=== PATIENT | male | born 1965 | race African-American/Black ===

== ENCOUNTER 2020-03-02 18:09 | Observation (INO) | payer MEDICARE, SELFPAY ==
[2020-03-02] VITALS (7 sets, daily range): BP systolic 120–144; BP diastolic 79–90; PULSE 70–97; RESP 15–18; TEMP 36.4–37.3; O2SAT 95–99; BMI 26.4; BMI 30.1
--- NOTE | 2020-03-02 18:19 | CT_ITS ---
PROCEDURE: CT ABDOMEN PELVIS W CON CLINICAL INDICATION: abd pain Abdominal pain with rectal bleeding COMPARISON: CT ABDPELW/O CT ABD PELVIS W/O CONTRAST from 01/08/2016 TECHNIQUE: IV Contrast: 75ML Isovue 370 Oral Contrast None Axial images obtained with sagittal and coronal reformats. All CT scans at the facility use one or more dose reduction, viz: automated exposure control, ma/kV adjustment per patient size (including targeted exams where dose is matched to indication, i.e. head), or iterative reconstruction technique. FINDINGS: LOWER THORAX: No acute finding ABDOMEN & PELVIS: There is a small area of decreased attenuation within the left lobe of the liver anterior to the gallbladder fossa nonspecific and could be related to area of focal fatty infiltration. The spleen and adrenal glands and pancreas have an unremarkable appearance. There is an IVC filter present with the cephalad portion just caudad to the level of the renal veins. Two faint calcifications are present within the uncinate process region of the pancreas nonspecific. There are dilated fluid-filled loops of small bowel in the abdomen and pelvis. The transition point appears to be in the left lower quadrant. There are also some fluid-filled loops of large bowel with air-fluid levels. The distal ileum does not appear distended. The appendix is not clearly delineated. Central prostate calcifications are present. There is colonic diverticulosis but no evidence of diverticulitis. No free air is evident. There are prominent mesenteric veins. The IVC may be obstructed at the tip of the filter. There is mild thickening of the urinary bladder which could be due to nondistention versus cystitis. Osteoarthritic changes are present involving the hips left greater than right. IMPRESSION: 1. Dilated loops of small bowel with air-fluid levels with possible transition point in the left lower quadrant compatible with partial small bowel obstruction. 2. Prominent mesenteric veins with possible obstruction of the IVC 3. Colonic diverticulosis without diverticulitis. 4. Mild nonspecific thickening of the urinary bladder Dictated by: Obey Renae MD 03/03/2020 10:44 Obey Renae MD in [place] 03/03/2020 10:44
--- NOTE | 2020-03-02 18:22 | HMH.EDGENADL ---
ED Disposition Condition on Discharge: Good - Critical Care Critical Care Time: No <Stan Barrera - Last Filed: 03/02/20 19:20> <Wicho Aguilar - Last Filed: 03/02/20 20:22> Clinical Impression: Small bowel obstruction GI bleed Qualifiers: GI bleed type/associated pathology: unspecified gastrointestinal hemorrhage type Qualified Code(s): K92.2 - Gastrointestinal hemorrhage, unspecified Disposition: Admitted As Inpatient Instructions: DI for Acute Abdominal Pain Referrals: Wicho Aguilar MD [Primary Care Provider] - Attestation: On 03/02/20, the high probability of a clinically significant, sudden or life threatening deterioration of the following system(s) required my full and direct attention, intervention and personal management. The time I documented below is in addition to time spent performing reported procedures but includes the following listed in this critical care notation. Medical Decision Making - Medical Records Medical records reviewed: Yes: I reviewed the patient's medical records. - Aime Inquiry Pt receiving controlled substance: No - Lab Data Lab results reviewed: Yes: I reviewed the patient's lab results. Result diagrams: 03/02/20 18:24 03/02/20 18:24 <Stan Barrera - Last Filed: 03/02/20 19:20> - Lab Data Result diagrams: 03/02/20 18:24 03/02/20 18:24 <Wicho Aguilar - Last Filed: 03/02/20 20:22> Vital Signs: 03/02/20 18:10 03/02/20 19:10 03/02/20 19:30 Temperature 99.1 F Temperature Source Oral Pulse Rate [Radial] 97 H 76 70 Respiratory Rate 16 16 16 Blood Pressure [Right Arm] 144/87 H 124/81 128/88 Blood Pressure Mean [Right Arm] 106 95 101 Blood Pressure Source [Right Arm] Automatic Cuff Automatic Cuff Blood Pressure Position [Right Arm] Sitting Sitting Sitting 02 Sat by Pulse Oximetry 97 99 98 Oxygen Delivery Method Room Air Room Air Room Air 03/02/20 20:00 Temperature Temperature Source Pulse Rate [Radial] 73 Respiratory Rate 16 Blood Pressure [Right Arm] 137/85 Blood Pressure Mean [Right Arm] 102 Blood Pressure Source [Right Arm] Automatic Cuff Blood Pressure Position [Right Arm] Sitting 02 Sat by Pulse Oximetry 98 Oxygen Delivery Method Room Air - Lab Data Lab Results 03/02/20 18:24: WBC 6.5, RBC 5.31, Hgb 15.4, Hct 47.1, MCV 88.7, MCH 29.0, MCHC 32.7, RDW 13.5, Plt Count 334, MPV 7.1 L, Neut % (Auto) 44.6, Lymph % (Auto) 44.7, [place] % (Auto) 5.1, Eos % (Auto) 4.7, Baso % (Auto) 0.9, Neut # (Auto) 2.9, Lymph # (Auto) 2.9, [place] # (Auto) 0.3, Eos # (Auto) 0.3, Baso # (Auto) 0.1 03/02/20 18:24: PT 11.4, INR 1.03, APTT 24.2 03/02/20 18:24: Sodium 141, Potassium 3.4 L, Chloride 104, Carbon Dioxide 28, Anion Gap 12.4, BUN 8 L, Creatinine 1.00, Estimated Creat Clear 108, Estimated GFR 78, Est GFR ( Amer) 94, Glucose 109 H, Calcium 9.9, Total Bilirubin 1.5 H, AST 31, ALT 22, Alkaline Phosphatase 75, Total Protein 9.2 H, Albumin 5.1 H, Globulin 4.1 H, Albumin/Globulin Ratio 1.2, Lipase 59 03/02/20 18:24: SARS-CoV-2 IgG Ab (Rapid) Negative, SARS-CoV-2 IgM Ab (Rapid) Negative 03/02/20 18:25: Stool Occult Blood Positive A 03/02/20 18:50: Blood Type A Positive, Antibody Screen Negative Orders (Tests/Meds): ED MEDICATIONS Generic Name Dose Route Start Last Admin Trade Name Freq PRN Reason Stop Dose Admin Pantoprazole Sodium 80 mg/ 100 mls @ 10 mls/hr 03/02/20 20:20 03/02/20 19:37 Sodium Chloride IV 03/05/20 20:19 10 mls/hr .Q10H JAYMIE Administration Sodium Chloride 10 ml 03/02/20 19:32 03/02/20 19:36 Sodium Chloride 0.9% 10ml Vial IV 04/01/20 19:31 10 ml NEEDED PRN Administration dilute protonix Discontinued Medications Generic Name Dose Route Start Last Admin Trade Name Freq PRN Reason Stop Dose Admin Pantoprazole Sodium 80 mg/ 100 mls @ 100 mls/hr 03/02/20 19:20 03/02/20 20:11 Sodium Chloride IV 03/02/20 20:19 Not Given ONCE ONE Iopamidol 75 ml 03/02/20 19:19 03/02/20 19:20
[2020-03-02 18:37] LABS: Occult Blood,Stool Positive (Negative)
[2020-03-02 18:47] LABS: Chloride 104 mmol/L (98-107); Potassium 3.4 mmoL/L (3.5-5.1); Sodium 141 mmol/L (136-145)
[2020-03-02 18:49] LABS: Blood Urea Nitrogen 8 mg/dl (9-20)
[2020-03-02 18:50] LABS: Alanine Aminotransferase 22 U/L (12-78); Albumin Level 5.1 g/dl (3.5-5.0); Albumin/Globulin Ratio 1.2 (1.1-1.8); Alkaline Phosphatase 75 U/L (38-126); Anion Gap 12.4 mEq/L (5-15); Aspartate Amino Transferase 31 U/L (17-59); Bilirubin,Total 1.5 mg/dl (0.2-1.3); Calcium 9.9 mg/dl (8.4-10.2); Carbon Dioxide 28 mmol/L (22.0-30.0); Creatinine Clearance Estimated 108 mL/min (50-200); Estimated Glomerular Filt Rate 78 ml/min (>60); GFR (African American) 94 ML/MIN (>60); Globulin 4.1 g/dL (1.3-3.2); Glucose 109 mg/dl (74-100); Lipase 59 U/L (23-300); Total Protein,Serum 9.2 g/dl (6.3-8.2)
[2020-03-02 18:53] LABS: Basophils # 0.1 K/mm3 (0-0.2); Basophils % 0.9 % (0.1-2.0); Eosinophils # 0.3 K/mm3 (0.0-0.4); Eosinophils % 4.7 % (0.1-12.0); Hematocrit 47.1 % (42.0-52.0); Hemoglobin 15.4 g/dL (14.1-18.0); Lymphocytes # 2.9 K/mm3 (0.7-4.5); Lymphocytes % 44.7 % (10-50); Mean Corpuscular HGB Conc 32.7 g/dL (31.8-35.4); Mean Corpuscular Volume 88.7 fl (80-94); Mean Platelet Volume 7.1 fl (7.4-10.4); Monocytes # 0.3 K/mm3 (0.1-1.0); Monocytes % 5.1 % (1.7-9.3); Neutrophils # 2.9 K/mm3 (1.8-7.8); Neutrophils % 44.6 % (37.0-80.0); Platelet Count 334 K/mm3 (142-424); Red Blood Count 5.31 M/mm3 (4.60-6.20); Red Cell Distribution Width 13.5 % (11.5-17.5); White Blood Count 6.5 K/mm3 (4.8-10.8)
[2020-03-02 19:13] LABS: Activated Partial Thrombo Time 24.2 seconds (23.6-34.0); INR 1.03 (0.9-1.1); Prothrombin Time 11.4 seconds (9.4-11.8)
--- NOTE | 2020-03-02 20:01 | PC.NURSE ---
speaking with Dr. Peck at this time.
--- NOTE | 2020-03-02 20:04 | PC.NURSE ---
called for a bed assignment, spoke with kayla. info given gi bleed, partial bowel obstruction /acute/mindy-mindy
[2020-03-02 20:17] LABS: Coronavirus 19 IgG Antibody Negative (Negative); Coronavirus 19 IgM Antibody Negative (Negative)
--- NOTE | 2020-03-02 21:50 | PC.NURSE ---
REPORT RECEIVED FROM Jayjay DUMONT RN IN ED. CHART REVIEWED, MEDS REVIEWED. STATES DR. ADRIANA SHARMA PROTONIX IV YANNICK.
--- NOTE | 2020-03-02 22:22 | PC.NURSE ---
PT ARRIVED TO FLOOR VIA WHEELCHAIR @ [id number]
[2020-03-03] VITALS (15 sets, daily range): BP systolic 106–145; BP diastolic 58–81; PULSE 52–91; RESP 12–22; TEMP 36.4–36.9; O2SAT 91–99; BMI 29.8
--- NOTE | 2020-03-03 04:00 | PC.NURSE ---
NO ACUTE CHANGES SINCE ADMISSION, PT HAS RESTED INTERMITTENTLY. PAIN MEDICATION GIVEN TWICE, SEE EMAR. ABD REMAINS TENDER. BOWEL SOUNDS ACTIVE X 4 QUADS. IV PATENT. VITAL SIGNS STABLE. CALL LIGHT WITHIN REACH. PT A&O X 4.
--- NOTE | 2020-03-03 06:36 | HMH.GSCON ---
*Admission Date: 03/02/20 *Reason for consult:: Small bowel obstruction *History of present illness: This is a 54-year-old gentleman who presented yesterday evening to the emergency department with intermittent bright red blood per rectum and concerns for recurrent small bowel obstruction. He describes 3-4 days of bloody diarrhea . No fevers. No hematemesis. With regard to the overall color he states that is somewhat difficult to describe. He does have a history of small bowel obstruction requiring surgical intervention on 2 separate occasions. He states that his most recent surgery for obstruction was in 2012 or 2013 . He also did have some generalized bloat and was concerned for possible recurrent obstruction. He continues to pass flatus and states that he just passed gas a few minutes ago . He has not had an episode of diarrhea since presenting to the emergency department. 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 No fever, chills, cough, shortness of breath, urinary symptoms, diarrhea, constipation, chest pain. (Stan Barrera) Review of Systems - Constitutional Denies chills - Eyes Denies change in vision - ENT Denies difficulty swallowing - *Cardiovascular Denies chest pain - *Respiratory Denies cough - *Gastrointestinal Reports bloating, Denies abdominal pain, Denies nausea, Denies vomiting Comments: Bloody diarrhea - *Genitourinary Denies difficulty urinating - *Musculoskeletal Denies deformity - Integumentary/Breasts Denies new lesions - *Neurologic Denies confusion - Psychiatric Denies anxiety - Endocrine Denies cold intolerance - Hematologic/Lymphatic Reports easy bruising - Allergic/Immunologic Denies wheezing [facility] History Medical History: Reports:: Deep Vein Thrombosis Denies:: Cancer, Diabetes Mellitus Type 1, Diabetes Mellitus Type 2, Hypertension, MRSA *Have you ever received a pneumonia vaccine?: No *Have you received a flu vaccine this season?: No Other Surgeries: Yes: Appendectomy, Other (DVT filters, bowel obstruction) Amputation: No - *Social History Last grade of school completed: High school graduate Smoking Status: Current every day smoker Tobacco Type: cigars # Packs/Day (cigarettes): 1 Alcohol Intake: never *Occupational Status:: employed Household Members: spouse *Travel in the last 8 weeks: None Family Hx:: No significant family history Meds Home Medications Medication Instructions Recorded Confirmed Type Atorvastatin Calcium [Lipitor 80mg 80 mg PO HS 03/02/20 03/02/20 History Tab] Gabapentin 800 mg PO TID 03/02/20 03/02/20 History Hydrocodone/Acetaminophen 1 each PO TID 03/02/20 03/02/20 History [Hydrocodone-Acetamin 10-325 mg] Metoprolol Succinate [Metoprolol 100 mg PO DAILY 03/02/20 03/02/20 History Succinate 100mg Tablet*] Rivaroxaban [Xarelto 10mg tablet] 10 mg PO DAILY 03/02/20 03/02/20 History Allergies Allergy/AdvReac Type Severity Reaction Status Date / Time venom-honey bee Allergy Unknown Verified 12/21/17 20:52 [BEE VENOM (HONEY BEE)] Exam Vital signs and Labs for Last 24 Hours: Temp Pulse Resp BP Pulse Ox 97.6 F 62 18 113/70 96 03/03/20 04:00 03/03/20 04:0
--- NOTE | 2020-03-03 07:19 | HMH.PHAVTE ---
[facility] Pharmacy VTE Monitoring - Patient Demographics Admission date: 03/02/20 Report Date: 03/03/20 Time: 07:19 Allergies/Adverse Reactions: Patient Allergies venom-honey bee [BEE VENOM (HONEY BEE)] Allergy (Unknown, Verified 12/21/17 20:52) Height: 1.85 m Weight: 102.115 kg Patient Problems: Current Active Problems GI bleed (Acute) Small bowel obstruction (Acute) Bloody diarrhea (Acute) - VTE Risk Labs: VTE Related Lab Results Hgb 15.4 g/dL (14.1-18.0) 03/02/20 18:24 Hct 47.1 % (42.0-52.0) 03/02/20 18:24 Plt Count 334 K/mm3 (142-424) 03/02/20 18:24 PT 11.4 seconds (9.4-11.8) 03/02/20 18:24 INR 1.03 (0.9-1.1) 03/02/20 18:24 APTT 24.2 seconds (23.6-34.0) 03/02/20 18:24 BUN 8 mg/dl (9-20) L 03/02/20 18:24 Creatinine 1.00 mg/dl (0.66-1.25) 03/02/20 18:24 Estimated Creat Clear 108 mL/min (50-200) 03/02/20 18:24 Was VTE Risk Assessment Performed: Yes VTE Score: 1 VTE Risk Level: Very Low Risk - Prophylaxis VTE Prophylaxis Ordered?: Yes Types of VTE Prophylaxis: TEDS Knee High Location of Applied Device: Bilateral Lower Extremeties
--- NOTE | 2020-03-03 07:23 | PC.NURSE ---
report given to estrada blevins rn
[2020-03-03 07:24] LABS: Basophils % 0.8 % (0.1-2.0); Eosinophils # 0.3 K/mm3 (0.0-0.4); Eosinophils % 5.2 % (0.1-12.0); Hematocrit 45.9 % (42.0-52.0); Hemoglobin 15.1 g/dL (14.1-18.0); Lymphocytes # 2.3 K/mm3 (0.7-4.5); Lymphocytes % 47.7 % (10-50); Mean Corpuscular HGB Conc 32.9 g/dL (31.8-35.4); Mean Corpuscular Hemoglobin 29.3 pg (27.0-31.2); Mean Corpuscular Volume 89.1 fl (80-94); Mean Platelet Volume 7.2 fl (7.4-10.4); Monocytes # 0.2 K/mm3 (0.1-1.0); Monocytes % 5.1 % (1.7-9.3); Neutrophils % 41.2 % (37.0-80.0); Platelet Count 278 K/mm3 (142-424); Red Blood Count 5.16 M/mm3 (4.60-6.20); Red Cell Distribution Width 13.6 % (11.5-17.5); White Blood Count 4.8 K/mm3 (4.8-10.8)
[2020-03-03 07:39] LABS: Anion Gap 13.2 mEq/L (5-15); Blood Urea Nitrogen 8 mg/dl (9-20); Calcium 9.3 mg/dl (8.4-10.2); Carbon Dioxide 24 mmol/L (22.0-30.0); Chloride 107 mmol/L (98-107); Creatinine Clearance Estimated 122 mL/min (50-200); Estimated Glomerular Filt Rate 78 ml/min (>60); GFR (African American) 94 ML/MIN (>60); Glucose 107 mg/dl (74-100); Potassium 4.2 mmoL/L (3.5-5.1); Sodium 140 mmol/L (136-145)
--- NOTE | 2020-03-03 09:32 | PC.NURSE ---
at discussing POC with pt.
--- NOTE | 2020-03-03 09:44 | HMH.HP ---
*Admission Date: 03/02/20 *Chief complaint: sbo *History of present illness: 54-year-old male who presented to the emergency department with intermittent bright red blood per rectum and concerns for recurrent small bowel obstruction. Patient states 3-4 days of bloody diarrhea and abd pain. No fever, chills, cough, shortness of breath, urinary symptoms, diarrhea, constipation, chest pain. Patient states He has a history of small bowel obstruction requiring surgical intervention on 2 separate occasions. He states that his most recent surgery for obstruction was in [address] newell . Hx of DVT is taking xerolto. Patient was admitted for surgery and Gi consult. [facility] History I have reviewed the patient's past medical history: Yes Medical History: Reports:: Deep Vein Thrombosis Denies:: Cancer, Diabetes Mellitus Type 1, Diabetes Mellitus Type 2, Hypertension, MRSA *Have you ever received a pneumonia vaccine?: No *Have you received a flu vaccine this season?: No Other Surgeries: Yes: Appendectomy, Other (DVT filters, bowel obstruction) Amputation: No - *Social History Last grade of school completed: High school graduate Smoking Status: Current every day smoker Tobacco Type: cigars # Packs/Day (cigarettes): 1 Alcohol Intake: never *Occupational Status:: employed Household Members: spouse *Travel in the last 8 weeks: None Family Hx:: No significant family history Review of Systems - Review of Systems Review of systems:: pertinent systems reviewed and negative unless documented below - Constitutional Denies body ache(s), Denies fever(s) - Eyes Denies change in vision - ENT Denies ear pain - *Cardiovascular Denies chest pain with activity - *Respiratory Denies chest congestion - *Gastrointestinal Reports abdominal pain, Reports bloating, Reports change in stools, Reports cramping, Reports nausea - *Genitourinary Denies urinary frequency - *Musculoskeletal Denies joint pain - Integumentary/Breasts Denies bleeding lesions, Denies rash - *Neurologic Denies confusion - Psychiatric Denies anxiety - Endocrine Denies flushing - Hematologic/Lymphatic Denies enlarged lymph nodes - Allergic/Immunologic Denies lip swelling Meds Home Medications Medication Instructions Recorded Confirmed Type Atorvastatin Calcium [Lipitor 80mg 80 mg PO HS 03/02/20 03/02/20 History Tab] Gabapentin 800 mg PO TID 03/02/20 03/02/20 History Hydrocodone/Acetaminophen 1 each PO TID 03/02/20 03/02/20 History [Hydrocodone-Acetamin 10-325 mg] Metoprolol Succinate [Metoprolol 100 mg PO DAILY 03/02/20 03/02/20 History Succinate 100mg Tablet*] Rivaroxaban [Xarelto 20mg Tablet*] 20 mg PO DAILY 03/03/20 03/03/20 History Allergies Allergy/AdvReac Type Severity Reaction Status Date / Time venom-honey bee Allergy Unknown Verified 12/21/17 20:52 [BEE VENOM (HONEY BEE)] Exam Vital signs and Labs for Last 24 Hours: Temp Pulse Resp BP Pulse Ox 98.1 F 63 20 120/80 97 03/03/20 07:45 03/03/20 07:45 03/03/20 07:45 03/03/20 07:45 03/03/20 07:45 Laboratory Results - last 24 hr 03/02/20 18:24: WBC 6.5, RBC 5.31, Hgb 15.4, Hct 47.1, MCV 88.7, MCH 29.0, MCHC 32.7, RDW 13.5, Plt Count 334, MPV 7.1 L, Neut % (Auto) 44.6, Lymph % (Auto) 44.7, [place] % (Auto) 5.1, Eos % (Auto) 4.7, Baso % (Auto) 0.9, Neut # (Auto) 2.9, Lymph # (Auto) 2.9, [place] # (Auto) 0.3, Eos # (Auto) 0.3, Baso # (Auto) 0.1 03/02/20 18:24: PT 11.4, INR 1.03, APTT 24.2 03/02/20 18:24: Sodium 141, Potassium 3.4 L, Chloride 104, Carbon Dioxide 28, Anion Gap 12.4, BUN 8 L, Creatinine 1.00, Estimated Creat Clear 108, Estimated GFR 78, Est GFR ( Amer) 94, Glucose 109 H, Calcium 9.9, Total Bilirubin 1.5 H, AST 31, ALT 22, Alkaline Phosphatase 75, Total Protein 9.2 H, Albumin 5.1 H, Globulin 4.1 H, Albumin/Globulin Ratio 1.2, Lipase 59 03/02/20 18:24: SARS-CoV-2 IgG Ab (Rapid) Negative, SARS-CoV-2 IgM Ab (Rapid) Negative
--- NOTE | 2020-03-03 10:00 | PC.NURSE ---
Consents signed for surgery
--- NOTE | 2020-03-03 11:30 | PC.NURSE ---
2nd Fleets given.
--- NOTE | 2020-03-03 13:11 | HMH.PHAINT ---
MEDICATION RECONCILIATION COMPLETED ON PATIENT USING EXTERNAL FILL HISTORY FROM PHARMACY AND PATIENT INTERVIEW. -KATHY RIVERA, MARIAHD
--- NOTE | 2020-03-03 13:28 | PC.NURSE ---
Pt taken to preop via stretcher for colonoscopy.
--- NOTE | 2020-03-03 14:39 | P.PN_ITS ---
[facility] Anesthesia Checklist - Patient Identification Patient Identification: Arm Band - Structural Data Admitted From: Home Planned Operative Procedure/s: flexible sigmoidoscopy Consent for Planned Operative Procedure(s) Verified: Yes Verified Documents: Surgical Consent, History and Physical - NPO Status Verified Time NPO: 00:00 - Additional verifications Anesthesia Reactions: No - Airway Assessment C-Spine Mobility Assessed: Yes (mp2) TMJ Mobility Assessed: Yes Dentition: Good Dentition - Neurological Assessment Level of Consciousness: Awake, Alert - Anesthesia Plan Anesthesia Risk discussed: Yes Anesthesia Plan: Verified ASA Class: III Anesthesia Type: MAC [facility] History Medical History: Reports:: Coronary Artery Disease, Deep Vein Thrombosis, Hyperlipidemia, Hypertension Denies:: Cancer, Diabetes Mellitus Type 1, Diabetes Mellitus Type 2, MRSA *Have you ever received a pneumonia vaccine?: No *Have you received a flu vaccine this season?: No Anesthesia experience/problems:: nac Other Surgeries: Yes: Appendectomy, Other (DVT filters, bowel obstruction) Amputation: No - *Social History Last grade of school completed: High school graduate Smoking Status: Current every day smoker Tobacco Type: cigars # Packs/Day (cigarettes): 1 Alcohol Intake: never Substance Use Type: denies use *Occupational Status:: employed Household Members: spouse *Travel in the last 8 weeks: None Family Hx:: No significant family history
--- NOTE | 2020-03-03 15:06 | P.PCN_ITS ---
[facility] Procedure Note Procedure Note:: Colonoscopy Procedure Report: Colonoscopy Endoscopist: Manuel Yen II, MD Referring physician: Wicho Aguilar MD/Brodie Peck MD Date of Procedure: March 03, 2020 Equipment: Olympus 180 variable stiffness pediatric colonoscope Sedation: MAC sedation Indication: Mr. Cedeño is a 54-year-old gentleman who presents with generalized abdominal pain and bright red rectal bleeding that all began on February 28, 2020. He states that he did not initially come into the emergency room but did present to the ED yesterday. His hemoglobin/hematocrit (15.4 and 47.1) were normal and these have not declined much even with hydration. The patient was having some liquid stools. He did undergo CT scan of the abdomen and pelvis that did show a prominent mesenteric venous system with possible obstructed inferior vena cava. There were also dilated loops of small bowel with a transition point in the left lower quadrant. The patient has had 2 prior bowel obstructions requiring surgery in 2011 and 2014 (Dr. Darin Manzo). His last colonoscopy was 4 to 5 years ago (Dr. Brodie Peck M.D.). He reports no recent weight loss. He is on Xarelto because of a prior DVT. Colonoscopy is performed for diagnostic purposes. Procedure: Prior to the procedure, a history and physical exam was performed, and patient's medications and allergies were reviewed. The risks, benefits and alternatives of the sedation and procedure were discussed with the patient. All questions were answered and informed consent was obtained. The patient was brought to the procedure room. Patient identification and proposed procedure were verified by the physician and the nurse. The patient was placed in a left lateral decubitus position and the scope was passed under direct vision. Throughout the procedure, the patient's blood pressure, pulse, and oxygen saturations were monitored continuously. The colonoscopy was accomplished without difficulty. The patient tolerated the procedure well. Findings: On digital rectal examination there was normal rectal tone. There were no external hemorrhoids. The colonoscope was introduced through the anal canal to the rectum and advanced to the cecum. The ileocecal valve and appendiceal orifice were identified. The scope was advanced a short distance into the ileum which appeared grossly normal. The scope was then withdrawn into the colon. The cecum, ascending, transverse, descending, sigmoid and rectum were grossly normal. There were no mucosal abnormalities identified. Upon retroflexion within the rectum there were grade 2 internal hemorrhoids.since this was not performed for screening purposes, the patient was prepped with enemas alone and the preparation was fair throughout. Impression: 1. Normal colonoscopy with intubation of the terminal ileum 2. Grade 2 internal hemorrhoids Plan: I do feel that the patient does have a point of obstruction within the jejunum or ileum and I would consider a dedicated dual contrast (air/barium enterography) small bowel series. I would consider video capsule evaluation but I would have some reservation because the capsule could get hung up and this would have to be removed surgically. I do feel that the patient's bleeding was hemorrhoidal and he has not dropped his hemoglobin significantly. The patient does not have a distended abdomen or any requirement for surgery presently but has had chronic small bowel obstructions (probable adhesions).
--- NOTE | 2020-03-03 15:22 | PC.NURSE ---
Report received from Adalberto (post op RN)
--- NOTE | 2020-03-03 19:13 | PC.NURSE ---
REPORT GIVEN TO NIGHTSHIFT NURSE
--- NOTE | 2020-03-03 23:30 | XR_ITS ---
PROCEDURE: XR ACUTE ABDOMEN SERIES CLINICAL INDICATION: enteritis/ileus vs. SBO Abdominal pain and distension COMPARISON: CR CXR2V XR chest 2V from 12/21/[address] ABDOMEN PELVIS W CON from 03/02/2020 FINDINGS: Frontal view of the chest shows mild atelectatic changes in the left infrahilar region. Upright and supine views of the abdomen demonstrates mildly distended small bowel loops in the left upper quadrant with scattered air-fluid levels. Nondistended gas-filled loops of large bowel also noted in the right upper quadrant. Other findings:Osteoarthritic changes are present involving the hips. Prior cholecystectomy. IVC filter is present to the right of the L1-L2. IMPRESSION: Mildly distended small bowel loops noted left upper quadrant which could be related to partial small bowel obstruction or ileus/enteritis. The gas-filled small bowel loops do appear somewhat improved compared to the bus girl exam from the CT of 03/02/2020.. Dictated by: Obey Renae MD 03/04/2020 05:45 Obey Renae MD in [place] 03/04/2020 05:45
[2020-03-04] VITALS: BP 137/68; PULSE 56; RESP 20; TEMP 36.6; O2SAT 94
[2020-03-04 04:00] VITALS: BP 135/73; PULSE 54; RESP 20; TEMP 36.4; O2SAT 94
--- NOTE | 2020-03-04 04:46 | PC.NURSE ---
Pt is A&O x4. Expiratory and inspiratory rhonchi heard bilaterally t/o all lung bases. No cough noted. Abdomen remains large, round and tender per palpation. Hypoactive bowel sounds heard in all 4 quads. Pt reports x1 bloody stool this shift. Unable to collect for stool specimen due to pt missing hat on toilet. IV in RAC infiltrated this shift, warm compress applied. New 20g PIV in LAC and is patent. Pt has c/o abdominal pain x1 this shift. Pt medicated per APR. No other acute changes or complaints at this time.
--- NOTE | 2020-03-04 06:00 | XR_ITS ---
PROCEDURE: XR ACUTE ABDOMEN SERIES CLINICAL INDICATION: enteritis/ileus vs. SBO Abdominal pain and distension COMPARISON: CR XR ACUTE ABDOMEN SERIES from 03/03/2020 FINDINGS: Upright view of the chest shows minimal atelectatic or fibrotic change in left lower lobe. Mildly distended small bowel loops once again noted in the upper abdomen with a few scattered air-fluid levels which may be slightly improved. Large bowel gas is also noted. IVC filter is unchanged. There are degenerative changes in the hips and spine. No free air apparent. IMPRESSION: Slight decreased distention of small-bowel loops in the upper abdomen suggesting mild improvement in partial obstruction or ileus/enteritis Dictated by: Obey Renae MD 03/04/2020 06:55 Obey Renae MD in [place] 03/04/2020 06:55
[2020-03-04 06:38] LABS: Basophils % 0.6 % (0.1-2.0); Eosinophils # 0.2 K/mm3 (0.0-0.4); Eosinophils % 6.3 % (0.1-12.0); Hemoglobin 13.7 g/dL (14.1-18.0); Lymphocytes # 1.2 K/mm3 (0.7-4.5); Lymphocytes % 34.9 % (10-50); Mean Corpuscular HGB Conc 32.6 g/dL (31.8-35.4); Mean Corpuscular Hemoglobin 28.5 pg (27.0-31.2); Mean Corpuscular Volume 87.4 fl (80-94); Mean Platelet Volume 7.4 fl (7.4-10.4); Monocytes # 0.2 K/mm3 (0.1-1.0); Monocytes % 4.6 % (1.7-9.3); Neutrophils # 1.9 K/mm3 (1.8-7.8); Neutrophils % 53.5 % (37.0-80.0); Platelet Count 251 K/mm3 (142-424); Red Blood Count 4.81 M/mm3 (4.60-6.20); Red Cell Distribution Width 13.4 % (11.5-17.5); White Blood Count 3.5 K/mm3 (4.8-10.8)
[2020-03-04 06:49] LABS: Anion Gap 10.5 mEq/L (5-15); Blood Urea Nitrogen 7 mg/dl (9-20); Calcium 8.8 mg/dl (8.4-10.2); Carbon Dioxide 26 mmol/L (22.0-30.0); Chloride 104 mmol/L (98-107); Creatinine Clearance Estimated 153 mL/min (50-200); Estimated Glomerular Filt Rate 101 ml/min (>60); GFR (African American) 122 ML/MIN (>60); Glucose 97 mg/dl (74-100); Potassium 3.5 mmoL/L (3.5-5.1); Sodium 137 mmol/L (136-145)
[2020-03-04 08:00] VITALS: BP 127/78; PULSE 82; RESP 18; TEMP 36.4; O2SAT 96
--- NOTE | 2020-03-04 08:16 | FL_ITS ---
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 Bowel gas pattern is nonspecific. Small bowel is visualized throughout its entirety. Bowel loops no longer appear dilated. The small bowel folds are not distended. Terminal ileum has an unremarkable appearance. There is no evidence of bowel obstruction. No masses or mucosal abnormalities apparent. IMPRESSION: Unremarkable small bowel series. No evidence of bowel obstruction. Dictated by: Obey Renae MD 03/04/2020 14:21 Obey Renae MD in [place] 03/04/2020 14:21
--- NOTE | 2020-03-04 08:18 | HMH.GSPN ---
Subjective Patient reports: no new complaints Narrative: He states that he has continued to have bloody diarrhea . He has had at least 1 or 2 episodes of bloody diarrhea overnight. Progress Note: A&P (1) Bloody diarrhea Status: Acute Assessment and plan: Diarrhea panel ordered. (2) Small bowel obstruction Status: Acute Assessment and plan: The patient has a complex history of bowel obstruction requiring surgical intervention on 2 separate occasions. Plain films this morning show overall improvement in his bowel gas pattern. In addition, he continues to have what he describes as bloody diarrhea and clearly does not have a complete obstruction. However, a partial obstruction remains a possibility. He does not have need for emergent operative intervention; however, he does have a much higher than average likelihood of ultimately requiring such. Secondary to his comorbid conditions of DVT/filter and multiple intra-abdominal surgeries the overall risk associated with surgery would be significant. A small bowel follow-through has been ordered. (3) History of DVT (deep vein thrombosis) Status: Acute (4) Anticoagulant long-term use Status: Acute Exam Vital signs and Labs for Last 24 Hours: Temp Pulse Resp BP Pulse Ox 97.5 F L 54 L 20 135/73 94 L 03/04/20 04:00 03/04/20 04:00 03/04/20 04:00 03/04/20 04:00 03/04/20 04:00 Laboratory Results - last 24 hr 03/04/20 06:22: WBC 3.5 L D, RBC 4.81, Hgb 13.7 L, Hct 42.0, MCV 87.4, MCH 28.5, MCHC 32.6, RDW 13.4, Plt Count 251, MPV 7.4, Neut % (Auto) 53.5, Lymph % (Auto) 34.9, [place] % (Auto) 4.6, Eos % (Auto) 6.3, Baso % (Auto) 0.6, Neut # (Auto) 1.9, Lymph # (Auto) 1.2, [place] # (Auto) 0.2, Eos # (Auto) 0.2, Baso # (Auto) 0.0 03/04/20 06:22: Sodium 137, Potassium 3.5, Chloride 104, Carbon Dioxide 26, Anion Gap 10.5, BUN 7 L, Creatinine 0.80, Estimated Creat Clear 153, Estimated GFR 101, Est GFR ( Amer) 122 D, Glucose 97, Calcium 8.8 I & O for Last 24 hours: Intake & Output 03/01/20 03/02/20 03/03/20 03/04/20 11:59 11:59 11:59 11:59 Intake Total 480 / 480 Balance 480 / 480 Weight 225 lb 2 oz 226 lb 9 oz Narrative: He did undergo a colonoscopy by Dr. Yen yesterday. Somewhat concerning for at least a partial small bowel obstruction was the fact that his bowel preparation was quite good with only enemas. - Constitutional no acute distress - *Routine Respiratory Exam Absent: respiratory distress - *Routine Cardiovascular Exam Present: RRR - *Routine Abdominal Exam Present: soft. Absent: distended
--- NOTE | 2020-03-04 09:32 | HMH.ACPN2 ---
Internal Medicine - PN: Subj *Date: 03/04/20 *Time: 09:32 Interval history: doing some better - still with blood in stool - discussed with surg - will change to lovenox at this time Exam Vital signs and Labs for Last 24 Hours: Temp Pulse Resp BP Pulse Ox 97.5 F L 82 18 127/78 96 03/04/20 08:00 03/04/20 08:00 03/04/20 08:00 03/04/20 08:00 03/04/20 08:00 Laboratory Results - last 24 hr 03/04/20 06:22: WBC 3.5 L D, RBC 4.81, Hgb 13.7 L, Hct 42.0, MCV 87.4, MCH 28.5, MCHC 32.6, RDW 13.4, Plt Count 251, MPV 7.4, Neut % (Auto) 53.5, Lymph % (Auto) 34.9, [place] % (Auto) 4.6, Eos % (Auto) 6.3, Baso % (Auto) 0.6, Neut # (Auto) 1.9, Lymph # (Auto) 1.2, [place] # (Auto) 0.2, Eos # (Auto) 0.2, Baso # (Auto) 0.0 03/04/20 06:22: Sodium 137, Potassium 3.5, Chloride 104, Carbon Dioxide 26, Anion Gap 10.5, BUN 7 L, Creatinine 0.80, Estimated Creat Clear 153, Estimated GFR 101, Est GFR ( Amer) 122 D, Glucose 97, Calcium 8.8 I & O for Last 24 hours: Intake & Output 03/01/20 03/02/20 03/03/20 03/04/20 11:59 11:59 11:59 11:59 Intake Total 480 / 480 0 / 0 Balance 480 / 480 0 / 0 Weight 225 lb 2 oz 226 lb 9 oz - Constitutional no acute distress, obese - *Routine HEENT Exam Head: Present: normocephalic Eye: Present: EOMI, PERRL ENT: Present: mucous membranes dry - *Routine Neck Exam Present: supple - *Routine Respiratory Exam Absent: respiratory distress - *Routine Cardiovascular Exam Present: RRR - *Routine Abdominal Exam Present: soft, tenderness. Absent: rebound - *Routine Extremities Exam Absent: cyanosis - *Routine Skin Exam Present: intact - *Routine Neurological Exam Present: alert, CN II-XII intact - Routine Psychiatric Exam Present: normal affect Assessment and Plan (1) Bloody diarrhea Status: Acute Category: Medical Code(s): R19.7 - Diarrhea, unspecified (2) Small bowel obstruction Status: Acute Category: Medical Code(s): K56.609 - Unspecified intestinal obstruction, unspecified as to partial versus complete obstruction (3) History of DVT (deep vein thrombosis) Status: Acute Category: Medical Code(s): Z86.718 - Personal history of other venous thrombosis and embolism (4) Anticoagulant long-term use Status: Acute Category: Medical Code(s): Z79.01 - [facility] (current) use of anticoagulants (5) Obesity (BMI 30.0-34.9) Status: Acute Category: Medical Code(s): E66.9 - Obesity, unspecified
--- NOTE | 2020-03-04 11:54 | PC.NURSE ---
Pt remains off floor at this time for small bowel series.
[2020-03-04 14:42] LABS: Adenovirus F 40/41, stool Not Detected (NotDetected); Astrovirus Not Detected (NotDetected); Campylobacter Not Detected (NotDetected); Clostridium Difficile A/B, PCR Not Detected (NotDetected); Cryptosporidium Not Detected (NotDetected); Cyclospora Cayetanesis Not Detected (NotDetected); Entamoeba histolytica Not Detected (NotDetected); Enteroaggregative E coli Not Detected (NotDetected); Enteropathogenic E coli Not Detected (NotDetected); Enterotoxigenic E coli Not Detected (NotDetected); Giardia lamblia Not Detected (NotDetected); Norovirus Not Detected (NotDetected); Plesimonas Shigalloides, PCR Not Detected (NotDetected); Rotavirus A Not Detected (NotDetected); Salmonella, PCR Not Detected (NotDetected); Shiga-like toxin E coli Not Detected (NotDetected); Shigella Enterovasive E coli Not Detected (NotDetected); Vibrio Cholerae Not Detected (NotDetected); Vibrio, PCR Not Detected (NotDetected); Yersinia Entercolitica, PCR Not Detected (NotDetected)
--- NOTE | 2020-03-04 14:44 | PC.NURSE ---
sent diarrhea panel it was bloody
[2020-03-04 15:26] VITALS: BP 141/96; PULSE 68; RESP 18; TEMP 36.6; O2SAT 95
--- NOTE | 2020-03-04 15:47 | PC.NURSE ---
Pt back at 1325 to floor from test
[2020-03-04 20:00] VITALS: BP 156/76; PULSE 60; RESP 18; TEMP 36.4; O2SAT 97
--- NOTE | 2020-03-04 20:09 | PC.NURSE ---
Pt alert and oriented and able to make needs known. RR even and unlabored. VSS. have medicated per mar x 1, pt states pain has improved in abd. X 2 bloody stools this shift and awaiting sample results. Placed in contact enteric precautions per protocol. CB in reach. NS @ 100 ml/hr. NAD. Lovenox for vte.
[2020-03-05 04:00] VITALS: BP 137/73; PULSE 72; RESP 18; TEMP 36.7; O2SAT 97
[2020-03-05 05:38] VITALS: BMI 29.9
--- NOTE | 2020-03-05 06:00 | XR_ITS ---
PROCEDURE: XR ACUTE ABDOMEN SERIES CLINICAL INDICATION: enteritis/ileus vs. SBO COMPARISON: No exams were available for comparison FINDINGS: A frontal view of the chest shows no acute finding. Upright and supine views of the abdomen demonstrates residual contrast within the large bowel. No evidence of small-bowel obstruction. IVC filter is present. 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 IMPRESSION: Resolved small bowel obstruction/ileus with residual contrast within the large bowel. Dictated by: Obey Renae MD 03/05/2020 06:40 Obey Renae MD in [place] 03/05/2020 06:40
--- NOTE | 2020-03-05 06:32 | PC.NURSE ---
Pt is A&Ox4. Pt handled full liquid diet appropriately this shift and was very pleased about advancing diet. Pt educated on notifying staff if he was not tolerating full liquids, pt verbalized understanding. Lung sounds CTA. Abdomen remains round and non-tender. No other acute changes or complaints at this time.
[2020-03-05 07:50] LABS: Basophils % 0.3 % (0.1-2.0); Eosinophils # 0.2 K/mm3 (0.0-0.4); Eosinophils % 5.3 % (0.1-12.0); Hematocrit 40.1 % (42.0-52.0); Hemoglobin 13.3 g/dL (14.1-18.0); Lymphocytes # 1.3 K/mm3 (0.7-4.5); Lymphocytes % 36.8 % (10-50); Mean Corpuscular HGB Conc 33.3 g/dL (31.8-35.4); Mean Corpuscular Hemoglobin 28.5 pg (27.0-31.2); Mean Corpuscular Volume 85.7 fl (80-94); Monocytes # 0.2 K/mm3 (0.1-1.0); Monocytes % 5.5 % (1.7-9.3); Neutrophils # 1.8 K/mm3 (1.8-7.8); Platelet Count 264 K/mm3 (142-424); Red Blood Count 4.68 M/mm3 (4.60-6.20); Red Cell Distribution Width 13.2 % (11.5-17.5); White Blood Count 3.5 K/mm3 (4.8-10.8)
[2020-03-05 08:00] VITALS: BP 140/87; PULSE 83; RESP 19; TEMP 36.7; O2SAT 98
[2020-03-05 08:02] LABS: Anion Gap 12.8 mEq/L (5-15); Blood Urea Nitrogen 5 mg/dl (9-20); Calcium 8.9 mg/dl (8.4-10.2); Carbon Dioxide 26 mmol/L (22.0-30.0); Chloride 103 mmol/L (98-107); Creatinine Clearance Estimated 153 mL/min (50-200); Estimated Glomerular Filt Rate 101 ml/min (>60); GFR (African American) 122 ML/MIN (>60); Glucose 101 mg/dl (74-100); Potassium 3.8 mmoL/L (3.5-5.1); Sodium 138 mmol/L (136-145)
--- NOTE | 2020-03-05 08:19 | P.PN_ITS ---
Subjective Patient reports: no new complaints Progress Note: A&P (1) Bloody diarrhea Status: Acute Assessment and plan: Follow-up diarrhea panel (2) Small bowel obstruction Status: Acute Assessment and plan: No obstruction noted on small bowel follow-through yesterday. No need for urgent surgical intervention Continue management as per primary service (3) History of DVT (deep vein thrombosis) Status: Acute (4) Anticoagulant long-term use Status: Acute (5) Obesity (BMI 30.0-34.9) Status: Acute Exam Vital signs and Labs for Last 24 Hours: Temp Pulse Resp BP Pulse Ox 98.1 F 72 18 137/73 97 03/05/20 04:00 03/05/20 04:00 03/05/20 04:00 03/05/20 04:00 03/05/20 04:00 Laboratory Results - last 24 hr 03/05/20 07:07: WBC 3.5 L, RBC 4.68, Hgb 13.3 L, Hct 40.1 L, MCV 85.7, MCH 28.5, MCHC 33.3, RDW 13.2, Plt Count 264, MPV 7.0 L, Neut % (Auto) 52.0, Lymph % (Auto) 36.8, [place] % (Auto) 5.5, Eos % (Auto) 5.3, Baso % (Auto) 0.3, Neut # (Auto) 1.8, Lymph # (Auto) 1.3, [place] # (Auto) 0.2, Eos # (Auto) 0.2, Baso # (Auto) 0.0 03/05/20 07:07: Sodium 138, Potassium 3.8, Chloride 103, Carbon Dioxide 26, Anion Gap 12.8, BUN 5 L D, Creatinine 0.80, Estimated Creat Clear 153, Estimated GFR 101, Est GFR ( Amer) 122, Glucose 101 H, Calcium 8.9 I & O for Last 24 hours: Intake & Output 03/02/20 03/03/20 03/04/20 03/05/20 11:59 11:59 11:59 11:59 Intake Total 480 / 480 0 / 0 840 / 840 Output Total 0 / 0 Balance 480 / 480 0 / 0 840 / 840 Weight 225 lb 2 oz 226 lb 9 oz 226 lb 2 oz Radiology Reports for the Last 24 Hours: Small bowel follow-through yesterday revealed no sign of obstruction - Constitutional no acute distress - *Routine Respiratory Exam Absent: respiratory distress - *Routine Cardiovascular Exam Present: RRR - *Routine Neurological Exam Present: alert - Routine Psychiatric Exam Present: normal affect
--- NOTE | 2020-03-05 09:45 | HMH.DCSUM ---
General - General Admission date:: 03/02/20 Discharge date: 03/05/20 HPI HPI: 54-year-old male who presented to the emergency department with intermittent bright red blood per rectum and concerns for recurrent small bowel obstruction. Patient states 3-4 days of bloody diarrhea and abd pain. No fever, chills, cough, shortness of breath, urinary symptoms, diarrhea, constipation, chest pain. Patient states He has a history of small bowel obstruction requiring surgical intervention on 2 separate occasions. He states that his most recent surgery for obstruction was in [address] newell . Hx of DVT is taking xerolto. Patient was admitted for surgery and Gi consult. Hospital Course Hospital Course: 54-year-old male who presented to the emergency department with intermittent bright red blood per rectum and concerns for recurrent small bowel obstruction. Patient states 3-4 days of bloody diarrhea and abd pain. No fever, chills, cough, shortness of breath, urinary symptoms, diarrhea, constipation, chest pain. Patient states He has a history of small bowel obstruction requiring surgical intervention on 2 separate occasions. He states that his most recent surgery for obstruction was in [address] newell . Hx of DVT is taking xerolto. Patient was admitted for surgery and Gi consult. 03/02/20 Abd/Pelvis CT: IMPRESSION: 1. Dilated loops of small bowel with air-fluid levels with possible transition point in the left lower quadrant compatible with partial small bowel obstruction. 2. Prominent mesenteric veins with possible obstruction of the IVC 3. Colonic diverticulosis without diverticulitis. 4. Mild nonspecific thickening of the urinary bladder Dictated by: Oc, 03/03/20 Chest/Abd XR: IMPRESSION: Mildly distended small bowel loops noted left upper quadrant which could be related to partial small bowel obstruction or ileus/enteritis. The gas-filled small bowel loops do appear somewhat improved compared to the agronomy internship exam from the CT of 03/02/2020.. 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 Bowel gas pattern is nonspecific. Small bowel is visualized throughout its entirety. Bowel loops no longer appear dilated. The small bowel folds are not distended. Terminal ileum has an unremarkable appearance. There is no evidence of bowel obstruction. No masses or mucosal abnormalities apparent. IMPRESSION: Unremarkable small bowel series. No evidence of bowel obstruction. Dictated by: Oc, 03/05/20 Chest/Abd XR: IMPRESSION: Resolved small bowel obstruction/ileus with residual contrast within the large bowel. Dictated by: Oc, GI has seen and Rec: Findings: On digital rectal examination there was normal rectal tone. There were no external hemorrhoids. The colonoscope was introduced through the anal canal to the rectum and advanced to the cecum. The ileocecal valve and appendiceal orifice were identified. The scope was advanced a short distance into the ileum which appeared grossly normal. The scope was then withdrawn into the colon. The cecum, ascending, transverse, descending, sigmoid and rectum were grossly normal. There were no mucosal abnormalities identified. Upon retroflexion within the rectum there were grade 2 internal hemorrhoids.since this was not performed for screening purposes, the patient was prepped with enemas alone and the preparation was fair throughout. Impression: 1. Normal colonoscopy with intubation of the terminal ileum 2. Grade 2 internal hemorrhoids Plan: I do feel that the patient does have a point of obstruction within the jejunum or ileum and I would consider a dedicated dual contrast (air/barium enterography) small bowel series. I would consider video capsule evaluation but I would have some reservation because the capsule could get hung up and this would have to be
[2020-03-05 10:17] VITALS: BMI 29.9
[2020-03-07 17:11] LABS: Sapovirus Not Detected (NotDetected)
== END 2020-03-05 11:01 | disposition home or self-care (01) ==
LOC: ER 20:22 → 2ND 20:27
PROVIDERS: Internal Medicine Gastroenterology; Nurse Practitioner Family; Surgery; Admitting Provider Emergency Medicine; Emergency Provider Physician Assistant; PCP Emergency Medicine; Visit Provider Emergency Medicine
PROC: 0DJD8ZZ Inspection of Lower Intestinal Tract, Via Natural or Artificial Opening Endoscopic (ICD-10-PCS; CPT 45378; principal; 2020-03-03 15:00)
DX: K56.609 Unspecified intestinal obstruction, unspecified as to partial versus complete obstruction (principal); Z79.01 Long term (current) use of anticoagulants; Z86.718 Personal history of other venous thrombosis and embolism; Z72.0 Tobacco use; K64.1 Second degree hemorrhoids
CPT/HCPCS: 45378; 36415; 74021; 74177; 74250; 80048; 80053; 82272; 83690; 85025; 85610; 85730; 86328; 86850; 87507; 96365; 96375; 99284; G0328; G0378; Q9967

== ENCOUNTER 2020-07-04 15:59 | Emergency (ER) | payer MEDICARE, SELFPAY ==
[2020-07-04] VITALS (7 sets, daily range): BP systolic 123–167; BP diastolic 63–90; PULSE 54–67; RESP 17–18; TEMP 36.9–37.1; O2SAT 95–99; BMI 32.5
--- NOTE | 2020-07-04 16:23 | HMH.EDGENADL ---
ED Disposition Clinical Impression: Left sided abdominal pain Groin pain Qualifiers: Laterality: left Qualified Code(s): R10.32 - Left lower quadrant pain Disposition: Home, Self-Care Condition on Discharge: Good Instructions: DI for Acute Abdominal Pain, DI for Testicular Pain Additional Instructions: Additional instructions for ABDOMINAL PAIN: See your physician as soon as possible for further evaluation. Return immediately if worsening abdominal pain, worsening groin pain, vomiting, shortness of breath, fever, vomiting of blood or abdominal distention. Referrals: Wicho Aguilar MD [Primary Care Provider] - - Critical Care Critical Care Time: No Attestation: On 07/04/20, the high probability of a clinically significant, sudden or life threatening deterioration of the following system(s) required my full and direct attention, intervention and personal management. The time I documented below is in addition to time spent performing reported procedures but includes the following listed in this critical care notation. Medical Decision Making - Medical Records Medical records reviewed: Yes: I reviewed the patient's medical records. MR Comment: Reviewed discharge summary from March 02, 2020 admission. - Aime Inquiry Pt receiving controlled substance: Yes Aime was queried for this patient: Yes Risks and benefits of using a controlled substance: were not discussed with pt by me Vital Signs: 07/04/20 16:01 07/04/20 16:37 Temperature 98.8 F Temperature Source Oral Pulse Rate 62 Pulse Rate [Right] 67 Respiratory Rate 17 Blood Pressure 128/82 Blood Pressure [Right Arm] 156/90 H Blood Pressure Mean 97 Blood Pressure Mean [Right Arm] 112 02 Sat by Pulse Oximetry 99 96 Oxygen Delivery Method Room Air - Lab Data Lab Results 07/04/20 16:44: WBC 4.5 L, RBC 4.97, Hgb 14.1, Hct 42.7, MCV 85.9, MCH 28.3, MCHC 33.0, RDW 13.5, Plt Count 271, MPV 7.6, Neut % (Auto) 46.7, Lymph % (Auto) 42.3, [place] % (Auto) 4.8, Eos % (Auto) 5.2, Baso % (Auto) 1.1, Neut # (Auto) 2.1, Lymph # (Auto) 1.9, [place] # (Auto) 0.2, Eos # (Auto) 0.2, Baso # (Auto) 0.1 07/04/20 16:44: Sodium 141, Potassium 3.9, Chloride 107, Carbon Dioxide 24, Anion Gap 13.9, BUN 12, Creatinine 1.00, Estimated Creat Clear 130, Estimated GFR 78, Est GFR ( Amer) 94, Glucose 100, Calcium 9.4, Total Bilirubin 1.5 H, AST 29, ALT 25, Alkaline Phosphatase 73, Total Protein 7.9, Albumin 4.8, Globulin 3.1, Albumin/Globulin Ratio 1.5, Amylase 63 07/04/20 16:44: Lipase 104 07/04/20 19:30: Urine Color Yellow, Urine Appearance Clear, Urine pH 5.5, Ur Specific [place] 1.020, Urine Protein Negative, Urine Glucose (UA) Negative, Urine Ketones Negative, Urine Blood Negative, Urine Nitrate Negative, Urine Bilirubin Negative, Urine Urobilinogen 0.2, Ur Leukocyte Esterase Negative, Urine RBC None, Urine WBC Occasional, Ur Squamous Epith Cells 3-5, Urine Bacteria None Result diagrams: 07/04/20 16:44 07/04/20 16:44 Orders (Tests/Meds): ED MEDICATIONS Discontinued Medications Generic Name Dose Route Start Last Admin Trade Name Moeq PRN Reason Stop Dose Admin Hydromorphone HCl 1 mg 07/04/20 16:33 07/04/20 16:41 Hydromorphone 2mg/Ml Syringe IV 07/04/20 16:34 1 mg ONCE ONE Administration Iopamidol 75 ml 07/04/20 17:25 07/04/20 17:26 Iopamidol-370 (76%);100ml Bottle IV 07/04/20 17:26 75 ml ONCE ONE Administration Ondansetron HCl 4 mg 07/04/20 16:33 07/04/20 16:41 Ondansetron 4mg/2ml Vial IV 07/04/20 16:34 4 mg ONCE ONE Administration Sodium Chloride 1,000 ml 07/04/20 16:33 07/04/20 16:41 Sodium Chloride 0.9% 1000ml Bag IV 07/04/20 16:34 1,000 ml BOLUS ONE Administration Sodium Chloride 10 ml 07/04/20 17:25 07/04/20 17:26 Sodium Chloride 0.9% 10ml Syr (Rad Only) IV 07/04/20 17:26 10 ml ONCE ONE Administration - US Data US Images: Other (Scrotum) Findings Narrative: As per [facility] procedure,
--- NOTE | 2020-07-04 16:33 | CT_ITS ---
PROCEDURE INFORMATION: Exam: CT Abdomen And Pelvis With Contrast Exam date and time: 07/04/2020 4:33 PM Age: 54 years old Clinical indication: Abdominal pain; Localized; Left lower quadrant (llq); Prior surgery; Surgery date: 6+ months; Surgery type: Appendix, gallbladder, bowel; Additional info: L sided abdominal pain TECHNIQUE: Imaging protocol: Computed tomography of the abdomen and pelvis with contrast. Radiation optimization: All CT scans at this facility use at least one of these dose optimization techniques: automated exposure control; mA and/or kV adjustment per patient size (includes targeted exams where dose is matched to clinical indication); or iterative reconstruction. Contrast material: ISOVUE; Contrast volume: 75 ml; Contrast route: IV; COMPARISON: CT ABDOMEN PELVIS W CON 03/02/2020 7:08 PM FINDINGS: Lungs: Linear opacities in the visualized lung bases likely represent subsegmental atelectasis and/or scarring. Liver: No evidence of focal liver lesion on this single phase exam. Gallbladder and bile ducts: There is no biliary ductal dilatation status post cholecystectomy. Pancreas: No evidence of focal lesion or ductal dilatation. Spleen: No splenomegaly. Splenic densities likely represent calcified granulomas. Adrenal glands: No adrenal nodule. Kidneys and ureters: No renal calculi or hydronephrosis. Subcentimeter hypodense lesions of both kidneys are too small to accurately characterize. Stomach and bowel: No distention or wall thickening. There are scattered colonic diverticula. Appendix: The appendix is surgically absent. Intraperitoneal space: No free air or fluid. No focal fluid collection. Vasculature: The abdominal aorta is normal in caliber. An IVC filter is present. Lymph nodes: Note is made of partially imaged calcified mediastinal and left hilar lymph nodes. No lymphadenopathy. Urinary bladder: Unremarkable as visualized. Reproductive: There is unchanged mild enlargement of the prostate gland. Bones/joints: No acute fracture. There are stable degenerative changes of the spine and of the left hip joint. Soft tissues: There are postsurgical changes of the anterior abdominal wall. There is a small fat containing umbilical hernia. IMPRESSION: No acute inflammatory process in the abdomen or pelvis to explain the patient's abdominal pain. COMMENTS: 1. Consistent with the [employer]'s Incidental Findings Committee white paper (J Am Nathaniel Radiol 2018): Any incidental renal lesion less than 1 cm or classified as too small to characterize, or any incidental cystic renal lesion characterized as simple-appearing, is likely benign. No follow-up imaging is recommended for these lesions per consensus recommendations based on imaging criteria. 2. For patients with an IVC filter, recommend assessment for a management plan for the patient's IVC filter. If there is no established management plan, recommend referral to an interventional clinician on a nonemergent basis for evaluation.
[2020-07-04 16:57] LABS: Basophils # 0.1 K/mm3 (0-0.2); Basophils % 1.1 % (0.1-2.0); Eosinophils # 0.2 K/mm3 (0.0-0.4); Eosinophils % 5.2 % (0.1-12.0); Hematocrit 42.7 % (42.0-52.0); Hemoglobin 14.1 g/dL (14.1-18.0); Lymphocytes # 1.9 K/mm3 (0.7-4.5); Lymphocytes % 42.3 % (10-50); Mean Corpuscular Hemoglobin 28.3 pg (27.0-31.2); Mean Corpuscular Volume 85.9 fl (80-94); Mean Platelet Volume 7.6 fl (7.4-10.4); Monocytes # 0.2 K/mm3 (0.1-1.0); Monocytes % 4.8 % (1.7-9.3); Neutrophils # 2.1 K/mm3 (1.8-7.8); Neutrophils % 46.7 % (37.0-80.0); Platelet Count 271 K/mm3 (142-424); Red Blood Count 4.97 M/mm3 (4.60-6.20); Red Cell Distribution Width 13.5 % (11.5-17.5); White Blood Count 4.5 K/mm3 (4.8-10.8)
[2020-07-04 17:02] LABS: Chloride 107 mmol/L (98-107); Sodium 141 mmol/L (136-145)
[2020-07-04 17:03] LABS: Potassium 3.9 mmoL/L (3.5-5.1)
[2020-07-04 17:05] LABS: Alanine Aminotransferase 25 U/L (12-78); Alkaline Phosphatase 73 U/L (38-126); Amylase 63 U/L (30-110); Anion Gap 13.9 mEq/L (5-15); Aspartate Amino Transferase 29 U/L (17-59); Bilirubin,Total 1.5 mg/dl (0.2-1.3); Blood Urea Nitrogen 12 mg/dl (9-20); Calcium 9.4 mg/dl (8.4-10.2); Carbon Dioxide 24 mmol/L (22.0-30.0); Creatinine Clearance Estimated 130 mL/min (50-200); Estimated Glomerular Filt Rate 78 ml/min (>60); GFR (African American) 94 ML/MIN (>60); Glucose 100 mg/dl (74-100); Lipase 104 U/L (23-300)
[2020-07-04 17:06] LABS: Albumin Level 4.8 g/dl (3.5-5.0); Albumin/Globulin Ratio 1.5 (1.1-1.8); Globulin 3.1 g/dL (1.3-3.2); Total Protein,Serum 7.9 g/dl (6.3-8.2)
--- NOTE | 2020-07-04 18:43 | US_ITS ---
PROCEDURE INFORMATION: Exam: US Scrotum Exam date and time: 07/04/2020 6:43 PM Age: 54 years old Clinical indication: Scrotum pain; Patient HX: Left testicular pain; Additional info: Left scrotal pain, R/O torsion TECHNIQUE: Imaging protocol: Real-time ultrasound of the scrotum and contents with color Doppler and image documentation. COMPARISON: CT ABDOMEN PELVIS W CON 07/04/2020 5:02 PM FINDINGS: Right testicle: Normal. No mass. No torsion. Normal vascular flow. Left testicle: Normal. No mass. No torsion. Normal vascular flow. Epididymides: Normal. Scrotum: Normal. IMPRESSION: Normal testes. There is normal flow to the testes on color Doppler imaging however intermittent torsion cannot be excluded. In addition spectral Doppler was not performed to evaluate for normal vascular waveforms of the testes.
--- NOTE | 2020-07-04 19:25 | PC.NURSE ---
Pt returned from US and Haley gave report to Dr. Sosa
[2020-07-04 19:37] LABS: Appearance,Urine CLEAR (Clear); Bilirubin,Urine Negative (Negative); Blood, Urine Negative (Negative); Color,Urine YELLOW (Yellow); Glucose,Urine (UA) Negative (Negative); Ketones,Urine Negative (Negative); Leukocyte Esterase,Urine Negative (Negative); Microscopic, Urine URINE MICROSCOPIC (MICROSCOPIC); Nitrate,Urine Negative (Negative); PH,Urine 5.5 (5.0-8.5); Protein,Urine Negative (Negative); Urobilinogen,Urine 0.2 EU/dl (0.2)
[2020-07-04 19:49] LABS: WBC,Urine Occasional #/hpf (0-3)
== END 2020-07-04 20:40 | disposition home or self-care (01) ==
PROVIDERS: Emergency Provider Emergency Medicine; PCP Emergency Medicine
DX: R10.32 Left lower quadrant pain (principal); I25.10 Atherosclerotic heart disease of native coronary artery without angina pectoris; E78.5 Hyperlipidemia, unspecified; I10 Essential (primary) hypertension; F17.290 Nicotine dependence, other tobacco product, uncomplicated
CPT/HCPCS: 74177; 76870; 80053; 81001; 82150; 83690; 85025; 96365; 96375; 99283; J2405; Q9967

== ENCOUNTER 2020-11-21 00:46 | Emergency (ER) | payer MEDICARE, SELFPAY ==
[2020-11-21] VITALS (7 sets, daily range): BP systolic 120–152; BP diastolic 79–94; PULSE 53–89; RESP 16–19; TEMP 36.6–36.9; O2SAT 96–100; BMI 32.8
--- NOTE | 2020-11-21 01:22 | XR_ITS ---
PROCEDURE INFORMATION: Exam: XR Left Foot Exam date and time: 11/21/2020 1:22 AM Age: 55 years old Clinical indication: Pain and injury or trauma; Fall; Blunt trauma; Left; Patient HX: Pain, rolled foot TECHNIQUE: Imaging protocol: XR Left foot. Views: 3 or more views. COMPARISON: CR FTL3 FOOT-LT-3 VIEWS 09/19/2015 3:26 PM FINDINGS: Bones/joints: Normal. Soft tissues: Normal. IMPRESSION: No acute findings.
--- NOTE | 2020-11-21 01:22 | XR_ITS ---
PROCEDURE INFORMATION: Exam: XR Left Ankle Exam date and time: 11/21/2020 1:22 AM Age: 55 years old Clinical indication: Pain and injury or trauma; Fall; Blunt trauma; Left; Patient HX: Rolled ankle, pain TECHNIQUE: Imaging protocol: XR Left ankle. Views: 3 or more views. COMPARISON: CR [id number] ANKLE-LT-3 VIEWS 04/03/2015 10:47 AM FINDINGS: Bones/joints: Normal. Soft tissues: Normal. IMPRESSION: No acute findings.
--- NOTE | 2020-11-21 01:44 | HMH.EDLOEX ---
ED Disposition Clinical Impression: Ankle sprain Qualifiers: Encounter type: initial encounter Involved ligament of ankle: unspecified ligament Laterality: left Qualified Code(s): S93.402A - Sprain of unspecified ligament of left ankle, initial encounter Disposition: Home, Self-Care Condition on Discharge: Good Instructions: DI for Ankle Sprain Additional Instructions: ice and wt bearing as chinyere and see pcp for follow up Referrals: Wicho Aguilar MD [Primary Care Provider] - - Critical Care Critical Care Time: No Attestation: On 11/21/20, the high probability of a clinically significant, sudden or life threatening deterioration of the following system(s) required my full and direct attention, intervention and personal management. The time I documented below is in addition to time spent performing reported procedures but includes the following listed in this critical care notation. Medical Decision Making - Medical Records Medical records reviewed: Yes: I reviewed the patient's medical records. - Aime Inquiry Pt receiving controlled substance: No Vital Signs: 11/21/20 00:48 11/21/20 00:57 11/21/20 01:00 Temperature 98.4 F Temperature Source Oral Pulse Rate 62 63 Pulse Rate [Right] 67 Respiratory Rate 18 Blood Pressure 143/82 H 152/84 H Blood Pressure [Right Arm] 143/82 H Blood Pressure Mean [Right Arm] 102 Blood Pressure Source [Right Arm] Automatic Cuff 02 Sat by Pulse Oximetry 99 96 100 11/21/20 01:31 11/21/20 02:32 11/21/20 03:02 Temperature Temperature Source Pulse Rate 61 53 L 53 L Pulse Rate [Right] Respiratory Rate Blood Pressure 145/94 H 123/85 120/94 H Blood Pressure [Right Arm] Blood Pressure Mean [Right Arm] Blood Pressure Source [Right Arm] 02 Sat by Pulse Oximetry 97 99 100 - Radiology Data #1 Image(s): Ankle, Foot/Toes Image Reviewed: Yes I have reviewed radiologist's interpretation Preliminary Findings: No Fracture Seen Medical Decision Narrative: no def fx seen Lower Extremity Injury HPI - General Chief Complaint: Extremity Injury, Lower Stated Complaint: AO 11/20/20 17:30 Injury left foot Time Seen by Provider: 11/21/20 01:00 Mode of Arrival: Ambulatory Source of Information: Patient, Medical Record Limitations: No Limitations Description of Symptoms (Recalled from ER Triage Doc. by RN): pt statd to av stepped on a rock and wisted his left ankle wrong at 5:30 pm today pain 11/07 - History of Present Illness HPI Narrative: acute injury to lt foot /ankle MD complaint: ankle injury, foot injury Onset (ago): hour(s) Injury: Left: ankle, foot Type of Injury: eversion Place: home Severity: moderate - Related Data Home Medications Medication Instructions Recorded Confirmed Atorvastatin Calcium [Lipitor 80mg 80 mg PO HS 03/02/20 03/02/20 Tab] Gabapentin 800 mg PO TID 03/02/20 03/02/20 Hydrocodone/Acetaminophen 1 each PO TID 03/02/20 03/02/20 [Hydrocodone-Acetamin 10-325 mg] Metoprolol Succinate [Metoprolol 100 mg PO DAILY 03/02/20 03/02/20 Succinate 100mg Tablet*] Rivaroxaban [Xarelto 20mg Tablet*] 20 mg PO DAILY 03/03/20 03/03/20 Allergies Allergy/AdvReac Type Severity Reaction Status Date / Time venom-honey bee Allergy Unknown Verified 12/21/17 20:52 [BEE VENOM (HONEY BEE)] [facility] History - Hepatitis A Screen Drug use history?: No High risk sexual behaviors?: No History of sexually transmitted infection?: No Currently employed?: No Childcare worker?: No Do you have indoor plumbing?: Yes Do you have electricity?: Yes Attestation statement:: This patient has been screened for Hepatitis A risk factors. I have reviewed the patient's past medical history: Yes Medical History: Reports:: Coronary Artery Disease, Deep Vein Thrombosis, Hyperlipidemia, Hypertension Denies:: Cancer, Diabetes Mellitus Type 1, Diabetes Mellitus Type 2, MRSA Comment: chronic back pain Other [place]
== END 2020-11-21 03:44 | disposition home or self-care (01) ==
PROVIDERS: Emergency Provider Emergency Medicine; PCP Emergency Medicine
DX: S93.402A Sprain of unspecified ligament of left ankle, initial encounter (principal); X50.1XXA Overexertion from prolonged static or awkward postures, initial encounter; Y92.89 Other specified places as the place of occurrence of the external cause; I25.10 Atherosclerotic heart disease of native coronary artery without angina pectoris; F17.210 Nicotine dependence, cigarettes, uncomplicated
CPT/HCPCS: 73610; 73630; 99282

== ENCOUNTER 2021-01-07 13:51 | Emergency (ER) | payer MEDICARE, SELFPAY ==
[2021-01-07 14:01] VITALS: BP 139/87; PULSE 99; RESP 18; TEMP 36.9; O2SAT 95; BMI 30.8
--- NOTE | 2021-01-07 14:15 | CT_ITS ---
PROCEDURE: CT ABDOMEN PELVIS W CON CLINICAL INDICATION: abd pain COMPARISON: CT ABDPELW CT ABD PELVIS W/ CONTRAST from 12/13/[address] ABDOMEN PELVIS W CON from 03/02/[address] ABDOMEN PELVIS W CON from 07/04/2020 TECHNIQUE: IV Contrast: 75ML Isovue 370 Oral Contrast None Axial images obtained with sagittal and coronal reformats. All CT scans at the facility use one or more dose reduction, viz: automated exposure control, ma/kV adjustment per patient size (including targeted exams where dose is matched to indication, i.e. head), or iterative reconstruction technique. FINDINGS: LOWER THORAX: No acute finding ABDOMEN & PELVIS: There is a small area of decreased density involving posterior aspect of segment 4A of the left lobe of the liver measuring 2 cm similar to the previous exam possibly due to an area of focal fatty infiltration.. There has been a prior cholecystectomy. The spleen has an unremarkable appearance. There are 2 calcifications in the pancreatic head and could be due to sequela from chronic pancreatitis. No renal or ureteral calculi. No hydronephrosis. 5 mm cortical cyst is present in the upper pole of the left kidney. No intestinal obstruction or free air. Prior appendectomy. No evidence of diverticulitis. By there are few air-fluid levels within the small bowel in the left upper quadrant nonspecific. Multiple unopacified bowel loops in the abdomen or pelvis which could obscure or mimic pathology. Mild thickening versus nondistention of the descending colon and sigmoid colon. If symptoms persist, consider repeat exam with IV and oral contrast.. There is an IVC filter present. The cephalad tip is inferior to the level of the renal veins. The transverse colon courses between the superior mesenteric artery branches and the aorta which is an unusual coarse. The prostate is enlarged at approximately 6.9 cm with some coarse central calcification. There is minimal nodularity along the cephalad portion of the prostate.. Mild degenerative changes lumbar spine IMPRESSION: 1. Nonspecific bowel gas pattern with scattered air-fluid levels in the left mid abdominal region within nondistended bowel possibly related to ileus or enteritis. Nondistention versus thickening of the descending colon and sigmoid colon which could be seen with colitis. 2. At least calcifications in the head of the pancreas which could represent sequela from chronic pancreatitis. No evidence of acute pancreatitis. 3. Other nonacute findings as described above. Dictated by: Obey Renae MD 01/07/2021 16:26 Obey Renae MD in [place] 01/07/2021 16:26
[2021-01-07 14:24] VITALS: BMI 30.8
[2021-01-07 14:45] LABS: Basophils # 0.1 K/mm3 (0-0.2); Basophils % 1.1 % (0.1-2.0); Eosinophils # 0.2 K/mm3 (0.0-0.4); Eosinophils % 3.8 % (0.1-12.0); Hematocrit 45.9 % (42.0-52.0); Hemoglobin 14.9 g/dL (14.1-18.0); Lymphocytes # 1.8 K/mm3 (0.7-4.5); Lymphocytes % 38.6 % (10-50); Mean Corpuscular HGB Conc 32.4 g/dL (31.8-35.4); Mean Corpuscular Hemoglobin 29.2 pg (27.0-31.2); Mean Corpuscular Volume 90.2 fl (80-94); Mean Platelet Volume 7.9 fl (7.4-10.4); Monocytes # 0.2 K/mm3 (0.1-1.0); Monocytes % 4.1 % (1.7-9.3); Neutrophils # 2.5 K/mm3 (1.8-7.8); Neutrophils % 52.4 % (37.0-80.0); Platelet Count 338 K/mm3 (142-424); Red Blood Count 5.09 M/mm3 (4.60-6.20); Red Cell Distribution Width 13.4 % (11.5-17.5); White Blood Count 4.7 K/mm3 (4.8-10.8)
[2021-01-07 14:47] LABS: Chloride 102 mmol/L (98-107)
[2021-01-07 14:48] LABS: Potassium 3.4 mmoL/L (3.5-5.1); Sodium 141 mmol/L (136-145)
[2021-01-07 14:50] LABS: Alanine Aminotransferase 16 U/L (12-78); Alkaline Phosphatase 81 U/L (38-126); Anion Gap 14.4 mEq/L (5-15); Aspartate Amino Transferase 33 U/L (17-59); Bilirubin,Total 1.6 mg/dl (0.2-1.3); Blood Urea Nitrogen 4 mg/dl (9-20); Calcium 9.5 mg/dl (8.4-10.2); Carbon Dioxide 28 mmol/L (22.0-30.0); Creatinine Clearance Estimated 161 mL/min (50-200); Estimated Glomerular Filt Rate 100 ml/min (>60); GFR (African American) 121 ML/MIN (>60); Glucose 107 mg/dl (74-100); Lipase 59 U/L (23-300)
[2021-01-07 14:51] LABS: Albumin Level 4.9 g/dl (3.5-5.0); Albumin/Globulin Ratio 1.4 (1.1-1.8); Globulin 3.5 g/dL (1.3-3.2); Total Protein,Serum 8.4 g/dl (6.3-8.2)
[2021-01-07 15:05] LABS: Lactic Acid 0.8 mmol/L (0.7-2.1)
--- NOTE | 2021-01-07 15:13 | PC.NURSE ---
Going to RAD
[2021-01-07 17:00] LABS: Microscopic, Urine URINE MICROSCOPIC (MICROSCOPIC)
[2021-01-07 17:01] LABS: Appearance,Urine CLEAR (Clear); Bilirubin,Urine Negative (Negative); Blood, Urine Negative (Negative); Color,Urine YELLOW (Yellow); Glucose,Urine (UA) Negative (Negative); Ketones,Urine Negative (Negative); Leukocyte Esterase,Urine Negative (Negative); Nitrate,Urine Negative (Negative); Protein,Urine Negative (Negative); Urobilinogen,Urine 0.2 EU/dl (0.2)
[2021-01-07 17:15] LABS: WBC,Urine Occasional #/hpf (0-3)
--- NOTE | 2021-01-07 17:35 | HMH.EDABDPAI ---
ED Disposition Clinical Impression: Colitis, Enteritis Disposition: Home, Self-Care Condition on Discharge: Good Instructions: DI for Acute Abdominal Pain Additional Instructions: Please follow-up with your primary care physician in 2 to 3 days for further management. You have also been prescribed Flagyl please take as prescribed. Please return to the Ed for any concerning symptoms such as inability to tolerate food intake or water, bloody stools, worsening abdominal pain, symptoms that do not improve or any other concerning symptoms. Prescriptions: metroNIDAZOLE [Flagyl] 375 mg PO 5XDAY #35 cap Transmission Status: Received by [id number] Referrals: Wicho Aguilar MD [Primary Care Provider] - Time of Disposition: 05:40 - Critical Care Critical Care Time: No Attestation: On 01/07/21, the high probability of a clinically significant, sudden or life threatening deterioration of the following system(s) required my full and direct attention, intervention and personal management. The time I documented below is in addition to time spent performing reported procedures but includes the following listed in this critical care notation. Medical Decision Making - Aime Inquiry Pt receiving controlled substance: No Vital Signs: 01/07/21 14:01 01/07/21 17:50 Temperature 98.5 F 98.3 F Temperature Source Oral Oral Pulse Rate 65 Pulse Rate [Right Radial] 99 H Respiratory Rate 18 16 Blood Pressure 137/89 Blood Pressure [Right Arm] 139/87 Blood Pressure Mean [Right Arm] 104 Blood Pressure Source Automatic Cuff Blood Pressure Source [Right Arm] Automatic Cuff Blood Pressure Position Sitting Blood Pressure Position [Right Arm] Sitting 02 Sat by Pulse Oximetry 95 Oxygen Delivery Method Room Air Room Air - Lab Data Lab Results 01/07/21 14:12: WBC 4.7 L, RBC 5.09, Hgb 14.9, Hct 45.9, MCV 90.2, MCH 29.2, MCHC 32.4, RDW 13.4, Plt Count 338, MPV 7.9, Neut % (Auto) 52.4, Lymph % (Auto) 38.6, [place] % (Auto) 4.1, Eos % (Auto) 3.8, Baso % (Auto) 1.1, Neut # (Auto) 2.5, Lymph # (Auto) 1.8, [place] # (Auto) 0.2, Eos # (Auto) 0.2, Baso # (Auto) 0.1 01/07/21 14:12: Sodium 141, Potassium 3.4 L, Chloride 102, Carbon Dioxide 28, Anion Gap 14.4, BUN 4 L, Creatinine 0.80, Estimated Creat Clear 161, Estimated GFR 100, Est GFR ( Amer) 121, Glucose 107 H, Calcium 9.5, Total Bilirubin 1.6 H, AST 33, ALT 16, Alkaline Phosphatase 81, Total Protein 8.4 H, Albumin 4.9, Globulin 3.5 H, Albumin/Globulin Ratio 1.4, Lipase 59 01/07/21 14:35: Lactate 0.8 01/07/21 16:54: Urine Color Yellow, Urine Appearance Clear, Urine pH 7.0, Ur Specific [place] 1.010, Urine Protein Negative, Urine Glucose (UA) Negative, Urine Ketones Negative, Urine Blood Negative, Urine Nitrate Negative, Urine Bilirubin Negative, Urine Urobilinogen 0.2, Ur Leukocyte Esterase Negative, Urine RBC None, Urine WBC Occasional, Ur Squamous Epith Cells None, Urine Bacteria None Result diagrams: 01/07/21 14:12 01/07/21 14:12 Orders (Tests/Meds): ED MEDICATIONS Discontinued Medications Generic Name Dose Route Start Last Admin Trade Name Freq PRN Reason Stop Dose Admin Iopamidol 70 ml 01/07/21 15:23 01/07/21 15:24 Iopamidol-370 (76%);100ml Bottle IV 01/07/21 15:24 70 ml ONCE ONE Administration Morphine Sulfate 4 mg 01/07/21 16:07 01/07/21 16:08 Morphine 4mg/Ml Syringe IV 01/07/21 16:08 4 mg ONCE ONE Administration Ondansetron HCl 4 mg 01/07/21 16:07 01/07/21 16:08 Ondansetron 4mg/2ml Vial IV 01/07/21 16:08 4 mg ONCE ONE Administration Sodium Chloride 10 ml 01/07/21 15:23 01/07/21 15:24 Sodium Chloride 0.9% 10ml Vial IV 01/07/21 15:24 10 ml ONCE ONE Administration ORDERS Category Date Time Status Urine Culture Routine Micro 01/07/21 16:54 Received Medical Decision Narrative: Mr. Cedeño is a 55 yo male w/ PMH for diverticular disease and SBO who presents to the ED with LLQ abdominal pain for 3-4 d
[2021-01-07 17:50] VITALS: BP 137/89; PULSE 65; RESP 16; TEMP 36.8; O2SAT 98
== END 2021-01-07 17:53 | disposition home or self-care (01) ==
PROVIDERS: Emergency Provider Student in an Organized Health Care Education/Training Program; PCP Emergency Medicine
DX: K52.9 Noninfective gastroenteritis and colitis, unspecified (principal); I25.10 Atherosclerotic heart disease of native coronary artery without angina pectoris; E78.5 Hyperlipidemia, unspecified; I10 Essential (primary) hypertension; F17.210 Nicotine dependence, cigarettes, uncomplicated
CPT/HCPCS: 74177; 80053; 81001; 83605; 83690; 85025; 87086; 96374; 96375; 99283; J2405; Q9967

== ENCOUNTER 2021-05-29 06:41 | Emergency (ER) | payer MEDICARE, SELFPAY ==
[2021-05-29] VITALS (8 sets, daily range): BP systolic 127–160; BP diastolic 65–100; PULSE 55–72; RESP 16–19; TEMP 36.6–36.8; O2SAT 95–100; BMI 27.6
--- NOTE | 2021-05-29 07:02 | CT_ITS ---
FINAL REPORT CLINICAL HISTORY: LLQ PAIN AND TENDERNESS X3 DAYS COMPARISON: January 07, 2021 FINDINGS: Axial CT images of the abdomen and pelvis were obtained without intravenous contrast. Coronal reformatted images were also obtained.This study was performed with techniques to keep radiation doses as low as reasonably achievable (ALARA). Individualized dose reduction techniques using automated exposure control or adjustment of mA and/or kV according to the patient's size were employed. Abdomen: There is mild bibasilar scarring. There is no evidence of renal stone or hydronephrosis. An IVC filter is present. 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 The gallbladder is surgically absent. The liver, spleen and pancreas have an unremarkable, unenhanced appearance. No mass or adenopathy is seen. No inflammatory process is identified. There are postoperative changes in the abdomen. The duodenum does not cross at its usual location. The transverse colon is seen between the SMA and aorta. These findings are favored to be congenital but the type of prior bowel surgery is uncertain and correlation with the surgical history is needed. There is a presumed venous collateral seen in the right abdomen which is stable. There is no evidence of bowel obstruction. There is a small umbilical hernia containing fat. Pelvis: The appendix is not seen which is consistent with history of appendectomy. There is no evidence of ureteral dilation or ureteral stone. There are multiple fluid-filled bowel loops in the pelvis which is nonspecific but enteritis is not excluded. No mass or abnormal fluid collection is identified. IMPRESSION: Multiple fluid-filled bowel loops of uncertain significance, could represent enteritis. Unusual abdomen bowel morphology as described, favor congenital. Stable presumed venous collateral seen in the right abdomen Reviewed, Interpreted and Dictated by Chuy Khalil III, MD Transcribed by Priya Helton Authenticated by Chuy Khalil III, MD on 05/29/2021 09:56:59 AM [facility]
[2021-05-29 07:14] LABS: Chloride 105 mmol/L (98-107); Potassium 4.1 mmoL/L (3.5-5.1); Sodium 137 mmol/L (136-145)
[2021-05-29 07:16] LABS: Amylase 81 U/L (30-110); Blood Urea Nitrogen 14 mg/dl (9-20); Creatinine Clearance Estimated 128 mL/min (50-200); Estimated Glomerular Filt Rate 88 ml/min (>60); GFR (African American) 106 ML/MIN (>60)
[2021-05-29 07:17] LABS: Alanine Aminotransferase 29 U/L (12-78); Albumin Level 4.5 g/dl (3.5-5.0); Albumin/Globulin Ratio 1.4 (1.1-1.8); Alkaline Phosphatase 65 U/L (38-126); Anion Gap 9.1 mEq/L (5-15); Aspartate Amino Transferase 41 U/L (17-59); Bilirubin,Total 0.8 mg/dl (0.2-1.3); Calcium 8.5 mg/dl (8.4-10.2); Carbon Dioxide 27 mmol/L (22.0-30.0); Globulin 3.2 g/dL (1.3-3.2); Glucose 80 mg/dl (74-100); Lipase 109 U/L (23-300); Total Protein,Serum 7.7 g/dl (6.3-8.2)
[2021-05-29 07:25] LABS: C-Reactive Protein 0.8 mg/L (0-4)
[2021-05-29 07:36] LABS: Basophils # 0.1 K/mm3 (0-0.2); Basophils % 1.7 % (0.1-2.0); Eosinophils # 0.3 K/mm3 (0.0-0.4); Eosinophils % 6.6 % (0.1-12.0); Hematocrit 42.1 % (42.0-52.0); Hemoglobin 13.8 g/dL (14.1-18.0); Lymphocytes # 1.9 K/mm3 (0.7-4.5); Lymphocytes % 42.8 % (10-50); Mean Corpuscular HGB Conc 32.7 g/dL (31.8-35.4); Mean Corpuscular Hemoglobin 29.8 pg (27.0-31.2); Mean Corpuscular Volume 91.2 fl (80-94); Mean Platelet Volume 7.8 fl (7.4-10.4); Monocytes # 0.2 K/mm3 (0.1-1.0); Monocytes % 4.8 % (1.7-9.3); Neutrophils # 1.9 K/mm3 (1.8-7.8); Neutrophils % 44.1 % (37.0-80.0); Platelet Count 268 K/mm3 (142-424); Red Blood Count 4.62 M/mm3 (4.60-6.20); Red Cell Distribution Width 13.6 % (11.5-17.5); White Blood Count 4.3 K/mm3 (4.8-10.8)
[2021-05-29 07:38] LABS: Procalcitonin 0.063 ng/mL (0.0-2.0)
--- NOTE | 2021-05-29 07:38 | PC.NURSE ---
pt to CT
--- NOTE | 2021-05-29 07:38 | HMH.EDNVD ---
ED Disposition Condition on Discharge: Good - Critical Care Critical Care Time: No <Wicho Aguilar - Last Filed: 05/29/21 09:03> Condition on Discharge: Good - Critical Care Critical Care Time: No <Sunday Sosa - Last Filed: 05/29/21 10:28> Clinical Impression: Left sided abdominal pain, Left inguinal pain, Enteritis, Hematochezia Disposition: Home, Self-Care Instructions: DI for Enteritis, DI for Rectal Bleeding Additional Instructions: Levaquin as prescribed. See Dr. Aguilar in his office on Tuesday. Return to the emergency department if severe bleeding or severe pain, fever, or vomiting. Prescriptions: levoFLOXacin [Levaquin 500mg tab] 500 mg PO DAILY #10 tab Transmission Status: Pending to [id number] Referrals: Wicho Aguilar MD [Primary Care Provider] - Attestation: On 05/29/21, the high probability of a clinically significant, sudden or life threatening deterioration of the following system(s) required my full and direct attention, intervention and personal management. The time I documented below is in addition to time spent performing reported procedures but includes the following listed in this critical care notation. Medical Decision Making - Medical Records Medical records reviewed: Yes: I reviewed the patient's medical records. - Aime Inquiry Pt receiving controlled substance: No - Lab Data Lab results reviewed: Yes: I reviewed the patient's lab results. Result diagrams: 05/29/21 07:00 05/29/21 07:00 <Wicho Aguliar - Last Filed: 05/29/21 09:03> - Lab Data Result diagrams: 05/29/21 07:00 05/29/21 07:00 - US Data US Images: Other (Scrotum) - Physician Consults Physician Consulted: Lauren Time: 10:25 Reason -: Pt condition Comment/Response: Levaquin. Follow-up in his office on Tuesday. <Sunday Sosa - Last Filed: 05/29/21 10:28> Vital Signs: 05/29/21 06:42 05/29/21 07:00 05/29/21 07:31 Temperature 98.2 F Temperature Source Oral Pulse Rate 63 60 Pulse Rate [Left] 60 Respiratory Rate 18 19 17 Blood Pressure 136/81 128/75 Blood Pressure [Right Arm] 145/81 H Blood Pressure Mean 96 97 Blood Pressure Mean [Right Arm] 102 02 Sat by Pulse Oximetry 99 100 100 Oxygen Delivery Method Room Air Room Air 05/29/21 08:01 05/29/21 08:53 05/29/21 09:01 Temperature Temperature Source Pulse Rate 62 55 L 64 Pulse Rate [Left] Respiratory Rate 17 19 18 Blood Pressure 147/98 H 160/100 H 127/90 Blood Pressure [Right Arm] Blood Pressure Mean 111 120 102 Blood Pressure Mean [Right Arm] 02 Sat by Pulse Oximetry 99 98 96 Oxygen Delivery Method - Lab Data Lab Results 05/29/21 07:00: WBC 4.3 L, RBC 4.62, Hgb 13.8 L, Hct 42.1, MCV 91.2, MCH 29.8, MCHC 32.7, RDW 13.6, Plt Count 268, MPV 7.8, Neut % (Auto) 44.1, Lymph % (Auto) 42.8, [place] % (Auto) 4.8, Eos % (Auto) 6.6, Baso % (Auto) 1.7, Neut # (Auto) 1.9, Lymph # (Auto) 1.9, [place] # (Auto) 0.2, Eos # (Auto) 0.3, Baso # (Auto) 0.1, ESR 11 05/29/21 07:00: Sodium 137, Potassium 4.1, Chloride 105, Carbon Dioxide 27, Anion Gap 9.1, BUN 14, Creatinine 0.90, Estimated Creat Clear 128, Estimated GFR 88, Est GFR ( Amer) 106, Glucose 80, Calcium 8.5, Total Bilirubin 0.8, AST 41, ALT 29, Alkaline Phosphatase 65, C-Reactive Protein 0.8, Total Protein 7.7, Albumin 4.5, Globulin 3.2, Albumin/Globulin Ratio 1.4, Amylase 81, Lipase 109, Procalcitonin 0.063 05/29/21 07:35: Urine Color Yellow, Urine Appearance Clear, Urine pH 6.0, Ur Specific [place] 1.010, Urine Protein Negative, Urine Glucose (UA) Negative, Urine Ketones Negative, Urine Blood Negative, Urine Nitrate Negative, Urine Bilirubin Negative, Urine Urobilinogen 0.2, Ur Leukocyte Esterase Negative, Urine RBC None, Urine WBC Occasional, Ur Squamous Epith Cells Occasional, Urine Bacteria None Orders (Tests/Meds): ED MEDICATIONS Discontinued Medications Generic Name Dose Route Start Last Admin Trade Name Freq PRN Reason
--- NOTE | 2021-05-29 07:38 | PC.NURSE ---
Pt to CT
--- NOTE | 2021-05-29 07:46 | PC.NURSE ---
Pt returned from CT
[2021-05-29 07:57] LABS: Microscopic, Urine URINE MICROSCOPIC (MICROSCOPIC)
[2021-05-29 08:01] LABS: Erythrocyte Sedimentation Rate 11 mm/hr (0-20)
[2021-05-29 08:05] LABS: Appearance,Urine CLEAR (Clear); Bilirubin,Urine Negative (Negative); Blood, Urine Negative (Negative); Color,Urine YELLOW (Yellow); Glucose,Urine (UA) Negative (Negative); Ketones,Urine Negative (Negative); Leukocyte Esterase,Urine Negative (Negative); Nitrate,Urine Negative (Negative); Protein,Urine Negative (Negative); Urobilinogen,Urine 0.2 EU/dl (0.2)
--- NOTE | 2021-05-29 08:11 | US_ITS ---
FINAL REPORT TECHNIQUE: Ultrasound images of the testicles were obtained bilaterally. Color Doppler images were obtained. CLINICAL HISTORY: left inguinal and testicle pain COMPARISON: 07/04/2020 FINDINGS: The right testicle measures 1.8 x 2.7 x 2.4 cm. The left testicle measures 2.4 x 3.0 x 2.7 cm. Normal blood flow is seen to both testicles. No mass is identified. There is a varicocele on the left which is new since previous. IMPRESSION: New left varicocele. Reviewed, Interpreted and Dictated by Chuy Khalil III, MD Transcribed by Alessandra Garcia Authenticated by Chuy Khalil III, MD on 05/29/2021 09:56:57 AM [facility]
--- NOTE | 2021-05-29 08:14 | PC.NURSE ---
called radiology to inform them of ultrasound order
[2021-05-29 08:17] LABS: Squamous Epithelial Cell,Urine Occasional #/hpf (0-5); WBC,Urine Occasional #/hpf (0-3)
--- NOTE | 2021-05-29 08:17 | PC.NURSE ---
Patient going to ultrasound
--- NOTE | 2021-05-29 09:06 | PC.NURSE ---
contacted rad to check on status of CT reading, Hannah states she is going to check on it and call back
--- NOTE | 2021-05-29 09:14 | PC.NURSE ---
Rad called back stating pt report is in prelim, states is should be back soon.
--- NOTE | 2021-05-29 09:57 | PC.NURSE ---
called radiology regarding pt's ct results
--- NOTE | 2021-05-29 10:22 | PC.NURSE ---
on the phone with
== END 2021-05-29 10:33 | disposition home or self-care (01) ==
PROVIDERS: Emergency Provider Emergency Medicine; PCP Emergency Medicine
DX: K52.9 Noninfective gastroenteritis and colitis, unspecified (principal); I86.1 Scrotal varices; K92.1 Melena; I25.10 Atherosclerotic heart disease of native coronary artery without angina pectoris; I10 Essential (primary) hypertension; E78.5 Hyperlipidemia, unspecified
CPT/HCPCS: 74176; 76870; 80053; 81001; 82150; 83690; 84145; 85025; 85651; 86140; 96360; 96365; 99284

== ENCOUNTER 2022-02-13 14:29 | Emergency (ER) | payer MEDICARE, SELFPAY ==
[2022-02-13 15:20] VITALS: BP 116/79; PULSE 68; RESP 17; TEMP 36.8; O2SAT 97; BMI 40.2
--- NOTE | 2022-02-13 15:30 | PC.NURSE ---
DR. LEVINE AT BEDSIDE
--- NOTE | 2022-02-13 15:33 | XR_ITS ---
PROCEDURE INFORMATION: Exam: XR Left Femur Exam date and time: 02/13/2022 3:32 PM Age: 56 years old Clinical indication: Pain; Hip and thigh; Left; Additional info: Pain left thigh TECHNIQUE: Imaging protocol: Radiologic exam of the Left femur. Views: 2 views. COMPARISON: CT ABDOMEN PELVIS WO CON 05/29/2021 7:40 AM FINDINGS: Bones/joints: There are moderate degenerative changes in the left hip joint. There is no evidence of acute fracture. There is no evidence of joint malalignment or dislocation. Soft tissues: No focal soft tissue swelling. IMPRESSION: 1. There are moderate degenerative changes in the left hip joint. 2. No evidence of acute fracture. 3. No evidence of acute dislocation.
--- NOTE | 2022-02-13 15:33 | CA_ITS ---
FINAL REPORT TECHNIQUE: Ultrasound images of the deep venous system were obtained from the left groin to the calf veins. CLINICAL HISTORY: left thigh pain, h/o dvt,pt on xarelto FINDINGS: The deep venous system is normally compressible. Normal flow is identified. IMPRESSION: No evidence of left lower extremity DVT. Reviewed, Interpreted and Dictated by Chuy Khalil III, MD Transcribed by Jimena Ortiz Authenticated and [facility]
--- NOTE | 2022-02-13 15:38 | PC.NURSE ---
PT TO XR AT THIS TIME
--- NOTE | 2022-02-13 15:38 | HMH.EDGENADL ---
Discharge Plan Disposition Patient Disposition: Home, Self-Care Condition: Good Prescriptions Prescriptions: No Action hydrocodone-acetaminophen 1 EACH tablet 1 each PO TID gabapentin 800 MG tablet 800 mg PO TID metoprolol succinate 100 MG tablet extended release 24 hr 100 mg PO DAILY atorvastatin 80 MG tablet 80 mg PO HS rivaroxaban 20 MG tablet 20 mg PO DAILY levofloxacin 500 MG tablet 500 mg PO DAILY Qty: 10 0RF metronidazole 375 MG capsule 375 mg PO 5XDAY Qty: 35 0RF Rx Instructions: Please take every 6 hours for the next 7 days. Referrals Follow up/Referrals: Wicho Aguilar MD [Primary Care Provider] - See instructions Activity Restrictions/Add. Instructions Additional Instructions/Restrictions: Use crutches as needed. Continue taking your acetaminophen/hydrocodone for pain. Ice 20 minutes 4 times a day to thigh. Follow-up with primary care provider, call Tuesday to make appointment. Clinical Impressions Clinical Impression: Acute pain of left thigh Instructions Patient Instructions: How to Use Crutches Discharge ED Provider: Sunday Sosa General Adult HPI General Chief complaint: Extremity Problem,Nontraumatic Stated complaint: left leg pain, no accident Time Seen by Provider: 02/13/22 15:30 Mode of Arrival: Ambulatory Limitations: No Limitations Description of Symptoms (Recalled from ER Triage Doc. by RN): PT REPORTS LEFT LEG PAIN FROM HIP TO KNEE. NO KNOWN INJURY History of Present Illness HPI narrative: 3-day history of pain in his left thigh which he locates as being predominantly anterior and lateral. Does not recall injury, but says that he has been putting up lights recently and thinks his pain might be due to a torn muscle. He feels that there is swelling in his thigh. Denies any pain down below his knee or up into the inguinal area. He has some chronic back problems but says he is not experiencing any change in back pain. No fever. He has some chronic tingling in his left leg from clipping a nerve when I had back surgery years ago . No change in numbness or weakness. He has a history of DVT years ago and is on Xarelto, states he is compliant. His DVT was in his right leg. States he does not think this feels like a blood clot. Related Data Home Medications Medication Instructions Recorded Confirmed atorvastatin 80 mg tablet 80 mg PO HS Cholesterol 03/02/20 03/02/20 gabapentin 800 mg tablet 800 mg PO TID neuropathy 03/02/20 03/02/20 hydrocodone 10 mg-acetaminophen 1 each PO TID chronic pain 03/02/20 03/02/20 325 mg tablet metoprolol succinate 100 mg 100 mg PO DAILY Heart rhythm 03/02/20 03/02/20 tablet,extended release 24 hr rivaroxaban 20 mg tablet 20 mg PO DAILY Blood thinner/hx of 03/03/20 03/03/20 DVT Previous Rx's Medication Instructions Recorded metronidazole 375 mg capsule 375 mg PO 5XDAY #35 caps 01/07/21 levofloxacin 500 mg tablet 500 mg PO DAILY #10 tabs 05/29/21 Allergies Allergy/AdvReac Type Severity Reaction Status Date / Time venom-honey bee Allergy Unknown Verified 12/21/17 20:52 [BEE VENOM (HONEY BEE)] [facility] Disclaimer: The information contained in this section may have been updated after the patient was seen, as this information can be updated by other users. Social History Smoking Status: Current every day smoker tobacco type: cigarettes packs per day: 0 alcohol intake: never substance use type: denies use current occupational status: employed Travel in the last 8 weeks: None household members: spouse ROS Obtained: Yes Systems reviewed as appropriate & no additional complaints except as documented Constitutional Constitutional: Denies fever(s) Cardiovascular Cardiovascular: Denies chest pain Respiratory Respiratory: Denies shortness of breath Musculoskeletal Musculoskeletal: Reports as per HPI (Left thigh pain and possible mild swelling), Luis E
--- NOTE | 2022-02-13 16:08 | PC.NURSE ---
PT MEDICATED PER EMAR, WARM BLANKET PROVIDED. NO FURTHER NEEDS
[2022-02-13 16:09] LABS: Basophils # 0.1 K/mm3 (0-0.2); Basophils % 1.4 % (0.1-2.0); Eosinophils # 0.3 K/mm3 (0.0-0.4); Eosinophils % 7.1 % (0.1-12.0); Hematocrit 44.3 % (42.0-52.0); Hemoglobin 14.7 g/dL (14.1-18.0); Lymphocytes # 1.8 K/mm3 (0.7-4.5); Lymphocytes % 37.3 % (10-50); Mean Corpuscular HGB Conc 33.3 g/dL (31.8-35.4); Mean Corpuscular Hemoglobin 29.7 pg (27.0-31.2); Mean Corpuscular Volume 89.2 fl (80-94); Mean Platelet Volume 7.7 fl (7.4-10.4); Monocytes # 0.2 K/mm3 (0.1-1.0); Monocytes % 4.2 % (1.7-9.3); Neutrophils # 2.4 K/mm3 (1.8-7.8); Neutrophils % 50.1 % (37.0-80.0); Platelet Count 337 K/mm3 (142-424); Red Blood Count 4.96 M/mm3 (4.60-6.20); Red Cell Distribution Width 13.7 % (11.5-17.5); White Blood Count 4.7 K/mm3 (4.8-10.8)
--- NOTE | 2022-02-13 16:17 | PC.NURSE ---
DOPPLER PERFORMED AT THIS TIME
[2022-02-13 16:20] LABS: C-Reactive Protein 0.4 mg/L (0-4)
[2022-02-13 16:30] VITALS: BP 117/77; PULSE 64; RESP 20; O2SAT 98
[2022-02-13 16:34] LABS: Erythrocyte Sedimentation Rate 11 mm/hr (0-20)
[2022-02-13 16:47] LABS: Anion Gap 12.7 mEq/L (5-15); Blood Urea Nitrogen 21 mg/dl (9-20); Calcium 9.9 mg/dl (8.4-10.2); Carbon Dioxide 30 mmol/L (22.0-30.0); Chloride 106 mmol/L (98-107); Creatinine Clearance Estimated 106 mL/min (50-200); Estimated Glomerular Filt Rate 69 ml/min (>60); GFR (African American) 84 ML/MIN (>60); Glucose 61 mg/dl (74-100); Potassium 4.7 mmoL/L (3.5-5.1); Sodium 144 mmol/L (136-145)
--- NOTE | 2022-02-13 16:52 | CT_ITS ---
PROCEDURE INFORMATION: Exam: CT Left Lower Extremity With Contrast; Thigh Exam date and time: 02/13/2022 5:00 PM Age: 56 years old Clinical indication: Difficulty in walking and edema and swelling, leg or foot; Yes, it is localized; Additional info: Pain and swellin L thigh, on xarelto, R/O hematoma TECHNIQUE: Imaging protocol: CT of the Left lower extremity with intravenous contrast was performed. Exam focused on the thigh. Radiation optimization: All CT scans at this facility use at least one of these dose optimization techniques: automated exposure control; mA and/or kV adjustment per patient size (includes targeted exams where dose is matched to clinical indication); or iterative reconstruction. Contrast material: ISOVUE; Contrast volume: 120 ml; Contrast route: IV; COMPARISON: CA VENOUS DOPPLER LE 02/13/2022 4:11 PM FINDINGS: Bones/joints: Moderate degenerative changes of the left hip. There is no evidence of acute fracture. There is no evidence of joint malalignment or dislocation. Soft tissues: Mild soft tissue swelling. IMPRESSION: 1. Moderate degenerative changes of the left hip. 2. No evidence of acute fracture. 3. No evidence of acute dislocation. 4. Mild soft tissue swelling.
--- NOTE | 2022-02-13 17:05 | PC.NURSE ---
[address]
--- NOTE | 2022-02-13 17:48 | PC.NURSE ---
[address], WATCHING TV. NO NEEDS AT THIS TIME
--- NOTE | 2022-02-13 18:01 | PC.NURSE ---
DR. LEVINE AT BEDSIDE TO UPDATE PT ON POC
[2022-02-13 18:21] VITALS: BP 118/76; PULSE 65; RESP 18; TEMP 36.8; O2SAT 98
== END 2022-02-13 18:26 | disposition home or self-care (01) ==
PROVIDERS: Emergency Provider Emergency Medicine; PCP Emergency Medicine
DX: M79.652 Pain in left thigh (principal); M16.9 Osteoarthritis of hip, unspecified; M25.562 Pain in left knee; R20.2 Paresthesia of skin; M54.9 Dorsalgia, unspecified; G89.29 Other chronic pain; F17.210 Nicotine dependence, cigarettes, uncomplicated; Z79.01 Long term (current) use of anticoagulants; Z79.1 Long term (current) use of non-steroidal anti-inflammatories (NSAID); Z86.718 Personal history of other venous thrombosis and embolism
CPT/HCPCS: 73552; 73701; 80048; 85025; 85651; 86140; 93971; 96374; 96375; 99285; J2405; Q9967

== ENCOUNTER 2022-03-24 15:02 | Emergency (ER) | payer MEDICARE, SELFPAY ==
--- NOTE | 2022-03-24 15:02 | ECG_ITS ---
APPROVED REPORT Exam: Resting ECG HR:62 bpm ECG Measurements Heart Rate 62 AXES VA 162 P 54 QRSd 92 QRS 58 QT 400 T 65 QTc 406 Conclusion SINUS RHYTHM NORMAL ECG UNCONFIRMED REPORT Electronically signed by : Mario Harris MD 03/26/2022 15:44:04
--- NOTE | 2022-03-24 15:05 | XR_ITS ---
FINAL REPORT TECHNIQUE: Two views CLINICAL HISTORY: chest pain COMPARISON: 12/21/2017 FINDINGS: No acute pulmonary density is present. Mediastinal contour is normal. Heart size is stable. IMPRESSION: Stable chest exam without acute disease Reviewed, Interpreted and Dictated by Kam Culp MD Transcribed by Priya Helton Authenticated and [facility]
[2022-03-24 15:11] VITALS: BP 145/89; PULSE 63; RESP 13; TEMP 36.8; O2SAT 100; BMI 31.1
[2022-03-24 15:28] LABS: Basophils # 0.1 K/mm3 (0-0.2); Basophils % 1.1 % (0.1-2.0); Eosinophils # 0.4 K/mm3 (0.0-0.4); Eosinophils % 8.5 % (0.1-12.0); Hematocrit 43.7 % (42.0-52.0); Hemoglobin 14.6 g/dL (14.1-18.0); Lymphocytes # 2.2 K/mm3 (0.7-4.5); Lymphocytes % 48.2 % (10-50); Mean Corpuscular HGB Conc 33.4 g/dL (31.8-35.4); Mean Corpuscular Hemoglobin 29.5 pg (27.0-31.2); Mean Corpuscular Volume 88.5 fl (80-94); Mean Platelet Volume 7.5 fl (7.4-10.4); Monocytes # 0.2 K/mm3 (0.1-1.0); Monocytes % 4.5 % (1.7-9.3); Neutrophils # 1.8 K/mm3 (1.8-7.8); Neutrophils % 37.7 % (37.0-80.0); Platelet Count 300 K/mm3 (142-424); Red Blood Count 4.94 M/mm3 (4.60-6.20); White Blood Count 4.7 K/mm3 (4.8-10.8)
--- NOTE | 2022-03-24 15:29 | CT_ITS ---
FINAL REPORT TECHNIQUE: Thin section axial CT with contrast with multiplanar reconstruction. This study was performed with techniques to keep radiation doses as low as reasonably achievable (ALARA). Individualized dose reduction techniques using automated exposure control or adjustment of mA and/or kV according to the patient's size were employed. CLINICAL HISTORY: chest pain/soa, h/o DVT COMPARISON: 05/08/2016 FINDINGS: Pulmonary vessels enhance in normal fashion without evidence of embolism. There is enlargement of the aortic sinus measuring up to 44 mm. The mid ascending aorta is borderline enlarged measuring 40 mm. There is mild peripheral ground-glass opacity in the right upper lobe suspicious for mild bronchopneumonia. There is linear scar in the right lower lobe which is stable. There is no significant pleural effusion. There is no significant pericardial effusion. No mediastinal or hilar adenopathy is present. IMPRESSION: No evidence of pulmonary embolism. Mild bronchopneumonia in the right upper lobe. Mild enlargement of the proximal thoracic aorta, particularly at the aortic sinus. Reviewed, Interpreted and Dictated by Kam Culp MD Transcribed by Alessandra Garcia Authenticated and [facility]
[2022-03-24 15:30] LABS: Alanine Aminotransferase 19 U/L (12-78); Albumin Level 4.9 g/dl (3.5-5.0); Alkaline Phosphatase 69 U/L (38-126); Aspartate Amino Transferase 30 U/L (17-59); Bilirubin,Direct 0.2 mg/dl (0.0-0.4); Bilirubin,Indirect 0.5 mg/dL (0.0-0.9); Bilirubin,Total 0.7 mg/dl (0.2-1.3); Bilirubin,Unconjugated 0.4 mg/dL (0.0-1.1); Blood Urea Nitrogen 13 mg/dl (9-20); Calcium 8.8 mg/dl (8.4-10.2); Carbon Dioxide 30 mmol/L (22.0-30.0); Chloride 105 mmol/L (98-107); Creatinine Clearance Estimated 135 mL/min (50-200); Estimated Glomerular Filt Rate 87 ml/min (>60); GFR (African American) 106 ML/MIN (>60); Glucose 90 mg/dl (74-100); Sodium 142 mmol/L (136-145); Total Protein,Serum 8.6 g/dl (6.3-8.2)
[2022-03-24 15:41] LABS: Troponin I < 0.01 ng/ml (0.00-0.034)
[2022-03-24 15:45] LABS: C-Reactive Protein 0.6 mg/L (0-4)
[2022-03-24 15:55] LABS: Erythrocyte Sedimentation Rate 13 mm/hr (0-20)
--- NOTE | 2022-03-24 15:56 | HMH.EDGENADL ---
Discharge Plan Disposition Patient Disposition: Home, Self-Care Condition: Good Prescriptions Prescriptions: New amoxicillin 500 mg tablet 1,000 mg PO TID 10 Days Qty: 60 0RF No Action hydrocodone-acetaminophen 1 EACH tablet 1 each PO TID gabapentin 800 MG tablet 800 mg PO TID metoprolol succinate 100 MG tablet extended release 24 hr 100 mg PO DAILY atorvastatin 80 MG tablet 80 mg PO HS rivaroxaban 20 MG tablet 20 mg PO DAILY levofloxacin 500 MG tablet 500 mg PO DAILY Qty: 10 0RF metronidazole 375 MG capsule 375 mg PO 5XDAY Qty: 35 0RF Rx Instructions: Please take every 6 hours for the next 7 days. Referrals Follow up/Referrals: Provider,Referral, MD [Referring] - See instructions Activity Restrictions/Add. Instructions Additional Instructions/Restrictions: You were evaluated in the emergency department today. At this time, it looks like you have a developing pneumonia. Please diamond picker your prescription for antibiotics at the pharmacy and take the full course as prescribed. Follow-up with your primary care provider over the next 48 hours. Return to the emergency department for any new or worsening symptoms. Take Tylenol and ibuprofen as needed for pain. Clinical Impressions Clinical Impression: Chest pain Qualifiers: Chest pain type: unspecified Qualified Code(s): R07.9 - Chest pain, unspecified Pneumonia Qualifiers: Pneumonia type: due to unspecified organism Laterality: right Lung location: upper lobe of lung Qualified Code(s): J18.9 - Pneumonia, unspecified organism Instructions Patient Instructions: DI for Pneumonia -- Adult, DI for Atypical Chest Pain Discharge ED Provider: Zaira García General Adult HPI General Chief complaint: Chest Pain Stated complaint: CP Time Seen by Provider: 03/24/22 15:05 Mode of Arrival: Ambulatory Source of Information: Patient and Spouse Limitations: No Limitations Description of Symptoms (Recalled from ER Triage Doc. by RN): Pt c/o bilateral chest pain, pressure, tightness onset last pm but worsened today, to 7/10 rating; denies dyspnea, cough History of Present Illness HPI narrative: This patient is a 56-year-old male with a history of DVT on Xarelto who reports medication compliance, GI bleed, smoking history, and costochondritis presenting to the emergency department for evaluation with concern for diffuse chest pain that started yesterday evening while he was making dinner. He states that it worsened today. He describes it as a pressure and tightness. It is worse when he takes a deep breath, and he is tender to palpation over his chest wall. He denies experiencing anything like this in the past. He currently rates it a 7 out of 10, and any breathing or movement makes it worse. Nothing seems to make it better. He denies any fevers, chills, cough, congestion, abdominal pain, nausea, vomiting, changes in bowel movements, or other concerns. Related Data Home Medications Medication Instructions Recorded Confirmed atorvastatin 80 mg tablet 80 mg PO HS Cholesterol 03/02/20 03/02/20 gabapentin 800 mg tablet 800 mg PO TID neuropathy 03/02/20 03/02/20 hydrocodone 10 mg-acetaminophen 1 each PO TID chronic pain 03/02/20 03/02/20 325 mg tablet metoprolol succinate 100 mg 100 mg PO DAILY Heart rhythm 03/02/20 03/02/20 tablet,extended release 24 hr rivaroxaban 20 mg tablet 20 mg PO DAILY Blood thinner/hx of 03/03/20 03/03/20 DVT Previous Rx's Medication Instructions Recorded metronidazole 375 mg capsule 375 mg PO 5XDAY #35 caps 01/07/21 levofloxacin 500 mg tablet 500 mg PO DAILY #10 tabs 05/29/21 amoxicillin 500 mg tablet 1,000 mg PO TID 10 days #60 tabs 03/24/22 Allergies Allergy/AdvReac Type Severity Reaction Status Date / Time venom-honey bee Allergy Unknown Verified 12/21/17 20:52 [BEE VENOM (HONEY BEE)] [facility] Disclaimer: The information contained in this section may [place]
[2022-03-24 16:00] VITALS: BP 119/82; PULSE 60; O2SAT 100
--- NOTE | 2022-03-24 16:03 | PC.NURSE ---
pt to CT via WC with tablet technician
[2022-03-24 16:33] VITALS: BP 139/94; PULSE 60; RESP 18; O2SAT 99
[2022-03-24 18:36] LABS: Troponin I < 0.01 ng/ml (0.00-0.034)
[2022-03-24 19:00] VITALS: BP 130/91; PULSE 53; RESP 17; TEMP 36.7; O2SAT 98
== END 2022-03-24 19:00 | disposition home or self-care (01) ==
PROVIDERS: Emergency Provider Emergency Medicine; PCP Emergency Medicine
DX: J18.1 Lobar pneumonia, unspecified organism (principal); R07.89 Other chest pain; Z86.718 Personal history of other venous thrombosis and embolism; Z79.01 Long term (current) use of anticoagulants; F17.210 Nicotine dependence, cigarettes, uncomplicated
CPT/HCPCS: 71046; 71275; 80048; 80076; 84484; 85025; 85651; 86140; 93005; 96374; 96375; 99285; J2405; Q9967

== ENCOUNTER 2022-05-08 19:21 | Emergency (ER) | payer MEDICARE, SELFPAY ==
[2022-05-08 19:33] VITALS: BP 157/86; PULSE 59; RESP 18; TEMP 36.6; O2SAT 100; BMI 31.6
--- NOTE | 2022-05-08 19:43 | CT_ITS ---
PROCEDURE INFORMATION: Exam: CT Abdomen And Pelvis With Contrast Exam date and time: 05/08/2022 8:12 PM Age: 56 years old Clinical indication: Abdominal pain; Additional info: Abdominal pain, rectal bleeding TECHNIQUE: Imaging protocol: Computed tomography of the abdomen and pelvis with contrast. Radiation optimization: All CT scans at this facility use at least one of these dose optimization techniques: automated exposure control; mA and/or kV adjustment per patient size (includes targeted exams where dose is matched to clinical indication); or iterative reconstruction. Contrast material: ISOVUE; Contrast volume: 75 ml; Contrast route: IV; REPORTING DATA: Count of CT and Cardiac NM exams in prior 12 months: This patient has received 3 known CTs and 0 known cardiac nuclear medicine studies in the 12 months prior to the current study. COMPARISON: CT ABDOMEN PELVIS WO CON 05/29/2021 7:40 AM FINDINGS: Liver: Normal. No mass. Gallbladder and bile ducts: Cholecystectomy clips. Pancreas: Normal. No ductal dilation. Spleen: Calcified splenic granulomas. Adrenal glands: Normal. No mass. Kidneys and ureters: Partial malrotation left kidney. Stomach and bowel: Mucosal thickening right colon. This is seen on coronal image 1001/26. Appendix: Appendectomy clips. Intraperitoneal space: Unremarkable. No free air. No significant fluid collection. Vasculature: IVC filter in place. Flow artifact in the portal vein. Superior mesenteric vein origin not identified. There appears to be reconstitution of the SMV on coronal image 1001/25. Lymph nodes: Shotty subcentimeter para-aortic nodes image 3/20. Urinary bladder: Unremarkable as visualized. Reproductive: Unremarkable as visualized. Bones/joints: Unremarkable. No acute fracture. Soft tissues: Unremarkable. IMPRESSION: 1. No free air or fluid or adenopathy. 2. Apparent mucosal thickening right colon. This is seen on coronal image 1001/26. Colitis not excluded. Colonoscopy may be helpful. 3. Calcified splenic granulomas. 4. Partial malrotation left kidney. 5. IVC filter in place. 6. Appendectomy clips. 7. Flow artifact in the portal vein. 8. Superior mesenteric vein origin not identified. There appears to be reconstitution of the SMV on coronal image 1001/25. 9. Shotty subcentimeter para-aortic nodes image 3/20. 10. Cholecystectomy clips. COMMENTS: For patients with an IVC filter, recommend assessment for a management plan for the patient's IVC filter. If there is no established management plan, recommend referral to an interventional clinician on a nonemergent basis for evaluation.
[2022-05-08 19:49] LABS: Basophils % 0.8 % (0.1-2.0); Eosinophils # 0.3 K/mm3 (0.0-0.4); Eosinophils % 5.7 % (0.1-12.0); Hematocrit 40.5 % (42.0-52.0); Hemoglobin 13.5 g/dL (14.1-18.0); Lymphocytes # 2.4 K/mm3 (0.7-4.5); Lymphocytes % 47.2 % (10-50); Mean Corpuscular HGB Conc 33.3 g/dL (31.8-35.4); Mean Corpuscular Hemoglobin 29.5 pg (27.0-31.2); Mean Corpuscular Volume 88.7 fl (80-94); Mean Platelet Volume 6.5 fl (7.4-10.4); Monocytes # 0.3 K/mm3 (0.1-1.0); Monocytes % 5.5 % (1.7-9.3); Neutrophils # 2.1 K/mm3 (1.8-7.8); Neutrophils % 40.8 % (37.0-80.0); Platelet Count 255 K/mm3 (142-424); Red Blood Count 4.56 M/mm3 (4.60-6.20); Red Cell Distribution Width 13.5 % (11.5-17.5); White Blood Count 5.1 K/mm3 (4.8-10.8)
[2022-05-08 19:50] LABS: Chloride 107 mmol/L (98-107); Potassium 3.1 mmoL/L (3.5-5.1); Sodium 140 mmol/L (136-145)
[2022-05-08 19:52] LABS: Blood Urea Nitrogen 7 mg/dl (9-20); Creatinine Clearance Estimated 115 mL/min (50-200); Estimated Glomerular Filt Rate 69 ml/min (>60); GFR (African American) 84 ML/MIN (>60)
[2022-05-08 19:53] LABS: Alanine Aminotransferase 29 U/L (12-78); Albumin Level 4.5 g/dl (3.5-5.0); Albumin/Globulin Ratio 1.4 (1.1-1.8); Alkaline Phosphatase 81 U/L (38-126); Anion Gap 9.1 mEq/L (5-15); Aspartate Amino Transferase 53 U/L (17-59); Bilirubin,Total 0.8 mg/dl (0.2-1.3); Calcium 8.4 mg/dl (8.4-10.2); Carbon Dioxide 27 mmol/L (22.0-30.0); Globulin 3.2 g/dL (1.3-3.2); Glucose 97 mg/dl (74-100); Lipase 390 U/L (23-300); Total Protein,Serum 7.7 g/dl (6.3-8.2)
[2022-05-08 19:58] LABS: C-Reactive Protein 0.8 mg/L (0-4)
[2022-05-08 20:00] VITALS: PULSE 45; O2SAT 99
--- NOTE | 2022-05-08 20:14 | HMH.EDGIBL ---
Discharge Plan Disposition Patient Disposition: Home, Self-Care Chief Complaint: GI Bleed Prescriptions Prescriptions: No Action hydrocodone-acetaminophen 1 EACH tablet 1 each PO TID gabapentin 800 MG tablet 800 mg PO TID metoprolol succinate 100 MG tablet extended release 24 hr 100 mg PO DAILY atorvastatin 80 MG tablet 80 mg PO HS rivaroxaban 20 MG tablet 20 mg PO DAILY levofloxacin 500 MG tablet 500 mg PO DAILY Qty: 10 0RF metronidazole 375 MG capsule 375 mg PO 5XDAY Qty: 35 0RF Rx Instructions: Please take every 6 hours for the next 7 days. amoxicillin 500 mg tablet 1,000 mg PO TID 10 Days Qty: 60 0RF Referrals Follow up/Referrals: Wicho Aguilar MD [Primary Care Provider] - See instructions Clinical Impressions Clinical Impression: Acute lower GI bleeding Instructions Patient Instructions: DI for Gastrointestinal Bleeding Discharge ED Provider: Lauren (ED)Wicho GI Bleed HPI General Chief complaint: GI Bleed Stated complaint: Retal bleeding and Abd Pain, Nausa Time Seen by Provider: 05/08/22 20:14 Mode of Arrival: Ambulatory Source of Information: Patient, Spouse and Medical Record Limitations: No Limitations Description of Symptoms (Recalled from ER Triage Doc. by RN): Pt arrives to er via private vehicle. Pt c/o abdominal pain for prior 4 days, states that the pain is in his lower middle abdomen States that he has rectal bleeding for the prior 4 days as well. States that he noticed the blood without having a bm, states that when he sits on the toilet blood will drip out of his rectum. 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 History of Present Illness HPI Narrative: 4 day hx of dark blood in bowels with some crampy pain - hx of xarelto - complaint: gross hematochezia Onset (ago): day(s) Consistency: intermittent Severity: moderate Context: anticoagulant use and other Associated symptoms: nausea and vomiting Related Data Home Medications Medication Instructions Recorded Confirmed atorvastatin 80 mg tablet 80 mg PO HS Cholesterol 03/02/20 03/02/20 gabapentin 800 mg tablet 800 mg PO TID neuropathy 03/02/20 03/02/20 hydrocodone 10 mg-acetaminophen 1 each PO TID chronic pain 03/02/20 03/02/20 325 mg tablet metoprolol succinate 100 mg 100 mg PO DAILY Heart rhythm 03/02/20 03/02/20 tablet,extended release 24 hr rivaroxaban 20 mg tablet 20 mg PO DAILY Blood thinner/hx of 03/03/20 03/03/20 DVT Previous Rx's Medication Instructions Recorded metronidazole 375 mg capsule 375 mg PO 5XDAY #35 caps 01/07/21 levofloxacin 500 mg tablet 500 mg PO DAILY #10 tabs 05/29/21 amoxicillin 500 mg tablet 1,000 mg PO TID 10 days #60 tabs 03/24/22 Allergies Allergy/AdvReac Type Severity Reaction Status Date / Time venom-honey bee Allergy Unknown Verified 12/21/17 20:52 [BEE VENOM (HONEY BEE)] [facility] Disclaimer: The information contained in this section may have been updated after the patient was seen, as this information can be updated by other users. Social History Smoking Status: Current every day smoker tobacco type: cigarettes packs per day: 0 alcohol intake: never substance use type: denies use current occupational status: employed Travel in the last 8 weeks: None household members: spouse ROS Obtained: Yes All systems reviewed & no additional complaints except as documented Physical Exam General General appearance: alert and in no apparent distress Head Head exam: normocephalic Eye Eye exam: Present PERRL and EOMI ENT ENT exam: Present mucous membranes moist Neck Neck exam: Present trachea midline Respiratory Respiratory exam: Present normal lung sounds bilaterally; Absent respiratory distress Cardiovascular [facility]
--- NOTE | 2022-05-08 20:16 | PC.NURSE ---
Patient to radiology
[2022-05-08 20:20] LABS: Erythrocyte Sedimentation Rate 18 mm/hr (0-20)
[2022-05-08 20:30] VITALS: PULSE 52; O2SAT 99
[2022-05-08 22:22] LABS: Occult Blood,Stool Negative (Negative)
[2022-05-08 22:45] VITALS: BP 150/80; PULSE 61; RESP 16; TEMP 36.6; O2SAT 96
[2022-05-08 22:46] VITALS: BP 150/80; PULSE 63; RESP 18; TEMP 36.6; O2SAT 99
== END 2022-05-08 22:53 | disposition home or self-care (01) ==
PROVIDERS: Emergency Provider Emergency Medicine; PCP Emergency Medicine
DX: K92.2 Gastrointestinal hemorrhage, unspecified (principal); F17.210 Nicotine dependence, cigarettes, uncomplicated
CPT/HCPCS: 74177; 80053; 82272; 83690; 85025; 85651; 86140; 96361; 96374; 99284; 99285; G0328; J2405; Q9967

== ENCOUNTER 2022-05-23 03:45 | Emergency (ER) | payer MEDICARE, SELFPAY ==
[2022-05-23 03:47] VITALS: BP 132/74; PULSE 66; RESP 19; TEMP 36.8; O2SAT 99; BMI 28.0
--- NOTE | 2022-05-23 03:52 | CT_ITS ---
PROCEDURE INFORMATION: Exam: CT Neck With Contrast Exam date and time: 05/23/2022 4:44 AM Age: 56 years old Clinical indication: Other: Neck swelling; Additional info: Posterior auricular and neck swelling TECHNIQUE: Imaging protocol: Computed tomography of the neck with contrast. Radiation optimization: All CT scans at this facility use at least one of these dose optimization techniques: automated exposure control; mA and/or kV adjustment per patient size (includes targeted exams where dose is matched to clinical indication); or iterative reconstruction. Contrast material: ISOVUE; Contrast volume: 75 ml; Contrast route: IV; REPORTING DATA: Count of CT and Cardiac NM exams in prior 12 months: This patient has received 4 known CTs and 0 known cardiac nuclear medicine studies in the 12 months prior to the current study. COMPARISON: CT ANGIO CHEST PE PROTOCOL 03/24/2022 4:09 PM FINDINGS: Pharynx: Unremarkable. No significant tonsillar enlargement. Larynx: Unremarkable. Epiglottis is normal. Prevertebral and retropharyngeal spaces: Unremarkable. Salivary glands: Normal. Glands are normal in size. Thyroid: Normal. No enlarged or calcified nodules. Lymph nodes: Calcified and noncalcified mediastinal lymph nodes are identified. A prominent left posterior auricular lymph node is seen measuring 10 mm in short axis. A smaller lymph node is seen posterior to this measuring 7 mm. Trachea: Visualized trachea is unremarkable. Bronchial tree: The largest are seen adjacent to the left mainstem bronchus measuring 13 mm in short axis. Lungs: Unremarkable as visualized. Bones/joints: Unremarkable. No acute fracture. Soft tissues: Unremarkable. No significant soft tissue swelling. IMPRESSION: 1. Two small left posterior auricular lymph nodes are noted of uncertain etiology or clinical significance. No abscess or cellulitis identified. 2. Mediastinal lymphadenopathy most of which is calcified likely from prior granulomatous disease.
--- NOTE | 2022-05-23 03:54 | HMH.EDGENADL ---
Discharge Plan Disposition Patient Disposition: Home, Self-Care Condition: Good Prescriptions Prescriptions: New sulfamethoxazole-trimethoprim [Bactrim DS] 800-160 mg tablet 1 tab PO BID 7 Days Qty: 14 0RF cephalexin 500 mg capsule 500 mg PO QID 7 Days Qty: 28 0RF No Action Xarelto 20 mg tablet 20 mg PO HS Rx Instructions: must administer with evening meal hydrocodone-acetaminophen 10-325 mg tablet 1 tab PO Q6H PRN (Reason: chronic pain) gabapentin 800 mg tablet 800 mg PO BID peg 3350-electrolytes [GaviLyte-G] 236-22.74-6.74 -5.86 gram recon soln 240 ml PO Q10M Rx Instructions: until fecal effluent is clear follow mailed instructions trazodone 50 mg tablet 50 mg PO HS metoprolol succinate 100 mg Tablet Extended Release 24 Hr 100 mg PO DAILY Referrals Follow up/Referrals: Wicho Aguilar MD [Primary Care Provider] - See instructions Clinical Impressions Clinical Impression: Acute lymphadenitis of face, head and neck Instructions Patient Instructions: DI for Lymphadenopathy Print Language Print Language: [place] Verde[place] Discharge ED Provider: Babar Ernst General Adult HPI General Chief complaint: Ear Stated complaint: Knots behind both ears Time Seen by Provider: 05/23/22 06:01 Mode of Arrival: Ambulatory Source of Information: Patient Limitations: No Limitations History of Present Illness HPI narrative: Patient presents to the emergency department with painful nodules behind both ears. He states that they have been here for the last several days. He states that they are getting larger and more painful. States that he in the near future he is scheduled for an outpatient colonoscopy for rectal bleeding. He denies any fever, chills, sores on his scalp. Describes generalized malaise. Related Data Home Medications Medication Instructions Recorded Confirmed gabapentin 800 mg tablet 800 mg PO BID nerve pain 05/10/22 05/23/22 hydrocodone 10 mg-acetaminophen 1 tab PO Q6H PRN chronic pain 05/10/22 05/23/22 325 mg tablet rivaroxaban 20 mg tablet (Xarelto) 20 mg PO HS blood clots 05/10/22 05/23/22 metoprolol succinate 100 mg 100 mg PO DAILY High blood pressure 05/23/22 05/23/22 tablet,extended release 24 hr peg 3350-electrolytes 236 240 ml PO Q10M bowel prep for 05/23/22 05/23/22 gram-22.74 gram-6.74 gram-5.86 colonoscopy gram solution (GaviLyte-G) trazodone 50 mg tablet 50 mg PO HS sleep 05/23/22 05/23/22 Previous Rx's Medication Instructions Recorded cephalexin 500 mg capsule 500 mg PO QID 7 days #28 caps 05/23/22 sulfamethoxazole 800 1 tab PO BID 7 days #14 tabs 05/23/22 mg-trimethoprim 160 mg tablet (Bactrim DS) Allergies Allergy/AdvReac Type Severity Reaction Status Date / Time venom-honey bee Allergy Unknown Verified 05/10/22 14:13 [BEE VENOM (HONEY BEE)] [facility] Disclaimer: The information contained in this section may have been updated after the patient was seen, as this information can be updated by other users. Medical History Appendicitis Intestinal obstruction Smoker Surgical History History of appendectomy History of back surgery History of intestinal surgery Family History Other Family history of blood clots Family history of diabetes mellitus type II Social History Smoking Status: Light tobacco smoker tobacco type: cigarettes packs per day: 1 pack-years: 5 alcohol intake: never substance use type: denies use current occupational status: disabled Travel in the last 8 weeks: None household members: spouse housing: house marital status: education level: high school service: Yes chcf: No caffeine: Yes special michael needs: No agree to transfusion: No do you fe
[2022-05-23 04:01] VITALS: BP 117/81; PULSE 60; O2SAT 100
[2022-05-23 04:30] LABS: Basophils % 0.9 % (0.1-2.0); Eosinophils # 0.3 K/mm3 (0.0-0.4); Eosinophils % 7.5 % (0.1-12.0); Lymphocytes # 1.9 K/mm3 (0.7-4.5); Lymphocytes % 45.1 % (10-50); Mean Corpuscular HGB Conc 33.3 g/dL (31.8-35.4); Mean Corpuscular Hemoglobin 29.4 pg (27.0-31.2); Mean Corpuscular Volume 88.5 fl (80-94); Mean Platelet Volume 7.4 fl (7.4-10.4); Monocytes # 0.3 K/mm3 (0.1-1.0); Monocytes % 7.8 % (1.7-9.3); Neutrophils # 1.6 K/mm3 (1.8-7.8); Neutrophils % 38.8 % (37.0-80.0); Platelet Count 355 K/mm3 (142-424); Red Blood Count 4.75 M/mm3 (4.60-6.20); Red Cell Distribution Width 13.5 % (11.5-17.5); White Blood Count 4.2 K/mm3 (4.8-10.8)
[2022-05-23 04:31] VITALS: BP 107/77; PULSE 55; O2SAT 97
[2022-05-23 04:32] LABS: Chloride 104 mmol/L (98-107)
--- NOTE | 2022-05-23 04:32 | PC.NURSE ---
radio program checker notified of labs completed
[2022-05-23 04:33] LABS: Potassium 4.2 mmoL/L (3.5-5.1); Sodium 138 mmol/L (136-145)
[2022-05-23 04:35] LABS: Alanine Aminotransferase 21 U/L (12-78); Alkaline Phosphatase 69 U/L (38-126); Aspartate Amino Transferase 34 U/L (17-59); Bilirubin,Total 0.7 mg/dl (0.2-1.3); Blood Urea Nitrogen 11 mg/dl (9-20); Creatinine Clearance Estimated 128 mL/min (50-200); Estimated Glomerular Filt Rate 87 ml/min (>60); GFR (African American) 106 ML/MIN (>60)
--- NOTE | 2022-05-23 04:35 | PC.NURSE ---
pt to ct scan
[2022-05-23 04:36] LABS: Albumin Level 4.5 g/dl (3.5-5.0); Albumin/Globulin Ratio 1.4 (1.1-1.8); Anion Gap 10.2 mEq/L (5-15); Calcium 8.7 mg/dl (8.4-10.2); Carbon Dioxide 28 mmol/L (22.0-30.0); Globulin 3.3 g/dL (1.3-3.2); Glucose 96 mg/dl (74-100); Total Protein,Serum 7.8 g/dl (6.3-8.2)
--- NOTE | 2022-05-23 04:49 | PC.NURSE ---
pt back from ct scan
[2022-05-23 05:00] VITALS: BP 116/63; PULSE 55; RESP 16; O2SAT 96
--- NOTE | 2022-05-23 05:07 | PC.NURSE ---
per radio survey worker, the vrad read time is up to 100 min. aware
[2022-05-23 05:30] VITALS: BP 112/62; PULSE 50; RESP 18; O2SAT 97
[2022-05-23 06:02] VITALS: BP 110/67; PULSE 56; RESP 18; TEMP 36.9; O2SAT 98
== END 2022-05-23 06:17 | disposition home or self-care (01) ==
PROVIDERS: Emergency Provider Emergency Medicine; PCP Emergency Medicine
DX: L04.0 Acute lymphadenitis of face, head and neck (principal)
CPT/HCPCS: 70491; 80053; 85025; 96360; 96374; 99284; Q9967

== ENCOUNTER 2022-05-27 09:14 | Day surgery (SDC) | payer MEDICARE, SELFPAY ==
[2022-05-20 14:27] VITALS: BMI 29.0
[2022-05-27 09:32] VITALS: BP 142/70; PULSE 59; RESP 20; TEMP 36.6; O2SAT 97
--- NOTE | 2022-05-27 10:36 | EXP.ANES.CKL ---
[facility] Disclaimer: The information contained in this section may have been updated after the patient was seen, as this information can be updated by other users. Medical History Appendicitis Intestinal obstruction Smoker Surgical History History of appendectomy History of back surgery History of intestinal surgery Family History Other Family history of blood clots Family history of diabetes mellitus type II Social History Smoking Status: Light tobacco smoker tobacco type: cigarettes packs per day: 1 pack-years: 5 alcohol intake: never substance use type: denies use current occupational status: disabled Travel in the last 8 weeks: None household members: spouse housing: house marital status: education level: high school service: Yes group home: No caffeine: Yes special michael needs: No agree to transfusion: No do you feel safe at home: Yes victim of physical abuse: No victim of emotional abuse: No victim of sexual abuse: No would you like helpful sources: No [facility] Anesthesia Checklist Patient Identification Patient Identification: Arm Band Structural Data Admitted From: Home Planned Operative Procedure/s: Colonoscopy Consent for Planned Operative Procedure(s) Verified: Yes Verified Documents: Surgical Consent and History and Physical NPO Status Verified Time NPO: 00:00 Additional verifications Anesthesia Reactions: No Airway Assessment C-Spine Mobility Assessed: Yes TMJ Mobility Assessed: Yes Dentition: Dentures-good fit Neurological Assessment Level of Consciousness: Awake and Alert Anesthesia Plan Anesthesia Risk discussed: Yes Anesthesia Plan: Verified ASA Class: II Anesthesia Type: MAC
[2022-05-27 10:45] VITALS: O2SAT 97
[2022-05-27 11:11] VITALS: BP 101/67; PULSE 81; RESP 18; TEMP 36.1; O2SAT 96
--- NOTE | 2022-05-27 11:11 | HMH.SCOPE ---
Procedure: Date: 05/27/22 Patient Date of :: 1965 Procedure Performed:: Diagnostic colonoscopy Indications:: Rectal bleeding Performing Provider:: Belle Maldonado MD Referring Provider:: Wicho Aguilar MD Sedation:: Propofol Procedure:: After placing the patient in the left lateral decubitus position, the colonoscopy was gently inserted into the rectum and under direct visualization advanced to the cecum which was identified by transillumination in the right lower quadrant, identification of the ileocecal valve, appendiceal orifice, and cecal strap. Color, texture, mucosa, and anatomy of the colon were carefully examined with the scope. Findings:: Anal canal: normal with external hemorroids Rectum: normal Sigmoid colon: normal without polyps or inflammatory changes Descending colon: normal without polyps or inflammatory changes Splenic flexure: normal Transverse colon: normal without polyps or inflammatory changes Hepatic flexure: normal Ascending colon: normal without polyps or inflammatory changes Cecum: normal Terminal ileum: not visualized Impression: Normal colonoscopy External hemorrhoids Recommendations:: Follow up examination in about TEN years or so, sooner if clinically indicated. Complications:: None Estimated blood obtained (mL): 0
[2022-05-27 11:20] VITALS: BP 104/74; PULSE 67; RESP 18; O2SAT 97
[2022-05-27 11:30] VITALS: BP 114/71; PULSE 67; RESP 18; O2SAT 97
[2022-05-27 11:45] VITALS: BP 120/72; PULSE 74; RESP 18; O2SAT 97
== END 2022-05-27 11:45 | disposition home or self-care (01) ==
PROVIDERS: PCP Emergency Medicine; Visit Provider Internal Medicine Gastroenterology
PROC: 0DJD8ZZ Inspection of Lower Intestinal Tract, Via Natural or Artificial Opening Endoscopic (ICD-10-PCS; CPT 45378; principal; 2022-05-27 10:30)
DX: K62.5 Hemorrhage of anus and rectum (principal); K64.8 Other hemorrhoids; Z72.0 Tobacco use; Z79.899 Other long term (current) drug therapy
CPT/HCPCS: 45378

== ENCOUNTER 2022-08-23 13:47 | Emergency (ER) | payer MEDICARE, SELFPAY ==
[2022-08-23 13:52] VITALS: BP 131/95; PULSE 85; RESP 18; TEMP 36.7; O2SAT 98; BMI 30.9
[2022-08-23 14:00] VITALS: BP 137/90; PULSE 88; RESP 18; O2SAT 98
[2022-08-23 14:30] VITALS: BP 157/60; PULSE 69; RESP 19; TEMP 36.6; O2SAT 99
[2022-08-23 14:31] VITALS: BP 135/117; PULSE 86; RESP 18; O2SAT 96
--- NOTE | 2022-08-23 14:31 | HMH.EDGENADL ---
Discharge Plan Disposition Patient Disposition: Home, Self-Care Prescriptions Prescriptions: New cephalexin 500 mg capsule 500 mg PO BID 5 Days Qty: 10 0RF No Action Xarelto 20 mg tablet 20 mg PO HS Rx Instructions: must administer with evening meal hydrocodone-acetaminophen 10-325 mg tablet 1 tab PO Q6H PRN (Reason: chronic pain) gabapentin 800 mg tablet 800 mg PO BID trazodone 50 mg tablet 50 mg PO HS metoprolol succinate 100 mg Tablet Extended Release 24 Hr 100 mg PO DAILY Referrals Follow up/Referrals: Wicho Aguilar MD [Primary Care Provider] - See instructions Activity Restrictions/Add. Instructions Additional Instructions/Restrictions: Return in 7 days for suture removal. Return earlier for redness swelling or drainage that is concerning for infection. Clinical Impressions Clinical Impression: Laceration Instructions Patient Instructions: DI for Laceration Repair Discharge ED Provider: Brian Lizarraga General Adult HPI General Chief complaint: Wound/Laceration Stated complaint: AO 08/23 LT hand ring finger lac Time Seen by Provider: 08/23/22 14:00 Mode of Arrival: Ambulatory Source of Information: Patient Limitations: No Limitations Description of Symptoms (Recalled from ER Triage Doc. by RN): pt states he was trimming bushes when he cut his left ring finger. History of Present Illness HPI narrative: 56-year-old male presents with finger injury after trimming bushes with his left ring finger. No other injuries was having bleeding at the scene but controlled with compression at this point. Tetanus is not up-to-date Related Data Home Medications Medication Instructions Recorded Confirmed gabapentin 800 mg tablet 800 mg PO BID nerve pain 05/10/22 08/23/22 hydrocodone 10 mg-acetaminophen 1 tab PO Q6H PRN chronic pain 05/10/22 08/23/22 325 mg tablet rivaroxaban 20 mg tablet (Xarelto) 20 mg PO HS blood clots 05/10/22 08/23/22 metoprolol succinate 100 mg 100 mg PO DAILY High blood pressure 05/23/22 08/23/22 tablet,extended release 24 hr trazodone 50 mg tablet 50 mg PO HS sleep 05/23/22 08/23/22 Previous Rx's Medication Instructions Recorded cephalexin 500 mg capsule 500 mg PO BID 5 days #10 caps 08/23/22 Allergies Allergy/AdvReac Type Severity Reaction Status Date / Time venom-honey bee Allergy Unknown Verified 05/10/22 14:13 [BEE VENOM (HONEY BEE)] [facility] Disclaimer: The information contained in this section may have been updated after the patient was seen, as this information can be updated by other users. Medical History Appendicitis Intestinal obstruction Smoker Surgical History History of appendectomy History of back surgery History of intestinal surgery Family History Other Family history of blood clots Family history of diabetes mellitus type II Social History Smoking Status: Light tobacco smoker tobacco type: cigarettes packs per day: 1 pack-years: 5 alcohol intake: never substance use type: denies use current occupational status: disabled Travel in the last 8 weeks: None household members: spouse housing: house marital status: education level: high school service: Yes retirement: No caffeine: Yes special michael needs: No agree to transfusion: No do you feel safe at home: Yes victim of physical abuse: No victim of emotional abuse: No victim of sexual abuse: No would you like helpful sources: No ROS Obtained: Yes All systems reviewed & no additional complaints except as documented Constitutional Constitutional: Denies fatigue Eyes Eyes: Denies diplopia ENT Ears, Nose, Mouth, and Throat: Denies dizziness and Denies throat swelling Cardiovascular Cardiovascular: Denies diaph
== END 2022-08-23 14:44 | disposition home or self-care (01) ==
PROVIDERS: Emergency Provider Emergency Medicine; PCP Emergency Medicine
DX: S61.215A Laceration without foreign body of left ring finger without damage to nail, initial encounter (principal); F17.210 Nicotine dependence, cigarettes, uncomplicated; Z23 Encounter for immunization; W26.8XXA Contact with other sharp object(s), not elsewhere classified, initial encounter; Y93.H2 Activity, gardening and landscaping
CPT/HCPCS: 12002; 90471; 90715; 96372; 99283; 99284

== ENCOUNTER 2023-01-27 15:39 | Emergency (ER) | payer MEDICARE, SELFPAY ==
[2023-01-27] VITALS (8 sets, daily range): BP systolic 116–139; BP diastolic 72–94; PULSE 55–65; RESP 11–18; TEMP 36.6; O2SAT 98–100; BMI 26.7
--- NOTE | 2023-01-27 15:44 | XR_ITS ---
PROCEDURE INFORMATION: Exam: XR Chest Exam date and time: 01/27/2023 4:08 PM Age: 57 years old Clinical indication: Pain; Chest pressure; Additional info: Pain. Smoker x 10-15 years TECHNIQUE: Imaging protocol: Radiologic exam of the chest. Views: 2 views. COMPARISON: CT ANGIO CHEST PE PROTOCOL 03/24/2022 4:09 PM FINDINGS: Lungs: Unremarkable. No consolidation. Pleural spaces: Unremarkable. No pleural effusion. No pneumothorax. Heart/Mediastinum: Unremarkable. No cardiomegaly. Bones/joints: Unremarkable. IMPRESSION: No acute findings.
--- NOTE | 2023-01-27 15:45 | ECG_ITS ---
APPROVED REPORT Exam: Resting ECG HR:54 bpm ECG Measurements Heart Rate 54 AXES MT 155 P 73 QRSd 94 QRS 87 QT 425 T 78 QTc 412 Conclusion SINUS BRADYCARDIA VOLTAGE CRITERIA FOR LVH [MEETS CRITERIA IN ONE OF: R(aVL), S(V1), R(V5), R(V5/V6)+S(V1)] ABNORMAL ECG UNCONFIRMED REPORT Electronically signed by : Mario Harris MD 01/28/2023 16:30:51
--- NOTE | 2023-01-27 15:45 | CT_ITS ---
PROCEDURE INFORMATION: Exam: CTA Chest With Contrast Exam date and time: 01/27/2023 6:14 PM Age: 57 years old Clinical indication: Other: R/O blood clot TECHNIQUE: Imaging protocol: Computed tomographic angiography of the chest with contrast. Exam focused on the arteries. 3D rendering (Not supervised by radiologist): MIP and/or 3D reconstructed images were created by the technologist. Radiation optimization: All CT scans at this facility use at least one of these dose optimization techniques: automated exposure control; mA and/or kV adjustment per patient size (includes targeted exams where dose is matched to clinical indication); or iterative reconstruction. Contrast material: ISOVUE; Contrast volume: 50 ml; Contrast route: INTRAVENOUS (IV); REPORTING DATA: Count of CT and Cardiac NM exams in prior 12 months: This patient has received 4 known [address]s and 0 known cardiac nuclear medicine studies in the 12 months prior to the current study. COMPARISON: CT ANGIO CHEST PE PROTOCOL 03/24/2022 4:09 PM FINDINGS: Tubes, catheters and devices: If clinical concern persists, repeat study or V/Q scan would be recommended. Pulmonary arteries: There is poor opacification of the pulmonary arterial tree. No large central pulmonary arterial filling defect is seen. Lobar, segmental, and subsegmental branches are not well evaluated. Aorta: There is atherosclerotic disease of the visualized aorta and its major branch vessels. Lungs: Scattered areas of bronchial wall thickening which are likely chronic inflammatory. A few areas of subpleural reticulation are noted, nonspecific. There are scattered areas of emphysema throughout the lungs. Evaluation for small pulmonary nodules is precluded by patient condition. Fleischner Society guidelines are n/a. Pleural spaces: Unremarkable. No pneumothorax. No pleural effusion. Heart: Unremarkable. No cardiomegaly. No pericardial effusion. Coronary arteries: There is mild coronary atherosclerotic disease/calcification although evaluation is limited secondary to the non gated nature of the study. Lymph nodes: There are calcified mediastinal lymph nodes likely reflecting prior granulomatous disease. Gallbladder and bile ducts: The patient is status post cholecystectomy. Bones/joints: There is diffuse degenerative disease of the visualized osseous structures. Soft tissues: Unremarkable. IMPRESSION: 1. No dense parenchymal consolidation, pleural effusion, or pneumothorax. 2. There is poor opacification of the pulmonary arterial tree. No large central pulmonary arterial filling defect is seen. Lobar, segmental, and subsegmental branches are not well evaluated. If clinical concern persists, repeat study or V/Q scan would be recommended. COMMENTS: In the absence of a history or active diagnosis of lung cancer, it is recommended that this patient with emphysema be evaluated for enrollment in a low dose CT lung cancer screening program.
--- NOTE | 2023-01-27 15:45 | CT_ITS ---
PROCEDURE INFORMATION: Exam: CT Head Without Contrast Exam date and time: 01/27/2023 6:04 PM Age: 57 years old Clinical indication: Other: R/O bleed TECHNIQUE: Imaging protocol: Computed tomography of the head without contrast. Radiation optimization: All CT scans at this facility use at least one of these dose optimization techniques: automated exposure control; mA and/or kV adjustment per patient size (includes targeted exams where dose is matched to clinical indication); or iterative reconstruction. REPORTING DATA: Count of CT and Cardiac NM exams in prior 12 months: This patient has received 4 known CTs and 0 known cardiac nuclear medicine studies in the 12 months prior to the current study. COMPARISON: CT SOFT TISSUE NECK W CON 05/23/2022 4:44 AM FINDINGS: Brain: No evidence of acute intracranial hemorrhage. Cerebral ventricles: No ventriculomegaly. Paranasal sinuses: Visualized sinuses are unremarkable. No fluid levels. Mastoid air cells: Lack of pneumatization of the left mastoid air cells. Findings may be relatively chronic. Mastoiditis could not be excluded. Focal region of ischemic change in the right frontal parietal lobe. Findings appear relatively chronic. Bones/joints: Unremarkable. No acute fracture. Soft tissues: Unremarkable. IMPRESSION: 1. No evidence of acute intracranial hemorrhage. 2. Chronic ischemic change in the right frontal parietal lobe.
--- NOTE | 2023-01-27 15:46 | HMH.EDGENADL ---
Discharge Plan Disposition Patient Disposition: Home, Self-Care Condition: Good Chief Complaint: PAIN Prescriptions Prescriptions: No Action Xarelto 20 mg tablet 20 mg PO HS Rx Instructions: must administer with evening meal hydrocodone-acetaminophen 10-325 mg tablet 1 tab PO Q6H PRN (Reason: chronic pain) gabapentin 800 mg tablet 800 mg PO BID trazodone 50 mg tablet See Rx Instructions .ROUTE .COMPLEX Qty: 90 0RF Dose Instruction: TAKE 1 TABLET BY MOUTH AT BEDTIME FOR SLEEP Rx Instructions: TAKE 1 TABLET BY MOUTH AT BEDTIME FOR SLEEP cephalexin 500 mg capsule 500 mg PO BID 5 Days Qty: 10 0RF metoprolol succinate 100 mg Tablet Extended Release 24 Hr 100 mg PO DAILY Referrals Follow up/Referrals: Lena eHrnandez PA [Primary Care Provider] - See instructions Clinical Impressions Clinical Impression: Acute neck pain Instructions Patient Instructions: DI for Neck Pain Discharge ED Provider: Lauren Larios General Adult HPI General Chief complaint: PAIN Stated complaint: stroke Time Seen by Provider: 01/27/23 15:42 Mode of Arrival: Ambulatory Source of Information: Patient Limitations: No Limitations Description of Symptoms (Recalled from ER Triage Doc. by RN): Presents to ED with c/o left sided head that radiates into his neck and left chest that has been consistent for a few days. Denies numbness/tingling in extremities. PMH: multipleblood clots. +Xarelto. Denies chest pain or SOA. 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 Patient reports that for the past few days, he has been having left-sided head and neck pain that is radiating into his left chest. Patient denies any shortness of breath, recent travel. Patient notes he has been taking his anticoagulation. Patient came into the ED with difficulty ambulating and leaning towards the side, initially concern for stroke alert, but patient did not have any focal neurological deficit, NIH 0. Patient denies any numbness, tingling, weakness in any of his extremities. Patient is otherwise a poor historian. Related Data Home Medications Medication Instructions Recorded Confirmed gabapentin 800 mg tablet 800 mg PO BID nerve pain 05/10/22 08/23/22 hydrocodone 10 mg-acetaminophen 1 tab PO Q6H PRN chronic pain 05/10/22 08/23/22 325 mg tablet rivaroxaban 20 mg tablet (Xarelto) 20 mg PO HS blood clots 05/10/22 08/23/22 metoprolol succinate 100 mg 100 mg PO DAILY High blood pressure 05/23/22 08/23/22 tablet,extended release 24 hr Previous Rx's Medication Instructions Recorded cephalexin 500 mg capsule 500 mg PO BID 5 days #10 caps 08/23/22 trazodone 50 mg tablet See Rx Instructions .Route 11/12/22 .COMPLEX #90 tabs Allergies Allergy/AdvReac Type Severity Reaction Status Date / Time venom-honey bee Allergy Unknown Verified 05/10/22 14:13 [BEE VENOM (HONEY BEE)] [facility] Disclaimer: The information contained in this section may have been updated after the patient was seen, as this information can be updated by other users. Medical History Appendicitis Intestinal obstruction Smoker Surgical History History of appendectomy History of back surgery History of intestinal surgery Family History Other Family history of blood clots Family history of diabetes mellitus type II Social History Smoking Status: Current every day smoker tobacco type: cigarettes packs per day: 1 alcohol intake: never substance use type: denies use current occupational status: disabled Travel in the last 8 weeks: None household members: spouse housing: house m
[2023-01-27 16:13] LABS: Basophils % 0.5 % (0.1-2.0); Eosinophils # 0.2 K/mm3 (0.0-0.4); Eosinophils % 6.5 % (0.1-12.0); Hematocrit 36.1 % (42.0-52.0); Hemoglobin 11.9 g/dL (14.1-18.0); Lymphocytes % 54.1 % (10-50); Mean Corpuscular Hemoglobin 28.4 pg (27.0-31.2); Mean Corpuscular Volume 86.2 fl (80-94); Mean Platelet Volume 7.6 fl (7.4-10.4); Monocytes # 0.1 K/mm3 (0.1-1.0); Monocytes % 3.4 % (1.7-9.3); Neutrophils # 1.3 K/mm3 (1.8-7.8); Neutrophils % 35.4 % (37.0-80.0); Platelet Count 295 K/mm3 (142-424); Red Blood Count 4.18 M/mm3 (4.60-6.20); Red Cell Distribution Width 13.5 % (11.5-17.5); White Blood Count 3.7 K/mm3 (4.8-10.8)
[2023-01-27 16:16] LABS: Chloride 103 mmol/L (98-107); Sodium 138 mmol/L (136-145)
[2023-01-27 16:17] LABS: Potassium 3.6 mmoL/L (3.5-5.1)
[2023-01-27 16:18] LABS: MANUAL DIFFERENTIAL MANUAL DIFFERENTIAL (MANUAL DIFF)
[2023-01-27 16:19] LABS: Alanine Aminotransferase 24 U/L (12-78); Alkaline Phosphatase 63 U/L (38-126); Anion Gap 8.6 mEq/L (5-15); Aspartate Amino Transferase 34 U/L (17-59); Bilirubin,Total 0.6 mg/dl (0.2-1.3); Blood Urea Nitrogen 10 mg/dl (9-20); Carbon Dioxide 30 mmol/L (22.0-30.0); Creatinine Clearance Estimated 106 mL/min (50-200); Estimated Glomerular Filt Rate 77 ml/min (>60); GFR (African American) 93 ML/MIN (>60)
[2023-01-27 16:20] LABS: Albumin Level 4.4 g/dl (3.5-5.0); Albumin/Globulin Ratio 1.4 (1.1-1.8); Calcium 8.3 mg/dl (8.4-10.2); Globulin 3.1 g/dL (1.3-3.2); Glucose 97 mg/dl (74-100); Total Protein,Serum 7.5 g/dl (6.3-8.2)
[2023-01-27 16:22] LABS: INR 1.32 (0.9-1.1)
[2023-01-27 16:36] LABS: Troponin I < 0.01 ng/ml (0.00-0.034)
[2023-01-27 16:51] LABS: Eosinophils % 1 % (0-3); Lymphocytes % 56 % (10-50); Monocytes % 11 % (2-9); Neutrophils % 32 % (42-76); Total Cells Counted 100
[2023-01-27 17:17] LABS: Platelet Estimate Normal; RBC Morphology Normal
[2023-01-27 18:01] LABS: Lactic Acid 0.9 mmol/L (0.7-2.1)
--- NOTE | 2023-01-27 18:05 | PC.NURSE ---
Pt to CT
--- NOTE | 2023-01-27 18:21 | PC.NURSE ---
Pt back from CT
[2023-01-27 20:02] LABS: Troponin I < 0.01 ng/ml (0.00-0.034)
== END 2023-01-27 19:53 | disposition home or self-care (01) ==
PROVIDERS: Emergency Provider Emergency Medicine; PCP Physician Assistant
DX: M54.2 Cervicalgia (principal); R07.9 Chest pain, unspecified; R00.1 Bradycardia, unspecified; I25.10 Atherosclerotic heart disease of native coronary artery without angina pectoris; I11.9 Hypertensive heart disease without heart failure; F17.210 Nicotine dependence, cigarettes, uncomplicated; Z86.718 Personal history of other venous thrombosis and embolism; Z79.01 Long term (current) use of anticoagulants
CPT/HCPCS: 70496; 71046; 71275; 80053; 83605; 84484; 85007; 85025; 85610; 93005; 96360; 99285; Q9967

== ENCOUNTER → 2023-02-07 23:13 | Outpatient (CLI) | payer MEDICARE, SELFPAY ==
[2023-02-07 19:16] LABS: Alanine Aminotransferase 20 U/L (12-78); Albumin Level 4.4 g/dl (3.5-5.0); Albumin/Globulin Ratio 1.4 (1.1-1.8); Alkaline Phosphatase 64 U/L (38-126); Amylase 62 U/L (30-110); Anion Gap 8.9 mEq/L (5-15); Aspartate Amino Transferase 32 U/L (17-59); Bilirubin,Total 0.6 mg/dl (0.2-1.3); Blood Urea Nitrogen 8 mg/dl (9-20); Calcium 8.4 mg/dl (8.4-10.2); Carbon Dioxide 27 mmol/L (22.0-30.0); Chloride 105 mmol/L (98-107); Estimated Glomerular Filt Rate 87 ml/min (>60); GFR (African American) 105 ML/MIN (>60); Globulin 3.1 g/dL (1.3-3.2); Glucose 96 mg/dl (74-100); Lipase 114 U/L (23-300); Potassium 4.9 mmoL/L (3.5-5.1); Sodium 136 mmol/L (136-145); Total Protein,Serum 7.5 g/dl (6.3-8.2)
[2023-02-07 19:30] LABS: Basophils % 0.8 % (0.1-2.0); Eosinophils # 0.2 K/mm3 (0.0-0.4); Eosinophils % 6.2 % (0.1-12.0); Hemoglobin 12.7 g/dL (14.1-18.0); Lymphocytes # 1.3 K/mm3 (0.7-4.5); Lymphocytes % 39.3 % (10-50); Mean Corpuscular HGB Conc 33.5 g/dL (31.8-35.4); Mean Corpuscular Hemoglobin 28.4 pg (27.0-31.2); Mean Corpuscular Volume 84.8 fl (80-94); Mean Platelet Volume 8.2 fl (7.4-10.4); Monocytes # 0.2 K/mm3 (0.1-1.0); Monocytes % 5.6 % (1.7-9.3); Neutrophils # 1.6 K/mm3 (1.8-7.8); Platelet Count 332 K/mm3 (142-424); Red Blood Count 4.48 M/mm3 (4.60-6.20); Red Cell Distribution Width 13.5 % (11.5-17.5); White Blood Count 3.4 K/mm3 (4.8-10.8)
[2023-02-07 19:34] LABS: 25-OH Vitamin D, Total 35.3 ng/mL (30-100)
[2023-02-07 19:36] LABS: T4 (Thyroxine) 6.2 ug/dl (5.53-11.0); Triiodothryronine (T3) Uptake 32 % (23.5-40.5)
[2023-02-07 19:44] LABS: C-Reactive Protein < 0.3 mg/L (0-4)
[2023-02-07 19:47] LABS: Prostate Specific Ag Screen 1.5 ng/ml (0.0-4.0)
[2023-02-07 19:49] LABS: Thyroid Stimulating Hormone 1.73 uIU/mL (0.465-4.68)
[2023-02-07 20:02] LABS: Erythrocyte Sedimentation Rate 13 mm/hr (0-20)
[2023-02-07 20:06] LABS: Vitamin B12 255 pg/mL (239-931)
[2023-02-08 10:13] LABS: Iron 46 ug/dL (49-181)
[2023-02-08 10:22] LABS: Total Iron Binding Capacity 451 ug/dL (261-462)
[2023-02-08 10:50] LABS: Ferritin 11.3 ng/ml (17.9-464)
[2023-02-09 18:47] LABS: Peripheral Smear Review Scanned Result
== END ==
LOC: LAB.DROPOF 23:14
PROVIDERS: PCP Physician Assistant; Visit Provider Physician Assistant
DX: R63.4 Abnormal weight loss (principal); M94.0 Chondrocostal junction syndrome [Tietze]; E55.9 Vitamin D deficiency, unspecified; Z12.5 Encounter for screening for malignant neoplasm of prostate; Z79.899 Other long term (current) drug therapy; R63.0 Anorexia; K62.5 Hemorrhage of anus and rectum; D50.8 Other iron deficiency anemias
CPT/HCPCS: 80053; 82150; 82306; 82607; 82728; 83540; 83550; 83690; 84436; 84443; 84479; 85025; 85651; 86140; G0103

== ENCOUNTER → 2023-02-08 11:43 | Outpatient (CLI) | payer MEDICARE, SELFPAY | PROVIDERS: PCP Physician Assistant; Visit Provider Physician Assistant | DX: D64.9 Anemia, unspecified (principal) | CPT/HCPCS: 82728; 83540; 83550 ==

== ENCOUNTER 2023-03-01 09:55 | Outpatient (CLI) | payer MEDICARE, SELFPAY ==
--- NOTE | 2023-03-01 09:56 | CT_ITS ---
FINAL REPORT TECHNIQUE: Before and after the administration of intravenous contrast, axial images through the chest were performed by computed tomography. This study was performed with techniques to keep radiation doses as low as reasonably achievable, (ALARA). Individualized dose reduction techniques using automated exposure control or adjustment of mA and/or kV according to the patient's size were employed. CLINICAL HISTORY: weight loss COMPARISON: 01/27/2023 FINDINGS: CT CHEST WITH AND WITHOUT CONTRAST: Mild changes of emphysema are once again noted. Mild scarring is present bilaterally. There is a small ground glass opacity, nonspecific, noted in the right upper lobe, which is stable since the prior CT of December. No masses or nodules are identified. No pleural effusions are present. No significant mass or adenopathy is identified. IMPRESSION: Small ground glass opacity, nonspecific, noted in the right upper lobe, stable since the prior CT. Reviewed, Interpreted and Dictated by Chuy Khalil III, MD Transcribed by Avelina Rose Authenticated and . [facility]
--- NOTE | 2023-03-01 09:56 | CT_ITS ---
FINAL REPORT TECHNIQUE: Axial CT images of the abdomen and pelvis were obtained before and after the administration of IV contrast. This study was performed with techniques to keep radiation doses as low as reasonably achievable (ALARA). Individualized dose reduction techniques using automated exposure control or adjustment of mA and/or kV according to the patient's size were employed. CLINICAL HISTORY: weight loss COMPARISON: 05/08/2022 FINDINGS: Abdomen: The lung bases are clear. The heart is normal in size. The liver has an unremarkable appearance, without evidence of mass or biliary duct dilatation. The gallbladder has been surgically resected. An IVC filter is present. 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 The spleen is unremarkable. No adrenal masses present. The pancreas has an unremarkable appearance. 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 The aorta is normal in caliber. There is no free fluid or adenopathy. No mass or abnormal fluid collection is seen. Precontrast images demonstrate no evidence of nephrolithiasis. Pelvis: The appendix is not well visualized. The urinary bladder is unremarkable. No inflammatory process is seen. There is no evidence of mass or adenopathy. There is no evidence of bowel obstruction. Vascular calcifications are present. IMPRESSION: Post cholecystectomy and IVC filter placement. 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 No significant changes noted since the prior CT of April 2022. Reviewed, Interpreted and Dictated by Chuy Khalil III, MD Transcribed by Avelina Rose Authenticated and [facility]
[2023-03-01] MEDS: SODIUM CHLORIDE 0.9% 10ML SYR (RAD ONLY) 10 ML IV (10:36)
[2023-03-01] MEDS: IOPAMIDOL-370 (76%);100ML BOTTLE 75 ML IV (10:36)
== END 2023-03-01 23:59 ==
PROVIDERS: PCP Physician Assistant; Visit Provider Physician Assistant
DX: K62.5 Hemorrhage of anus and rectum (principal); R63.0 Anorexia; R63.4 Abnormal weight loss; Z87.891 Personal history of nicotine dependence; Z68.26 Body mass index [BMI] 26.0-26.9, adult
CPT/HCPCS: 71270; 74178; Q9967

== ENCOUNTER 2023-03-22 16:19 | Emergency (ER) | payer MEDICARE, SELFPAY ==
[2023-03-22 16:21] VITALS: BP 139/88; PULSE 62; RESP 18; O2SAT 100; BMI 26.4
--- NOTE | 2023-03-22 17:36 | CT_ITS ---
PROCEDURE INFORMATION: Exam: CTA Abdomen and Pelvis With Contrast Exam date and time: 03/22/2023 6:29 PM Age: 57 years old Clinical indication: Abdominal pain; Generalized; Prior surgery; Surgery date: 6+ months; Surgery type: Reconstructive bowel surgery; Additional info: Brbpr, abdominal pain primarily llq TECHNIQUE: Imaging protocol: Computed tomographic angiography of the abdomen and pelvis with contrast. Exam focused on the arteries. 3D rendering (Not supervised by radiologist): MIP and/or 3D reconstructed images were created by the technologist. Radiation optimization: All CT scans at this facility use at least one of these dose optimization techniques: automated exposure control; mA and/or kV adjustment per patient size (includes targeted exams where dose is matched to clinical indication); or iterative reconstruction. Contrast material: ISOVUE; Contrast volume: 100 ml; Contrast route: INTRAVENOUS (IV); COMPARISON: CT ABDOMEN PELVIS WO/W CON 03/01/2023 10:22 AM FINDINGS: Aorta: Minimal atherosclerosis. No aortic aneurysm. No aortic dissection. Celiac trunk and mesenteric arteries: No occlusion or significant stenosis. Renal arteries: No occlusion or significant stenosis. Right iliac arteries: Minimal atherosclerosis. No occlusion or significant stenosis. Left iliac arteries: Minimal atherosclerosis. No occlusion or significant stenosis. Veins: IVC filter. Liver: No mass. Gallbladder and bile ducts: Postsurgical changes of cholecystectomy with expected mild biliary ductal dilatation. Pancreas: Unremarkable. No mass. No ductal dilation. Spleen: Unremarkable. No splenomegaly. Adrenal glands: Unremarkable. No mass. Kidneys and ureters: Subcentimeter hypodense focus within the left kidney inferior pole, too small to fully characterize, although most likely represents a cyst. No solid mass. No hydronephrosis. Stomach and bowel: No intraluminal contrast extravasation. No obstruction. Mild short-segment distal descending colon wall thickening and pericolonic fat stranding. Appendix: No evidence of appendicitis. Intraperitoneal space: Unremarkable. No free air. No significant fluid collection. Lymph nodes: Unremarkable. No enlarged lymph nodes. Urinary bladder: Unremarkable. No mass. Reproductive: Enlarged prostate containing coarse calcifications. Bones/joints: Degenerative changes. No acute fracture. Soft tissues: Midline ventral abdominal wall incision. IMPRESSION: Mild short segment distal descending colon wall thickening and pericolonic fat stranding, findings suggestive of an infectious or inflammatory colitis. No evidence of acute gastrointestinal bleed. COMMENTS: For patients with an IVC filter, recommend assessment for a management plan for the patient's IVC filter. If there is no established management plan, recommend referral to an interventional clinician on a nonemergent basis for evaluation.
[2023-03-22] MEDS: MORPHINE 4MG/ML SYRINGE 4 MG IV ×2 (17:46→20:30)
[2023-03-22] MEDS: LACTATED RINGERS 1000ML 1,000 ML 999 ML IV (17:46)
[2023-03-22] MEDS: KETOROLAC 30MG/ML VIAL 15 MG IV ×2 (17:46→20:30)
--- NOTE | 2023-03-22 17:55 | ED_ITS ---
Discharge Plan Disposition Patient Disposition: Home, Self-Care Chief Complaint: Abdominal Pain Prescriptions Prescriptions: No Action Xarelto 20 mg tablet 20 mg PO HS Rx Instructions: must administer with evening meal hydrocodone-acetaminophen 10-325 mg tablet 1 tab PO Q6H PRN (Reason: chronic pain) gabapentin 800 mg tablet 800 mg PO BID ferrous sulfate 325 mg (65 mg iron) tablet 325 mg PO DAILY Qty: 90 0RF trazodone 50 mg tablet See Rx Instructions .ROUTE .COMPLEX Qty: 30 0RF Dose Instruction: TAKE 1 TABLET BY MOUTH AT BEDTIME FOR SLEEP Rx Instructions: TAKE 1 TABLET BY MOUTH AT BEDTIME FOR SLEEP metoprolol succinate 100 mg Tablet Extended Release 24 Hr 100 mg PO DAILY Referrals Follow up/Referrals: Lena Hernandez PA [Primary Care Provider] - See instructions Activity Restrictions/Add. Instructions Additional Instructions/Restrictions: Call your family doctor to establish care for this visit to the emergency department and schedule follow-up within 48 hours to ensure improvement. If you have any worsening of your condition or any other concerning signs or symptoms, return to the emergency department or your primary care doctor for further evaluation. Clinical Impressions Clinical Impression: Colitis Instructions Patient Instructions: DI for Acute Abdominal Pain Discharge ED Provider: Mirza Davidson General Adult HPI General Chief complaint: Abdominal Pain Stated complaint: stomach pain Time Seen by Provider: 03/22/23 16:54 Mode of Arrival: Ambulatory Source of Information: Patient Limitations: No Limitations Description of Symptoms (Recalled from ER Triage Doc. by RN): Patient reports pain all around stomach radiates into groin and back for 2 days. Patient reports similar episodes in the past. States he has not peed since this morning. Denies blood in urine or pain with urination. History of Present Illness HPI narrative: 57-year-old male history of numerous abdominal surgeries including appendectomy, small bowel reconstructive surgeries complicated by numerous small bowel obstructions, DVT/PE on Xarelto, but also with IVC filter in place presenting with abdominal pain. Patient states that he started having abdominal pain for 2 or 3 days. Getting worse. Initially started in his epigastrium, is now significantly worse in his left lower quadrant and down in his pelvis. 8 out of 10, radiates downward, associated with bright red bowel movements. Patient has not passed gas in a few hours, last bowel movement was earlier this morning, 03/22. Nothing particular makes it better or worse. Related Data Home Medications Medication Instructions Recorded Confirmed gabapentin 800 mg tablet 800 mg PO BID nerve pain 05/10/22 02/07/23 hydrocodone 10 mg-acetaminophen 1 tab PO Q6H PRN chronic pain 05/10/22 02/07/23 325 mg tablet rivaroxaban 20 mg tablet (Xarelto) 20 mg PO HS blood clots 05/10/22 02/07/23 metoprolol succinate 100 mg 100 mg PO DAILY High blood pressure 05/23/22 02/07/23 tablet,extended release 24 hr Previous Rx's Medication Instructions Recorded ferrous sulfate 325 mg (65 mg 325 mg PO DAILY anemia #90 tabs 02/14/23 iron) tablet trazodone 50 mg tablet See Rx Instructions .Route 03/11/23 .COMPLEX #30 tabs Allergies Allergy/AdvReac Type Severity Reaction Status Date / Time venom-honey bee Allergy Unknown Verified 02/07/23 09:18 [BEE VENOM (HONEY BEE)] [facility] Disclaimer: The information contained in this section may have been updated after the patient was seen, as this information can be updated by other users. Medical History Appendicitis GI bleed Intestinal obstruction Small bowel obstruction Smoker Surgical History History of appendectomy History of back surgery History of intestinal surgery Family History Other Family history of blood clots Family history of diabetes mellitus type II Social History Smoking Status: Current every day smoker tobacco type: cigarettes packs per day: 1 alcohol intake: never substance use type: denies use current occupational status: disabled Travel in the last 8 weeks: None household members: spouse housing: house marital status: education level: high school service: Yes senior living: No caffeine: Yes special michael needs: No agree to transfusion: No do you feel safe at home: Yes victim of physical abuse: No victim of emotional abuse: No victim of sexual abuse: No would you like helpful sources: No ROS Obtained: Yes All systems reviewed & no additional complaints except as documented Physical Exam General General appearance: alert and in distress (secondary to pain) Head Head exam: atraumatic and normocephalic Eye Eye exam: Present normal appearance, PERRL and EOMI ENT ENT exam: Present mucous membranes moist Neck Neck exam: Present normal inspection, full ROM and trachea midline Respiratory Respiratory exam: Absent respiratory distress, wheezes, stridor, accessory muscle use or prolonged expiratory phase Cardiovascular Cardiovascular exam: Present normal rhythm Abdominal Exam Abdominal exam: Present soft, tenderness and guarding; Absent distention, rebound or rigidity Abdominal tenderness: Present LLQ, suprapubic, diffuse and severe Extremities Exam Extremities exam: Absent edema Neurological Exam Neurological exam: Present alert, oriented X3, CN II-XII intact and normal gait; Absent motor sensory deficit Skin Skin exam: Present warm and dry; Absent diaphoresis or erythema Medical Decision Making Medical Records Medical records reviewed: Yes I reviewed the patient's medical records. Aime Inquiry Pt receiving controlled substance: No Aime was queried for this patient: No Vital Signs: 03/22/23 16:21 Pulse Rate [Right] 62 Respiratory Rate 18 Blood Pressure [Right Arm] 139/88 Blood Pressure Mean [Right Arm] 105 Blood Pressure Source [Right Arm] Automatic Cuff 02 Sat by Pulse Oximetry 100 Oxygen Delivery Method Room Air Lab Data Lab Results 03/22/23 17:17: WBC 5.2, RBC 4.34 L, Hgb 13.3 L, Hct 36.9 L, MCV 85.0, MCH 30.7, MCHC 36.1 H, RDW 15.2, Plt Count 286, MPV 7.6, Neut % (Auto) 44.8, Lymph % (Auto) 43.6, [place] % (Auto) 4.6, Eos % (Auto) 6.3, Baso % (Auto) 0.7, Neut # (Auto) 2.3, Lymph # (Auto) 2.3, [place] # (Auto) 0.2, Eos # (Auto) 0.3, Baso # (Auto) 0.0, APTT 26.5, Sodium 139, Potassium 4.1, Chloride 104, Carbon Dioxide 28, Anion Gap 11.1, BUN 10, Creatinine 0.90, Estimated Creat Clear 113, Estimated GFR 87, Est GFR ( Amer) 105, Glucose 94, Calcium 8.7, Total Bilirubin 0.6, AST 31, ALT 20, Alkaline Phosphatase 62, Troponin I < 0.01, Total Protein 7.5, Albumin 4.3, Globulin 3.2, Albumin/Globulin Ratio 1.3, Lipase 104 03/22/23 18:10: Blood Type A Positive, Antibody Screen Negative 03/22/23 19:50: Lactate 0.8, Urine Color Yellow, Urine Appearance Clear, Urine pH 6.0, Ur Specific [place] 1.025, Urine Protein Negative, Urine Glucose (UA) Negative, Urine Ketones Negative, Urine Blood Negative, Urine Nitrate Negative, Urine Bilirubin Negative, Urine Urobilinogen 0.2, Ur Leukocyte Esterase Negative, Urine RBC Occasional, Urine WBC None, Ur Squamous Epith Cells Occasional, Calcium Oxalate Crystal Trace, Urine Bacteria None 03/22/23 17:17 03/22/23 17:17 Orders (Tests/Meds): ED MEDICATIONS Generic Name Dose Route Start Last Admin Trade Name Freq PRN Reason Stop Dose Admin Sodium Chloride 10 ml 03/22/23 18:34 03/22/23 18:35 Sodium Chloride 0.9% 10ml Syr (Rad Only) IV 04/21/23 18:33 10 ml NEEDED PRN Administration Maintain IV Site Discontinued Medications Generic Name Dose Route Start Last Admin Trade Name Freq PRN Reason Stop Dose Admin Acetaminophen 1,000 mg 03/22/23 20:26 03/22/23 20:30 Acetaminophen 1,000mg/100ml Vial IV 03/22/23 20:27 1,000 mg ONCE ONE Administration Lactated Ringer's 1,000 mls @ 999 mls/hr 03/22/23 17:35 03/22/23 17:46 Lactated Ringer's 1000 Ml Bag IV 03/22/23 18:35 999 mls/hr .Q1H1M ONE Administration Iopamidol 100 ml 03/22/23 18:34 03/22/23 18:35 Iopamidol-370 (76%);100ml Bottle IV 03/22/23 18:35 100 ml ONCE ONE Administration Ketorolac Tromethamine 15 mg 03/22/23 17:35 03/22/23 17:46 Ketorolac 30mg/Ml Vial IV 03/22/23 17:36 15 mg ONCE ONE Administration Ketorolac Tromethamine 15 mg 03/22/23 20:26 03/22/23 20:30 Ketorolac 30mg/Ml Vial IV 03/22/23 20:27 15 mg ONCE ONE Administration Morphine Sulfate 4 mg 03/22/23 17:35 03/22/23 17:46 Morphine 4mg/Ml Syringe IV 03/22/23 17:36 4 mg ONCE ONE Administration Morphine Sulfate 4 mg 03/22/23 20:26 03/22/23 20:30 Morphine 4mg/Ml Syringe IV 03/22/23 20:27 4 mg ONCE ONE Administration Sodium Chloride 50 ml 03/22/23 18:34 03/22/23 18:35 0.9 % Sodium Chloride 50 Ml Vial IV 03/22/23 18:35 50 ml ONCE ONE Administration ORDERS Category Date Time Status Type and Screen Stat BBK 03/22/23 18:[address] angio abdomen pelvis Stat Cat Scan 03/22/23 17:36 Completed Complete Blood Count Auto Diff Stat Lab 03/22/23 17:17 Completed Comprehensive Metabolic Panel Stat Lab 03/22/23 17:17 Completed Lactic Acid Stat Lab 03/22/23 19:50 Completed Lipase Stat Lab 03/22/23 17:17 Completed PTT [Activated Partial Thrombo Time] Stat Lab 03/22/23 17:17 Completed Troponin I Q3H Lab 03/22/23 21:00 Received Troponin I Q3H Lab 03/22/23 23:45 Ordered Troponin I Stat Lab 03/22/23 17:17 Completed Urinalysis and Microscopic Stat Lab 03/22/23 19:50 Completed Medical Decision Narrative: 57-year-old male history of numerous abdominal surgeries including appendectomy, small bowel reconstructive surgeries complicated by numerous small bowel obstructions, DVT/PE on Xarelto, but also with IVC filter in place presenting with abdominal pain. Patient states that he started having abdominal pain for 2 or 3 days. Getting worse. Initially started in his epigastrium, is now significantly worse in his left lower quadrant and down in his pelvis. 8 out of 10, radiates downward, associated with bright red bowel movements. Patient has not passed gas in a few hours, last bowel movement was earlier this morning, 03/22. Nothing particular makes it better or worse. History was obtained via conversation with patient and . On arrival, patient hemodynamically stable, alert, oriented x4, appropriate, GCS 15, moving all extremities spontaneously, pupils equal and reactive to light. Full physical exam performed and significant for well-appearing 57-year-old male who seems to be in mild distress secondary to pain. Abdomen is soft, but significantly tender left lower quadrant and suprapubic area. Patient is voluntarily guarding. Patient does have midline abdominal scar. Normotensive, nontachycardic, afebrile. Differential includes PUD, gastritis, enteritis, gastroenteritis, pancreatitis, SBO, colitis, diverticulitis, nephrolithiasis, UTI, aortic pathology, mesenteric ischemia, cholecystitis, hepatitis, among others. Patient was given Toradol, morphine for symptomatic management and correction of underlying abnormalities. Workup independently interpreted and significant for nonactionable CBC or chemistry. Lactate negative. CT abdomen pelvis without free air, obstruction, or any other acute surgical pathology. Patient does have colitis which may explain some of the pain. See radiology read for full review of final results. On reevaluation, feeling better, still having pain, but it is improved. Given patient presentation, workup, history, this most likely represents colitis. Because patient at baseline without signs or symptoms of clinical decompensation, deemed appropriate for discharge. Results were relayed to patient who voiced understanding and were agreeable to outpatient management and follow up. At the time of discharge the patient was hemodynamically stable, tolerating PO, and mobilizing appropriately. Critical Care Critical Care Time Critical Care Time: No
[2023-03-22 17:56] LABS: Basophils % 0.7 % (0.1-2.0); Eosinophils # 0.3 K/mm3 (0.0-0.4); Eosinophils % 6.3 % (0.1-12.0); Hematocrit 36.9 % (42.0-52.0); Hemoglobin 13.3 g/dL (14.1-18.0); Lymphocytes # 2.3 K/mm3 (0.7-4.5); Lymphocytes % 43.6 % (10-50); Mean Corpuscular HGB Conc 36.1 g/dL (31.8-35.4); Mean Corpuscular Hemoglobin 30.7 pg (27.0-31.2); Mean Platelet Volume 7.6 fl (7.4-10.4); Monocytes # 0.2 K/mm3 (0.1-1.0); Monocytes % 4.6 % (1.7-9.3); Neutrophils # 2.3 K/mm3 (1.8-7.8); Neutrophils % 44.8 % (37.0-80.0); Platelet Count 286 K/mm3 (142-424); Red Blood Count 4.34 M/mm3 (4.60-6.20); Red Cell Distribution Width 15.2 % (11.5-17.5); White Blood Count 5.2 K/mm3 (4.8-10.8)
[2023-03-22 18:00] LABS: Chloride 104 mmol/L (98-107); Potassium 4.1 mmoL/L (3.5-5.1); Sodium 139 mmol/L (136-145)
[2023-03-22 18:02] LABS: Activated Partial Thrombo Time 26.5 seconds (22.8-30.6); Alanine Aminotransferase 20 U/L (12-78); Aspartate Amino Transferase 31 U/L (17-59); Blood Urea Nitrogen 10 mg/dl (9-20); Creatinine Clearance Estimated 113 mL/min (50-200); Estimated Glomerular Filt Rate 87 ml/min (>60); GFR (African American) 105 ML/MIN (>60)
[2023-03-22 18:03] LABS: Albumin Level 4.3 g/dl (3.5-5.0); Albumin/Globulin Ratio 1.3 (1.1-1.8); Alkaline Phosphatase 62 U/L (38-126); Anion Gap 11.1 mEq/L (5-15); Bilirubin,Total 0.6 mg/dl (0.2-1.3); Calcium 8.7 mg/dl (8.4-10.2); Carbon Dioxide 28 mmol/L (22.0-30.0); Globulin 3.2 g/dL (1.3-3.2); Glucose 94 mg/dl (74-100); Lipase 104 U/L (23-300); Total Protein,Serum 7.5 g/dl (6.3-8.2)
[2023-03-22 18:19] LABS: Troponin I < 0.01 ng/ml (0.00-0.034)
[2023-03-22] MEDS: 0.9 % SODIUM CHLORIDE 50 ML VIAL IV (18:35)
[2023-03-22] MEDS: SODIUM CHLORIDE 0.9% 10ML SYR (RAD ONLY) 10 ML IV (18:35)
[2023-03-22] MEDS: IOPAMIDOL-370 (76%);100ML BOTTLE 100 ML IV (18:35)
--- NOTE | 2023-03-22 19:38 | PC.NURSE ---
Pt provided urinal for UA
[2023-03-22 20:04] LABS: Appearance,Urine CLEAR (Clear); Bilirubin,Urine Negative (Negative); Blood, Urine Negative (Negative); Color,Urine YELLOW (Yellow); Glucose,Urine (UA) Negative (Negative); Ketones,Urine Negative (Negative); Leukocyte Esterase,Urine Negative (Negative); Microscopic, Urine URINE MICROSCOPIC (MICROSCOPIC); Nitrate,Urine Negative (Negative); Protein,Urine Negative (Negative); Specific Gravity, Urine 1.025 (1.005-1.030); Urobilinogen,Urine 0.2 EU/dl (0.2)
[2023-03-22 20:21] LABS: Lactic Acid 0.8 mmol/L (0.7-2.1)
[2023-03-22] MEDS: ACETAMINOPHEN 1,000MG/100ML VIAL 1000 MG IV (20:30)
[2023-03-22 20:33] LABS: Calcium Oxalate Crystals,Urine Trace /lpf; RBC,Urine Occasional #/hpf (0-3); Squamous Epithelial Cell,Urine Occasional #/hpf (0-5)
[2023-03-22 21:58] VITALS: BP 153/91; PULSE 64; RESP 18; TEMP 36.8; O2SAT 100
[2023-03-22 21:59] LABS: Troponin I < 0.01 ng/ml (0.00-0.034)
== END 2023-03-22 22:00 | disposition home or self-care (01) ==
PROVIDERS: Emergency Provider Emergency Medicine; PCP Physician Assistant
DX: K52.9 Noninfective gastroenteritis and colitis, unspecified (principal); R10.32 Left lower quadrant pain; M54.9 Dorsalgia, unspecified; K92.1 Melena; F17.210 Nicotine dependence, cigarettes, uncomplicated
CPT/HCPCS: 36415; 74174; 80053; 81001; 83605; 83690; 84484; 85025; 85730; 86850; 96361; 96374; 96375; 96376; 99285; J0131; Q9967

== ENCOUNTER 2023-04-19 07:23 | Day surgery (SDC) | payer MEDICARE, SELFPAY ==
[2023-04-15 13:43] VITALS: BMI 28.0
[2023-04-19] MEDS: LACTATED RINGERS 1000ML 1,000 ML 25 ML IV (07:43)
[2023-04-19 07:44] VITALS: BP 124/79; PULSE 60; RESP 18; TEMP 36.3; O2SAT 98
--- NOTE | 2023-04-19 07:57 | P.PCN_ITS ---
Procedure: Date: 04/19/23 Patient Date of :: 1965 Procedure Performed:: Esophagogastroduodenoscopy with biopsy Indications:: Abdominal discomfort Decreased appetite Note: Recent CT scan showed changes consistent with colitis Performing Provider:: Brodie Peck MD Referring Provider:: . Sedation:: Monitored anesthesia care Procedure:: After informed consent was obtained the patient was taken to the endoscopy suite. Sedation ensued after the patient was transferred to the left lateral decubitus position. Pulse, blood pressure, and oxygen saturation were monitored throughout the procedure. The endoscope was advanced beyond the duodenal bulb. Retroflexion within the gastric lumen was accomplished. The gastroscope was carefully removed and the patient was transferred to recovery in stable co ndition. Please see findings and specimens below for detail. Findings:: Small sliding hiatal hernia Gastroesophageal junction at 40 cm Somewhat patulous/tortuous esophagus Mild gastritis Polypoid ulcerative prepyloric lesion (7 mm) Specimens:: Biopsy of polypoid ulcerative prepyloric lesion Recommendations:: Follow-up pathology Consider UGI/SBFT Consider gastric emptying scan Consider gastroenterology consultation secondary to multiple abdominal complaints and recent CT evidence of likely recurrent colitis Complications:: No immediate Estimated blood obtained (mL): 1 Colonoscopy Component Colonoscopy Component Was a colonoscopy performed during today's procedure?: No
--- NOTE | 2023-04-19 08:00 | P.PNANES_ITS ---
[facility] Disclaimer: The information contained in this section may have been updated after the patient was seen, as this information can be updated by other users. Medical History Appendicitis GI bleed Intestinal obstruction Small bowel obstruction Smoker Surgical History History of appendectomy History of back surgery History of intestinal surgery Family History Other Family history of blood clots Family history of diabetes mellitus type II Social History Smoking Status: Current every day smoker tobacco type: cigarettes packs per day: 1 alcohol intake: never substance use type: denies use current occupational status: disabled Travel in the last 8 weeks: None household members: spouse housing: house marital status: education level: high school service: Yes chcf: No caffeine: Yes special michael needs: No agree to transfusion: No do you feel safe at home: Yes victim of physical abuse: No victim of emotional abuse: No victim of sexual abuse: No would you like helpful sources: No [facility] Anesthesia Checklist Patient Identification Patient Identification: Arm Band Structural Data Admitted From: Home Planned Operative Procedure/s: EGD Consent for Planned Operative Procedure(s) Verified: Yes Verified Documents: Surgical Consent and History and Physical NPO Status Verified Time NPO: 00:00 Additional verifications Anesthesia Reactions: No Airway Assessment Mallampati Score:: Class II C-Spine Mobility Assessed: Yes TMJ Mobility Assessed: Yes Dentition: Good Dentition Neurological Assessment Level of Consciousness: Awake and Alert Anesthesia Plan Anesthesia Risk discussed: Yes Anesthesia Plan: Verified ASA Class: III Anesthesia Type: MAC
[2023-04-19 08:04] VITALS: O2SAT 97
[2023-04-19 08:20] VITALS: BP 107/69; PULSE 72; RESP 14; TEMP 36.1; O2SAT 94
[2023-04-19 08:30] VITALS: BP 115/69; PULSE 59; RESP 16; O2SAT 99
[2023-04-19 08:40] VITALS: BP 132/71; PULSE 55; RESP 18; O2SAT 99
[2023-04-19 08:45] VITALS: BP 144/82; PULSE 60; RESP 18; O2SAT 98
== END 2023-04-19 08:46 | disposition home or self-care (01) ==
PROVIDERS: PCP Physician Assistant; Visit Provider Surgery
PROC: 0DJ08ZZ Inspection of Upper Intestinal Tract, Via Natural or Artificial Opening Endoscopic (ICD-10-PCS; CPT 43235; principal; 2023-04-19 08:30)
DX: K29.60 Other gastritis without bleeding (principal); B96.81 Helicobacter pylori [H. pylori] as the cause of diseases classified elsewhere; R10.9 Unspecified abdominal pain; K44.9 Diaphragmatic hernia without obstruction or gangrene; K22.89 Other specified disease of esophagus
CPT/HCPCS: 43239; 88305

== ENCOUNTER 2023-05-11 15:49 | Outpatient (CLI) | payer MEDICARE, SELFPAY ==
[2023-05-11 16:30] LABS: Basophils # 0.1 K/mm3 (0-0.2); Basophils % 1.5 % (0.1-2.0); Eosinophils # 0.3 K/mm3 (0.0-0.4); Eosinophils % 6.1 % (0.1-12.0); Hematocrit 40.7 % (42.0-52.0); Hemoglobin 13.3 g/dL (14.1-18.0); Lymphocytes # 2.1 K/mm3 (0.7-4.5); Lymphocytes % 38.8 % (10-50); Mean Corpuscular HGB Conc 32.6 g/dL (31.8-35.4); Mean Corpuscular Volume 88.9 fl (80-94); Mean Platelet Volume 7.5 fl (7.4-10.4); Monocytes # 0.2 K/mm3 (0.1-1.0); Monocytes % 4.5 % (1.7-9.3); Neutrophils # 2.6 K/mm3 (1.8-7.8); Platelet Count 266 K/mm3 (142-424); Red Blood Count 4.58 M/mm3 (4.60-6.20); White Blood Count 5.3 K/mm3 (4.8-10.8)
[2023-05-11 17:44] LABS: Alanine Aminotransferase 22 U/L (12-78); Albumin Level 4.6 g/dl (3.5-5.0); Albumin/Globulin Ratio 1.6 (1.1-1.8); Alkaline Phosphatase 65 U/L (38-126); Amylase 56 U/L (30-110); Anion Gap 10.5 mEq/L (5-15); Aspartate Amino Transferase 34 U/L (17-59); Bilirubin,Total 1.1 mg/dl (0.2-1.3); Blood Urea Nitrogen 9 mg/dl (9-20); Calcium 9.1 mg/dl (8.4-10.2); Carbon Dioxide 27 mmol/L (22.0-30.0); Chloride 106 mmol/L (98-107); Estimated Glomerular Filt Rate 87 ml/min (>60); GFR (African American) 105 ML/MIN (>60); Globulin 2.8 g/dL (1.3-3.2); Glucose 76 mg/dl (74-100); Lipase 99 U/L (23-300); Potassium 3.5 mmoL/L (3.5-5.1); Sodium 140 mmol/L (136-145); Total Protein,Serum 7.4 g/dl (6.3-8.2)
== END 2023-05-11 23:59 ==
LOC: LAB 15:51
PROVIDERS: PCP Physician Assistant; Visit Provider Surgery
DX: K52.89 Other specified noninfective gastroenteritis and colitis (principal)
CPT/HCPCS: 36415; 80053; 82150; 83690; 85025

== ENCOUNTER 2023-06-12 11:19 | Emergency (ER) | payer MEDICARE, SELFPAY ==
[2023-06-12] VITALS (8 sets, daily range): BP systolic 120–151; BP diastolic 80–94; PULSE 56–87; RESP 11–20; TEMP 36.4–36.6; O2SAT 95–100; BMI 29.0
--- NOTE | 2023-06-12 11:19 | ECG_ITS ---
APPROVED REPORT Exam: Resting ECG HR:68 bpm ECG Measurements Heart Rate 68 AXES UT 154 P 23 QRSd 92 QRS 86 QT 394 T 71 QTc 411 Conclusion SINUS RHYTHM MODERATE VOLTAGE CRITERIA FOR LVH, CONSIDER NORMAL VARIANT [MEETS CRITERIA IN ONE OF: R(aVL), S(V1), R(V5), R(V5/V6)+S(V1)] BORDERLINE ECG UNCONFIRMED REPORT Electronically signed by : Kiran Carbajal, 06/12/2023 14:40:17
--- NOTE | 2023-06-12 11:25 | PC.NURSE ---
nitro given per MD
--- NOTE | 2023-06-12 11:27 | PC.NURSE ---
in room talking with patient at this time.
--- NOTE | 2023-06-12 11:33 | CT_ITS ---
PROCEDURE INFORMATION: Exam: CTA Chest With Contrast Exam date and time: 06/12/2023 12:18 PM Age: 57 years old Clinical indication: Pain; Chest pressure; Additional info: Left chest pain, h/o clotting and dvts TECHNIQUE: Imaging protocol: Computed tomographic angiography of the chest with contrast. Exam focused on the arteries. 3D rendering (Not supervised by radiologist): MIP and/or 3D reconstructed images were created by the technologist. Radiation optimization: All CT scans at this facility use at least one of these dose optimization techniques: automated exposure control; mA and/or kV adjustment per patient size (includes targeted exams where dose is matched to clinical indication); or iterative reconstruction. Contrast material: ISUEVUE 370; Contrast volume: 75 ml; Contrast route: INTRAVENOUS (IV); COMPARISON: CT ANGIO CHEST PE PROTOCOL 01/27/2023 6:14 PM FINDINGS: Pulmonary arteries: There is suboptimal opacification of pulmonary arteries due to contrast bolus timing. Aorta: Unremarkable. No aortic aneurysm. No aortic dissection. Lungs: Bibasilar atelectasis versus parenchymal scarring. Mild changes of centrilobular emphysema Pleural spaces: Unremarkable. No pneumothorax. No pleural effusion. Heart: Unremarkable. No cardiomegaly. No pericardial effusion. Coronary arteries: Trace coronary artery calcification Lymph nodes: Calcified mediastinal lymph nodes Bones/joints: Unremarkable. No acute fracture. Soft tissues: Unremarkable. IMPRESSION: 1. No large or central pulmonary embolus. Evaluation of the peripheral pulmonary arteries is limited. 2. No evidence of acute intrathoracic abnormality. COMMENTS: The presence of pulmonary emphysema on CT is an independent risk factor for lung cancer. In the absence of a history or active diagnosis of lung cancer, it is recommended that this patient with emphysema be evaluated for enrollment in a low dose CT lung cancer screening program.
--- NOTE | 2023-06-12 11:40 | ED_ITS ---
Discharge Plan Disposition Patient Disposition: Home, Self-Care Prescriptions Prescriptions: New cyclobenzaprine 5 mg tablet 5 mg PO TID PRN (Reason: muscle spasm) 5 Days Qty: 15 0RF No Action Xarelto 20 mg tablet 20 mg PO HS Rx Instructions: must administer with evening meal hydrocodone-acetaminophen 10-325 mg tablet 1 tab PO Q6H PRN (Reason: chronic pain) gabapentin 800 mg tablet 800 mg PO BID trazodone 50 mg tablet See Rx Instructions .ROUTE .COMPLEX Qty: 90 0RF Dose Instruction: TAKE 1 TABLET BY MOUTH AT BEDTIME FOR SLEEP Rx Instructions: TAKE 1 TABLET BY MOUTH AT BEDTIME FOR SLEEP ferrous sulfate 325 mg (65 mg iron) tablet See Rx Instructions .ROUTE .COMPLEX Qty: 90 0RF Dose Instruction: TAKE 1 TABLET BY MOUTH ONCE DAILY FOR ANEMIA Rx Instructions: TAKE 1 TABLET BY MOUTH ONCE DAILY FOR ANEMIA metoprolol succinate 100 mg Tablet Extended Release 24 Hr 100 mg PO DAILY Referrals Follow up/Referrals: Ricky Baca MD [Staff Physician] - See instructions Provider,MD Lola [Referring] - See instructions Activity Restrictions/Add. Instructions Additional Instructions/Restrictions: There is no evidence of acute cardiopulmonary emergency in the emergency department today. Your symptoms most likely given they are worsening with movement flexion and touch or musculoskeletal in nature. However I recommend you follow-up with our channel manager Dr. Baca next available appointment and return to the emergency room with any significant worsening symptoms. Clinical Impressions Clinical Impression: Chest pain Discharge ED Provider: Mariela Carbajal [facility] General Chief Complaint: Chest Pain Stated Complaint: cp Time Seen by Provider: 06/12/23 11:25 Mode of Arrival: Ambulatory Source of Information: Patient Limitations: No Limitations Description of Symptoms (Recalled from ER Triage Doc. by RN): c/o lower left chest pain that just sits there with soa, states this started one month ago coming and going every few days, the last week it is more constant. Reports when he turns his head to the left the pain increases, it's like I have a pinched nerve in my neck. Worse when he is up doing activity but stays even if he sits down. 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 States the pain has been intermittent over the last month primarily associated with movement and exertion but over the last week it has been constant. It is located in the left inferior lateral aspect of his chest wall. Does state that it seems to get a little worse with exertion may improve with rest but mainly worse with movement sitting up and touch. As some chronic dyspnea associated with this. No fevers chills cough etc. Does not know when the last time he had a left heart cath was no evidence of that recently in our system but has had a heart cath in the distant past and has never been diagnosed with coronary artery disease that he is aware of. Denies any other risk factors from a cardiovascular standpoint. Had nitroglycerin without any improvement in symptoms prior to my assessment Related Data Home Medications Medication Instructions Recorded Confirmed gabapentin 800 mg tablet 800 mg PO BID nerve pain 05/10/22 04/15/23 hydrocodone 10 mg-acetaminophen 1 tab PO Q6H PRN chronic pain 05/10/22 04/15/23 325 mg tablet rivaroxaban 20 mg tablet (Xarelto) 20 mg PO HS blood clots 05/10/22 04/15/23 metoprolol succinate 100 mg 100 mg PO DAILY High blood pressure 05/23/22 04/15/23 tablet,extended release 24 hr Previous Rx's Medication Instructions Recorded trazodone 50 mg tablet See Rx Instructions .Route 04/20/23 .COMPLEX #90 tabs ferrous sulfate 325 mg (65 mg See Rx Instructions .Route 05/09/23 iron) tablet .COMPLEX #90 tabs cyclobenzaprine 5 mg tablet 5 mg PO TID PRN muscle spasm 5 06/12/23 days #15 tabs Allergies Allergy/AdvReac Type Severity Reaction Status Date / Time venom-honey bee Allergy Unknown Verified 05/20/23 10:01 [BEE VENOM (HONEY BEE)] [facility] Disclaimer: The information contained in this section may have been updated after the patient was seen, as this information can be updated by other users. Medical History Appendicitis Intestinal obstruction Smoker Small bowel obstruction GI bleed Surgical History History of back surgery x2 History of intestinal surgery x2 History of appendectomy Family History Other Family history of blood clots Family history of diabetes mellitus type II Social History Smoking Status: Current every day smoker tobacco type: cigarettes packs per day: 1 alcohol intake: never substance use type: denies use current occupational status: disabled Travel in the last 8 weeks: None household members: spouse housing: house marital status: education level: high school service: Yes retirement: No caffeine: Yes special michael needs: No agree to transfusion: No do you feel safe at home: Yes victim of physical abuse: No victim of emotional abuse: No victim of sexual abuse: No would you like helpful sources: No ROS Obtained: Yes All systems reviewed & no additional complaints except as documented Physical Exam General General appearance: alert and in no apparent distress Chest Chest inspection: Present tenderness (There is tenderness in the inferior lateral aspect of the chest wall no rash erythema swelling etc.) Respiratory Respiratory exam: Present normal lung sounds bilaterally; Absent respiratory distress Cardiovascular Cardiovascular exam: Present regular rate and normal rhythm Abdominal Exam Abdominal exam: Present soft and other (Midline incisional scar well-healed from old surgery); Absent distention or tenderness Neurological Exam Neurological exam: Present alert and oriented X3 HEART Score HEART Score HEART Score assessment performed?: Yes History (anamnesis): Moderately suspicious ECG: Non-specific disturbance Age: 45-65 years Risk factors: No known risk factors Troponin: </= normal limit HEART Score: 3 Critical Care Critical Care Time Critical Care Time: No Medical Decision Making Aime Inquiry Pt receiving controlled substance: No Vital Signs Vital Signs: 06/12/23 11:21 06/12/23 11:22 06/12/23 11:26 Temperature 97.5 F L Temperature Source Oral Pulse Rate 69 Pulse Rate [Left Radial] 68 Respiratory Rate 12 20 13 Blood Pressure 132/83 151/87 H Blood Pressure [Right Arm] 132/83 Blood Pressure Mean [Right Arm] 99 Blood Pressure Source [Right Arm] Automatic Cuff Blood Pressure Position [Right Arm] Sitting 02 Sat by Pulse Oximetry 100 100 Oxygen Delivery Method Room Air 06/12/23 11:30 06/12/23 12:00 06/12/23 12:30 Temperature Temperature Source Pulse Rate 87 63 56 L Pulse Rate [Left Radial] Respiratory Rate 17 15 11 L Blood Pressure 121/81 120/83 135/80 Blood Pressure [Right Arm] Blood Pressure Mean [Right Arm] Blood Pressure Source [Right Arm] Blood Pressure Position [Right Arm] 02 Sat by Pulse Oximetry 95 98 97 Oxygen Delivery Method Room Air Room Air 06/12/23 13:02 Temperature Temperature Source Pulse Rate 60 Pulse Rate [Left Radial] Respiratory Rate 11 L Blood Pressure 148/94 H Blood Pressure [Right Arm] Blood Pressure Mean [Right Arm] Blood Pressure Source [Right Arm] Blood Pressure Position [Right Arm] 02 Sat by Pulse Oximetry 100 Oxygen Delivery Method Lab Data Lab results reviewed: Yes I reviewed the patient's lab results. Labs: Lab Results 06/12/23 11:23: WBC 3.7 L, RBC 4.31 L, Hgb 12.4 L, Hct 39.1 L, MCV 90.8, MCH 28.8, MCHC 31.8, RDW 14.5, Plt Count 291, MPV 7.3 L, Neut % (Auto) 46.2, Lymph % (Auto) 43.0, [place] % (Auto) 5.8, Eos % (Auto) 3.8, Baso % (Auto) 1.2, Neut # (Auto) 1.7 L, Lymph # (Auto) 1.6, [place] # (Auto) 0.2, Eos # (Auto) 0.1, Baso # (Auto) 0.0, Sodium 138, Potassium 3.6, Chloride 106, Carbon Dioxide 28, Anion Gap 7.6, BUN 6 L, Creatinine 0.90, Estimated Creat Clear 124, Estimated GFR 87, Est GFR ( Amer) 105, Glucose 102 H, Calcium 8.9, Total Bilirubin 0.9, AST 39, ALT 29, Alkaline Phosphatase 75, Troponin I < 0.01, Total Protein 7.4, Albumin 4.2, Globulin 3.2, Albumin/Globulin Ratio 1.3, Lipase 236 06/12/23 11:23 06/12/23 11:23 Response Orders (Tests/Meds): ED MEDICATIONS Generic Name Dose Route Start Last Admin Trade Name Freq PRN Reason Stop Dose Admin Nitroglycerin 0.4 mg 06/12/23 11:39 Nitroglycerin 0.4mg Sl Tablet SL 07/12/23 11:38 Q5MINP PRN Chest Pain Sodium Chloride 10 ml 06/12/23 12:33 Sodium Chloride 0.9% 10ml Syr (Rad Only) IV 07/12/23 12:32 NEEDED PRN Maintain IV Site Discontinued Medications Generic Name Dose Route Start Last Admin Trade Name Freq PRN Reason Stop Dose Admin Lactated Ringer's 1,000 mls @ 999 mls/hr 06/12/23 11:45 06/12/23 11:41 Lactated Ringer's 1000 Ml Bag IV 06/12/23 12:45 999 mls/hr .Q1H1M JAYMIE Administration Iopamidol 75 ml 06/12/23 12:33 06/12/23 12:35 Iopamidol-370 (76%);100ml Bottle IV 06/12/23 12:34 75 ml ONCE ONE Administration Ketorolac Tromethamine 15 mg 06/12/23 11:33 06/12/23 11:41 Ketorolac 30mg/Ml Vial IV 06/12/23 11:34 15 mg ONCE ONE Administration Sodium Chloride 50 ml 06/12/23 12:33 06/12/23 12:35 0.9 % Sodium Chloride 50 Ml Vial IV 06/12/23 12:34 50 ml ONCE ONE Administration ORDERS Category Date Time Status CT angio chest PE protocol Stat Cat Scan 06/12/23 11:33 Completed CBC w/Auto Diff [Complete Blood Count Auto Diff] Stat Lab 06/12/23 11:23 Completed CMP [Comprehensive Metabolic Panel] Stat Lab 06/12/23 11:23 Completed Lipase Stat Lab 06/12/23 11:23 Completed Trop I [Troponin I] Stat Lab 06/12/23 11:23 Completed Troponin I Q3H Lab 06/12/23 14:45 Ordered Troponin I Q3H Lab 06/12/23 17:45 Ordered ECG Data Tracing #1: Attestation: I reviewed this ECG and interpreted as documented below: ECG Narrative: Ventricular rate of 68 LVH with strain pattern normal axis there is some slight ST elevations in the inferior leads less than 1 mm with no reciprocal changes no definitive ischemia no conduction abnormalities noted Tracing #2: Attestation: I reviewed this ECG and interpreted as documented below: ECG Narrative: Ventricular to 55 normal axis sinus bradycardia no acute ischemic changes specifically no evidence of any evolving ischemia LVH with strain again recognized MDM Narrative Medical Decision Narrative: Patient with above history and physical. Most likely this is musculoskeletal in nature given the fact that he is worse with any type of movement or touch and gets worse with sitting forward with muscle straining to sit forward. EKG was nonspecific there is some less than 1 mm elevations in the inferior leads and this is consistent with old EKGs in comparison. No acute changes noted. Does seem to have LVH with strain. No definitive ischemic changes on EKG will also only need 1 troponin to rule out any type of myocardial injury or ischemia at this point given his ongoing symptoms. I am however concerned that this could be a pulmonary embolism in the setting of the hypercoagulable state. He has an IVC filter and is on Xarelto so this is less likely but we will get a CT PE to further evaluate this. Assuming his workup is negative he will be a good candidate for outpatient follow-up with Dr. Baca. Toradol has been administered for musculoskeletal discomfort. CT scan performed which I personally interpreted which shows no acute cardiopulmonary emergency specifically no evidence of any peripheral pneumonia inflammatory condition pulmonary embolism malignancy etc. Single troponin negative as stated above with ongoing symptoms is not consistent with acute coronary syndrome no serial testing is needed. Patient did feel better with symptomatic medications this is most likely musculoskeletal in nature. He is on Xarelto therefore NSAIDs are not indicated but have advised that he take Tylenol in addition to muscle relaxer as needed for his symptoms.
[2023-06-12] MEDS: KETOROLAC 30MG/ML VIAL 15 MG IV (11:41)
[2023-06-12] MEDS: LACTATED RINGERS 1000ML 1,000 ML 999 ML IV (11:41)
[2023-06-12 11:44] LABS: Basophils % 1.2 % (0.1-2.0); Eosinophils # 0.1 K/mm3 (0.0-0.4); Eosinophils % 3.8 % (0.1-12.0); Hematocrit 39.1 % (42.0-52.0); Hemoglobin 12.4 g/dL (14.1-18.0); Lymphocytes # 1.6 K/mm3 (0.7-4.5); Mean Corpuscular HGB Conc 31.8 g/dL (31.8-35.4); Mean Corpuscular Hemoglobin 28.8 pg (27.0-31.2); Mean Corpuscular Volume 90.8 fl (80-94); Mean Platelet Volume 7.3 fl (7.4-10.4); Monocytes # 0.2 K/mm3 (0.1-1.0); Monocytes % 5.8 % (1.7-9.3); Neutrophils # 1.7 K/mm3 (1.8-7.8); Neutrophils % 46.2 % (37.0-80.0); Platelet Count 291 K/mm3 (142-424); Red Blood Count 4.31 M/mm3 (4.60-6.20); Red Cell Distribution Width 14.5 % (11.5-17.5); White Blood Count 3.7 K/mm3 (4.8-10.8)
[2023-06-12 11:51] LABS: Chloride 106 mmol/L (98-107); Sodium 138 mmol/L (136-145)
[2023-06-12 11:52] LABS: Potassium 3.6 mmoL/L (3.5-5.1)
[2023-06-12 11:54] LABS: Alanine Aminotransferase 29 U/L (12-78); Albumin Level 4.2 g/dl (3.5-5.0); Albumin/Globulin Ratio 1.3 (1.1-1.8); Alkaline Phosphatase 75 U/L (38-126); Anion Gap 7.6 mEq/L (5-15); Aspartate Amino Transferase 39 U/L (17-59); Bilirubin,Total 0.9 mg/dl (0.2-1.3); Blood Urea Nitrogen 6 mg/dl (9-20); Calcium 8.9 mg/dl (8.4-10.2); Carbon Dioxide 28 mmol/L (22.0-30.0); Creatinine Clearance Estimated 124 mL/min (50-200); Estimated Glomerular Filt Rate 87 ml/min (>60); GFR (African American) 105 ML/MIN (>60); Globulin 3.2 g/dL (1.3-3.2); Glucose 102 mg/dl (74-100); Lipase 236 U/L (23-300); Total Protein,Serum 7.4 g/dl (6.3-8.2)
[2023-06-12 12:33] LABS: Troponin I < 0.01 ng/ml (0.00-0.034)
[2023-06-12] MEDS: 0.9 % SODIUM CHLORIDE 50 ML VIAL IV (12:35)
[2023-06-12] MEDS: IOPAMIDOL-370 (76%);100ML BOTTLE 75 ML IV (12:35)
--- NOTE | 2023-06-12 12:43 | ECG_ITS ---
APPROVED REPORT Exam: Resting ECG HR:55 bpm ECG Measurements Heart Rate 55 AXES NE 150 P 19 QRSd 90 QRS 85 QT 457 T 76 QTc 445 Conclusion SINUS BRADYCARDIA MODERATE VOLTAGE CRITERIA FOR LVH, CONSIDER NORMAL VARIANT [MEETS CRITERIA IN ONE OF: R(aVL), S(V1), R(V5), R(V5/V6)+S(V1)] BORDERLINE ECG Electronically signed by : DANIELITO FLORENTINO, 06/13/2023 00:00:13
== END 2023-06-12 13:38 | disposition home or self-care (01) ==
PROVIDERS: Emergency Provider Student in an Organized Health Care Education/Training Program; PCP Physician Assistant
DX: R07.9 Chest pain, unspecified (principal); F17.210 Nicotine dependence, cigarettes, uncomplicated; Z86.718 Personal history of other venous thrombosis and embolism; Z79.01 Long term (current) use of anticoagulants; Z86.2 Personal history of diseases of the blood and blood-forming organs and certain disorders involving the immune mechanism; R00.0 Tachycardia, unspecified
CPT/HCPCS: 71275; 80053; 83690; 84484; 85025; 93005; 96361; 96374; 99285; Q9967

== ENCOUNTER 2023-06-15 11:26 | Outpatient (CLI) | payer MEDICARE, SELFPAY ==
--- NOTE | 2023-06-15 11:30 | XR_ITS ---
FINAL REPORT CLINICAL HISTORY: right shoulder pain COMPARISON: None FINDINGS: RIGHT SHOULDER Three views demonstrate no acute fracture or dislocation. The acromioclavicular and glenohumeral joint spaces are preserved. The visualized joint spaces are normally aligned. The soft tissues are unremarkable. IMPRESSION: No acute process. Reviewed, Interpreted and Dictated by Wellington Davenport MD Transcribed by Allyn Tai Authenticated and . [facility]
--- NOTE | 2023-06-15 11:30 | XR_ITS ---
FINAL REPORT CLINICAL HISTORY: right shoulder pain COMPARISON: None FINDINGS: Two views of the right humerus were obtained. There is no acute fracture or dislocation. The joint spaces are well preserved. There is no acute soft tissue abnormality. IMPRESSION: No acute abnormality identified. Reviewed, Interpreted and Dictated by Wellington Davenport MD Transcribed by Allyn Tai Authenticated and [facility]
== END 2023-06-15 23:59 | disposition home or self-care (01) ==
LOC: RAD 11:27
PROVIDERS: PCP Physician Assistant; Visit Provider Physician Assistant
DX: M25.511 Pain in right shoulder (principal)
CPT/HCPCS: 73030; 73060

== ENCOUNTER 2023-10-04 14:22 | Emergency (ER) | payer MEDICARE, SELFPAY ==
[2023-10-04 14:23] VITALS: BP 138/89; PULSE 92; RESP 18; TEMP 36.7; O2SAT 100; BMI 30.4
--- NOTE | 2023-10-04 14:26 | ED_ITS ---
<Statement entered by Orestes Reza MD - 10/04/23 16:46> I was consulted by the YUKI, and we discussed the complexity of the problems being addressed. I approved the treatment and management plan for this patient's care in the emergency department, thus performing a substantive portion of the medical decision making. Orestes Reza MD Discharge Plan Disposition Patient Disposition: Home, Self-Care Condition: Good Prescriptions Prescriptions: New lidocaine 5 % adhesive patch,medicated 1 patch topical DAILY Qty: 30 0RF Rx Instructions: leave on most painful area for up to 12 hrs No Action Xarelto 20 mg tablet 20 mg PO HS Rx Instructions: must administer with evening meal hydrocodone-acetaminophen 10-325 mg tablet 1 tab PO Q6H PRN (Reason: chronic pain) gabapentin 800 mg tablet 800 mg PO BID varenicline [Chantix Starting Month Box] 0.5 mg (11)- 1 mg (42) tablets,dose pack See Rx Instructions PO PER PKG DIR 28 Days Qty: 53 0RF Rx Instructions: PO PER PKG DIR mirtazapine [Remeron] 15 mg tablet 15 mg PO HS Qty: 30 2RF ferrous sulfate 325 mg (65 mg iron) tablet See Rx Instructions .ROUTE .COMPLEX Qty: 90 0RF Dose Instruction: TAKE 1 TABLET BY MOUTH ONCE DAILY FOR ANEMIA Rx Instructions: TAKE 1 TABLET BY MOUTH ONCE DAILY FOR ANEMIA cyclobenzaprine 5 mg tablet 5 mg PO TID PRN (Reason: muscle spasm) 5 Days Qty: 15 0RF metoprolol succinate 100 mg Tablet Extended Release 24 Hr 100 mg PO DAILY Referrals Follow up/Referrals: Lena Hernandez PA [Primary Care Provider] - See instructions Activity Restrictions/Add. Instructions Additional Instructions/Restrictions: Please utilize the lidocaine patch if the first 1 works for you. I sent a prescription to your pharmacy. Due to the amount of Tylenol that you are already taking with your combined pain medication you can take an additional 1000 mg 2 other times a day. Expect to have symptoms for approximately 6 weeks. Return to the ER for any worsening signs or symptoms including shortness of breath difficulty breathing fever chills etc. Clinical Impressions Clinical Impression: Anterior chest wall pain Print Language Print Language: Japanese Discharge ED Provider: Zaira García General Adult HPI General Chief complaint: PAIN Stated complaint: left side rib pain, no recent accident Time Seen by Provider: 10/04/23 14:24 History of Present Illness HPI narrative: Patient presents for left lower chest wall pain. Patient states that he was hugged by nephew approximately 2 weeks ago and had immediate pain in his left anterior lower rib cage. He is not sought care as he states that he has had 3 deaths in his family in the interval. He presents today complaining of same pain that is no better. He reports it hurts more with deep breath and palpation and movement but denies cardiac chest pain shortness of breath fever chills hemoptysis hematochezia melena nausea vomiting diarrhea. Related Data Home Medications ?Medication ?Instructions ?Recorded ?Confirmed gabapentin 800 mg tablet 800 mg PO BID nerve pain 05/10/22 06/15/23 hydrocodone 10 mg-acetaminophen 1 tab PO Q6H PRN chronic pain 05/10/22 06/15/23 325 mg tablet rivaroxaban 20 mg tablet (Xarelto) 20 mg PO HS blood clots 05/10/22 06/15/23 metoprolol succinate 100 mg 100 mg PO DAILY High blood pressure 05/23/22 06/15/23 tablet,extended release 24 hr Previous Rx's ?Medication ?Instructions ?Recorded ferrous sulfate 325 mg (65 mg See Rx Instructions .Route 05/09/23 iron) tablet .COMPLEX #90 tabs cyclobenzaprine 5 mg tablet 5 mg PO TID PRN muscle spasm 5 06/12/23 days #15 tabs mirtazapine 15 mg tablet (Remeron) 15 mg PO HS #30 tabs 06/15/23 varenicline 0.5 mg (11)-1 mg (42) See Rx Instructions PO PER PKG DIR 06/15/23 tablets in a dose pack (Chantix 28 days #53 tabs Starting Month Box) lidocaine 5 % topical patch 1 patch topical DAILY #30 ea 10/04/23 Allergies Allergy/AdvReac Type Severity Reaction Status Date / Time venom-honey bee Allergy Unknown Verified 06/15/23 10:18 [BEE VENOM (HONEY BEE)] [facility] Disclaimer: The information contained in this section may have been updated after the patient was seen, as this information can be updated by other users. Medical History Appendicitis Intestinal obstruction Smoker Small bowel obstruction GI bleed Surgical History History of back surgery x2 History of intestinal surgery x2 History of appendectomy Family History Other Family history of blood clots Family history of diabetes mellitus type II Social History Smoking Status: Current every day smoker tobacco type: cigarettes packs per day: 1 alcohol intake: never substance use type: denies use current occupational status: disabled Travel in the last 8 weeks: None household members: spouse housing: house marital status: education level: high school service: Yes skilled nursing: No caffeine: Yes special michael needs: No agree to transfusion: No do you feel safe at home: Yes victim of physical abuse: No victim of emotional abuse: No victim of sexual abuse: No would you like helpful sources: No ROS Obtained: Yes Systems reviewed as appropriate & no additional complaints except as documented Physical Exam General General appearance: alert and in no apparent distress Chest Chest inspection: Present normal inspection, symmetric chest wall rise and tenderness (Tender to palpation in the left lower anterior axillary chest wall with no palpable deformity noted.) Respiratory Respiratory exam: Present normal lung sounds bilaterally Cardiovascular Cardiovascular exam: Present regular rate, normal rhythm and normal heart sounds Extremities Exam Extremities exam: Present normal inspection and full ROM Back Exam Back exam: Present normal inspection and full ROM; Absent tenderness Neurological Exam Neurological exam: Present alert and oriented X3 Skin Skin exam: Present warm, dry and normal color Medical Decision Making Medical Records Medical records reviewed: Yes I reviewed the patient's medical records. Aime Inquiry Pt receiving controlled substance: No Vital Signs: 10/04/23 14:23 Temperature 98.1 F Temperature Source Oral Pulse Rate [Radial] 92 H Respiratory Rate 18 Blood Pressure [Right Arm] 138/89 Blood Pressure Mean [Right Arm] 105 Blood Pressure Source [Right Arm] Automatic Cuff Blood Pressure Position [Right Arm] Sitting 02 Sat by Pulse Oximetry 100 Oxygen Delivery Method Room Air Lab Data Lab results reviewed: Yes I reviewed the patient's lab results. Lab Results 10/04/23 14:51: WBC 3.5 L, RBC 4.33 L, Hgb 12.0 L, Hct 36.3 L, MCV 83.8, MCH 27.6, MCHC 32.9, RDW 15.1, Plt Count 304, MPV 7.6, Neut % (Auto) 65.8, Lymph % (Auto) 26.8, [place] % (Auto) 3.7, Eos % (Auto) 2.8, Baso % (Auto) 1.0, Neut # (Auto) 2.3, Lymph # (Auto) 0.9, [place] # (Auto) 0.1, Eos # (Auto) 0.1, Baso # (Auto) 0.0, D-Dimer 0.31, Sodium 143, Potassium 3.6, Chloride 108 H, Carbon Dioxide 28, Anion Gap 10.6, BUN 10, Creatinine 1.10, Estimated Creat Clear 106, Estimated GFR 69, Est GFR ( Amer) 83, Glucose 109 H, Calcium 9.2, Total Bilirubin 0.9, AST 38, ALT 27, Alkaline Phosphatase 62, Total Protein 7.8, Albumin 4.3, Globulin 3.5 H, Albumin/Globulin Ratio 1.2 10/04/23 14:51 10/04/23 14:51 Orders (Tests/Meds): ED MEDICATIONS Generic Name Dose Route Start Last Admin Trade Name Freq PRN Reason Stop Dose Admin Lidocaine 1 each 10/04/23 15:47 10/04/23 15:50 Lidocaine 5% Transdermal Patch TP 10/04/23 15:48 1 each ONCE ONE Administration Discontinued Medications Generic Name Dose Route Start Last Admin Trade Name Freq PRN Reason Stop Dose Admin Acetaminophen 1,000 mg 10/04/23 14:27 10/04/23 14:53 Acetaminophen 500mg Tab PO 10/04/23 14:28 1,000 mg ONCE ONE Administration Ketorolac Tromethamine 15 mg 10/04/23 14:27 10/04/23 14:53 Ketorolac 30mg/Ml Vial IV 10/04/23 14:28 15 mg ONCE ONE Administration Methocarbamol 500 mg 10/04/23 14:27 10/04/23 14:53 Methocarbamol 500mg Tablet PO 10/04/23 14:28 500 mg ONCE ONE Administration ORDERS Category Date Time Status Chest XR 2 view (NOT portable) [XR chest 2V] Stat Exams 10/04/23 14:27 Completed CBC w/Auto Diff [Complete Blood Count Auto Diff] Stat Lab 10/04/23 14:51 Completed CMP [Comprehensive Metabolic Panel] Stat Lab 10/04/23 14:51 Completed D-Dimer Stat Lab 10/04/23 14:51 Completed Medical Decision Narrative: In summary patient is a 57-year-old male who presents to the emergency department for evaluation of left chest wall pain. Patient is hemodynamically stable upon arrival, afebrile. Physical exam is remarkable for tenderness to palpation in the left anterior axillary lower chest wall without any visible ecchymosis or deformity on palpation. Breath sounds are clear and equal bilaterally to the bases.. Differential diagnosis includes costochondral separation versus rib fracture versus pulmonary contusion versus although less likely possible PE or pneumonia etc. Initial workup will be conducted with hematologic labs plain film chest x-ray D-dimer. Initial interventions include Tylenol and Toradol. Initial workup reviewed by me shows that his hematologic labs are nonactionable and his D-dimer is negative. My informal interpretation of his plain film chest x-ray shows no consolidation or acute intrathoracic processes prior to radiology read. Upon repeat evaluation patient did have improvement in his discomfort after initial intervention. Given this patient is appropriate for discharge with costochondral separation teaching, a lidocaine patch applied topically and prescription sent to his pharmacy and instructions on how to take 2 additional grams of Tylenol a day in addition to the 1000 mg he is already taking with his combination pain medicine Critical Care Critical Care Time Critical Care Time: No
--- NOTE | 2023-10-04 14:27 | XR_ITS ---
FINAL REPORT CLINICAL HISTORY: Left-sided rib pain COMPARISON: 01/27/2023 FINDINGS: Two views of the chest were obtained. The heart size and pulmonary vascularity are within normal limits. The mediastinum is normal. No acute pulmonary abnormality is identified. There is no pneumothorax. The bony thorax is intact. IMPRESSION: No active cardiopulmonary disease. Reviewed, Interpreted and Dictated by Chuy Khalil III, MD Transcribed by Allyn Tai Authenticated and [facility]
--- NOTE | 2023-10-04 14:36 | PC.NURSE ---
PT TO XR
[2023-10-04] MEDS: METHOCARBAMOL 500MG TABLET 500 MG PO (14:53)
[2023-10-04] MEDS: ACETAMINOPHEN 500MG TAB 1000 MG PO (14:53)
[2023-10-04] MEDS: KETOROLAC 30MG/ML VIAL 15 MG IV (14:53)
[2023-10-04 15:04] LABS: Eosinophils # 0.1 K/mm3 (0.0-0.4); Eosinophils % 2.8 % (0.1-12.0); Hematocrit 36.3 % (42.0-52.0); Lymphocytes # 0.9 K/mm3 (0.7-4.5); Lymphocytes % 26.8 % (10-50); Mean Corpuscular HGB Conc 32.9 g/dL (31.8-35.4); Mean Corpuscular Hemoglobin 27.6 pg (27.0-31.2); Mean Corpuscular Volume 83.8 fl (80-94); Mean Platelet Volume 7.6 fl (7.4-10.4); Monocytes # 0.1 K/mm3 (0.1-1.0); Monocytes % 3.7 % (1.7-9.3); Neutrophils # 2.3 K/mm3 (1.8-7.8); Neutrophils % 65.8 % (37.0-80.0); Platelet Count 304 K/mm3 (142-424); Red Blood Count 4.33 M/mm3 (4.60-6.20); Red Cell Distribution Width 15.1 % (11.5-17.5); White Blood Count 3.5 K/mm3 (4.8-10.8)
[2023-10-04 15:23] LABS: Alanine Aminotransferase 27 U/L (12-78); Albumin Level 4.3 g/dl (3.5-5.0); Albumin/Globulin Ratio 1.2 (1.1-1.8); Alkaline Phosphatase 62 U/L (38-126); Anion Gap 10.6 mEq/L (5-15); Aspartate Amino Transferase 38 U/L (17-59); Bilirubin,Total 0.9 mg/dl (0.2-1.3); Blood Urea Nitrogen 10 mg/dl (9-20); Calcium 9.2 mg/dl (8.4-10.2); Carbon Dioxide 28 mmol/L (22.0-30.0); Chloride 108 mmol/L (98-107); Creatinine Clearance Estimated 106 mL/min (50-200); Estimated Glomerular Filt Rate 69 ml/min (>60); GFR (African American) 83 ML/MIN (>60); Globulin 3.5 g/dL (1.3-3.2); Glucose 109 mg/dl (74-100); Potassium 3.6 mmoL/L (3.5-5.1); Sodium 143 mmol/L (136-145); Total Protein,Serum 7.8 g/dl (6.3-8.2)
[2023-10-04 15:26] LABS: D-Dimer 0.31 ug/mL (0.0-0.5)
[2023-10-04] MEDS: LIDOCAINE 5% TRANSDERMAL PATCH 1 EACH TP (15:50)
[2023-10-04 16:03] VITALS: BP 121/70; PULSE 79; RESP 16; TEMP 36.7
== END 2023-10-04 16:03 | disposition home or self-care (01) ==
PROVIDERS: Physician Assistant; Emergency Provider Emergency Medicine; PCP Physician Assistant
DX: R07.1 Chest pain on breathing (principal); F17.210 Nicotine dependence, cigarettes, uncomplicated
CPT/HCPCS: 71046; 80053; 85025; 85378; 96374; 99284; J1885

== ENCOUNTER 2023-11-09 07:20 | Outpatient (CLI) | payer MEDICARE, SELFPAY ==
--- NOTE | 2023-11-09 07:26 | CT_ITS ---
FINAL REPORT TECHNIQUE: Axial images were obtained from the lung apex to the mid abdomen by computed tomography. Coronal reformatted images were obtained. This study was performed with techniques to keep radiation doses as low as reasonably achievable, (ALARA). Individualized dose reduction techniques using automated exposure control or adjustment of mA and/or kV according to the patient''s size were employed. CLINICAL HISTORY: Knot left lower ribs COMPARISON: CTA 06/12/2023 FINDINGS: No mediastinal or hilar mass or adenopathy is identified. No axillary mass or adenopathy is seen.There is no pericardial or pleural effusion. No pulmonary mass or suspicious nodule is identified. No localized pulmonary inflammatory process is noted. Mild scarring is noted. There is fracture of the cartilage at the anterior-inferior left chest with overlapping of cartilage fragments. This is well seen on series 2 images [id number]. A partially imaged IVC filter is present. Limited images of the upper abdomen are unremarkable. IMPRESSION: Cartilage fracture anterior-inferior left chest with overlap of cartilage fragments. Reviewed, Interpreted and Dictated by Chuy Khalil III, MD Transcribed by Allyn Tai Authenticated and [facility]
== END 2023-11-09 23:59 | disposition home or self-care (01) ==
LOC: RAD 07:21
PROVIDERS: PCP Physician Assistant; Visit Provider Physician Assistant
DX: R07.81 Pleurodynia (principal)
CPT/HCPCS: 71250

== ENCOUNTER 2023-11-21 00:24 | Emergency (ER) | payer MEDICARE, SELFPAY ==
[2023-11-21] VITALS (7 sets, daily range): BP systolic 117–130; BP diastolic 73–86; PULSE 54–69; RESP 16–24; TEMP 36.7–36.8; O2SAT 96–98; BMI 31.1
--- NOTE | 2023-11-21 00:32 | ECG_ITS ---
APPROVED REPORT Exam: Resting ECG HR:65 bpm ECG Measurements Heart Rate 65 AXES ID 166 P 65 QRSd 97 QRS 78 QT 417 T 57 QTc 429 Conclusion SINUS RHYTHM MINIMAL VOLTAGE CRITERIA FOR LVH, CONSIDER NORMAL VARIANT [MEETS CRITERIA IN ONE OF: R(aVL), S(V1), R(V5), R(V5/V6)+S(V1)] BORDERLINE ECG No STEMI Electronically signed by : CIARA FINLEY, 11/21/2023 06:46:18
--- NOTE | 2023-11-21 00:32 | XR_ITS ---
PROCEDURE INFORMATION: Exam: XR Chest Exam date and time: 11/21/2023 1:06 AM Age: 58 years old Clinical indication: Pain; Chest pressure; Additional info: L chest pain, knot on L lower anterior ribs TECHNIQUE: Imaging protocol: Radiologic exam of the chest. Views: 2 views. COMPARISON: CT ANGIO CHEST PE PROTOCOL 11/21/2023 1:05 AM FINDINGS: Lungs: No evidence of acute pulmonary disease or infiltrates Pleural spaces: No large effusion or pneumothorax. Heart/Mediastinum: Stable cardiac and mediastinal contours. Vasculature: There is an IVC filter in place. Bones/joints: No evidence of acute osseous abnormalities within the visualized portions of the thoracic spine and ribs. Osseous structures appear appropriate for patient age. IMPRESSION: No dense parenchymal consolidation, pleural effusion, or pneumothorax.
[2023-11-21] MEDS: KETOROLAC 30MG/ML VIAL 15 MG IV (00:41)
--- NOTE | 2023-11-21 00:43 | CT_ITS ---
PROCEDURE INFORMATION: Exam: CTA Chest With Contrast Exam date and time: 11/21/2023 1:05 AM Age: 58 years old Clinical indication: Pain; Chest pressure; Additional info: Left-sided cp, worse with inspiration, HX clots TECHNIQUE: Imaging protocol: Computed tomographic angiography of the chest with contrast. Exam focused on the arteries. 3D rendering (Not supervised by radiologist): MIP and/or 3D reconstructed images were created by the technologist. Radiation optimization: All CT scans at this facility use at least one of these dose optimization techniques: automated exposure control; mA and/or kV adjustment per patient size (includes targeted exams where dose is matched to clinical indication); or iterative reconstruction. Contrast material: ISOUVE 370; Contrast volume: 70 ml; Contrast route: INTRAVENOUS (IV); COMPARISON: 1. CT ANGIO CHEST PE PROTOCOL 11/21/2023 1:[address] ANGIO CHEST PE PROTOCOL 06/12/2023 12:[address] ANGIO CHEST PE PROTOCOL 01/27/2023 6:14 PM FINDINGS: Pulmonary arteries: There is no evidence for clinically relevant pulmonary arterial filling defect. Tiny distal filling defects may be present but are of dubious clinical significance. Aorta: Unremarkable. No aortic aneurysm. No aortic dissection. Lungs: There are few scattered areas of parenchymal ground-glass opacity which appears similar to prior including at the lung bases and in the right upper lobe. There are scattered areas of emphysema throughout the lungs. Pleural spaces: Unremarkable. No pneumothorax. No pleural effusion. Heart: Unremarkable. No cardiomegaly. No pericardial effusion. Lymph nodes: There are calcified mediastinal lymph nodes likely reflecting prior granulomatous disease. Gallbladder and biliary ducts: The patient is status post cholecystectomy. Bones/joints: Unremarkable. No acute fracture. Soft tissues: Unremarkable. IMPRESSION: 1. No dense parenchymal consolidation, pleural effusion, or pneumothorax. 2. No evidence for clinically relevant pulmonary arterial filling defect. COMMENTS: The presence of pulmonary emphysema on CT is an independent risk factor for lung cancer. In the absence of a history or active diagnosis of lung cancer, it is recommended that this patient with emphysema be evaluated for enrollment in a low dose CT lung cancer screening program.
--- NOTE | 2023-11-21 00:45 | ED_ITS ---
Discharge Plan Disposition Patient Disposition: Home, Self-Care Condition: Good Chief Complaint: Chest Pain Prescriptions Prescriptions: No Action Xarelto 20 mg tablet 20 mg PO HS Rx Instructions: must administer with evening meal hydrocodone-acetaminophen 10-325 mg tablet 1 tab PO Q6H PRN (Reason: chronic pain) gabapentin 800 mg tablet 800 mg PO BID varenicline [Chantix Starting Month Box] 0.5 mg (11)- 1 mg (42) tablets,dose pack See Rx Instructions PO PER PKG DIR 28 Days Qty: 53 0RF Rx Instructions: PO PER PKG DIR mirtazapine [Remeron] 15 mg tablet 15 mg PO HS Qty: 30 2RF sulfamethoxazole-trimethoprim [Bactrim DS] 800-160 mg tablet 1 tab PO BID 10 Days Qty: 20 0RF ferrous sulfate 325 mg (65 mg iron) tablet See Rx Instructions .ROUTE .COMPLEX Qty: 90 0RF Dose Instruction: TAKE 1 TABLET BY MOUTH ONCE DAILY FOR ANEMIA Rx Instructions: TAKE 1 TABLET BY MOUTH ONCE DAILY FOR ANEMIA cyclobenzaprine 5 mg tablet 5 mg PO TID PRN (Reason: muscle spasm) 5 Days Qty: 15 0RF metoprolol succinate 100 mg Tablet Extended Release 24 Hr 100 mg PO DAILY Referrals Follow up/Referrals: Provider,Referral, [Referring] - See instructions Lena Hernandez PA [Primary Care Provider] - See instructions (recheck potassium) Ricky Baca MD [Staff Physician] - See instructions (recurrent L side chest pain seems MSK however pt has many risk factors) Activity Restrictions/Add. Instructions Additional Instructions/Restrictions: You were evaluated in the ER and are appropriate for discharge at this time. Take Tylenol if needed for chest wall tenderness. Call the cardiology office and make an appointment for follow-up for reevaluation. Also call your primary care doctor for follow-up and have them recheck your potassium in 1 to 2 days. Return to the ER with new, worsening, or otherwise concerning symptoms. Clinical Impressions Clinical Impression: Chest wall tenderness Print Language Print Language: Chinese Discharge ED Provider: Abhilash Chang General Chief Complaint: Chest Pain Stated Complaint: Chest Pain Time Seen by Provider: 11/21/23 00:30 Mode of Arrival: Ambulatory Source of Information: Patient Limitations: No Limitations Description of Symptoms (Recalled from ER Triage Doc. by RN): Patient reports that he began having left sided chest pain before zoroastrianism that is worse with inspiration and has progressively worsened throughout the day. Patient denies N/V/D, tender to palpation. History of Present Illness HPI narrative: 58-year-old male presents to the ER with complaints of left-sided chest pain worse with deep inspiration that is progressively worse through the day. Patient does have a history of blood clots and is on Xarelto with IVC filter. Patient also reports history of back surgeries hydrocodone and gabapentin as well as hypertension. Patient denies nausea, vomiting, dizziness, headache, vision changes, cough, difficulty breathing, leg swelling, or other complaints at this time. He denies any recent trauma or abnormal exertion or movements. Chest pain does not radiate. He is tender in the left chest. Patient reports that his PCP had him get x-rays for a knot on his left chest. He does not know the results of those x-rays. The knot is not painful and has been present for weeks or more. Related Data Home Medications ?Medication ?Instructions ?Recorded ?Confirmed gabapentin 800 mg tablet 800 mg PO BID nerve pain 05/10/22 10/25/23 hydrocodone 10 mg-acetaminophen 1 tab PO Q6H PRN chronic pain 05/10/22 10/25/23 325 mg tablet rivaroxaban 20 mg tablet (Xarelto) 20 mg PO HS blood clots 05/10/22 10/25/23 metoprolol succinate 100 mg 100 mg PO DAILY High blood pressure 05/23/22 10/25/23 tablet,extended release 24 hr Previous Rx's ?Medication ?Instructions ?Recorded ferrous sulfate 325 mg (65 mg See Rx Instructions .Route 05/09/23 iron) tablet .COMPLEX #90 tabs cyclobenzaprine 5 mg tablet 5 mg PO TID PRN muscle spasm 5 06/12/23 days #15 tabs varenicline 0.5 mg (11)-1 mg (42) See Rx Instructions PO PER PKG DIR 06/15/23 tablets in a dose pack (Chantix 28 days #53 tabs Starting Month Box) mirtazapine 15 mg tablet (Remeron) 15 mg PO HS #30 tabs 10/25/23 sulfamethoxazole 800 1 tab PO BID 10 days #20 tabs 10/25/23 mg-trimethoprim 160 mg tablet (Bactrim DS) Allergies Allergy/AdvReac Type Severity Reaction Status Date / Time venom-honey bee Allergy Unknown Verified 10/25/23 10:22 [BEE VENOM (HONEY BEE)] [facility] Disclaimer: The information contained in this section may have been updated after the patient was seen, as this information can be updated by other users. Medical History Appendicitis Intestinal obstruction Smoker Small bowel obstruction GI bleed Surgical History History of back surgery x2 History of intestinal surgery x2 History of appendectomy Family History Other Family history of blood clots Family history of diabetes mellitus type II Social History Smoking Status: Current every day smoker tobacco type: cigarettes packs per day: 1 alcohol intake: never substance use type: denies use current occupational status: disabled Travel in the last 8 weeks: None household members: spouse housing: house marital status: education level: high school service: Yes senior living: No caffeine: Yes special michael needs: No agree to transfusion: No do you feel safe at home: Yes victim of physical abuse: No victim of emotional abuse: No victim of sexual abuse: No would you like helpful sources: No ROS Obtained: Yes All systems reviewed & no additional complaints except as documented Positive ROS per HPI Physical Exam General General appearance: alert and in no apparent distress Head Head exam: atraumatic and normocephalic Eye Eye exam: Present PERRL and EOMI ENT ENT exam: Present mucous membranes moist Neck Neck exam: Present normal inspection and full ROM Chest Chest inspection: Present symmetric chest wall rise and tenderness (L chest wall tenderness anterior, lateral, no signs of trauma, no crepitus or deformity) Respiratory Respiratory exam: Present normal lung sounds bilaterally; Absent respiratory distress, wheezes or stridor Cardiovascular Cardiovascular exam: Present regular rate and normal rhythm Abdominal Exam Abdominal exam: Present soft and scar (Midline ex lap scar); Absent distention or tenderness Extremities Exam Extremities exam: Present full ROM; Absent edema, joint swelling or calf tenderness Neurological Exam Neurological exam: Present alert and oriented X3; Absent motor sensory deficit Psychiatric Psychiatric exam: Present normal affect and normal mood Skin Skin exam: Present warm and dry HEART Score HEART Score HEART Score assessment performed?: Yes History (anamnesis): Slightly suspicious ECG: Normal Age: 45-65 years Risk factors: 3 or more risk factors Troponin: </= normal limit HEART Score: 3 Critical Care Critical Care Time Critical Care Time: No Medical Decision Making Medical Records Medical records reviewed: Yes I reviewed the patient's medical records. MR Comment: Patient evaluated for chest pain in our ER in May of this year. Patient had similar pain associated with movement and tenderness. Reassuring workup and discharged in stable condition. Patient had DVTs in 2014, multiple L-spine procedures and problems, previous GI bleed evaluated by GI in April 2022 with colonoscopy. Patient had external hemorrhoids identified at that time. Patient also has a cardiac history including arrhythmia. Aime Inquiry Pt receiving controlled substance: No Vital Signs Vital Signs: 11/21/23 00:25 11/21/23 00:38 11/21/23 01:01 Temperature 98.3 F Temperature Source Oral Pulse Rate 68 64 Pulse Rate [Left Radial] 69 Respiratory Rate 18 24 Blood Pressure 130/76 Blood Pressure [Right Arm] 119/86 Blood Pressure Mean [Right Arm] 97 Blood Pressure Source [Right Arm] Automatic Cuff Blood Pressure Position [Right Arm] Sitting 02 Sat by Pulse Oximetry 97 97 Oxygen Delivery Method Room Air 11/21/23 01:30 11/21/23 02:00 11/21/23 02:30 Temperature Temperature Source Pulse Rate 59 L 59 L 55 L Pulse Rate [Left Radial] Respiratory Rate 16 18 21 Blood Pressure 125/80 117/75 126/80 Blood Pressure [Right Arm] Blood Pressure Mean [Right Arm] Blood Pressure Source [Right Arm] Blood Pressure Position [Right Arm] 02 Sat by Pulse Oximetry 98 96 97 Oxygen Delivery Method Lab Data Labs: Lab Results 11/21/23 00:45: WBC 4.7 L, RBC 4.21 L, Hgb 11.1 L, Hct 37.5 L, MCV 89.0, MCH 26.4 L, MCHC 29.6 L, RDW 15.6, Plt Count 260, MPV 6.3 L, Neut % (Auto) 55.0, Lymph % (Auto) 35.2, [place] % (Auto) 4.7, Eos % (Auto) 4.2, Baso % (Auto) 0.8, Neut # (Auto) 2.6, Lymph # (Auto) 1.7, [place] # (Auto) 0.2, Eos # (Auto) 0.2, Baso # (Auto) 0.0, PT 12.8 H, INR 1.16 H, Sodium 139, Potassium 2.9 L*, Chloride 108 H, Carbon Dioxide 26, Anion Gap 7.9, BUN 10, Creatinine 1.00, Estimated Creat Clear 119, Estimated GFR 77, Est GFR ( Amer) 93, Glucose 102 H, Calcium 8.9, Total Bilirubin 0.7, AST 34, ALT 25, Alkaline Phosphatase 58, Troponin I < 0.01, NT-Pro-B Natriuret Pep 74.0, Total Protein 7.4, Albumin 4.4, Globulin 3.0, Albumin/Globulin Ratio 1.5 11/21/23 00:45 11/21/23 00:45 Response Orders (Tests/Meds): ED MEDICATIONS Generic Name Dose Route Start Last Admin Trade Name Freq PRN Reason Stop Dose Admin Lactated Ringer's 500 mls @ 250 mls/hr 11/21/23 01:25 11/21/23 01:28 Lactated Ringer's 500ml IV 11/21/23 03:24 250 mls/hr .Q2H ONE Administration Sodium Chloride 10 ml 11/21/23 01:21 11/21/23 01:23 Sodium Chloride 0.9% 10ml Syr (Rad Only) IV 12/21/23 01:20 10 ml NEEDED PRN Administration Maintain IV Site Discontinued Medications Generic Name Dose Route Start Last Admin Trade Name Freq PRN Reason Stop Dose Admin Aspirin 324 mg 11/21/23 00:32 11/21/23 00:45 Aspirin 81mg Chewable Tablet PO 11/21/23 00:33 Not Given ONCE ONE Potassium Chloride/Water 100 mls @ 100 mls/hr 11/21/23 01:12 11/21/23 01:28 Potassium Chloride 10meq/100ml Ivpb IV 11/21/23 02:11 100 mls/hr ONCE ONE Administration Iopamidol 70 ml 11/21/23 01:21 11/21/23 01:23 Iopamidol-370 (76%);100ml Bottle IV 11/21/23 01:22 70 ml ONCE ONE Administration Ketorolac Tromethamine 15 mg 11/21/23 00:32 11/21/23 00:41 Ketorolac 30mg/Ml Vial IV 11/21/23 00:33 15 mg ONCE ONE Administration Potassium Chloride 60 meq 11/21/23 01:12 11/21/23 01:19 Potassium Chloride 20meq Tab PO 11/21/23 01:13 60 meq ONCE ONE Administration Sodium Chloride 50 ml 11/21/23 01:21 11/21/23 01:22 0.9 % Sodium Chloride 50 Ml Vial IV 11/21/23 01:22 50 ml ONCE ONE Administration ORDERS Category Date Time Status CT angio chest PE protocol Stat Cat Scan 11/21/23 00:43 Completed XR chest 2V Stat Exams 11/21/23 00:32 Completed Complete Blood Count Auto Diff Stat Lab 11/21/23 00:45 Completed Comprehensive Metabolic Panel Stat Lab 11/21/23 00:45 Completed HIV (1&2) Antibody Rapid Stat Lab 11/21/23 00:45 Received Hep C Ab with Reflex to RNA Stat Lab 11/21/23 00:45 Received NT Pro Brain Natriuretic Pep. Stat Lab 11/21/23 00:45 Completed Prothrombin Time INR Stat Lab 11/21/23 00:45 Completed Troponin I Q3H Lab 11/21/23 00:45 Completed Troponin I Q3H Lab 11/21/23 03:45 Ordered Troponin I Q3H Lab 11/21/23 06:45 Ordered MDM Narrative Medical Decision Narrative: In summary, this 58-year-old male with complex past medical history as outlined in HPI and my review of medical records presents to the emergency department today with left-sided chest pain worse with deep inspiration and with palpation of the chest. On initial evaluation patient is hemodynamically stable, afebrile, left chest wall appears atraumatic but is tender, there is a palpable lump at the anterior inferior ribs, approximately rib 10. Patient states this has been present for an extended period of time and is nontender. Differential diagnosis includes but is not limited to ACS, PE for which I have increased suspicion due to history of clots, arrhythmia, electrolyte abnormality, musculoskeletal pain including costochondritis, rib fracture, also considered possibility of malignancy. Based on these concerns, I ordered cardiac workup, serum labs, CT imaging. ECG personally interpreted demonstrates normal sinus rhythm, rate 65, normal axis, normal AK and QTc, no STEMI. Patient received IV fluids, Toradol for treatment. He did not initially disclose his use of Xarelto to me so aspirin had been ordered however given lower suspicion for ACS with the reproducibility of patient's pain, aspirin was not administered. Labs personally reviewed demonstrate mild leukopenia, anemia, normal platelets, trace elevation of PT/INR, hypokalemia which was treated with oral and IV repletion, initial troponin undetectably low at less than 0.01. Given patient has had nearly 24 hours of symptoms has reassuring ECG and I had low suspicion for cardiac etiology on arrival, I do not believe serial troponins are indicated at this time. Chest x-ray personally interpreted does not demonstrate acute intrathoracic abnormality. See radiology read for final interpretation. CTA PE personally interpreted does not demonstrate rib fracture, PE, or large area of infiltrate. See radiology read for final interpretation. On reassessment patient has had significant improvement of symptoms with conservative management. Given reassuring workup and improvement of symptoms with the medications given to him in the ER, I believe his pain is musculoskeletal in etiology. Due to his significant past medical history I do believe it is important for patient to have cardiac follow-up and he states he did not follow-up after his previous ER visit for similar symptoms. He was referred back to Dr. Baca for this purpose. Patient was given instructions on symptomatic management, follow up instructions, and return precautions for the emergency department. Patient indicated understanding and was discharged in stable condition.
[2023-11-21 00:52] LABS: Basophils % 0.8 % (0.1-2.0); Eosinophils # 0.2 K/mm3 (0.0-0.4); Eosinophils % 4.2 % (0.1-12.0); Hematocrit 37.5 % (42.0-52.0); Hemoglobin 11.1 g/dL (14.1-18.0); Lymphocytes # 1.7 K/mm3 (0.7-4.5); Lymphocytes % 35.2 % (10-50); Mean Corpuscular HGB Conc 29.6 g/dL (31.8-35.4); Mean Corpuscular Hemoglobin 26.4 pg (27.0-31.2); Mean Platelet Volume 6.3 fl (7.4-10.4); Monocytes # 0.2 K/mm3 (0.1-1.0); Monocytes % 4.7 % (1.7-9.3); Neutrophils # 2.6 K/mm3 (1.8-7.8); Platelet Count 260 K/mm3 (142-424); Red Blood Count 4.21 M/mm3 (4.60-6.20); Red Cell Distribution Width 15.6 % (11.5-17.5); White Blood Count 4.7 K/mm3 (4.8-10.8)
[2023-11-21 01:00] LABS: Alanine Aminotransferase 25 U/L (12-78); Albumin Level 4.4 g/dl (3.5-5.0); Albumin/Globulin Ratio 1.5 (1.1-1.8); Alkaline Phosphatase 58 U/L (38-126); Aspartate Amino Transferase 34 U/L (17-59); Bilirubin,Total 0.7 mg/dl (0.2-1.3); Blood Urea Nitrogen 10 mg/dl (9-20); Calcium 8.9 mg/dl (8.4-10.2); Carbon Dioxide 26 mmol/L (22.0-30.0); Chloride 108 mmol/L (98-107); Creatinine Clearance Estimated 119 mL/min (50-200); Estimated Glomerular Filt Rate 77 ml/min (>60); GFR (African American) 93 ML/MIN (>60); Glucose 102 mg/dl (74-100); Sodium 139 mmol/L (136-145); Total Protein,Serum 7.4 g/dl (6.3-8.2)
[2023-11-21 01:01] LABS: INR 1.16 (0.9-1.1); Prothrombin Time 12.8 seconds (10.1-12.5)
[2023-11-21 01:09] LABS: Anion Gap 7.9 mEq/L (5-15)
[2023-11-21 01:10] LABS: Potassium 2.9 mmoL/L (3.5-5.1)
[2023-11-21 01:12] LABS: Troponin I < 0.01 ng/ml (0.00-0.034)
[2023-11-21] MEDS: POTASSIUM CHLORIDE 20MEQ TAB 60 MEQ PO (01:19)
[2023-11-21] MEDS: 0.9 % SODIUM CHLORIDE 50 ML VIAL IV (01:22)
[2023-11-21] MEDS: IOPAMIDOL-370 (76%);100ML BOTTLE 70 ML IV (01:23)
[2023-11-21] MEDS: SODIUM CHLORIDE 0.9% 10ML SYR (RAD ONLY) 10 ML IV (01:23)
[2023-11-21] MEDS: RINGERS SOLUTION,LACTATED 500 ML 250 ML IV (01:28)
[2023-11-21] MEDS: KCl 10mEq/100ml 100 ML 100 MEQ IV (01:28)
[2023-11-21 13:11] LABS: HIV (1&2) Antibody Rapid NONREACTIVE (NONREACTIVE)
[2023-11-22 08:27] LABS: HCV Ab Non Reactive (Non Reactive)
== END 2023-11-21 03:16 | disposition home or self-care (01) ==
PROVIDERS: Emergency Provider Emergency Medicine; PCP Physician Assistant
DX: R07.1 Chest pain on breathing (principal); E87.6 Hypokalemia; F17.210 Nicotine dependence, cigarettes, uncomplicated; Z86.718 Personal history of other venous thrombosis and embolism; Z79.01 Long term (current) use of anticoagulants
CPT/HCPCS: 71046; 71275; 80053; 83880; 84484; 85025; 85610; 86803; 87389; 93005; 96361; 96365; 96375; 99285; J1885; J3480; J7120; Q9967

== ENCOUNTER 2023-11-26 14:16 | Emergency (ER) | payer MEDICARE, SELFPAY ==
--- NOTE | 2023-11-26 14:14 | ECG_ITS ---
APPROVED REPORT Exam: Resting ECG HR:68 bpm ECG Measurements Heart Rate 68 AXES TN 159 P 66 QRSd 89 QRS 75 QT 404 T 72 QTc 421 Conclusion Sinus rhythm Electronically signed by : POPPY AMATO, 11/26/2023 15:13:18
[2023-11-26 14:16] VITALS: BP 112/95; PULSE 70; RESP 16; TEMP 36.7; O2SAT 100; BMI 29.1
--- NOTE | 2023-11-26 14:18 | ED_ITS ---
Discharge Plan Disposition Patient Disposition: Home, Self-Care Condition: Fair Prescriptions Prescriptions: No Action Xarelto 20 mg tablet 20 mg PO HS Rx Instructions: must administer with evening meal hydrocodone-acetaminophen 10-325 mg tablet 1 tab PO Q6H PRN (Reason: chronic pain) gabapentin 800 mg tablet 800 mg PO BID varenicline [Chantix Starting Month Box] 0.5 mg (11)- 1 mg (42) tablets,dose pack See Rx Instructions PO PER PKG DIR 28 Days Qty: 53 0RF Rx Instructions: PO PER PKG DIR amitriptyline 25 mg tablet 25 mg PO HS Qty: 30 4RF ferrous sulfate 325 mg (65 mg iron) tablet See Rx Instructions .ROUTE .COMPLEX Qty: 90 0RF Dose Instruction: TAKE 1 TABLET BY MOUTH ONCE DAILY FOR ANEMIA Rx Instructions: TAKE 1 TABLET BY MOUTH ONCE DAILY FOR ANEMIA metoprolol succinate 100 mg Tablet Extended Release 24 Hr 100 mg PO DAILY Referrals Follow up/Referrals: Ricky Baca MD [Staff Physician] - See instructions Provider,MD Lola [Primary Care Provider] - See instructions Activity Restrictions/Add. Instructions Additional Instructions/Restrictions: At this time it was felt you are safe to be discharged home. If new or worsening symptoms please do not hesitate to return the emergency department. Please call and schedule an appointment with Dr. Baca as soon as you are able. Clinical Impressions Clinical Impression: Chest pain Print Language Print Language: Romanian Discharge ED Provider: Orestes Reza General Adult HPI <Lakia Chavez (ED), INSTRUCTOR [employer] - Last Filed: 11/26/23 17:11> General Chief complaint: Chest Pain Stated complaint: chest pain Time Seen by Provider: 11/26/23 14:18 History of Present Illness HPI narrative: This is a 58-year-old male who presents today for complaint of chest pain that started last night but he says he was uncomfortable but went to bed anyway he woke up this morning and the chest pain was worse. He does have some shortness of breath as well. He is a patient of Dr. Baca but has not seen him in many years. He had an NH in 1997 and was cathed. He has a Fabienne filter for his blood clots. He does take Xarelto. He takes [place] for back pain due to his 2 back surgeries. He is on metoprolol as well. He takes this for high blood pressure. He does complain of numbness and tingling down both hands and left arm pain. Related Data Home Medications ?Medication ?Instructions ?Recorded ?Confirmed gabapentin 800 mg tablet 800 mg PO BID nerve pain 05/10/22 11/26/23 hydrocodone 10 mg-acetaminophen 1 tab PO Q6H PRN chronic pain 05/10/22 11/26/23 325 mg tablet rivaroxaban 20 mg tablet (Xarelto) 20 mg PO HS blood clots 05/10/22 11/26/23 metoprolol succinate 100 mg 100 mg PO DAILY High blood pressure 05/23/22 11/26/23 tablet,extended release 24 hr Previous Rx's ?Medication ?Instructions ?Recorded ferrous sulfate 325 mg (65 mg See Rx Instructions .Route 05/09/23 iron) tablet .COMPLEX #90 tabs varenicline 0.5 mg (11)-1 mg (42) See Rx Instructions PO PER PKG DIR 06/15/23 tablets in a dose pack (Chantix 28 days #53 tabs Starting Month Box) amitriptyline 25 mg tablet 25 mg PO HS #30 tabs 11/22/23 Allergies Allergy/AdvReac Type Severity Reaction Status Date / Time venom-honey bee Allergy Unknown Other Verified 11/26/23 14:21 [BEE VENOM (HONEY BEE)] [facility] <Lakia Chavez (ED), [employer]CTOR [employer] - Last Filed: 11/26/23 17:11> [facility] Disclaimer: The information contained in this section may have been updated after the patient was seen, as this information can be updated by other users. Medical History Appendicitis Intestinal obstruction Smoker Small bowel obstruction GI bleed Surgical History History of back surgery x2 History of intestinal surgery x2 History of appendectomy Family History Other Family history of blood clots Family history of diabetes mellitus type II Social History Smoking Status: Current every day smoker tobacco type: cigarettes packs per day: 1 alcohol intake: never substance use type: denies use current occupational status: disabled Travel in the last 8 weeks: None household members: spouse housing: house marital status: education level: high school service: Yes mcfp: No caffeine: Yes special michael needs: No agree to transfusion: No do you feel safe at home: Yes victim of physical abuse: No victim of emotional abuse: No victim of sexual abuse: No would you like helpful sources: No <Lakia Chavez (ED), IN[employer] - Last Filed: 11/26/23 17:11> ROS Obtained: Yes Systems reviewed as appropriate & no additional complaints except as documented Constitutional Constitutional: Reports system reviewed and no additional complaints, except as documented and Reports as per HPI Physical Exam <Lakia Chavez (ED), IN[employer] - Last Filed: 11/26/23 17:11> General General appearance: alert, anxious and in distress Comment: due to chest pain radiating to left arm Head Head exam: normocephalic Eye Eye exam: Present normal appearance and PERRL ENT ENT exam: Present normal exam and mucous membranes moist Neck Neck exam: Present normal inspection and trachea midline Chest Chest inspection: Present normal inspection and symmetric chest wall rise Respiratory Respiratory exam: Present normal lung sounds bilaterally Cardiovascular Cardiovascular exam: Present regular rate, normal rhythm, normal heart sounds, +S1 and +S2 Abdominal Exam Abdominal exam: Present soft and normal bowel sounds Extremities Exam Extremities exam: Present normal inspection, full ROM and normal capillary refill Neurological Exam Neurological exam: Present alert, oriented X3 and normal gait Psychiatric Psychiatric exam: Present normal affect and anxious Skin Skin exam: Present warm and dry Medical Decision Making <Lakia Chavez (ED), [employer] - Last Filed: 11/26/23 17:11> Medical Records Screening: Per USPSTF and CDC recommendations, given the prevalence of disease in our region, it is our hospital?s policy to screen for HIV and viral Hepatitis for all patients aged 18 and over and those with ongoing risk factors. Aime Inquiry Pt receiving controlled substance: Yes Aime was queried for this patient: No Risks and benefits of using a controlled substance: were discussed with pt by me Vital Signs: 11/26/23 14:16 11/26/23 15:01 11/26/23 15:31 Temperature 98.1 F Temperature Source Oral Pulse Rate 64 86 Pulse Rate [Right Brachial] 70 Respiratory Rate 16 26 H 16 Blood Pressure 156/86 H 161/81 H Blood Pressure [Right Arm] 112/95 H Blood Pressure Mean Blood Pressure Mean [Right Arm] 100 Blood Pressure Source Blood Pressure Source [Right Arm] Automatic Cuff Blood Pressure Position Blood Pressure Position [Right Arm] Sitting 02 Sat by Pulse Oximetry 100 99 100 Oxygen Delivery Method Room Air Room Air Room Air 11/26/23 16:01 11/26/23 16:32 11/26/23 17:30 Temperature 98.3 F Temperature Source Oral Pulse Rate 62 59 L 60 Pulse Rate [Right Brachial] Respiratory Rate 18 12 18 Blood Pressure 112/72 142/78 H 147/83 H Blood Pressure [Right Arm] Blood Pressure Mean 99 Blood Pressure Mean [Right Arm] Blood Pressure Source Automatic Cuff Blood Pressure Source [Right Arm] Blood Pressure Position Sitting Blood Pressure Position [Right Arm] 02 Sat by Pulse Oximetry 100 100 Oxygen Delivery Method Room Air Room Air Lab Data Lab Results 11/26/23 14:18: WBC 4.4 L, RBC 4.49 L, Hgb 12.0 L, Hct 39.1 L, MCV 87.0, MCH 26.7 L, MCHC 30.7 L, RDW 15.4, Plt Count 299, MPV 6.6 L, Neut % (Auto) 45.5, Lymph % (Auto) 45.0, [place] % (Auto) 4.2, Eos % (Auto) 4.6, Baso % (Auto) 0.8, Neut # (Auto) 2.0, Lymph # (Auto) 2.0, [place] # (Auto) 0.2, Eos # (Auto) 0.2, Baso # (Auto) 0.0, PT 10.9, INR 0.97, D-Dimer 0.39, Sodium 138, Potassium 4.0, Chloride 107, Carbon Dioxide 28, Anion Gap 7.0, BUN 9, Creatinine 0.90, Estimated Creat Clear 123, Estimated GFR 87, Est GFR ( Amer) 105, Glucose 93, Calcium 9.0, Total Bilirubin 1.0, AST 35, ALT 18, Alkaline Phosphatase 71, Troponin I 0.02, Total Protein 8.3 H, Albumin 4.7, Globulin 3.6 H, Albumin/Globulin Ratio 1.3, Lipase 80, HIV 1&2 Antibody Rapid Nonreactive 11/26/23 16:07: Troponin I < 0.01 11/26/23 14:18 11/26/23 14:18 Orders (Tests/Meds): ED MEDICATIONS Discontinued Medications Generic Name Dose Route Start Last Admin Trade Name Fernando PRN Reason Stop Dose Admin Aspirin 324 mg 11/26/23 14:26 11/26/23 14:34 Aspirin 81mg Chewable Tablet PO 11/26/23 14:27 324 mg ONCE ONE Administration Morphine Sulfate 2 mg 11/26/23 14:26 11/26/23 14:58 Morphine 2mg/Ml Syringe IV 12/26/23 14:25 2 mg Q3MINP PRN Administration Severe Pain (7-10) Nitroglycerin 0.4 mg 11/26/23 14:26 Nitroglycerin 0.4mg Sl Tablet SL 11/27/23 14:26 Q5MINP PRN Chest Pain ORDERS Category Date Time Status XR chest 2V Stat Exams 11/26/23 14:26 Completed CBC [Complete Blood Count Auto Diff] Stat Lab 11/26/23 14:18 Completed Comprehensive Metabolic Panel Stat Lab 11/26/23 14:18 Completed D-Dimer Stat Lab 11/26/23 14:18 Completed HIV (1&2) Antibody Rapid Stat Lab 11/26/23 14:18 Completed Hep C Ab with Reflex to RNA Stat Lab 11/26/23 14:18 Received Lipase Stat Lab 11/26/23 14:18 Completed Prothrombin Time INR Stat Lab 11/26/23 14:18 Completed Troponin I Q3H Lab 11/26/23 14:18 Completed Troponin I Q3H Lab 11/26/23 16:07 Completed Medical Decision Narrative: Insert review patient is a 58-year-old male presenting to the emergency department for evaluation of chest pain and shortness of. Patient is hemodynamically stable and nontoxic-appearing upon arrival, afebrile. Differential diagnosis includes chest pain, CAD, ACS among other things. Workup will be conducted with hematologic labs, chest x-ray.Initial inventions include morphine for pain, aspirin. Initial workup reviewed by me including first troponin 0.02 and then second troponin 0.01.. Imaging informally interpreted by me and remarkable for nothing acute. Formal imaging read remarkable for nothing acute. Upon repeat evaluation patient's pain is improved, appears better perfused. Patient has improved overall and he and I had a conversation about following back up with Dr. Baca and Dr. Garcia this week. He is safe for discharge home. <Orestes Reza MD - Last Filed: 11/26/23 17:16> Vital Signs: 11/26/23 14:16 11/26/23 15:01 11/26/23 15:31 Temperature 98.1 F Temperature Source Oral Pulse Rate 64 86 Pulse Rate [Right Brachial] 70 Respiratory Rate 16 26 H 16 Blood Pressure 156/86 H 161/81 H Blood Pressure [Right Arm] 112/95 H Blood Pressure Mean Blood Pressure Mean [Right Arm] 100 Blood Pressure Source Blood Pressure Source [Right Arm] Automatic Cuff Blood Pressure Position Blood Pressure Position [Right Arm] Sitting 02 Sat by Pulse Oximetry 100 99 100 Oxygen Delivery Method Room Air Room Air Room Air 11/26/23 16:01 11/26/23 16:32 11/26/23 17:30 Temperature 98.3 F Temperature Source Oral Pulse Rate 62 59 L 60 Pulse Rate [Right Brachial] Respiratory Rate 18 12 18 Blood Pressure 112/72 142/78 H 147/83 H Blood Pressure [Right Arm] Blood Pressure Mean 99 Blood Pressure Mean [Right Arm] Blood Pressure Source Automatic Cuff Blood Pressure Source [Right Arm] Blood Pressure Position Sitting Blood Pressure Position [Right Arm] 02 Sat by Pulse Oximetry 100 100 Oxygen Delivery Method Room Air Room Air Lab Data Lab Results 11/26/23 14:18: WBC 4.4 L, RBC 4.49 L, Hgb 12.0 L, Hct 39.1 L, MCV 87.0, MCH 26.7 L, MCHC 30.7 L, RDW 15.4, Plt Count 299, MPV 6.6 L, Neut % (Auto) 45.5, Lymph % (Auto) 45.0, [place] % (Auto) 4.2, Eos % (Auto) 4.6, Baso % (Auto) 0.8, Neut # (Auto) 2.0, Lymph # (Auto) 2.0, [place] # (Auto) 0.2, Eos # (Auto) 0.2, Baso # (Auto) 0.0, PT 10.9, INR 0.97, D-Dimer 0.39, Sodium 138, Potassium 4.0, Chloride 107, Carbon Dioxide 28, Anion Gap 7.0, BUN 9, Creatinine 0.90, Estimated Creat Clear 123, Estimated GFR 87, Est GFR ( Amer) 105, Glucose 93, Calcium 9.0, Total Bilirubin 1.0, AST 35, ALT 18, Alkaline Phosphatase 71, Troponin I 0.02, Total Protein 8.3 H, Albumin 4.7, Globulin 3.6 H, Albumin/Globulin Ratio 1.3, Lipase 80, HIV 1&2 Antibody Rapid Nonreactive 11/26/23 16:07: Troponin I < 0.01 Orders (Tests/Meds): ED MEDICATIONS Discontinued Medications Generic Name Dose Route Start Last Admin Trade Name Freq PRN Reason Stop Dose Admin Aspirin 324 mg 11/26/23 14:26 11/26/23 14:34 Aspirin 81mg Chewable Tablet PO 11/26/23 14:27 324 mg ONCE ONE Administration Morphine Sulfate 2 mg 11/26/23 14:26 11/26/23 14:58 Morphine 2mg/Ml Syringe IV 12/26/23 14:25 2 mg Q3MINP PRN Administration Severe Pain (7-10) Nitroglycerin 0.4 mg 11/26/23 14:26 Nitroglycerin 0.4mg Sl Tablet SL 11/27/23 14:26 Q5MINP PRN Chest Pain ORDERS Category Date Time Status XR chest 2V Stat Exams 11/26/23 14:26 Completed CBC [Complete Blood Count Auto Diff] Stat Lab 11/26/23 14:18 Completed Comprehensive Metabolic Panel Stat Lab 11/26/23 14:18 Completed D-Dimer Stat Lab 11/26/23 14:18 Completed HIV (1&2) Antibody Rapid Stat Lab 11/26/23 14:18 Completed Hep C Ab with Reflex to RNA Stat Lab 11/26/23 14:18 Received Lipase Stat Lab 11/26/23 14:18 Completed Prothrombin Time INR Stat Lab 11/26/23 14:18 Completed Troponin I Q3H Lab 11/26/23 14:18 Completed Troponin I Q3H Lab 11/26/23 16:07 Completed Medical Decision Narrative: Insert review patient is a 58-year-old male presenting to the emergency department for evaluation of chest pain and shortness of. Patient is hemodynamically stable and nontoxic-appearing upon arrival, afebrile. Differential diagnosis includes chest pain, CAD, ACS among other things. Workup will be conducted with hematologic labs, chest x-ray.Initial inventions include morphine for pain, aspirin. Initial workup reviewed by me including first troponin 0.02 and then second troponin 0.01.. Imaging informally interpreted by me and remarkable for nothing acute. Formal imaging read remarkable for nothing acute. Upon repeat evaluation patient's pain is improved, appears better perfused. Patient has improved overall and he and I had a conversation about following back up with Dr. Baca and Dr. Garcia this week. He is safe for discharge home. I was consulted by the YUK[facility], and we discussed the complexity of the problems being addressed. I approved the treatment and management plan for this patient's care in the emergency department, thus performing a substantive portion of the medical decision making. Serial troponins both within range of normal and resolution of symptoms appropriate for rapid outpatient management at this time. Orestes Reza MD Critical Care <Lakia Chavez (ED), INSTRUCTOR [employer] - Last Filed: 11/26/23 17:11> Critical Care Time Critical Care Time: No
--- NOTE | 2023-11-26 14:26 | XR_ITS ---
PROCEDURE INFORMATION: Exam: XR Chest Exam date and time: 11/26/2023 2:24 PM Age: 58 years old Clinical indication: Sternal or substernal pain; Additional info: Chest pain; Radiates down left arm TECHNIQUE: Imaging protocol: Radiologic exam of the chest. Views: 2 views. COMPARISON: CR XR CHEST 2V 11/21/2023 1:06 AM FINDINGS: Lungs: Unremarkable. No consolidation. Pleural spaces: Unremarkable. No pleural effusion. No pneumothorax. Heart/Mediastinum: Unremarkable. No cardiomegaly. Bones/joints: Unremarkable. IMPRESSION: No acute findings.
[2023-11-26 14:33] LABS: Albumin Level 4.7 g/dl (3.5-5.0); Basophils % 0.8 % (0.1-2.0); Chloride 107 mmol/L (98-107); Eosinophils # 0.2 K/mm3 (0.0-0.4); Eosinophils % 4.6 % (0.1-12.0); Hematocrit 39.1 % (42.0-52.0); Mean Corpuscular HGB Conc 30.7 g/dL (31.8-35.4); Mean Corpuscular Hemoglobin 26.7 pg (27.0-31.2); Mean Platelet Volume 6.6 fl (7.4-10.4); Monocytes # 0.2 K/mm3 (0.1-1.0); Monocytes % 4.2 % (1.7-9.3); Neutrophils % 45.5 % (37.0-80.0); Platelet Count 299 K/mm3 (142-424); Red Blood Count 4.49 M/mm3 (4.60-6.20); Red Cell Distribution Width 15.4 % (11.5-17.5); Sodium 138 mmol/L (136-145); White Blood Count 4.4 K/mm3 (4.8-10.8)
[2023-11-26] MEDS: ASPIRIN 81MG CHEWABLE TABLET 324 MG PO (14:34)
[2023-11-26 14:36] LABS: Alanine Aminotransferase 18 U/L (12-78); Albumin/Globulin Ratio 1.3 (1.1-1.8); Alkaline Phosphatase 71 U/L (38-126); Aspartate Amino Transferase 35 U/L (17-59); Blood Urea Nitrogen 9 mg/dl (9-20); Carbon Dioxide 28 mmol/L (22.0-30.0); Creatinine Clearance Estimated 123 mL/min (50-200); Estimated Glomerular Filt Rate 87 ml/min (>60); GFR (African American) 105 ML/MIN (>60); Globulin 3.6 g/dL (1.3-3.2); Glucose 93 mg/dl (74-100); Lipase 80 U/L (23-300); Total Protein,Serum 8.3 g/dl (6.3-8.2)
[2023-11-26 14:42] LABS: INR 0.97 (0.9-1.1); Prothrombin Time 10.9 seconds (10.1-12.5)
[2023-11-26 14:56] LABS: D-Dimer 0.39 ug/mL (0.0-0.5)
[2023-11-26] MEDS: MORPHINE 2MG/ML SYRINGE 2 MG IV (14:58)
[2023-11-26 15:01] VITALS: BP 156/86; PULSE 64; RESP 26; O2SAT 99
[2023-11-26 15:01] LABS: Troponin I 0.02 ng/ml (0.00-0.034)
[2023-11-26 15:15] LABS: HIV (1&2) Antibody Rapid NONREACTIVE (NONREACTIVE)
[2023-11-26 15:31] VITALS: BP 161/81; PULSE 86; RESP 16; O2SAT 100
[2023-11-26 16:01] VITALS: BP 112/72; PULSE 62; RESP 18; O2SAT 100
[2023-11-26 16:32] VITALS: BP 142/78; PULSE 59; RESP 12; O2SAT 100
[2023-11-26 16:38] LABS: Troponin I < 0.01 ng/ml (0.00-0.034)
[2023-11-26 17:30] VITALS: BP 147/83; PULSE 60; RESP 18; TEMP 36.8; O2SAT 100
[2023-11-28 11:10] LABS: HCV Ab Non Reactive (Non Reactive)
== END 2023-11-26 17:30 | disposition home or self-care (01) ==
PROVIDERS: Nurse Practitioner; Emergency Provider Emergency Medicine
DX: R07.9 Chest pain, unspecified (principal); R06.02 Shortness of breath; Z86.79 Personal history of other diseases of the circulatory system; Z86.718 Personal history of other venous thrombosis and embolism; Z79.01 Long term (current) use of anticoagulants
CPT/HCPCS: 71046; 80053; 83690; 84484; 85025; 85378; 85610; 86803; 87389; 93005; 96365; 96366; 99285; J2270

== ENCOUNTER 2023-11-28 14:44 | Outpatient (CLI) | payer MEDICARE, SELFPAY ==
[2023-11-28 12:53] LABS: Basophils % 0.6 % (0.1-2.0); Eosinophils # 0.2 K/mm3 (0.0-0.4); Eosinophils % 6.4 % (0.1-12.0); Hematocrit 38.7 % (42.0-52.0); Hemoglobin 11.9 g/dL (14.1-18.0); Lymphocytes # 1.4 K/mm3 (0.7-4.5); Lymphocytes % 36.9 % (10-50); Mean Corpuscular HGB Conc 30.8 g/dL (31.8-35.4); Mean Corpuscular Volume 87.7 fl (80-94); Mean Platelet Volume 7.4 fl (7.4-10.4); Monocytes # 0.2 K/mm3 (0.1-1.0); Neutrophils # 1.9 K/mm3 (1.8-7.8); Platelet Count 321 K/mm3 (142-424); Red Blood Count 4.42 M/mm3 (4.60-6.20); Red Cell Distribution Width 15.4 % (11.5-17.5); White Blood Count 3.7 K/mm3 (4.8-10.8)
[2023-11-28 13:24] LABS: Alanine Aminotransferase 14 U/L (12-78); Albumin Level 4.3 g/dl (3.5-5.0); Albumin/Globulin Ratio 1.5 (1.1-1.8); Alkaline Phosphatase 70 U/L (38-126); Anion Gap 5.4 mEq/L (5-15); Aspartate Amino Transferase 34 U/L (17-59); Bilirubin,Total 0.7 mg/dl (0.2-1.3); Blood Urea Nitrogen 9 mg/dl (9-20); Carbon Dioxide 30 mmol/L (22.0-30.0); Chloride 105 mmol/L (98-107); Estimated Glomerular Filt Rate 87 ml/min (>60); GFR (African American) 105 ML/MIN (>60); Globulin 2.9 g/dL (1.3-3.2); Glucose 87 mg/dl (74-100); Potassium 4.4 mmoL/L (3.5-5.1); Sodium 136 mmol/L (136-145); Total Protein,Serum 7.2 g/dl (6.3-8.2)
== END 2023-11-28 23:59 | disposition home or self-care (01) ==
LOC: LAB.DROPOF 14:45
PROVIDERS: PCP Internal Medicine; Visit Provider Internal Medicine
DX: D64.9 Anemia, unspecified (principal); Z00.00 Encounter for general adult medical examination without abnormal findings
CPT/HCPCS: 80053; 85025

== ENCOUNTER 2023-12-26 07:37 | Outpatient (CLI) | payer MEDICARE, SELFPAY ==
--- NOTE | 2023-12-26 07:41 | XR_ITS ---
PROCEDURE INFORMATION: Exam: XR Left Foot Complete; Alignment Exam date and time: 12/26/2023 7:43 AM Age: 58 years old Clinical indication: Pain; Limp; Foot; Left; Additional info: Foot pain TECHNIQUE: Imaging protocol: Radiologic exam of the left foot. Views: 3 or more views. COMPARISON: CR XR FOOT LT MIN 3V 11/21/2020 1:44 AM FINDINGS: Bones/joints: No acute fracture. Joint spaces are preserved. No dislocation or subluxation. Soft tissues: Normal. IMPRESSION: Normal alignment of the foot.
--- NOTE | 2023-12-26 07:41 | XR_ITS ---
PROCEDURE INFORMATION: Exam: XR Right Foot Complete; Alignment Exam date and time: 12/26/2023 7:43 AM Age: 58 years old Clinical indication: Pain; Foot; Right; Additional info: Foot pain TECHNIQUE: Imaging protocol: Radiologic exam of the right foot. Views: 3 or more views. COMPARISON: No relevant prior studies available. FINDINGS: Bones/joints: No acute fracture. Joint spaces are preserved. No dislocation or subluxation. Soft tissues: Normal. IMPRESSION: Normal alignment of the foot.
== END 2023-12-26 23:59 | disposition home or self-care (01) ==
LOC: RAD 07:39
PROVIDERS: PCP Internal Medicine; Visit Provider Physician Assistant
DX: M79.671 Pain in right foot (principal); M79.672 Pain in left foot
CPT/HCPCS: 73630

== ENCOUNTER 2024-01-25 17:10 | Emergency (ER) | payer MEDICARE, SELFPAY ==
[2024-01-25 17:11] VITALS: BP 121/91; PULSE 95; RESP 16; TEMP 36.9; O2SAT 100; BMI 29.1
--- NOTE | 2024-01-25 17:13 | ED_ITS ---
Discharge Plan Disposition Patient Disposition: Home, Self-Care Condition: Good Prescriptions Prescriptions: New tamsulosin 0.4 mg capsule 0.4 mg PO HS Qty: 30 0RF levofloxacin 750 mg tablet 750 mg PO DAILY 10 Days Qty: 10 0RF No Action Xarelto 20 mg tablet 20 mg PO HS Rx Instructions: must administer with evening meal hydrocodone-acetaminophen 10-325 mg tablet 1 tab PO Q6H PRN (Reason: chronic pain) gabapentin 800 mg tablet 800 mg PO BID varenicline [Chantix Starting Month Box] 0.5 mg (11)- 1 mg (42) tablets,dose pack See Rx Instructions PO PER PKG DIR 28 Days Qty: 53 0RF Rx Instructions: PO PER PKG DIR amitriptyline 25 mg tablet 25 mg PO HS Qty: 30 4RF diclofenac sodium 1 % gel 4 g topical QID PRN (Reason: pain ) 30 Days Qty: 100 2RF Rx Instructions: apply to single, ankle, foot; for foot includes sole/toes/top of foot ferrous sulfate 325 mg (65 mg iron) tablet See Rx Instructions .ROUTE .COMPLEX Qty: 90 0RF Dose Instruction: TAKE 1 TABLET BY MOUTH ONCE DAILY FOR ANEMIA Rx Instructions: TAKE 1 TABLET BY MOUTH ONCE DAILY FOR ANEMIA metoprolol succinate 100 mg Tablet Extended Release 24 Hr 100 mg PO DAILY Referrals Follow up/Referrals: Higinio Gutiérrez MD [Referring] - See instructions (BPH) Ricky Garcia DO [Primary Care Provider] - See instructions Activity Restrictions/Add. Instructions Additional Instructions/Restrictions: We had treated you for urinary to infection like we discussed. I am referring you to urology for follow-up of that and your enlarged prostate. Please follow- up with your PCP next week if there is no improvement or worsening signs or symptoms of your abdominal pain or return to the ER as needed. Clinical Impressions Clinical Impression: Abdominal pain, acute, right lower quadrant, BPH (benign prostatic hyperplasia), Urinary tract infection Instructions Patient Instructions: DI for Acute Abdominal Pain Print Language Print Language: Malaysian Discharge ED Provider: Orestes Reza General Adult HPI <ALANIS Dockery - Last Filed: 01/25/24 21:16> General Chief complaint: Abdominal Pain Stated complaint: stomach/groin pain Time Seen by Provider: 01/25/24 17:13 History of Present Illness HPI narrative: Patient presents for evaluation of right flank and right lower quadrant pain. Patient states he was woken up about 2 AM with right flank pain that radiates to his right groin. Is been nonstop since then. He denies fever chills hemoptysis hematochezia melena reports nausea but no vomiting or diarrhea. There are no aggravating or relieving factors. He denies hematuria or dysuria but reports that he has had little urinary output today. He does have previous appendectomy. Related Data Home Medications ?Medication ?Instructions ?Recorded ?Confirmed gabapentin 800 mg tablet 800 mg PO BID nerve pain 05/10/22 12/29/23 hydrocodone 10 mg-acetaminophen 1 tab PO Q6H PRN chronic pain 05/10/22 12/29/23 325 mg tablet rivaroxaban 20 mg tablet (Xarelto) 20 mg PO HS blood clots 05/10/22 12/29/23 metoprolol succinate 100 mg 100 mg PO DAILY High blood pressure 05/23/22 12/29/23 tablet,extended release 24 hr Previous Rx's ?Medication ?Instructions ?Recorded ferrous sulfate 325 mg (65 mg See Rx Instructions .Route 05/09/23 iron) tablet .COMPLEX #90 tabs varenicline 0.5 mg (11)-1 mg (42) See Rx Instructions PO PER PKG DIR 06/15/23 tablets in a dose pack (Chantix 28 days #53 tabs Starting Month Box) amitriptyline 25 mg tablet 25 mg PO HS #30 tabs 11/22/23 diclofenac sodium 1 % topical gel 4 g topical QID PRN pain 30 days 12/29/23 #100 grams levofloxacin 750 mg tablet 750 mg PO DAILY 10 days #10 tabs 01/25/24 tamsulosin 0.4 mg capsule 0.4 mg PO HS #30 caps 01/25/24 Allergies Allergy/AdvReac Type Severity Reaction Status Date / Time venom-honey bee (BEE VENOM Allergy Unknown Other Verified 12/29/23 08:26 (HONEY BEE)) COUNT INCLUDES THE [facility] <ALANIS Dockery - Last Filed: 01/25/24 21:16> COUNT INCLUDES THE [facility] Disclaimer: The information contained in this section may have been updated after the patient was seen, as this information can be updated by other users. Medical History Appendicitis Intestinal obstruction Smoker Small bowel obstruction GI bleed Surgical History History of back surgery x2 History of intestinal surgery x2 History of appendectomy Family History Other Family history of blood clots Family history of diabetes mellitus type II Social History Smoking Status: Current every day smoker tobacco type: cigarettes packs per day: 1 alcohol intake: never substance use type: denies use current occupational status: disabled household members: spouse housing: house marital status: education level: high school service: Yes usp: No caffeine: Yes special michael needs: No agree to transfusion: No do you feel safe at home: Yes victim of physical abuse: No victim of emotional abuse: No victim of sexual abuse: No would you like helpful sources: No Other Medical History Have you received the Flu Vaccine for this season: No Have you received the Pneumonia Vaccine: Yes <ALANIS Dockery - Last Filed: 01/25/24 21:16> ROS Obtained: Yes Systems reviewed as appropriate & no additional complaints except as documented Physical Exam <ALANIS Dockery - Last Filed: 01/25/24 21:16> General General appearance: alert and in no apparent distress Respiratory Respiratory exam: Present normal lung sounds bilaterally Cardiovascular Cardiovascular exam: Present tachycardia Neurological Exam Neurological exam: Present alert and oriented X3 Medical Decision Making <ALANIS Dockery - Last Filed: 01/25/24 21:16> Medical Records Medical records reviewed: Yes I reviewed the patient's medical records. Screening: Per USPSTF and CDC recommendations, given the prevalence of disease in our region, it is our hospital?s policy to screen for HIV and viral Hepatitis for all patients aged 18 and over and those with ongoing risk factors. Aime Inquiry Pt receiving controlled substance: No Vital Signs: 01/25/24 17:11 01/25/24 19:39 Temperature 98.4 F Temperature Source Oral Pulse Rate 60 Pulse Rate [Left Radial] 95 H Respiratory Rate 16 18 Blood Pressure 131/80 Blood Pressure [Right Arm] 121/91 H Blood Pressure Mean [Right Arm] 101 02 Sat by Pulse Oximetry 100 99 Oxygen Delivery Method Room Air Room Air Lab Data Lab results reviewed: Yes I reviewed the patient's lab results. Lab Results 01/25/24 17:27: WBC 4.9, RBC 4.48 L, Hgb 11.5 L, Hct 35.3 L, MCV 78.8 L, MCH 25.7 L, MCHC 32.6, RDW 14.7, Plt Count 417, MPV 7.1 L, Neut % (Auto) 49.6, Lymph % (Auto) 38.1, [place] % (Auto) 4.1, Eos % (Auto) 7.1, Baso % (Auto) 1.1, Neut # (Auto) 2.4, Lymph # (Auto) 1.9, [place] # (Auto) 0.2, Eos # (Auto) 0.4, Baso # (Auto) 0.1, Sodium 141, Potassium 3.8, Chloride 109 H, Carbon Dioxide 25, Anion Gap 10.8, BUN 11, Creatinine 1.10, Estimated Creat Clear 101, Estimated GFR 69, Est GFR ( Amer) 83, Glucose 90, Calcium 8.9, Total Bilirubin 0.7, AST 29, ALT 16, Alkaline Phosphatase 78, Total Protein 7.9, Albumin 4.6, Globulin 3.3 H, Albumin/Globulin Ratio 1.4 01/25/24 20:29: Urine Color Yellow, Urine Appearance Clear, Urine pH 6.0, Ur Specific [place] 1.015, Urine Protein Negative, Urine Glucose (UA) Negative, Urine Ketones Negative, Urine Blood Negative, Urine Nitrate Negative, Urine Bilirubin Negative, Urine Urobilinogen 0.2, Ur Leukocyte Esterase Negative, Urine RBC 3-5, Urine WBC 3-5, Ur Squamous Epith Cells 5-10, Urine Bacteria 1+ 01/25/24 17:27 01/25/24 17:27 Orders (Tests/Meds): ED MEDICATIONS Generic Name Dose Route Start Last Admin Trade Name Freq PRN Reason Stop Dose Admin Levofloxacin 750 mg 01/25/24 21:14 Levofloxacin 750 Mg Tablet PO 01/25/24 21:15 ONCE ONE Sodium Chloride 10 ml 01/25/24 17:56 01/25/24 18:00 Sodium Chloride 0.9% 10ml Syr (Rad Only) IV 02/24/24 17:55 10 ml NEEDED PRN Administration Maintain IV Site Discontinued Medications Generic Name Dose Route Start Last Admin Trade Name Fernando PRN Reason Stop Dose Admin Acetaminophen 1,000 mg 01/25/24 17:21 01/25/24 17:34 Acetaminophen 1,000mg/100ml Vial IV 01/25/24 17:22 1,000 mg ONCE ONE Administration Sodium Chloride 1,000 mls @ 999 mls/hr 01/25/24 17:21 01/25/24 17:34 Sod Chlor 0.9% 1000ml Bag IV 01/25/24 18:21 999 mls/hr .Q1H1M ONE Administration Iopamidol 75 ml 01/25/24 17:56 01/25/24 18:03 Iopamidol-370 (76%);100ml Bottle IV 01/25/24 17:57 75 ml ONCE ONE Administration Ketorolac Tromethamine 15 mg 01/25/24 17:21 01/25/24 17:34 Ketorolac 30mg/Ml Vial IV 01/25/24 17:22 15 mg ONCE ONE Administration Ondansetron HCl 4 mg 01/25/24 17:21 01/25/24 17:34 Ondansetron 4mg Odt SL 01/25/24 17:22 4 mg ONCE ONE Administration Tamsulosin HCl 0.4 mg 01/25/24 17:22 01/25/24 17:34 Tamsulosin 0.4mg Capsule PO 01/25/24 17:23 0.4 mg ONCE ONE Administration ORDERS Category Date Time Status CT abdomen pelvis w con Stat Cat Scan 01/25/24 17:21 Completed CBC w/Auto Diff [Complete Blood Count Auto Diff] Stat Lab 01/25/24 17:27 Completed CMP [Comprehensive Metabolic Panel] Stat Lab 01/25/24 17:27 Completed UA [Urinalysis and Microscopic] Stat Lab 01/25/24 20:29 Completed US scrotum [US Testicular] Stat Ultrasound 01/25/24 19:06 Completed Medical Decision Narrative: In summary patient is a 58-year-old male who presents to the emergency department for evaluation of right flank and right lower quadrant pain. Patient is hemodynamically stable upon arrival, afebrile. Physical exam is remarkable for tenderness to palpation in the right lower quadrant with no rebound or guarding or rigidity, patient has positive CVA tenderness to percussion on the right negative on the left with no palpable tenderness to palpation in the paraspinous musculature nor in the dorsal lumbar or thoracic spine. There is no evidence of trauma.. Differential diagnosis includes kidney stone versus UTI versus bowel obstruction versus constipation versus bowel infection versus hernia etc. Initial workup will be conducted with hematologic labs CT scan abdomen pelvis urinalysis. Initial interventions include crystalloid bolus Toradol Tylenol tamsulosin Zofran. Initial workup reviewed by me shows his hematologic labs are nonactionable however patient is yet to provide a urine sample. 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 Upon repeat evaluation patient had no improvement in his pain and actually upon reevaluation was more specific that it is down into his scrotum. Patient reexamined and no palpable masses felt no loops of bowel noted abdominal wall defects noted but patient is exquisitely tender to palpation of the scrotum. Given this we have ordered a testicular ultrasound to rule out torsion. Reevaluation patient still reports no improvement however his testicular ultrasound shows good flow to both testes no epididymitis and a small right varicocele. Urinalysis shows hematuria with small leukocytes and 1+ bacteria and given his BPH is causing delayed bladder emptying thus we will treat for urinary tract infection. We have essentially ruled out all serious and life-threatening conditions despite not beion ng able to identify the source of his pain. Given that patient is appropriate for discharge with referral to urology for his BPH and follow-up with his PCP for next week to recheck and to follow-up with PCP sooner for any worsening signs or symptoms or return to the ER as needed. <Orestes Reza MD - Last Filed: 01/25/24 21:17> Vital Signs: 01/25/24 17:11 01/25/24 19:39 Temperature 98.4 F Temperature Source Oral Pulse Rate 60 Pulse Rate [Left Radial] 95 H Respiratory Rate 16 18 Blood Pressure 131/80 Blood Pressure [Right Arm] 121/91 H Blood Pressure Mean [Right Arm] 101 02 Sat by Pulse Oximetry 100 99 Oxygen Delivery Method Room Air Room Air Lab Data Lab Results 01/25/24 17:27: WBC 4.9, RBC 4.48 L, Hgb 11.5 L, Hct 35.3 L, MCV 78.8 L, MCH 25.7 L, MCHC 32.6, RDW 14.7, Plt Count 417, MPV 7.1 L, Neut % (Auto) 49.6, Lymph % (Auto) 38.1, [place] % (Auto) 4.1, Eos % (Auto) 7.1, Baso % (Auto) 1.1, Neut # (Auto) 2.4, Lymph # (Auto) 1.9, [place] # (Auto) 0.2, Eos # (Auto) 0.4, Baso # (Auto) 0.1, Sodium 141, Potassium 3.8, Chloride 109 H, Carbon Dioxide 25, Anion Gap 10.8, BUN 11, Creatinine 1.10, Estimated Creat Clear 101, Estimated GFR 69, Est GFR ( Amer) 83, Glucose 90, Calcium 8.9, Total Bilirubin 0.7, AST 29, ALT 16, Alkaline Phosphatase 78, Total Protein 7.9, Albumin 4.6, Globulin 3.3 H, Albumin/Globulin Ratio 1.4 01/25/24 20:29: Urine Color Yellow, Urine Appearance Clear, Urine pH 6.0, Ur Specific [place] 1.015, Urine Protein Negative, Urine Glucose (UA) Negative, Urine Ketones Negative, Urine Blood Negative, Urine Nitrate Negative, Urine Bilirubin Negative, Urine Urobilinogen 0.2, Ur Leukocyte Esterase Negative, Urine RBC 3-5, Urine WBC 3-5, Ur Squamous Epith Cells 5-10, Urine Bacteria 1+ Orders (Tests/Meds): ED MEDICATIONS Generic Name Dose Route Start Last Admin Trade Name Freq PRN Reason Stop Dose Admin Levofloxacin 750 mg 01/25/24 21:14 Levofloxacin 750 Mg Tablet PO 01/25/24 21:15 ONCE ONE Sodium Chloride 10 ml 01/25/24 17:56 01/25/24 18:00 Sodium Chloride 0.9% 10ml Syr (Rad Only) IV 02/24/24 17:55 10 ml NEEDED PRN Administration Maintain IV Site Discontinued Medications Generic Name Dose Route Start Last Admin Trade Name Freq PRN Reason Stop Dose Admin Acetaminophen 1,000 mg 01/25/24 17:21 01/25/24 17:34 Acetaminophen 1,000mg/100ml Vial IV 01/25/24 17:22 1,000 mg ONCE ONE Administration Sodium Chloride 1,000 mls @ 999 mls/hr 01/25/24 17:21 01/25/24 17:34 Sod Chlor 0.9% 1000ml Bag IV 01/25/24 18:21 999 mls/hr .Q1H1M ONE Administration Iopamidol 75 ml 01/25/24 17:56 01/25/24 18:03 Iopamidol-370 (76%);100ml Bottle IV 01/25/24 17:57 75 ml ONCE ONE Administration Ketorolac Tromethamine 15 mg 01/25/24 17:21 01/25/24 17:34 Ketorolac 30mg/Ml Vial IV 01/25/24 17:22 15 mg ONCE ONE Administration Ondansetron HCl 4 mg 01/25/24 17:21 01/25/24 17:34 Ondansetron 4mg Odt SL 01/25/24 17:22 4 mg ONCE ONE Administration Tamsulosin HCl 0.4 mg 01/25/24 17:22 01/25/24 17:34 Tamsulosin 0.4mg Capsule PO 01/25/24 17:23 0.4 mg ONCE ONE Administration ORDERS Category Date Time Status CT abdomen pelvis w con Stat Cat Scan 01/25/24 17:21 Completed CBC w/Auto Diff [Complete Blood Count Auto Diff] Stat Lab 01/25/24 17:27 Completed CMP [Comprehensive Metabolic Panel] Stat Lab 01/25/24 17:27 Completed UA [Urinalysis and Microscopic] Stat Lab 01/25/24 20:29 Completed US scrotum [US Testicular] Stat Ultrasound 01/25/24 19:06 Completed Medical Decision Narrative: In summary patient is a 58-year-old male who presents to the emergency department for evaluation of right flank and right lower quadrant pain. Patient is hemodynamically stable upon arrival, afebrile. Physical exam is remarkable for tenderness to palpation in the right lower quadrant with no rebound or guarding or rigidity, patient has positive CVA tenderness to percussion on the right negative on the left with no palpable tenderness to palpation in the paraspinous musculature nor in the dorsal lumbar or thoracic spine. There is no evidence of trauma.. Differential diagnosis includes kidney stone versus UTI versus bowel obstruction versus constipation versus bowel infection versus hernia etc. Initial workup will be conducted with hematologic labs CT scan abdomen pelvis urinalysis. Initial interventions include crystalloid bolus Toradol Tylenol tamsulosin Zofran. Initial workup reviewed by me shows his hematologic labs are nonactionable however patient is yet to provide a urine sample. 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 Upon repeat evaluation patient had no improvement in his pain and actually upon reevaluation was more specific that it is down into his scrotum. Patient reexamined and no palpable masses felt no loops of bowel noted abdominal wall defects noted but patient is exquisitely tender to palpation of the scrotum. Given this we have ordered a testicular ultrasound to rule out torsion. Reevaluation patient still reports no improvement however his testicular ultrasound shows good flow to both testes no epididymitis and a small right varicocele. Urinalysis shows hematuria with small leukocytes and 1+ bacteria and given his BPH is causing delayed bladder emptying thus we will treat for urinary tract infection. We have essentially ruled out all serious and life-threatening conditions despite not beion ng able to identify the source of his pain. Given that patient is appropriate for discharge with referral to urology for his BPH and follow-up with his PCP for next week to recheck and to follow-up with PCP sooner for any worsening signs or symptoms or return to the ER as needed. I was consulted by the YUKI, and we discussed the complexity of the problems being addressed. I approved the treatment and management plan for this patient's care in the emergency department, thus performing a substantive portion of the medical decision making. Orestes Reza MD Critical Care <ALANIS Dockery - Last Filed: 01/25/24 21:16> Critical Care Time Critical Care Time: No
--- NOTE | 2024-01-25 17:21 | CT_ITS ---
PROCEDURE INFORMATION: Exam: CT Abdomen And Pelvis With Contrast Exam date and time: 01/25/2024 6:00 PM Age: 58 years old Clinical indication: Abdominal pain; Flank; Right; Additional info: Right flank and right lower quadrant pain TECHNIQUE: Imaging protocol: Computed tomography of the abdomen and pelvis with contrast. Radiation optimization: All CT scans at this facility use at least one of these dose optimization techniques: automated exposure control; mA and/or kV adjustment per patient size (includes targeted exams where dose is matched to clinical indication); or iterative reconstruction. Contrast material: ISOVUE; Contrast volume: 75 ml; Contrast route: IV; COMPARISON: CT ANGIO ABDOMEN PELVIS 03/22/2023 6:29 PM FINDINGS: Pleural spaces: There are no pleural effusions. Heart: The heart is borderline enlarged. There is no evidence of pericardial fluid collections. Liver: There is a small region of focal fatty infiltration adjacent to the falciform ligament. Liver is otherwise within range of normal. Gallbladder and biliary ducts: There has been a cholecystectomy. Pancreas: The pancreas is normal. Spleen: The spleen demonstrates punctate calcifications, consistent with remote granulomatous organism exposure. Adrenal glands: The adrenal glands are normal. Kidneys and ureters: There is malrotation of the left kidney. There is also mild malrotation of the right kidney. There are a few bilateral tiny renal hypodensities which are too small to accurately characterize. Statistically, these may be cysts. No follow-up imaging required unless clinical parameters dictate otherwise. No hydronephrosis or ureteric stone disease. Stomach and bowel: Lack of gastrointestinal contrast limits evaluation of bowel. The stomach is normal. The duodenum does not cross the midline suggesting malrotation/midgut volvulus, as before. The proximal duodenum is at the upper limits of normal . The proximal jejunum is located in the right upper quadrant. The transverse colon is also seen between the SMA and the aorta, unchanged. The colon is otherwise within range of normal. The remaining unopacified loops of small bowel are otherwise within range of normal. Appendix: No evidence of appendicitis. Intraperitoneal space: There is no evidence of free intraperitoneal or pelvic fluid. No free air. Vasculature: An inferior vena cava filter lies in appropriate position. The aorta and iliac arteries demonstrate mild atherosclerotic calcification. There are a few benign phleboliths in the pelvis. Lymph nodes: There is no evidence of pathologic adenopathy. Urinary bladder: The bladder is decompressed. Reproductive: The prostate demonstrates mild nonspecific enlargement. The seminal vesicles are normal. Prostate measures 5.7 x 4.2 cm.The prostate demonstrates nonspecific parenchymal calcifications. Bones/joints: The thoracolumbar spine demonstrates mild degenerative changes at multiple levels. There is no evidence of acute fracture. There are mild degenerative changes of the right hip and moderate osteoarthritic degenerative changes of the left hip. Soft tissues: No significant soft tissue edema. IMPRESSION: 1. Persistent abnormal location of the ligament of Treitz in the right upper quadrant indicating malrotation, and abnormal positioning of the transverse colon between the SMA and the aorta. 2. Nonspecific prostatic enlargement. COMMENTS: 1. For patients with an IVC filter, recommend assessment for a management plan for the patient's IVC filter. If there is no established management plan, recommend referral to an interventional clinician on a nonemergent basis for evaluation. 2. Consistent with the [employer]'s Incidental Findings Committee white paper (J Am Nathaniel Radiol 2018): Any incidental renal lesion less than 1 cm or classified as too small to characterize, or any incidental cystic renal lesion characterized as simple-appearing, is likely benign. No follow-up imaging is recommended for these lesions per consensus recommendations based on imaging criteria.
[2024-01-25] MEDS: KETOROLAC 30MG/ML VIAL 15 MG IV (17:34)
[2024-01-25] MEDS: TAMSULOSIN 0.4MG CAPSULE 0.4 MG PO (17:34)
[2024-01-25] MEDS: ONDANSETRON 4MG ODT 4 MG SL (17:34)
[2024-01-25] MEDS: 0.9 % SODIUM CHLORIDE 1000ML 1,000 ML 999 ML IV (17:34)
[2024-01-25] MEDS: ACETAMINOPHEN 1,000MG/100ML VIAL 1000 MG IV (17:34)
[2024-01-25 17:36] LABS: Basophils # 0.1 K/mm3 (0-0.2); Basophils % 1.1 % (0.1-2.0); Eosinophils # 0.4 K/mm3 (0.0-0.4); Eosinophils % 7.1 % (0.1-12.0); Hematocrit 35.3 % (42.0-52.0); Hemoglobin 11.5 g/dL (14.1-18.0); Lymphocytes # 1.9 K/mm3 (0.7-4.5); Lymphocytes % 38.1 % (10-50); Mean Corpuscular HGB Conc 32.6 g/dL (31.8-35.4); Mean Corpuscular Hemoglobin 25.7 pg (27.0-31.2); Mean Corpuscular Volume 78.8 fl (80-94); Mean Platelet Volume 7.1 fl (7.4-10.4); Monocytes # 0.2 K/mm3 (0.1-1.0); Monocytes % 4.1 % (1.7-9.3); Neutrophils # 2.4 K/mm3 (1.8-7.8); Neutrophils % 49.6 % (37.0-80.0); Platelet Count 417 K/mm3 (142-424); Red Blood Count 4.48 M/mm3 (4.60-6.20); Red Cell Distribution Width 14.7 % (11.5-17.5); White Blood Count 4.9 K/mm3 (4.8-10.8)
[2024-01-25 17:38] LABS: Albumin Level 4.6 g/dl (3.5-5.0); Chloride 109 mmol/L (98-107)
[2024-01-25 17:39] LABS: Potassium 3.8 mmoL/L (3.5-5.1); Sodium 141 mmol/L (136-145)
[2024-01-25 17:41] LABS: Blood Urea Nitrogen 11 mg/dl (9-20); Creatinine Clearance Estimated 101 mL/min (50-200); Estimated Glomerular Filt Rate 69 ml/min (>60); GFR (African American) 83 ML/MIN (>60)
[2024-01-25 17:42] LABS: Alanine Aminotransferase 16 U/L (12-78); Albumin/Globulin Ratio 1.4 (1.1-1.8); Alkaline Phosphatase 78 U/L (38-126); Anion Gap 10.8 mEq/L (5-15); Aspartate Amino Transferase 29 U/L (17-59); Bilirubin,Total 0.7 mg/dl (0.2-1.3); Calcium 8.9 mg/dl (8.4-10.2); Carbon Dioxide 25 mmol/L (22.0-30.0); Globulin 3.3 g/dL (1.3-3.2); Glucose 90 mg/dl (74-100); Total Protein,Serum 7.9 g/dl (6.3-8.2)
[2024-01-25] MEDS: SODIUM CHLORIDE 0.9% 10ML SYR (RAD ONLY) 10 ML IV (18:00)
[2024-01-25] MEDS: IOPAMIDOL-370 (76%);100ML BOTTLE 75 ML IV (18:03)
--- NOTE | 2024-01-25 19:06 | US_ITS ---
PROCEDURE INFORMATION: Exam: US Scrotum Exam date and time: 01/25/2024 7:40 PM Age: 58 years old Clinical indication: Scrotum pain; Additional info: Testicular pain TECHNIQUE: Imaging protocol: Real-time ultrasound of the scrotum and contents with color Doppler and image documentation. COMPARISON: US TESTICULAR 05/29/2021 8:20 AM FINDINGS: Right testicle: Right testicle measures 3 x 1.6 x 2.2 cm. No mass. Normal color Doppler and arterial waveforms. No torsion. Left testicle: The left testicle measures 3.9 x 1.9 x 2.5 cm. No mass. Normal color Doppler and arterial waveforms. No torsion. Epididymides: The right epididymis measures 9.4 x 9.1 x 11 mm, and appears within range of normal. The left epididymis measures 10 x 10 x 9 mm, and appears within range of normal. Scrotum/soft tissues: There is a small right varicocele. No left varicocele. No hydroceles. IMPRESSION: 1. Normal appearance of the testicles bilaterally. 2. Normal appearance to the epididymi. 3. Cannot exclude right varicocele.
[2024-01-25 19:39] VITALS: BP 131/80; PULSE 60; RESP 18; O2SAT 99
--- NOTE | 2024-01-25 19:40 | PC.NURSE ---
patient to ultrasound
[2024-01-25 20:34] LABS: Microscopic, Urine URINE MICROSCOPIC (MICROSCOPIC)
[2024-01-25 20:35] LABS: Appearance,Urine CLEAR (Clear); Bilirubin,Urine Negative (Negative); Blood, Urine Negative (Negative); Color,Urine YELLOW (Yellow); Glucose,Urine (UA) Negative (Negative); Ketones,Urine Negative (Negative); Leukocyte Esterase,Urine Negative (Negative); Nitrate,Urine Negative (Negative); Protein,Urine Negative (Negative); Specific Gravity, Urine 1.015 (1.005-1.030); Urobilinogen,Urine 0.2 EU/dl (0.2)
[2024-01-25 20:51] LABS: Bacteria,Urine 1+ /lpf
[2024-01-25 21:41] VITALS: BP 113/80; PULSE 60; RESP 16; TEMP 36.6; O2SAT 99
[2024-01-25] MEDS: levoFLOXacin 750 MG TABLET PO (21:42)
== END 2024-01-25 21:48 | disposition home or self-care (01) ==
PROVIDERS: Physician Assistant; Emergency Provider Emergency Medicine; PCP Internal Medicine
DX: N39.0 Urinary tract infection, site not specified (principal); N40.0 Benign prostatic hyperplasia without lower urinary tract symptoms; R10.31 Right lower quadrant pain
CPT/HCPCS: 74177; 76870; 80053; 81001; 85025; 96361; 96374; 96375; 99285; J0131; J1885; J7030; Q0162; Q9967

== ENCOUNTER 2024-03-21 08:51 | Outpatient (CLI) | payer MEDICARE, SELFPAY | END 2024-03-21 23:59 | disposition home or self-care (01) | LOC: LAB.DROPOF 03-22 14:48 | PROVIDERS: PCP Internal Medicine; Visit Provider Internal Medicine | DX: Z02.9 Encounter for administrative examinations, unspecified (principal) ==

== ENCOUNTER 2024-03-22 08:51 | Outpatient (CLI) | payer MEDICARE, SELFPAY ==
[2024-03-22 13:01] LABS: Basophils # 0.1 K/mm3 (0-0.2); Basophils % 1.4 % (0.1-2.0); Eosinophils # 0.4 K/mm3 (0.0-0.4); Eosinophils % 9.6 % (0.1-12.0); Hematocrit 29.4 % (42.0-52.0); Hemoglobin 8.8 g/dL (14.1-18.0); Lymphocytes # 1.8 K/mm3 (0.7-4.5); Lymphocytes % 48.8 % (10-50); Mean Corpuscular HGB Conc 29.9 g/dL (31.8-35.4); Mean Corpuscular Hemoglobin 22.7 pg (27.0-31.2); Monocytes # 0.2 K/mm3 (0.1-1.0); Monocytes % 5.8 % (1.7-9.3); Neutrophils # 1.3 K/mm3 (1.8-7.8); Neutrophils % 34.4 % (37.0-80.0); Platelet Count 401 K/mm3 (142-424); Red Blood Count 3.87 M/mm3 (4.60-6.20); Red Cell Distribution Width 15.8 % (11.5-17.5); White Blood Count 3.7 K/mm3 (4.8-10.8)
[2024-03-22 13:28] LABS: Iron 30 ug/dL (49-181)
[2024-03-22 13:29] LABS: Chol/HDL Ratio 3.4 (1-3.5); Cholesterol 136 mg/dl (140-200); HDL Cholesterol 40 mg/dl (40-60); Triglycerides 86 mg/dl (30-150); VLDL Cholesterol 17 mg/dL (0-40)
[2024-03-22 13:38] LABS: Total Iron Binding Capacity 488 ug/dL (261-462)
[2024-03-22 13:39] LABS: Direct LDL Cholesterol 63.22 mg/dL (100-129)
[2024-03-22 13:51] LABS: Hemoglobin A1C 5.2 % (4.0-6.0)
[2024-03-22 14:04] LABS: Thyroid Stimulating Hormone 1.21 uIU/mL (0.465-4.68)
[2024-03-22 14:08] LABS: Ferritin 7.47 ng/ml (17.9-464)
== END 2024-03-22 23:59 | disposition home or self-care (01) ==
LOC: LAB.DROPOF 14:50
PROVIDERS: PCP Internal Medicine; Visit Provider Internal Medicine
DX: D50.9 Iron deficiency anemia, unspecified (principal); R53.83 Other fatigue; Z13.1 Encounter for screening for diabetes mellitus; Z13.220 Encounter for screening for lipoid disorders; R79.9 Abnormal finding of blood chemistry, unspecified
CPT/HCPCS: 80061; 82728; 83036; 83540; 83550; 84443; 85025

== ENCOUNTER 2024-03-27 09:40 | Outpatient (CLI) | payer MEDICARE, SELFPAY ==
[2024-03-27 08:56] LABS: Basophils # 0.1 K/mm3 (0-0.2); Basophils % 1.2 % (0.1-2.0); Eosinophils # 0.4 K/mm3 (0.0-0.4); Eosinophils % 8.7 % (0.1-12.0); Hematocrit 29.3 % (42.0-52.0); Hemoglobin 8.8 g/dL (14.1-18.0); Lymphocytes # 1.9 K/mm3 (0.7-4.5); Mean Corpuscular Hemoglobin 22.3 pg (27.0-31.2); Mean Corpuscular Volume 74.4 fl (80-94); Monocytes # 0.4 K/mm3 (0.1-1.0); Monocytes % 7.2 % (1.7-9.3); Neutrophils # 2.3 K/mm3 (1.8-7.8); Neutrophils % 45.7 % (37.0-80.0); Platelet Count 350 K/mm3 (142-424); Red Blood Count 3.94 M/mm3 (4.60-6.20); Red Cell Distribution Width 15.6 % (11.5-17.5)
== END 2024-03-27 23:59 | disposition home or self-care (01) ==
LOC: LAB.DROPOF 12:30
PROVIDERS: PCP Internal Medicine; Visit Provider Internal Medicine
DX: K92.2 Gastrointestinal hemorrhage, unspecified (principal); D50.9 Iron deficiency anemia, unspecified
CPT/HCPCS: 85025

== ENCOUNTER 2024-03-30 10:06 | Outpatient (CLI) | payer MEDICARE, SELFPAY ==
[2024-03-30 10:10] VITALS: BP 142/74; PULSE 80; RESP 18; TEMP 36.7; O2SAT 99
[2024-03-30] MEDS: IRON SUCROSE COMPLEX 200 MG in 0.9 % SODIUM CHLORIDE 100 ML 220 MG IV (10:10)
[2024-03-30] MEDS: SODIUM CHLORIDE 0.9% 50ML BAG 50 ML IV (10:10)
[2024-03-30 10:40] VITALS: BP 150/90; PULSE 76
== END 2024-03-30 10:45 | disposition home or self-care (01) ==
LOC: INF 10:07
PROVIDERS: PCP Internal Medicine; Visit Provider Internal Medicine
DX: D50.9 Iron deficiency anemia, unspecified (principal)
CPT/HCPCS: 96365; J1756

== ENCOUNTER 2024-04-02 10:50 | Outpatient (CLI) | payer MEDICARE, SELFPAY ==
[2024-04-02 11:00] VITALS: BP 131/68; PULSE 66; RESP 18; O2SAT 99
[2024-04-02] MEDS: SODIUM CHLORIDE 0.9% 50ML BAG 50 ML IV (11:00)
[2024-04-02] MEDS: IRON SUCROSE COMPLEX 200 MG in 0.9 % SODIUM CHLORIDE 100 ML 220 MG IV (11:00)
[2024-04-02 11:42] VITALS: BP 123/77; PULSE 62; RESP 18; O2SAT 99
== END 2024-04-02 11:42 | disposition home or self-care (01) ==
LOC: INF 10:51
PROVIDERS: PCP Internal Medicine; Visit Provider Internal Medicine
DX: D50.9 Iron deficiency anemia, unspecified (principal)
CPT/HCPCS: 96365; J1756

== ENCOUNTER 2024-04-05 09:29 | Outpatient (CLI) | payer MEDICARE, SELFPAY ==
[2024-04-05] MEDS: IRON SUCROSE COMPLEX 200 MG in 0.9 % SODIUM CHLORIDE 100 ML 220 MG IV (09:46)
[2024-04-05] MEDS: SODIUM CHLORIDE 0.9% 50ML BAG 50 ML IV (09:46)
[2024-04-05 09:49] VITALS: BP 108/74; PULSE 66; RESP 18; O2SAT 100
[2024-04-05 10:35] VITALS: BP 116/67; PULSE 64; RESP 18; O2SAT 100
== END 2024-04-05 10:35 | disposition home or self-care (01) ==
LOC: INF 09:29
PROVIDERS: PCP Internal Medicine; Visit Provider Internal Medicine
DX: D50.9 Iron deficiency anemia, unspecified (principal)
CPT/HCPCS: 96365; J1756

== ENCOUNTER 2024-04-09 09:42 | Outpatient (CLI) | payer MEDICARE, SELFPAY ==
[2024-04-09 09:57] VITALS: BP 120/71; PULSE 73; RESP 16; TEMP 36.7; O2SAT 100
[2024-04-09] MEDS: SODIUM CHLORIDE 0.9% 10ML FLUSH SYRINGE 10 ML IV (09:57)
[2024-04-09] MEDS: IRON SUCROSE COMPLEX 200 MG in 0.9 % SODIUM CHLORIDE 100 ML 220 MG IV (09:57)
[2024-04-09] MEDS: SODIUM CHLORIDE 0.9% 50ML BAG 50 ML IV (09:57)
[2024-04-09 10:33] VITALS: BP 124/84; PULSE 74; RESP 16; TEMP 36.7; O2SAT 100
== END 2024-04-09 10:36 | disposition home or self-care (01) ==
LOC: INF 09:43
PROVIDERS: PCP Internal Medicine; Visit Provider Internal Medicine
DX: D50.9 Iron deficiency anemia, unspecified (principal)
CPT/HCPCS: 96365; J1756

== ENCOUNTER 2024-04-12 09:38 | Outpatient (CLI) | payer MEDICARE, SELFPAY ==
[2024-04-12] MEDS: IRON SUCROSE COMPLEX 200 MG in 0.9 % SODIUM CHLORIDE 100 ML 220 MG IV (09:48)
[2024-04-12] MEDS: SODIUM CHLORIDE 0.9% 50ML BAG 50 ML IV (09:49)
[2024-04-12 09:55] VITALS: BP 119/65; PULSE 67; RESP 18; O2SAT 98
[2024-04-12 10:32] VITALS: BP 110/65; PULSE 69; RESP 18; O2SAT 98
== END 2024-04-12 10:32 | disposition home or self-care (01) ==
LOC: INF 09:38
PROVIDERS: PCP Internal Medicine; Visit Provider Internal Medicine
DX: D50.9 Iron deficiency anemia, unspecified (principal)
CPT/HCPCS: 96365; J1756

== ENCOUNTER 2024-04-25 11:01 | Outpatient (CLI) | payer MEDICARE, SELFPAY ==
[2024-04-25 13:37] LABS: Basophils # 0.1 K/mm3 (0-0.2); Eosinophils # 0.2 K/mm3 (0.0-0.4); Eosinophils % 4.5 % (0.1-12.0); Hematocrit 39.6 % (42.0-52.0); Hemoglobin 12.1 g/dL (14.1-18.0); Lymphocytes # 1.5 K/mm3 (0.7-4.5); Lymphocytes % 29.7 % (10-50); Mean Corpuscular HGB Conc 30.6 g/dL (31.8-35.4); Mean Corpuscular Hemoglobin 24.5 pg (27.0-31.2); Mean Corpuscular Volume 80.3 fl (80-94); Mean Platelet Volume 9.2 fl (7.4-10.4); Monocytes # 0.3 K/mm3 (0.1-1.0); Monocytes % 5.3 % (1.7-9.3); Neutrophils % 59.3 % (37.0-80.0); Platelet Count 318 K/mm3 (142-424); Red Blood Count 4.93 M/mm3 (4.60-6.20); Red Cell Distribution Width 23.5 % (11.5-17.5); White Blood Count 5.1 K/mm3 (4.8-10.8)
== END 2024-04-25 23:59 | disposition home or self-care (01) ==
LOC: LAB.DROPOF 04-26 14:28
PROVIDERS: PCP Internal Medicine; Visit Provider Internal Medicine
DX: D50.9 Iron deficiency anemia, unspecified (principal)
CPT/HCPCS: 85025

== ENCOUNTER 2024-05-17 08:49 | Day surgery (SDC) | payer MEDICARE, SELFPAY ==
[2024-05-17 09:26] VITALS: BP 162/97; PULSE 99; RESP 16; TEMP 36.7; O2SAT 97
[2024-05-17 09:40] VITALS: BMI 29.5
[2024-05-17] MEDS: LACTATED RINGERS 1000ML 1,000 ML 50 ML IV (09:43)
--- NOTE | 2024-05-17 09:51 | EXP.ANES.CKL ---
[facility] Disclaimer: The information contained in this section may have been updated after the patient was seen, as this information can be updated by other users. Medical History Diverticulosis Acid reflux Hypertension Hx of deep venous thrombosis GI bleed Appendicitis Intestinal obstruction Smoker Small bowel obstruction Surgical History History of back surgery History of intestinal surgery History of appendectomy Family History Other Family history of blood clots Family history of diabetes mellitus type II Social History (Updated 05/17/24 @ 09:33 by Frida Florence RN) Smoking Status: Current every day smoker tobacco type: cigars per week: 7 alcohol intake: never substance use type: denies use current occupational status: retired and disabled Travel in the last 8 weeks: None household members: spouse housing: house marital status: education level: high school service: Yes intermediate: No caffeine: Yes special michael needs: No agree to transfusion: No do you feel safe at home: Yes victim of physical abuse: No victim of emotional abuse: No victim of sexual abuse: No would you like helpful sources: No Have you lived/traveled outside [place] in past 30 days?: No Contact w/someone who lives/traveled outside US past 30 days?: No Exposure to someone with infectious disease in past 14 days?: No Do you have a fever (greater than 100.4 F or 38 C)?: No Have you tested positive for COVID-19: No Exposed to someone with COVID-19 in past 14 days?: No Do you have a sore throat?: No Do you have a cough?: No Do you have any weakness?: No Are you experiencing any nausea/vomitting?: No Do you have any diarrhea?: No Are you experiencing any unusual bleeding?: No Do you have any muscle aches/pain?: No Do you have any abdominal pain?: No Are you experiencing loss of taste or smell?: No [facility] Anesthesia Checklist Patient Identification Patient Identification: Arm Band Structural Data Admitted From: Home Planned Operative Procedure/s: EGD/Colonoscopy Consent for Planned Operative Procedure(s) Verified: Yes Verified Documents: Surgical Consent and History and Physical NPO Status Verified Time NPO: 04:00 (finished prep) Additional verifications Anesthesia Reactions: No Airway Assessment Mallampati Score:: Class II C-Spine Mobility Assessed: Yes TMJ Mobility Assessed: Yes Dentition: Edentulous Neurological Assessment Level of Consciousness: Awake, Alert and Appropriate Anesthesia Plan Anesthesia Risk discussed: Yes Anesthesia Plan: Verified ASA Class: III Anesthesia Type: MAC
--- NOTE | 2024-05-17 10:28 | EXP.HP ---
History of Present Illness *Admission Date: 05/17/24 *Reason for visit:: Iron deficiency anemia, loss of appetite, weight loss and abdominal pain *History of present illness: Mr. Cedeño is a 58-year-old gentleman who is here for diagnostic upper endoscopy and colonoscopy. The patient has had a recently low hemoglobin of 8.8 with ferritin 7, iron saturation 6% and iron level of 30. He received parenteral iron. He also has had intermittent dark red rectal bleeding. He had a colonoscopy in April [address] Belle Maldonado MD and was normal. He had an EGD in March 2023 (Brodie Peck M.D.) and was positive for H. pylori he has been on Xarelto in the past but this was discontinued. He takes no NSAIDs. The examination is deemed medically necessary for diagnostic EGD and colonoscopy. The patient has been seen, interviewed and examined prior to the procedure by both myself and the anesthesia provider. [facility] Disclaimer: The information contained in this section may have been updated after the patient was seen, as this information can be updated by other users. Medical History Diverticulosis Acid reflux Hypertension Hx of deep venous thrombosis GI bleed Appendicitis Intestinal obstruction Smoker Small bowel obstruction Surgical History History of back surgery History of intestinal surgery History of appendectomy Family History Other Family history of blood clots Family history of diabetes mellitus type II Social History (Updated 05/17/24 @ 09:33 by Frida Florence RN) Smoking Status: Current every day smoker tobacco type: cigars per week: 7 alcohol intake: never substance use type: denies use current occupational status: retired and disabled Travel in the last 8 weeks: None household members: spouse housing: house marital status: education level: high school service: Yes penitentiary: No caffeine: Yes special michael needs: No agree to transfusion: No do you feel safe at home: Yes victim of physical abuse: No victim of emotional abuse: No victim of sexual abuse: No would you like helpful sources: No Have you lived/traveled outside US in past 30 days?: No Contact w/someone who lives/traveled outside [place] past 30 days?: No Exposure to someone with infectious disease in past 14 days?: No Do you have a fever (greater than 100.4 F or 38 C)?: No Have you tested positive for COVID-19: No Exposed to someone with COVID-19 in past 14 days?: No Do you have a sore throat?: No Do you have a cough?: No Do you have any weakness?: No Are you experiencing any nausea/vomitting?: No Do you have any diarrhea?: No Are you experiencing any unusual bleeding?: No Do you have any muscle aches/pain?: No Do you have any abdominal pain?: No Are you experiencing loss of taste or smell?: No Other Medical History Have you received the Flu Vaccine for this season: No Have you received the Pneumonia Vaccine: No Review of Systems Review of Systems Review of systems (narrative): Negative *Cardiovascular Comments: Negative *Gastrointestinal Comments: Negative *Genitourinary Comments: Negative *Musculoskeletal Comments: Negative *Neurologic Comments: Negative Meds Home Medications and Allergies Home Medications ?Medication ?Instructions ?Recorded ?Confirmed ?Type gabapentin 800 mg tablet 800 mg PO BID nerve pain 05/10/22 05/17/24 History hydrocodone 10 mg-acetaminophen 1 tab PO Q6H PRN chronic pain 05/10/22 05/17/24 History 325 mg tablet metoprolol succinate 100 mg 100 mg PO DAILY High blood pressure 05/23/22 05/17/24 History tablet,extended release 24 hr amitriptyline 25 mg tablet See Rx Instructions .Route 05/02/24 05/17/24 Rx .COMPLEX #30 tabs ferrous sulfate 325 mg (65 mg 325 mg PO DAILY 05/07/24 05/17/24 History iron) tablet,delayed release omeprazole 20 mg capsule,delayed 20 mg PO DAILY #30 caps 05/07/24 05/17/24 Rx release peg 3350-electrolytes 236 240 ml PO Q10M colonscopy #4,000 mL 05/07/24 05/16/24 Rx gram-22.74 gram-6.74 gram-5.86 gram solution (Golytely) sildenafil 100 mg tablet 100 mg PO DAILY PRN sexual 05/16/24 05/16/24 Rx activity #30 tabs New Prescriptions to Start Prescriptions: Allergies Allergy/AdvReac Type Severity Reaction Status Date / Time venom-honey bee (BEE VENOM Allergy Unknown Other Verified 05/17/24 09:29 (HONEY BEE)) Exam Data for Last 24 hours Vital signs and Labs for Last 24 Hours: Temp Pulse Resp BP Pulse Ox O2 Del Method 98.0 F 99 H 16 162/97 H 97 Room Air 05/17/24 09:26 05/17/24 09:26 05/17/24 09:26 05/17/24 09:26 05/17/24 09:26 05/17/24 09:26 I & O for Last 24 hours: Intake & Output 05/14/24 05/15/24 05/16/24 05/17/24 23:59 23:59 23:59 23:59 Weight 217 lb 15.995 oz *Routine HEENT Exam Head: Present normocephalic Eye: Present EOMI and PERRL ENT: Present mucous membranes moist *Routine Neck Exam Neck: Present supple *Routine Respiratory Exam Respiratory: Present CTA bilaterally *Routine Cardiovascular Exam Cardiovascular: Present RRR *Routine Abdominal Exam Abdominal: Present soft and normoactive bowel sounds; Absent tenderness *Routine Rectal Exam Rectal:: deferred *Routine Genitalia Exam Genitalia:: deferred *Routine Extremities Exam Extremities: Absent cyanosis, clubbing or edema *Routine Skin Exam Skin: Present warm; Absent rash *Routine Neurological Exam Neurological: Present alert and oriented X3 Assessment and Plan *Assessment and plan (1) Iron (Fe) deficiency anemia: Status: Acute Category: Medical Code(s): D50.9 - Iron deficiency anemia, unspecified (2) Generalized abdominal pain: Status: Acute Category: Medical Code(s): R10.84 - Generalized abdominal pain (3) Constipation: Status: Acute Category: Medical Code(s): K59.00 - Constipation, unspecified (4) Loss of appetite: Status: Acute Category: Medical Code(s): R63.0 - Anorexia (5) Weight loss: Status: Acute Category: Medical Code(s): R63.4 - Abnormal weight loss (6) H. pylori infection: Status: Acute Category: Medical Code(s): A04.8 - Other specified bacterial intestinal infections (7) Acid reflux: Status: Acute Category: Medical Code(s): K21.9 - Gastro-esophageal reflux disease without esophagitis (8) Fatigue: Status: Acute Category: Medical Code(s): R53.83 - Other fatigue Plan A/P: 1. Iron deficiency anemia with generalized abdominal pain, weight loss and loss of appetite is the preprocedural diagnosis. The patient will be anesthetized/sedated using MAC sedation. The patient has been seen and examined. Cardiac and lung assessment prior to the examination is stable. Proceed with planned diagnostic panendoscopy
[2024-05-17 10:30] VITALS: O2SAT 98
--- NOTE | 2024-05-17 10:38 | HMH.PROCNOTE ---
[facility] Procedure Note Date: 05/17/24 Time: 10:52 Procedure Note:: Upper Endoscopy Procedure Report: Esophagogastroduodenoscopy with cold biopsies and TTS balloon dilation Endoscopost: Manuel Yen II, MD Referring Physician: Ricky Garcia DO Date of Procedure: May 17, 2024 Equipment: Olympus GIF 190 standard upper endoscope Sedation: MAC sedation Indications: Mr. Cedeño is a 58-year-old gentleman who is here for diagnostic EGD and colonoscopy. The patient does have iron deficiency anemia and his recent hemoglobin was 8.8. He had been on Xarelto until about 3 or 4 weeks ago and this was discontinued. His iron level was 30 with ferritin 7 and iron saturation of 6%. He received parenteral iron and has been on oral iron as well. The patient also has had a 30 to 40 pound weight loss over the last 18 months. He reports some early satiety and intermittent dysphagia. He also has noted some bright red and dark red rectal bleeding. This did sometimes occur without a bowel movement. He reports no constipation or diarrhea but does have some obstipation with excessive wiping. He has had bloating and generalized abdominal discomfort. The patient did have a colonoscopy with Dr. Belle Maldonado MD in April 2022 which was normal and given 10-year surveillance interval. He had an EGD with Dr. Brodie Peck M.D. in March 2023 and had H. pylori. He was treated but did not have follow-up breath test. He reports no use of aspirin, NSAIDs or alcohol. He did have reconstructive bowel surgery twice in 2007 and 2014 (Darin Manzo MD). Procedure: Prior to the procedure, a history and physical exam was performed, and patient's medications and allergies were reviewed. The risks, benefits and alternatives of the sedation and procedure were discussed with the patient. All questions were answered and informed consent was obtained. The patient was brought to the procedure room. Patient identification and proposed procedure were verified by the physician and the nurse. The patient was placed in a left lateral decubitus position and the scope was passed under direct vision. Throughout the procedure, the patient's blood pressure, pulse, and oxygen saturations were monitored continuously. The upper GI endoscopy was accomplished without difficulty. The patient tolerated the procedure well. Findings: The scope was passed directly into the upper esophagus and advanced to the third portion of the duodenum. The post bulbar duodenum and duodenal bulb were normal with normal mucosa and conniventes. Cold biopsies were taken from the first portion of the duodenum. The scope was withdrawn through a normal duodenal bulb and pylorus into the stomach. There was bile reflux with mild linear reactive gastropathy of the antrum. There were no gastric or duodenal ulcers or erosions. Upon retroflexion there is a small 1 to 2 cm sliding hiatal hernia. Biopsies were taken from the lesser curvature to rule out H. pylori. The scope was then withdrawn into the esophagus. There is no evidence of reflux esophagitis or Márquez's. There were no strictures, rings, corrugation or furrowing. There were no esophageal varices. There were strong tertiary contractions and evidence of moderate esophageal dysmotility. The entire esophagus was dilated to 60 [place]/20 mm with a TTS hydrostatic balloon. There was no resistance. The remainder of the esophageal mucosa was normal. Impression: 1. Nonerosive GERD with moderate esophageal dysmotility and very small sliding 1 to 2 cm hiatal hernia 2. Bile reflux with mild linear reactive gastropathy Plan: There is no etiology for the patient's iron deficiency anemia from the upper digestive tract. I will proceed with diagnostic colonoscopy.
--- NOTE | 2024-05-17 10:52 | HMH.PROCNOTE ---
[facility] Procedure Note Date: 05/17/24 Time: 11:13 Procedure Note:: Colonoscopy Procedure Report: Colonoscopy with hemorrhoid band ligation Endoscopist: Manuel Yen II, MD Referring physician: Ricky Garcia DO Date of Procedure: May 17, 2024 Equipment: Olympus 190 variable stiffness pediatric colonoscope Sedation: MAC sedation Indication: Mr. Cedeño is a 58-year-old gentleman who is here for diagnostic EGD and colonoscopy. The patient does have iron deficiency anemia and his recent hemoglobin was 8.8. He had been on Xarelto until about 3 or 4 weeks ago and this was discontinued. His iron level was 30 with ferritin 7 and iron saturation of 6%. He received parenteral iron and has been on oral iron as well. The patient also has had a 30 to 40 pound weight loss over the last 18 months. He reports some early satiety and intermittent dysphagia. He also has noted some bright red and dark red rectal bleeding. This did sometimes occur without a bowel movement. He reports no constipation or diarrhea but does have some obstipation with excessive wiping. He has had bloating and generalized abdominal discomfort. The patient did have a colonoscopy with Dr. Belle Maldonado MD in April 2022 which was normal and given 10-year surveillance interval. He had an EGD with Dr. Brodie Peck M.D. in March 2023 and had H. pylori. He was treated but did not have follow-up breath test. He reports no use of aspirin, NSAIDs or alcohol. He did have reconstructive bowel surgery twice in 2007 and 2014 (Darin Manzo MD). He reports no family history of colon cancer. Procedure: Prior to the procedure, a history and physical exam was performed, and patient's medications and allergies were reviewed. The risks, benefits and alternatives of the sedation and procedure were discussed with the patient. All questions were answered and informed consent was obtained. The patient was brought to the procedure room. Patient identification and proposed procedure were verified by the physician and the nurse. The patient was placed in a left lateral decubitus position and the scope was passed under direct vision. Throughout the procedure, the patient's blood pressure, pulse, and oxygen saturations were monitored continuously. The colonoscopy was accomplished without difficulty. The patient tolerated the procedure well. Findings: On digital rectal examination there was normal rectal tone. There were no external hemorrhoids. There were small external hemorrhoidal tags with some hemorrhoidal prolapse. The prostate was 2-3+, mildly firm but symmetric without nodules. The colonoscope was introduced through the anal canal to the rectum and advanced to the cecum. The ileocecal valve and appendiceal orifice were identified. The scope was advanced a short distance into the ileum which appeared grossly normal. The scope was then withdrawn into the colon. The cecum, ascending and transverse colon and mucosa were grossly normal. There were a few mildly scattered diverticuli throughout the descending and sigmoid colon (LEFT colon). The rectum itself was normal. Upon retroflexion within the rectum there were grade 2-3 internal hemorrhoids. 3 columns of hemorrhoids were banded using 4 bands with excellent ligation effect. The preparation was excellent throughout with [place] Preparation Score of 9. The cecal time was 15 minutes. Impression: 1. Mild left-sided diverticulosis 2. Grade 2-3 internal hemorrhoids status post band ligation x 4 Plan: I do strongly suspect the patient's bleeding was hemorrhoidal bleeding while on Xarelto. He does have some obstipation related symptoms and would encourage a fiber bowel regimen. I will obtain Hemoccult testing. 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 I do feel that this is most likely related to his bowel reconstructive surgery.
[2024-05-17 11:21] VITALS: BP 119/90; PULSE 99; RESP 17; TEMP 36.3; O2SAT 93
[2024-05-17 11:31] VITALS: BP 143/105; PULSE 79; RESP 17; O2SAT 99
[2024-05-17 11:41] VITALS: BP 132/92; PULSE 99; RESP 20; O2SAT 100
[2024-05-17] MEDS: HYDROCODONE/APAP 5/325 MG TABLET 1 TAB PO (11:45)
[2024-05-17 11:51] VITALS: BP 135/89; PULSE 90; RESP 18; O2SAT 100
== END 2024-05-17 12:10 | disposition home or self-care (01) ==
PROVIDERS: PCP Internal Medicine; Visit Provider Internal Medicine Gastroenterology
PROC: 0DJ08ZZ Inspection of Upper Intestinal Tract, Via Natural or Artificial Opening Endoscopic (ICD-10-PCS; CPT 45378; principal; 2024-05-17 10:30)
DX: D50.9 Iron deficiency anemia, unspecified (principal); R10.84 Generalized abdominal pain; R63.0 Anorexia; R63.4 Abnormal weight loss; A04.8 Other specified bacterial intestinal infections; K62.5 Hemorrhage of anus and rectum; K21.9 Gastro-esophageal reflux disease without esophagitis; K44.9 Diaphragmatic hernia without obstruction or gangrene; K22.4 Dyskinesia of esophagus; K31.9 Disease of stomach and duodenum, unspecified; K57.30 Diverticulosis of large intestine without perforation or abscess without bleeding; K64.9 Unspecified hemorrhoids
CPT/HCPCS: 43239; 43249; 45398; C1726; C1889; J2704; J7120

== ENCOUNTER 2024-05-29 16:53 | Outpatient (CLI) | payer MEDICARE, SELFPAY ==
[2024-05-29 21:32] LABS: Occult Blood,Stool Positive (Negative)
== END 2024-05-29 23:59 | disposition home or self-care (01) ==
LOC: LAB 16:53
PROVIDERS: PCP Internal Medicine; Visit Provider Internal Medicine Gastroenterology
DX: D50.9 Iron deficiency anemia, unspecified (principal); R10.84 Generalized abdominal pain; R53.83 Other fatigue; R63.4 Abnormal weight loss
CPT/HCPCS: 82272; G0328

== ENCOUNTER 2024-06-11 08:13 | Outpatient (CLI) | payer MEDICARE, SELFPAY ==
--- OUTSIDE RECORDS SUMMARY | 2024-06-11 08:16 | XMS_ITS | Encounter Summary ---
Author Name [facility] Organization [facility] Address [address] [place] [address] Care Team Providers Care Software Tester Name Role Phone DONNIE GERMAN Primary Care Provider Unavailabl e Insurance Providers: All historical and current Section Date Range: From patient's date of to the date document was created. This section includes the names of all active insurance providers for the patient. Insurance Provider Type of Coverage Plan Name Start of Policy Coverage End of Policy Coverage Group Number Member ID Insurance Provider's Telephone Number Policy Hanson's Name Patient's Relationship to Policy Hanson MEDICARE (WNR) MEDICARE (M) PART B Aug 28, 2009 PART B [id number] [phone] CASI MARS PATIENT MEDICARE (WNR) MEDICARE (M) PART B Aug 28, 2009 PART B [id number] CASI MARS PATIENT MEDICARE (WNR) MEDICARE (M) PART B Aug 28, 2009 PART B [id number] [phone] CASI MARS PATIENT MEDICARE (WNR) MEDICARE (M) PART A Jan 29, 2008 PART A [id number] [phone] CASI MARS PATIENT MEDICARE (WNR) MEDICARE (M) PART A Jan 29, 2008 PART A [id number] CASI MARS PATIENT MEDICARE (WNR) MEDICARE (M) PART A Jan 29, 2008 PART A [id number] CASI MARS PATIENT MEDICARE PART D (WNR) PRESCRIPT ION PART D Feb 28, 2014 PART D [id number] CASI MARS PATIENT Selected Encounter This section includes the information on record at ID for the Encounter. Date/Time Encounter Type Encounter Description Reason Provider Source Nov 28, 2023 10:40 AM OFFICE O/P NEW LOW 30 MIN PODIATRY ICD-10-CM Q66.52 Congenital pes planus, left foot WANG,ALEXAN KIMI E Encounter Template Text not used by ID Assessments - Encounter Diagnoses This section includes the primary and secondary diagnoses documented for the Encounter. Date/Time Primary/Secondary Diagnosis Diagnosis Name Provider Source Nov 28, 2023 11:08 AM PRIMARY Congenital pes planus, left foot WANG,NICK [facility] Nov 28, 2023 11:08 AM SECONDARY Congenital pes planus, right foot WANG,NICK [facility] Nov 28, 2023 11:08 AM SECONDARY Ingrowing nail WANG,NICK [facility] Nov 28, 2023 11:08 AM SECONDARY Primary osteoarthritis, left ankle and foot WANG,NICK [facility] Nov 28, 2023 11:08 AM SECONDARY Primary osteoarthritis, right ankle and foot [facility] Plan of Treatment: Future Appointments (+ 6 months) and Future Tests (+/- 45 days) The Plan of Treatment section includes future care activities for the patient from all ID treatmentfacilities. This section includes future appointments and future orders which are active, pending or scheduled. Future Appointments This section includes appointments that were scheduled to occur 6 months from the date of the Encounter, up to a maximum of 20 appointments. The data comes from all ID treatment facilities. Appointment Date/Time Appointment Type Appointme nt Facility Name May 21, 2024 09:20 AM AMBULATORY - SURGERY [facility] Social History: Smoking Status (Most current) and Tobacco Use (All prior to encounter date) This section includes the most current, and the historical, smoking and tobacco- related health factors from the ID facility where the Encounter took place. Current Smoking Status This section includes the most current smoking, or tobacco-related health factor, from the ID facility where the Encounter took place. Date/Time Current Smoking Status Comment Julianna villanueva Mar 03, 2023 11:30 AM VA-TOBACCO DOESNT USE WI 30 MIN WAKEUP [facility] Tobacco Use History This section includes a history of the smoking, or tobacco-related health factors, that were collected on or before the date of the Encounter. The data comes from the ID facility where the Encounter took place. Date/Time Smoking Status/Tobacco Use Comment Saadia acility Mar 03, 2023 11:30 AM VA-TOBACCO USE 5 T O 15 YEARS [facility] Mar 03, 2023 11:30 AM VA-TOBACCO USE ADVICE [facility] Mar 03, 2023 11:30 AM VA-TOBACCO USE CODING COMPLIANCE AUDITOR NO [facility] Mar 03, 2023 11:30 AM VA-TOBACCO USE MED NO [facility] Mar 03, 2023 11:30 AM VA-TOBACCO USER EVERY DAY [facility] Jan 14, 2022 10:30 AM VA-TOBACCO FORMER USER [facility] Jan 14, 2022 10:30 AM VA-TOBACCO QUIT < 1 YEAR [facility] May 08, 2020 09:30 AM VA-TOBACCO DOESNT USE WI 30 MIN WAKEUP [facility] May 08, 2020 09:30 AM VA-TOBACCO USE 5 T O 15 YEARS [facility] May 08, 2020 09:30 AM VA-TOBACCO USE ADVICE [facility] May 08, 2020 09:30 AM VA-TOBACCO USE CODING COMPLIANCE AUDITOR NO [facility] May 08, 2020 09:30 AM VA-TOBACCO USE MED NO [facility] May 08, 2020 09:30 AM VA-TOBACCO USER EVERY DAY [facility] July 19, 2018 02:12 PM VA-TOBACCO DOESNT USE WI 30 MIN WAKEUP [facility] July 19, 2018 02:12 PM VA-TOBACCO USE > 1 5 LESS THAN 30 YEARS [facility] July 19, 2018 02:12 PM VA-TOBACCO USE ADVICE [facility] July 19, 2018 02:12 PM VA-TOBACCO USE CODING COMPLIANCE AUDITOR NO [facility] July 19, 2018 02:12 PM VA-TOBACCO USE MED NO [facility] July 19, 2018 02:12 PM VA-TOBACCO USER EVERY DAY [facility] Aug 17, 2017 11:04 AM V9 CURRENT TOBACCO USER [facility] Aug 17, 2017 11:04 AM V9 TOBACCO MEDS COMPLETED [facility] Aug 17, 2017 11:04 AM V9 TOBACCO OFFERED [facility] Aug 17, 2017 11:04 AM V9 TOBACCO USE-DEC LINED MEDS [facility] July 19, 2016 01:02 PM V9 QUIT TOBACCO IN THE LAST 12 MONTHS [facility] Aug 27, 2015 09:33 AM V9 CURRENT TOBACCO USER [facility] Aug 27, 2015 09:33 AM V9 TOBACCO OFFERED [facility] Aug 27, 2015 09:33 AM V9 TOBACCO USE-WANTS MEDS [facility] Aug 16, 2014 08:40 AM V9 CURRENT TOBACCO USER [facility] Aug 16, 2014 08:40 AM V9 TOBACCO OFFERED [facility] Aug 16, 2014 08:40 AM V9 TOBACCO USE-DEC LINED MEDS [facility] Dec 08, 2012 09:49 AM V9 QUIT TOBACCO IN THE LAST 12 MONTHS [facility] Apr 20, 2012 07:56 AM V9 QUIT TOBACCO IN THE LAST 12 MONTHS [facility] Jan 28, 2012 08:11 AM V9 QUIT TOBACCO IN THE LAST 12 MONTHS [facility] Dec 20, 2011 08:59 AM TOBACCO OFFERRED P T MEDS (PROVIDER) [facility] Dec 20, 2011 08:59 AM V9 CURRENT TOBACCO USER [facility] Dec 20, 2011 08:59 AM V9 TOBACCO OFFERED [facility] Jan 25, 2011 09:20 AM V9 CURRENT TOBACCO USER quit two months ago [facility] Jan 25, 2011 09:20 AM V9 TOBACCO OFFERED [facility] Sep 15, 2009 01:41 PM V9 QUIT TOBACCO >7 YEARS AGO [facility] Encounter Notes: All associated encounter notes This section contains the clinical notes associated to the Encounter. Date/Time Encounter Note(s) Provider Source Nov 28, 2023 12:12 PM PODIATRY OUTPATIENT NOTE: LOCAL TITLE: PODIATRY CLINIC COUNTER INSTALLER NOTE STANDARD TITLE: PODIATRY OUTPATIENT NOTE DATE OF NOTE: NOV 28, 2023@12:12 ENTRY DATE: NOV 28, 2023@12:12:27 AUTHOR: CECIL DAVE COSIGNER: URGENCY: STATUS: COMPLETED LOWER EXTREMITY EXAM: Nails: aseptic debridement of the nails x 10 of lengh/girth/thickness via manual & eletric instrumentation. Skin: Interspaces clear and intact Appearance: Skin intact Vascular Evaluation: Sens Lulu Filament; Decreased with changes of neuropathy noted B/1 feet muscle strength intact IMPRESSION: 1. Tinea Unguium PLAN: Nails debrided in length and thickness entire nail bed all digits B/L using manual and mechanical techniques. Reviewed foot education and importance of proper foot care with patient RTC: /sanchez/ CECIL DAVE NOTCH MACHINE OPERATOR STAFF NOTCH MACHINE OPERATOR Signed: 11/28/2023 12:12 CECIL DAVE [facility] Nov 28, 2023 12:12 PM SURGERY NURSING NOTE: LOCAL TITLE: SURGERY CLINIC INTAKE NOTE STANDARD TITLE: SURGERY NURSING NOTE DATE OF NOTE: NOV 28, 2023@12:12 ENTRY DATE: NOV 28, 2023@12:12:11 AUTHOR: CECIL DAVEIGNER: URGENCY: STATUS: COMPLETED The patient was given a list of his/her medications, instructed to review and discuss any changes or problems with their provider. Patient advised to carry a list of current medications and any allergies with them in the event of emergency situations. Allergies: local and remote Patient has answered NKA No Remote Allergy/ADR Data available for this patient Medication Reconciliation MRR1 - Med Reconciliation INCLUDED IN THIS LIST: Alphabetical list of active outpatient prescriptions dispensed from this [facility] (local) and dispensed from another ID or [facility]D facility (remote) as well as inpatient orders (local pending and active), local clinic medications, locally documented non-VA medications, and local prescriptions that have or been discontinued in the past 90 days. Non-VA Meds Last Documented On: Mar 04, 2023 NOTE The display of VA prescriptions dispensed from another ID or [facility] facility (remote) is limited to active outpatient prescription entries matched to National Drug File at the originating site and may not include some items such as investigational drugs, compounds, etc. NOT INCLUDED IN THIS LIST: Medications self-entered by the patient into personal health records (i.e. [employer]) are NOT included in this list. Non-VA medications documented outside this ID, remote inpatient orders (regardless of status) and remote clinic medications are NOT included in this list. The patient and provider must always discuss medications the patient is taking, regardless of where the medication was dispensed or obtained. OUTPT ARTIFICIAL TEARS PVA 1.4%/POVIDONE PF UD (Status = Discontinued) PUT 1 DROP IN EYE(S) TWICE A DAY NEEDED FOR DRY EYES Rx# [id number] Last Released: 01/07/23 Qty/Days Supply: Rx Expiration Date: 01/05/24 Refills Remainin Indication: FOR DRY EYES Non-VA ASPIRIN 81MG EC TAB TAKE ONE TABLET BY MOUTH DAILY Patient wants to buy from Non-VA pharmacy. Non-VA ATORVASTATIN CALCIUM TAB 80MG TAKE ONE TABLET BY MOUTH DAILY Patient wants to buy from Non-VA pharmacy. Medication prescribed by Non-VA provider. Non-VA DOXYLAMINE 25MG TAB TAKE ONE TABLET BY MOUTH AT BEDTIME Patient wants to buy from Non-VA pharmacy. Non-VA GABAPENTIN 400MG CAP TAKE 2 CAPSULES BY MOUTH THREE TIMES A DAY Medication prescribed by Non-VA provider. Non-VA HYDROCODONE 10/APAP 325MG TAB TAKE ONE TABLET BY MOUTH EVERY 6 HOURS NEEDED Medication prescribed by Non-VA provider. OUTPT METOPROLOL TARTRATE 100MG TAB (Status = Discontinued) TAKE ONE-HALF TABLET BY MOUTH TWICE A DAY FOR BLOOD PRESSURE/HEART Rx# [id number] Last Released: 03/05/23 Qty/Days Supply: Rx Expiration Date: 03/04/24 Refills Remainin OUTPT RIVAROXABAN 20MG TAB (Status = Discontinued) TAKE ONE TABLET BY MOUTH DAILY TO THIN BLOOD TO THIN BLOOD. TAKE WITH EVENING MEAL. CALL ANTICOAGULATION CLINIC [phone] WITH QUESTIONS OR CONCERNS TO THIN BLOOD. CALL ANTICOAGULATION CLINIC [phone] WITH QUESTIONS OR CONCERNS Rx# [id number] Last Released: 07/12/23 Qty/Days Supply: 60/60 Rx Expiration Date: 03/09/24 Refills Remainin Indication: TO THIN BLOOD OUTPT RIVAROXABAN 20MG TAB (Status = Active) TAKE ONE TABLET BY MOUTH DAILY TO THIN BLOOD. TAKE WITH EVENING MEAL. CALL ANTICOAGULATION CLINIC [phone] WITH QUESTIONS OR CONCERNS TO THIN BLOOD. Rx# [id number] Last Released: 10/14/23 Qty/Days Supply: Rx Expiration Date: 10/11/24 Refills Remainin Indication: TO THIN BLOOD OUTPT SILDENAFIL CITRATE 100MG TAB (Status = Active) TAKE ONE TABLET BY MOUTH DIRECTED FOR ERECTILE DYSFUNCTION DO NOT TAKE WITH ANY MEDICATION CONTAINING NITRATES (LIMIT: 6 DOSES/30 DAYS OR 18DOSES/90 DAYS, NON-REPLACEABLE MEDICATION) Rx# [id number] Last Released: 08/29/23 Qty/Days Supply: Rx Expiration Date: 03/04/24 Refills Remainin Indication: FOR ERECTILE DYSFUNCTION Non-VA TRAZODONE HCL 50MG TAB TAKE ONE TABLET BY MOUTH AT BEDTIME Patient wants to buy from Non-VA pharmacy. Medication prescribed by Non-VA provider. Indication: FOR SLEEP SUPPLIES /sanchez/ CECIL DAVE NOTCH MACHINE OPERATOR STAFF NOTCH MACHINE OPERATOR Signed: 11/28/2023 12:12 [facility] DAVE [facility] Nov 28, 2023 11:01 AM PODIATRY CONSULT: LOCAL TITLE: PODIATRY CONSULT RESPONSE STANDARD TITLE: PODIATRY CONSULT DATE OF NOTE: NOV 28, 2023@11:01 ENTRY DATE: NOV 28, 2023@11:02 AUTHOR: BETSY WANG COSIGNER: URGENCY: STATUS: COMPLETED SOAP Note SUBJECTIVE: The patient is a 58 year old MALE. Chief Complaint: Patient with follow-up bilateral foot pain. Maxwell states shoes are turning inward. has not tried any inserts nor any thing to remedy condition. also with flatfeet. Past Medical History: Active problems - Computerized Problem List is the source for the followin. Hypercoagulability state 2. Hyperproteinemia 3. Mixed hyperlipidemia 4. Benign prostatic hyperplasia 5. Tobacco dependence in remission 6. History of male erectile disorder 7. Low back pain 8. Coronary arteriosclerosis 9. Lower urinary tract symptoms due to benign prostatic hypertrophy 10. Coronary arteriosclerosis 11. Gastroesophageal reflux disease 12. Benign essential hypertension 13. Chronic deep venous thrombosis of lower extremity 14. Tobacco use 15. Old myocardial infarction 16. Benign prostatic hyperplasia 17. Tobacco dependence syndrome (SNOMED CT [id number]) 18. Deep Vein Thrombosis 19. Lack of Housing 20. Cocaine dependence 21. Depressive Disorder NOS * (DSM-IV 311/ICD-9-CM 311./300.4) 22. Vitamin D Deficiency Start Treatment: 09/23/09 23. Gastroesophageal reflux disease 24. Social History Single: 2 children alive and well. worked at [employer]: now disabled due to back. Smokes: a cigarette every 2 days or so. Alcohol: rare. No street drugs. 25. FAMILY HISTORY Mom age 42: CVA and blood clots. Sibs: 2 with blood clots. Dad alive 71: HTN 26. Surgical History bowel Surgery 2001 intestinal torsion. Lumbar Back Surgery L4-5. 2005 Appy 2003 27. Health Maintenance 'Hole ' in heart: Last cxr: 2 months ago nl. Patient had chicken pox as a child. 28. Myocardial Infarction SD . Internal defibrillator was recommended but declined. 29. Essential Hypertension 30. Chronic Low Back Pain 31. Carpal Tunnel Syndrome * ALLERGIES: Patient has answered NKA Food allergies: None known VITALS: SVS - Vital Signs Selected No data available for: BLOOD PRESSURE TEMPERATURE RESPIRATION PULSE PULSE OXIMETRY WEIGHT FOOT RISK LEVEL: MEDICATION RECONCILIATION: Reviewed current medications with patient/significant other, patient/significant other reports taking ALL VA, Non VA & OTC medications as listed on CPRS medication tab outpatient section. Yes *Medication changes reviewed, patient/significant other verbalized understanding and provided information on new medication. Yes *Explained to the patient the importance of keeping providers updated on medication changes and to carrying an updated list of medication at all times in case of an emergency situation. Yes OBJECTIVE: PACT FOOT EXAM Incorrect Diagnosis This patient does not carry a diabetes diagnosis. This patient does not have end stage renal disease. This patient does not have peripheral vascular disease. PE:AAOX3,NAD Lower Extermity Dermatological Exam: NAILS: Elongated x 10 SKIN: no signs of infection bilat VASCULAR EVAL: 2/4 DP/PT bilat. Cap refil 1 sec x 10 NEUROLOGICAL EVALUATION: wnl bilat no signs of tarsal tunnel syndrome nor paraesthesias. Normal motor & sensory innervation bilat. Lower Extermity Motor Function: 5/5 all lower extremity muscle groups bilat ORTHOPEDICS EVALUATION: bilateral feet + planus foot type with collapsing medial arch on weightbearing and hypermobile first ray in the sagittal plane. Bilateral subtalar joint and midtarsal joints can be brought to anatomical neutral without tenderness nor guarding. Imaging: Date Verified: SEP 20, 2023 Report: Bilateral feet CLINICAL INFORMATION: Foot pain TECHNIQUE: AP, lateral, and oblique views FINDINGS: No prior exams are available for comparison. There is no radiographic evidence of acute fracture or dislocation. There is mild hallux valgus deformity bilaterally. There is slight narrowing of MTP joint space distance of the left great toe. Remaining joint space distances appear adequately maintained. No areas of periosteal reaction or cortical erosion are demonstrated. Mild bone mineral loss cannot be excluded. There is small posterior calcaneal enthesophyte. No focal soft tissue abnormality is evident. Impression: Mild bilateral hallux valgus deformity. Mild arthritic change in the MTP joint of the left great toe. Possible bone mineral loss. 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 NSAIDs per primary. Maxwell currently wearing Nike brand shoes with a soft cotton upper and a flared wide heel bilaterally. Shoe evaluation reveals that they are not supportive enough. advised to wear Hoka, New Balance, or Asics type shoes with a leather upper and a stiff heel counter for better support and for better functioning with inserts. stretching and range of motion encouraged. Provided size 14 power step 1 pair. If these worked well for him, he can call us and we will mail him another pair. Toenails x 10 debrided today of thickness and girth with immediate relief noted. Debridement done as a courtesy since the was needing a toenail trimming and was here with his shoes on. does not qualify though for routine periodic maintenance toenail debridements since he has no qualifying PAVE criteria. RTC: 8 weeks for follow up as well as cotton picker orthotics /es/ BETSY WANG Chief, Podiatry Section Signed: 11/28/2023 11:08 BETSY WANG [facility]
--- OUTSIDE RECORDS SUMMARY | 2024-06-11 08:16 | XMS_ITS ---
Laboratory report Created on: June 05, 2024 BOLA MARS : 1965 Sex: Male Author Name PASTOR HANSEN Organization Unknown PROBLEMS Problems List Code Description Z79.891 RESULTS Laboratory Orders Date Order Code Test 2024-05-30 [id number] D+ALC+SVT 2024-05-30 [id number] GABAPENTIN, MS, UR Laboratory Results Date LOINC Test Value Unit Reference Range Interpre tation 2024-05-30 [facility] 2024-05-30 35144-5 AMPHETAMINES SCR EEN, URINE N NG/ML 2024-05-30 05472-4 BARBITURATES SCR EEN, URINE N NG/ML 2024-05-30 98509-0 BENZODIAZEPINES SCREEN, URINE N NG/ML 2024-05-30 25413-6 CANNABINOID SCRE EN, URINE PINC NG/ML 2024-05-30 45407-6 CANNABINOID P A 2024-05-30 45063-5 CARBOXY THC CONF , MS, UR 26 NG/ML 2024-05-30 16361-0 COCAINE (METAB) SCREEN, URINE N NG/ML 2024-05-30 29042-0 OPIATE SCREEN, URINE PINC NG/ML 2024-05-30 96220-1 OPIATES P NG/ML A 2024-05-30 3507-1 CODEINE NEG. 2024-05-30 3830-7 MORPHINE NEG. 2024-05-30 9834-3 HYDROMORPHONE NEG. 2024-05-30 93643-6 HYDROCODONE P A 2024-05-30 17138-3 HYDROCODONE CONF , MS, UR 430 NG/ML 2024-05-30 73331-9 6-ACETYLMORPHINE, URINE N NG/ML 2024-05-30 75145-0 OXYCODONE/OXYMOR PHONE, URINE N NG/ML 2024-05-30 64900-8 METHADONE SCREEN, URINE N NG/ML 2024-05-30 3414-0 BUPRENORPHINE, URINE N NG/ML 2024-05-30 5645-7 ETHANOL, URINE N MG/DL 2024-05-30 2161-8 CREATININE, URINE 57.7 MG/DL 20.0-300.0 2024-05-30 2756-5 PH, URINE 6.1 4.5-8.9 2024-05-30 GABAPENTIN 250.7 UG/ML
--- OUTSIDE RECORDS SUMMARY | 2024-06-11 08:16 | XMS_ITS | Continuity of Care Document ---
Author Name [facility] Organization [facility] Care Team Providers Care Brass Burnisher Name Role Phone [facility] Unavailable Unavailable Problems Combined list of problems from Department of Defense and [facility] facilities. It does not include entries that were removed or entered in error. Problem Status Onset Date Problem Type Date of Resolution Comments Source Benign essential hypertension Active Condition [facility] Benign prostatic hyperplasia Active Condition [facility] Carpal Tunnel Syndrome * (ICD-9-CM 354.0) Active Condition [facility] Chronic deep venous thrombosis of lower extremity Active Condition [facility] Chronic Low Back Pain (ICD-9-CM 724.2) Active Condition Sep 15 0 Entered By: GAAPITO WALKER IE A Comment: Goes to Narcotic Management: Dr. Reyes on [facility]. [facility] Cocaine dependence (ICD-9-CM 304.20/304.21) Active Condition [facility] Coronary arteriosclerosis Active Condition [facility] Deep Vein Thrombosis Active Condition L [facility] WN Depressive Disorder NOS * (DSM-IV 311/ICD-9-CM 311./300.4) Active Condition [facility] Essential Hypertension (ICD-9-CM 401.9) Active Condition [facility] FAMILY HISTORY Active Condition Aug 282009 Entered By: AGAPITO WALKER IE A Comment: Mom age 42: CVA and blood clots.Sep 15, 2009 Entered By: AGAPITO WALKER IE A Comment: Sibs: 2 with blood clots.Sep 15, 2009 Entered By: AGAPITO WALKER IE A Comment: Dad alive 71: HTN [facility] Gastroesophageal reflux disease Active Condition [facility] Gastroesophageal reflux disease Active Condition [facility] Health Maintenance Active Condition J 2009 Entered By: AGAPITO WALKER IE A Comment: 'Hole ' in heart:Sep 15, 2009 Entered By: AGAPITO WALKER IE A Comment: Last cxr: 2 months ago nl.Sep 15, 2009 Entered By: AGAPITO WALKER IE A Comment: Patient had chicken pox as a child. [facility] History of male erectile disorder Active Condition [place] Hypercoagulability state [facility] Hyperproteinemia Active Condition [place] Lack of Housing (ICD-9-CM V60.0) [facility] Low back pain Active [facility] Lower urinary tract symptoms due to benign prostatic hypertrophy Active Condition [facility] Mixed hyperlipidemia Active Condition [facility] [place] Myocardial Infarction Active Condition Sep 15, 2009 Entered By: AGAPITO WALKER IE A Comment: [place] 1998, .Sep 15, 2009 Entered By: AGAPITO WALKER IE A Comment: Internal defibrillator was recommended but declined. [facility] Old myocardial infarction Active Condition [facility] Social History Active Condition Aug 282009 Entered By: AGAPITO WALKER IE A Comment: Single: 2 children alive and well.Sep 15, 2009 Entered By: AGAPITO WALKER IE A Comment: worked at : now disabled due to back.Sep 15, 2009 Entered By: AGAPITO WALKER IE A Comment: Smokes: a cigarette every 2 days or so.Sep 15, 2009 Entered By: AGAPITO WALKER IE A Comment: Alcohol: rare.Sep 15, 2009 Entered By: AGAPITO WALKER IE A Comment: No street drugs. [facility] Surgical History Active Condition Sep 15, 2009 Entered By: AGAPITO WALKER IE A Comment: bowel Surgery 2002 intestinal torsion.Sep 15, 2009 Entered By: AGAPITO WALKER IE A Comment: Lumbar Back Surgery L4-5. 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, left foot Active Diagnosis SAMIR MURPHY [facility] Diagnosis: ICD-10-CM M79.673 Pain in unspecified foot Active Diagnosis [facility] Diagnosis: ICD-10-CM K62.5 Hemorrhage of anus and rectum Active Diagnosis [facility] Diagnosis: ICD-10-CM M25.532 Pain in left wrist Active Diagnosis [facility] Diagnosis: ICD-10-CM Z98.890 Other specified postprocedural states Active Diagnosis [facility] Diagnosis: ICD-10-CM Z01.818 Encounter for other preprocedural examination Active Diagnosis [facility] Diagnosis: ICD-10-CM Z71.81 Spiritual or spiritism counseling Active Diagnosis [facility] Diagnosis: ICD-10-CM Z51.81 Encounter for therapeutic drug level monitoring Active Diagnosis [facility] Diagnosis: ICD-10-CM Z71.89 Other specified counseling Active Diagnosis [facility]IDI DIXON [facility] Diagnosis: ICD-10-CM I82.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m 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 Active Diagnosis [facility] Diagnosis: ICD-10-CM I10 Essential (primary) hypertension Active Diagnosis [facility] Diagnosis: ICD-10-CM H25.13 Age-related nuclear cataract, bilateral Active Diagnosis [facility] Diagnosis: ICD-10-CM G56.02 Carpal tunnel syndrome, left upper limb Active Diagnosis [facility] Diagnosis: ICD-10-CM G56.01 Carpal tunnel syndrome, right upper limb Active Diagnosis [facility] Medications Combined list of outpatient medications from Department of Defense and Veterans Affairs facilities.Medications provided include 1) outpatient medications from the last 15 months, and 2) patient-reported medications. Medication Details Route Status Patient Instructions Prescription Expires Prescription Number Last Dispense Date Ordering Provider Order Date Order Qty Source ACETAMINOPH EN 325MG TAB TAKE TWO TABLETS BY MOUTH EVERY 6 HOURS NEEDED FOR PAIN -DO NOT TAKE MORE THAN 12 TABLETS PER DAY ORAL 04/14/2023 [id number] AMY WALKER 2023 50 [place] ASPIRIN 81MG TAB,EC TAKE ONE TABLET BY MOUTH DAILY ORAL ACTIVE DAVID ROTH 2014 [place] [facility] [place] ATORVASTATI N CA 80MG TAB TAKE ONE TABLET BY MOUTH DAILY ORAL ACTIVE DONNIE GERMAN 2023 [place] [facility] DOXYLAMINE SUCCINATE 25MG TAB TAKE ONE TABLET BY MOUTH AT BEDTIME ORAL ACTIVE MIGUEL MCLEAN 2018 [place] GABAPENTIN 400MG CAP TAKE 2 CAPSULES BY MOUTH THREE TIMES A DAY ORAL ACTIVE DAVID ROTH 2016 [place] [facility] HYDROCODONE 10MG/ACETAM INOPHEN 325MG TAB TAKE ONE TABLET BY MOUTH EVERY 6 HOURS NEEDED ORAL ACTIVE DAVID ROTH 2014 [place] [facility] IBUPROFEN 400MG TAB TAKE ONE TABLET BY MOUTH EVERY 6 HOURS NEEDED FOR PAIN OR INFLAMMA TION -TAKE WITH FOOD OR MILK ORAL 04/14/2023 [id number] AMY WALKER 2023 25 [place] METOPROLOL TARTRATE 100MG TAB TAKE ONE-HALF TABLET BY MOUTH TWICE A DAY FOR BLOOD PRESSURE /HEART ORAL ACTIVE 12/29/2024 [id number] DONNIE GERMAN 2023 90 [place] OXYCODONE HCL 5MG TAB TAKE ONE TABLET BY MOUTH EVERY 4 HOURS NEEDED FOR SEVERE PAIN ORAL 04/14/2023 [id number] AMY WALKER 2023 12 [place] RIVAROXABAN 20MG TAB TAKE ONE TABLET BY MOUTH DAILY TO THIN BLOOD. TAKE WITH EVENING MEAL. CALL [facility] [phone] WITH QUESTION S OR CONCERNS TO THIN BLOOD. ORAL ACTIVE 10/11/2024 [id number] 5 Mahesh THURMAN 2023 90 [place] [facility] RIVAROXABAN 20MG TAB TAKE ONE TABLET BY MOUTH DAILY TO THIN BLOOD TO THIN BLOOD. TAKE WITH EVENING MEAL. CALL [facility] [phone] WITH QUESTION S OR CONCERNS TO THIN BLOOD. CALL [facility] WITH QUESTION S OR CONCERNS ORAL DISCONT INUED 03/09/2024 [id number] Mahesh THURMAN 2023 60 [place] SILDENAFIL CITRATE 100MG TAB TAKE ONE TABLET BY MOUTH DIRECTED FOR ERECTILE DYSFUNCT ION DO NOT TAKE WITH ANY MEDICATI ON CONTAINI NG NITRATES (LIMIT: 6 DOSES/30 DAYS OR 18DOSES/ 90 DAYS, NON-REPL ACEABLE MEDICATI ON) ORAL 03/04/2024 [id number] DONNIE GERMAN 2023 18 [place] [facility] TRAZODONE HCL 50MG TAB TAKE ONE TABLET BY MOUTH AT BEDTIME ORAL ACTIVE DONNIE GERMAN 2023 [place] [facility] Immunizations Combined list of available immunizations from the Department of Defense and [facility] Affairs facilities. Immunization Series Date Given Administered By Site Reaction Lot Number CVX Code Drug Butcher Head Status Comments Source COVID-19 ([email or web address] Application), MRNA, LNP-S, PF, SARAH-SUCROSE, 30 MCG/0.3 ML (AGES 12+ YEARS) 1 2023 CHELSI SUBRAMANIAN RIGHT DELTO ID [id number] 309 complet ed ADMINISTE RED AT SD, [place] [facility] INFLUENZA, INJECTABLE, QUADRIVALENT, PRESERVATIVE FREE 2023 CHELSI SUBRAMANIAN LEFT DELTO ID [id number] A 150 complet ed ADMINISTE RED AT [place], [place] [facility] TDAP 2 2022 115 complet ed HISTORICA L INFORMATI ON - FROM OTHER REGISTRY, [place] [facility] COVID-19 ([email or web address] Application), MRNA, LNP-S, BIVALENT BOOSTER, PF, 30 MCG/0.3 ML DOSE 1 2021 300 complet ed PFR; [id number]; 3 [place] [facility] [place] INFLUENZA, INJECTABLE, QUADRIVALENT, PRESERVATIVE FREE 2021 150 complet ed [place] [facility] [place] ZOSTER RECOMBINANT 2 2021 187 complet ed HISTORICA L INFORMATI ON - FROM OTHER REGISTRY, [place] [facility] [place] ZOSTER RECOMBINANT 1 2021 187 complet ed HISTORICA L INFORMATI ON - FROM OTHER REGISTRY, [place] [facility] COVID-19 ([email or web address] Application), MRNA, LNP-S, PF, 30 MCG/0.3 ML DOSE 3 2020 208 complet ed HISTORICA L INFORMATI ON - FROM OTHER REGISTRY, [place] [facility] [place] COVID-19 ([email or web address] Application), MRNA, LNP-S, PF, 30 MCG/0.3 ML DOSE 2 2020 208 complet ed PFR; [id number]; 1 [place] COVID-19 ([email or web address] Application), MRNA, LNP-S, PF, 30 MCG/0.3 ML DOSE 1 2020 208 complet ed PFR; [id number]; 1 [place] INFLUENZA A & B (HISTORICAL) 2015 88 complet ed [place] [facility] [place] FLU,3 YRS (HISTORICAL) 2014 88 complet ed [place] [facility] [id number] (HISTORICAL) 2014 33 complet ed [place] [facility] PNEUMOCOCCAL, UNSPECIFIED FORMULATION 2014 109 complet ed [place] [facility] [place] DTP 2013 01 complet ed [place] [facility] [place] TDAP (HISTORICAL) 2013 115 complet ed [place] [facility] [place] FLU,3 YRS (HISTORICAL) 2012 88 complet ed [place] [facility] [place] FLU,3 YRS (HISTORICAL) 2011 88 complet ed [place] [facility] INFLUENZA A & B (HISTORICAL) 2011 88 complet ed [place] [facility] INFLUENZA A & B (HISTORICAL) 2010 88 complet ed [place] INFLUENZA A & B (HISTORICAL) 2009 88 complet ed [place] [facility] TD(ADULT) UNSPECIFIED FORMULATION 2009 139 complet ed [place] [facility] TD (ADULT), 2 LF TETANUS TOXOID, PRESERVATIVE FREE, ADSORBED 1 1996 09 complet ed HISTORICA L INFORMATI ON - FROM OTHER REGISTRY, [place] [facility] Results Combined list of recent chemistry, hematology and other laboratory results from Department of Defense and Veterans Affairs, ranging from 15 months to all on record, depending upon the facility. Order Name Results Value Reference Range Date Interpretation Specimen Comments Source CALPROTEC TIN, STOOL (SRL) CALPROTECTI N [MASS/MASS] IN STOOL 24 04/04 Specimen Type: FECES Comment: Since Calprotecti n is present in the cytoplasm of neutrophils there is the potential for elevated Calprotecti n test results when measuring bloody stool sample. Patients who are taking NSAIDS may have elevations in their fecal calprotecti n levels. False negative results could occur on patients who have granuloctop enia due to bone marrow depression. Fecal calprotecti n is an indicator of neutrophili c presence in the stool and is not specific for IBD. Concentrati on Interpretat ion Follow-up <50 ug/g Normal None 50 - 120 ug/g Borderline Re-evaluate in 4-6 weeks >120 ug/g Elevated Repeat as clinically indicated Ordering Provider: EVERT AGUIAR Report Released Date/Time: Mar 31, 2023 01:44 PM Reporting Lab: [facility] [address] [address] Performing Lab: [facility] [address] [address] [facility] CRP (for acute inflammat ion) C REACTIVE PROTEIN [MASS/VOLUM E] IN SERUM OR PLASMA 1.3 mg/L 0.0 - 5.0 03/31 Specimen Type: PLASMA No comment entered. Ordering Provider: EVERT AGUIAR Report Released Date/Time: Mar 31, 2023 01:44 PM Reporting Lab: [place] [address] Performing Lab: [address] SED RATE (ISED) ERYTHROCYTE SEDIMENTATI ON RATE BY PHOTOMETRIC METHOD 6 mm/h 0 - 20 03/31 Specimen Type: BLOOD No comment entered. Ordering Provider: EVERT AGUIAR Report Released Date/Time: Mar 31, 2023 01:44 PM Reporting Lab: [place] [address] Performing Lab: [address] CBC/PLT LEUKOCYTES [#/VOLUME] IN BLOOD BY AUTOMATED COUNT 6.5 10*3/u L 5.0 - 10.0 03/31 Specimen Type: BLOOD No comment entered. Ordering Provider: ZOYA THURMAN Report Released Date/Time: Mar 09, 2023 03:24 PM Reporting Lab: [place] [address] Performing Lab: [address] CBC/PLT ERYTHROCYTE S [#/VOLUME] IN BLOOD BY AUTOMATED COUNT 4.64 10*6/u L 4.6 - 6.2 03/31 Specimen Type: BLOOD No comment entered. Ordering Provider: ZOYA THURMAN Report Released Date/Time: Mar 09, 2023 03:24 PM Reporting Lab: [place] [address] Performing Lab: [address] CBC/PLT HEMOGLOBIN [MASS/VOLUM E] IN BLOOD 12.6 g/dL 14.0 - 18.0 03/31 L Specimen Type: BLOOD No comment entered. Ordering Provider: ZOYA THURMAN Report Released Date/Time: Mar 09, 2023 03:24 PM Reporting Lab: [address] [phone] Performing Lab: [address] [address] [facility] CBC/PLT HEMATOCRIT [VOLUME FRACTION] OF BLOOD BY AUTOMATED COUNT 40.5 42.0 - 52.0 03/31 L Specimen Type: BLOOD No comment entered. Ordering Provider: ZOYA THURMAN Report Released Date/Time: Mar 09, 2023 03:24 PM Reporting Lab: [address] [address] Performing Lab: [address] [address] [facility] CBC/PLT MCV [ENTITIC VOLUME] BY AUTOMATED COUNT 87.3 fL 80.0 - 94.0 03/31 Specimen Type: BLOOD No comment entered. Ordering Provider: ZOYA THURMAN Report Released Date/Time: Mar 09, 2023 03:24 PM Reporting Lab: [address] [address] Performing Lab: [address] [address] [facility] CBC/PLT MCH [ENTITIC MASS] BY AUTOMATED COUNT 27.2 pg 27.0 - 31.0 03/31 Specimen Type: BLOOD No comment entered. Ordering Provider: ZOYA THURMAN Report Released Date/Time: Mar 09, 2023 03:24 PM Reporting Lab: [address] [address] Performing Lab: [address] [address] [facility] CBC/PLT MCHC [MASS/VOLUM E] BY AUTOMATED COUNT 31.1 g/dL 32.0 - 36.0 03/31 L Specimen Type: BLOOD No comment entered. Ordering Provider: ZOYA THURMAN Report Released Date/Time: Mar 09, 2023 03:24 PM Reporting Lab: [address] [address] Performing Lab: [address] [phone] [place] [address] CBC/PLT PLATELETS [#/VOLUME] IN BLOOD 236 10*3/u L 150 - 450 03/31 Specimen Type: BLOOD No comment entered. Ordering Provider: ZOYA THURMAN Report Released Date/Time: Mar 09, 2023 03:24 PM Reporting Lab: [address] [address] Performing Lab: [place] [phone] [place] [address] CBC/PLT PLATELET MEAN VOLUME [ENTITIC VOLUME] IN BLOOD 8.1 fL 9.0 - 13.1 03/31 L Specimen Type: BLOOD No comment entered. Ordering Provider: ZOYA THURMAN Report Released Date/Time: Mar 09, 2023 03:24 PM Reporting Lab: [place] [phone] Performing Lab: [place] [phone] [place] [address] CBC/PLT ERYTHROCYTE DISTRIBUTIO N WIDTH [ENTITIC VOLUME] BY AUTOMATED COUNT 15.4 11.0 - 16.0 03/31 Specimen Type: BLOOD No comment entered. Ordering Provider: ZOYA THURMAN Report Released Date/Time: Mar 09, 2023 03:24 PM Reporting Lab: [address] [address] Performing Lab: [place] [phone] [place] [address] CBC/PLT NUCLEATED ERYTHROCYTE S/100 ERYTHROCYTE S IN BLOOD 0.0 0.0 - 0.0 03/31 Specimen Type: BLOOD No comment entered. Ordering Provider: ZOYA THURMAN Report Released Date/Time: Mar 09, 2023 03:24 PM Reporting Lab: [address] [address] Performing Lab: [address] [phone] [place] [address] FREE T4 FREE T4 0.91 ng/mL 0.70 - 1.48 03/16 Specimen Type: PLASMA No comment entered. Ordering Provider: UMANG GERMAN Report Released Date/Time: Mar 04, 2023 03:14 PM Reporting Lab: [place] [phone] Performing Lab: [place] [phone] TSH THYROTROPIN [UNITS/VOLU ME] IN SERUM OR PLASMA 1.8975 m[IU]/ mL 0.3500 - 4.9400 03/16 Specimen Type: PLASMA No comment entered. Ordering Provider: UMANG GERMAN Report Released Date/Time: Mar 04, 2023 03:14 PM Reporting Lab: [place] [phone] Performing Lab: [address] T3 TOTAL TRIIODOTHYR ONINE (T3) [MASS/VOLUM E] IN SERUM OR PLASMA 1.41 ng/mL 0.58 - 1.59 03/16 Specimen Type: PLASMA No comment entered. Ordering Provider: UMANG GERMAN Report Released Date/Time: Mar 04, 2023 03:14 PM Reporting Lab: [place] [phone] Performing Lab: [place] [phone] FERRITIN FERRITIN [MASS/VOLUM E] IN SERUM OR PLASMA 72.0 ng/mL 21.8 - 274.7 03/03 Specimen Type: PLASMA Comment: Estimated Glomerular Filtration Rate (eGFR) calculated using the 2020 Chronic Kidney Disease-Epi demiology (CKD-EPI) Collaborati on creatinine equation; units of measure are mL/min/1.73 m2. Results are only valid for adults (>=18 years) whose serum creatinine is in a steady state. eGFR calculation s are not valid for patients with acute kidney injury and for patients on dialysis. Creatinine- based estimates of kidney function may also be inaccurate in patients with reduced creatinine generation due to decreased muscle mass (e.g., malnutritio n, severe hypoalbumin emia, sarcopenia, chronic neuromuscul ar disease, amputations , severe heart failure or liver disease) and in patients with increased creatinine generation due to increased muscle mass (e.g., muscle builders, anabolic steroids) or increased dietary intake. As drug clearance is proportiona l to total GFR and not GFR indexed to body surface area (BSA), in individuals with a BSA substantial ly different than 1.73 m2, drug dosing should be based on the reported eGFR value de-indexed from BSA by multiplying by the individual' s BSA and dividing by 1.73. CKD is diagnosed based on abnormaliti es of kidney structure or function, present for >3 months, with implication s for health and disease. CKD is classified and staged based on cause, eGFR and albuminuria (quantified as urine albumin to creatinine ratio). An eGFR >60 mL/min/1.73 m2 in the absence of increased urine albumin excretion or structural abnormaliti es does not represent CKD. eGFR CKD Interpretat ion (mL/min/1.7 3 m2) stage >=90 G1 Normal 60-89 G2 Mild decrease 45-59 G3A Mild to moderate decrease 30-44 G3B Moderate to severe decrease 15-29 G4 Severe decrease <15 G5 Kidney failure Ordering Provider: UMANG GERMAN Report Released Date/Time: Mar 03, 2023 09:52 AM Reporting Lab: [facility] [address] [address] Performing Lab: [facility] [address] [address] [facility] IRON/TIBC IRON [MOLES/VOLU ME] IN SERUM OR PLASMA 119 ug/dL 65 - 175 03/03 Specimen Type: PLASMA Comment: Estimated Glomerular Filtration Rate (eGFR) calculated using the 2020 Chronic Kidney Disease-Epi demiology (CKD-EPI) Collaborati on creatinine equation; units of measure are mL/min/1.73 m2. Results are only valid for adults (>=18 years) whose serum creatinine is in a steady state. eGFR calculation s are not valid for patients with acute kidney injury and for patients on dialysis. Creatinine- based estimates of kidney function may also be inaccurate in patients with reduced creatinine generation due to decreased muscle mass (e.g., malnutritio n, severe hypoalbumin emia, sarcopenia, chronic neuromuscul ar disease, amputations , severe heart failure or liver disease) and in patients with increased creatinine generation due to increased muscle mass (e.g., muscle builders, anabolic steroids) or increased dietary intake. As drug clearance is proportiona l to total GFR and not GFR indexed to body surface area (BSA), in individuals with a BSA substantial ly different than 1.73 m2, drug dosing should be based on the reported eGFR value de-indexed from BSA by multiplying by the individual' s BSA and dividing by 1.73. CKD is diagnosed based on abnormaliti es of kidney structure or function, present for >3 months, with implication s for health and disease. CKD is classified and staged based on cause, eGFR and albuminuria (quantified as urine albumin to creatinine ratio). An eGFR >60 mL/min/1.73 m2 in the absence of increased urine albumin excretion or structural abnormaliti es does not represent CKD. eGFR CKD Interpretat ion (mL/min/1.7 3 m2) stage >=90 G1 Normal 60-89 G2 Mild decrease 45-59 G3A Mild to moderate decrease 30-44 G3B Moderate to severe decrease 15-29 G4 Severe decrease <15 G5 Kidney failure Ordering Provider: UMANG GERMAN Report Released Date/Time: Mar 03, 2023 09:52 AM Reporting Lab: [facility] [address] [address] Performing Lab: [facility] [address] [address] [facility] IRON/TIBC TIBC 401 mg/dL 250 - 425 03/03 Specimen Type: PLASMA Comment: Estimated Glomerular Filtration Rate (eGFR) calculated using the 2020 Chronic Kidney Disease-Epi demiology (CKD-EPI) Collaborati on creatinine equation; units of measure are mL/min/1.73 m2. Results are only valid for adults (>=18 years) whose serum creatinine is in a steady state. eGFR calculation s are not valid for patients with acute kidney injury and for patients on dialysis. Creatinine- based estimates of kidney function may also be inaccurate in patients with reduced creatinine generation due to decreased muscle mass (e.g., malnutritio n, severe hypoalbumin emia, sarcopenia, chronic neuromuscul ar disease, amputations , severe heart failure or liver disease) and in patients with increased creatinine generation due to increased muscle mass (e.g., muscle builders, anabolic steroids) or increased dietary intake. As drug clearance is proportiona l to total GFR and not GFR indexed to body surface area (BSA), in individuals with a BSA substantial ly different than 1.73 m2, drug dosing should be based on the reported eGFR value de-indexed from BSA by multiplying by the individual' s BSA and dividing by 1.73. CKD is diagnosed based on abnormaliti es of kidney structure or function, present for >3 months, with implication s for health and disease. CKD is classified and staged based on cause, eGFR and albuminuria (quantified as urine albumin to creatinine ratio). An eGFR >60 mL/min/1.73 m2 in the absence of increased urine albumin excretion or structural abnormaliti es does not represent CKD. eGFR CKD Interpretat ion (mL/min/1.7 3 m2) stage >=90 G1 Normal 60-89 G2 Mild decrease 45-59 G3A Mild to moderate decrease 30-44 G3B Moderate to severe decrease 15-29 G4 Severe decrease <15 G5 Kidney failure Ordering Provider: UMANG GERMAN Report Released Date/Time: Mar 03, 2023 09:52 AM Reporting Lab: [facility] [address] [address] Performing Lab: [facility] [address] [address] [facility] IRON/TIBC IRON SATURATION [MOLAR FRACTION] IN SERUM OR PLASMA 30 20 - 50 03/03 Specimen Type: PLASMA Comment: Estimated Glomerular Filtration Rate (eGFR) calculated using the 2020 Chronic Kidney Disease-Epi demiology (CKD-EPI) Collaborati on creatinine equation; units of measure are mL/min/1.73 m2. Results are only valid for adults (>=18 years) whose serum creatinine is in a steady state. eGFR calculation s are not valid for patients with acute kidney injury and for patients on dialysis. Creatinine- based estimates of kidney function may also be inaccurate in patients with reduced creatinine generation due to decreased muscle mass (e.g., malnutritio n, severe hypoalbumin emia, sarcopenia, chronic neuromuscul ar disease, amputations , severe heart failure or liver disease) and in patients with increased creatinine generation due to increased muscle mass (e.g., muscle builders, anabolic steroids) or increased dietary intake. As drug clearance is proportiona l to total GFR and not GFR indexed to body surface area (BSA), in individuals with a BSA substantial ly different than 1.73 m2, drug dosing should be based on the reported eGFR value de-indexed from BSA by multiplying by the individual' s BSA and dividing by 1.73. CKD is diagnosed based on abnormaliti es of kidney structure or function, present for >3 months, with implication s for health and disease. CKD is classified and staged based on cause, eGFR and albuminuria (quantified as urine albumin to creatinine ratio). An eGFR >60 mL/min/1.73 m2 in the absence of increased urine albumin excretion or structural abnormaliti es does not represent CKD. eGFR CKD Interpretat ion (mL/min/1.7 3 m2) stage >=90 G1 Normal 60-89 G2 Mild decrease 45-59 G3A Mild to moderate decrease 30-44 G3B Moderate to severe decrease 15-29 G4 Severe decrease <15 G5 Kidney failure Ordering Provider: UMANG GERMAN Report Released Date/Time: Mar 03, 2023 09:52 AM Reporting Lab: [facility] [address] [address] Performing Lab: [facility] [address] [address] [facility] LIPID PROFILE CHOLESTEROL [MASS/VOLUM E] IN SERUM OR PLASMA 152 mg/dL 0 - 199 03/03 Specimen Type: PLASMA Comment: Estimated Glomerular Filtration Rate (eGFR) calculated using the 2020 Chronic Kidney Disease-Epi demiology (CKD-EPI) Collaborati on creatinine equation; units of measure are mL/min/1.73 m2. Results are only valid for adults (>=18 years) whose serum creatinine is in a steady state. eGFR calculation s are not valid for patients with acute kidney injury and for patients on dialysis. Creatinine- based estimates of kidney function may also be inaccurate in patients with reduced creatinine generation due to decreased muscle mass (e.g., malnutritio n, severe hypoalbumin emia, sarcopenia, chronic neuromuscul ar disease, amputations , severe heart failure or liver disease) and in patients with increased creatinine generation due to increased muscle mass (e.g., muscle builders, anabolic steroids) or increased dietary intake. As drug clearance is proportiona l to total GFR and not GFR indexed to body surface area (BSA), in individuals with a BSA substantial ly different than 1.73 m2, drug dosing should be based on the reported eGFR value de-indexed from BSA by multiplying by the individual' s BSA and dividing by 1.73. CKD is diagnosed based on abnormaliti es of kidney structure or function, present for >3 months, with implication s for health and disease. CKD is classified and staged based on cause, eGFR and albuminuria (quantified as urine albumin to creatinine ratio). An eGFR >60 mL/min/1.73 m2 in the absence of increased urine albumin excretion or structural abnormaliti es does not represent CKD. eGFR CKD Interpretat ion (mL/min/1.7 3 m2) stage >=90 G1 Normal 60-89 G2 Mild decrease 45-59 G3A Mild to moderate decrease 30-44 G3B Moderate to severe decrease 15-29 G4 Severe decrease <15 G5 Kidney failure Ordering Provider: UMANG GERMAN Report Released Date/Time: Mar 03, 2023 09:52 AM Reporting Lab: [facility] [address] [address] Performing Lab: [facility] [address] [address] [facility] LIPID PROFILE TRIGLYCERID E [MASS/VOLUM E] IN SERUM OR PLASMA 66 mg/dL 0 - 149 03/03 Specimen Type: PLASMA Comment: Estimated Glomerular Filtration Rate (eGFR) calculated using the 2020 Chronic Kidney Disease-Epi demiology (CKD-EPI) Collaborati on creatinine equation; units of measure are mL/min/1.73 m2. Results are only valid for adults (>=18 years) whose serum creatinine is in a steady state. eGFR calculation s are not valid for patients with acute kidney injury and for patients on dialysis. Creatinine- based estimates of kidney function may also be inaccurate in patients with reduced creatinine generation due to decreased muscle mass (e.g., malnutritio n, severe hypoalbumin emia, sarcopenia, chronic neuromuscul ar disease, amputations , severe heart failure or liver disease) and in patients with increased creatinine generation due to increased muscle mass (e.g., muscle builders, anabolic steroids) or increased dietary intake. As drug clearance is proportiona l to total GFR and not GFR indexed to body surface area (BSA), in individuals with a BSA substantial ly different than 1.73 m2, drug dosing should be based on the reported eGFR value de-indexed from BSA by multiplying by the individual' s BSA and dividing by 1.73. CKD is diagnosed based on abnormaliti es of kidney structure or function, present for >3 months, with implication s for health and disease. CKD is classified and staged based on cause, eGFR and albuminuria (quantified as urine albumin to creatinine ratio). An eGFR >60 mL/min/1.73 m2 in the absence of increased urine albumin excretion or structural abnormaliti es does not represent CKD. eGFR CKD Interpretat ion (mL/min/1.7 3 m2) stage >=90 G1 Normal 60-89 G2 Mild decrease 45-59 G3A Mild to moderate decrease 30-44 G3B Moderate to severe decrease 15-29 G4 Severe decrease <15 G5 Kidney failure Ordering Provider: UMANG GERMAN Report Released Date/Time: Mar 03, 2023 09:52 AM Reporting Lab: [facility] [address] [facility] [address] Performing Lab: [facility] [address] [facility] [address] [facility] LIPID PROFILE CHOLESTEROL IN HDL [MASS/VOLUM E] IN SERUM OR PLASMA 50 mg/dL 40 - 69 03/03 Specimen Type: PLASMA Comment: Estimated Glomerular Filtration Rate (eGFR) calculated using the 2020 Chronic Kidney Disease-Epi demiology (CKD-EPI) Collaborati on creatinine equation; units of measure are mL/min/1.73 m2. Results are only valid for adults (>=18 years) whose serum creatinine is in a steady state. eGFR calculation s are not valid for patients with acute kidney injury and for patients on dialysis. Creatinine- based estimates of kidney function may also be inaccurate in patients with reduced creatinine generation due to decreased muscle mass (e.g., malnutritio n, severe hypoalbumin emia, sarcopenia, chronic neuromuscul ar disease, amputations , severe heart failure or liver disease) and in patients with increased creatinine generation due to increased muscle mass (e.g., muscle builders, anabolic steroids) or increased dietary intake. As drug clearance is proportiona l to total GFR and not GFR indexed to body surface area (BSA), in individuals with a BSA substantial ly different than 1.73 m2, drug dosing should be based on the reported eGFR value de-indexed from BSA by multiplying by the individual' s BSA and dividing by 1.73. CKD is diagnosed based on abnormaliti es of kidney structure or function, present for >3 months, with implication s for health and disease. CKD is classified and staged based on cause, eGFR and albuminuria (quantified as urine albumin to creatinine ratio). An eGFR >60 mL/min/1.73 m2 in the absence of increased urine albumin excretion or structural abnormaliti es does not represent CKD. eGFR CKD Interpretat ion (mL/min/1.7 3 m2) stage >=90 G1 Normal 60-89 G2 Mild decrease 45-59 G3A Mild to moderate decrease 30-44 G3B Moderate to severe decrease 15-29 G4 Severe decrease <15 G5 Kidney failure Ordering Provider: UMANG GERMAN Report Released Date/Time: Mar 03, 2023 09:52 AM Reporting Lab: [facility] [address] [facility] [phone] Performing Lab: [facility] [address] [facility] [address] [facility] LIPID PROFILE CHOLESTEROL IN LDL [MASS/VOLUM E] IN SERUM OR PLASMA BY DIRECT ASSAY 90 mg/dL 0 - 100 03/03 Specimen Type: PLASMA Comment: Estimated Glomerular Filtration Rate (eGFR) calculated using the 2020 Chronic Kidney Disease-Epi demiology (CKD-EPI) Collaborati on creatinine equation; units of measure are mL/min/1.73 m2. Results are only valid for adults (>=18 years) whose serum creatinine is in a steady state. eGFR calculation s are not valid for patients with acute kidney injury and for patients on dialysis. Creatinine- based estimates of kidney function may also be inaccurate in patients with reduced creatinine generation due to decreased muscle mass (e.g., malnutritio n, severe hypoalbumin emia, sarcopenia, chronic neuromuscul ar disease, amputations , severe heart failure or liver disease) and in patients with increased creatinine generation due to increased muscle mass (e.g., muscle builders, anabolic steroids) or increased dietary intake. As drug clearance is proportiona l to total GFR and not GFR indexed to body surface area (BSA), in individuals with a BSA substantial ly different than 1.73 m2, drug dosing should be based on the reported eGFR value de-indexed from BSA by multiplying by the individual' s BSA and dividing by 1.73. CKD is diagnosed based on abnormaliti es of kidney structure or function, present for >3 months, with implication s for health and disease. CKD is classified and staged based on cause, eGFR and albuminuria (quantified as urine albumin to creatinine ratio). An eGFR >60 mL/min/1.73 m2 in the absence of increased urine albumin excretion or structural abnormaliti es does not represent CKD. eGFR CKD Interpretat ion (mL/min/1.7 3 m2) stage >=90 G1 Normal 60-89 G2 Mild decrease 45-59 G3A Mild to moderate decrease 30-44 G3B Moderate to severe decrease 15-29 G4 Severe decrease <15 G5 Kidney failure Ordering Provider: UMANG GERMAN Report Released Date/Time: Mar 03, 2023 09:52 AM Reporting Lab: [facility] [address] [address] Performing Lab: ARIANNA-Maru [address] [address] [facility] Encounters Combined list of: 1) Encounters from Department of [facility] Affairs facilities going backup to the last 18 months, not all [place] inpatient encounters are included; 2) Encounters from the Department of [facility] facilities going backup to 280 months. 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 [id number] Diagnos is: ICD-10- CM Z71.81 Spiritu al or religio us counseling services director ERNESTO Kaminski PH 12/15 [place] Outpatient Encounter [id number] SATHISH DAY 12/15 [place] Outpatient Encounter [id number] NAT ESTES 12/15 [place] CARPAL TUNNEL SURGERY [id number] MARCUS GODFREY 12/15 [place] [facility] Outpatient Encounter [id number] SATHISH DAY 10/18 /2023 [place] HC PRO PHONE CALL 5-10 MIN [id number] Diagnos is: ICD-10- CM Z98.890 Other specifi ed postpro cedural states JOSELUIS LIU L 12/16 [place] POSTOP FOLLOW-UP VISIT [id number] Diagnos is: ICD-10- CM G56.02 Carpal tunnel syndrom e, left upper limb LIZ CHEUNG A 12/30 [place] EYE EXAM&TX ESTAB PT 1/>VST [id number] Diagnos is: ICD-10- CM H25.13 Age-rel ated nuclear catarac t, bilater al HAISTAN,PHI LLIP K 01/04 [place] [facility] Outpatient Encounter [id number] 01/24 [place] [facility] RAJ STEELE [facility] Outpatient Encounter [id number] 03/03 [facility] OFFICE O/P EST MOD 30 MIN [id number] Diagnos is: ICD-10- CM I10 Essenti al (primar y) hyperte nsion Brianna GERMAN AURA A 03/03 [place] [facility] OFFICE O/P EST MOD 30 MIN [id number] Diagnos is: ICD-10- CM M25.532 Pain in left wrist ANYI BARRIENTOS 03/03 [place] Outpatient Encounter [id number] 03/03 [place] [facility] QNHP OL DIG ASSMT&MGMT 11-20 [id number] Diagnos is: ICD-10- CM I82.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 m 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 DALLAS MCLEAN RA L 03/03 [place] Outpatient Encounter [id number] 03/04 [place] [facility] HC PRO PHONE CALL 5-10 MIN [id number] Diagnos is: ICD-10- CM Z71.89 Other specifi ed counseling services director ALEXEI Yin 03/07 [place] [facility] MTSC BY PHARM EST 15 MIN [id number] Diagnos is: ICD-10- CM Z51.81 Encount er for therape utic drug level monitor KRISTINE Velasquez 03/09 [place] Outpatient Encounter [id number] 03/15 [place] [id number] Diagnos is: ICD-10- CM M25.532 Pain in left wrist JACQUELYN SANTOS 03/16 [place] 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[employer]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 [id number] Diagnos is: ICD-10- CM Z71.81 Spiritu al or religio us counseling services director ERNESTO Kaminski PH G 03/16 [place] [id number] Diagnos is: ICD-10- CM Z01.818 Encount er for other preproc edural examina tion AMALIA GONZALEZ 03/16 [place] Outpatient Encounter [id number] AMALIA GONZALEZ 03/16 [place] Outpatient Encounter [id number] NAT ESTES MUKUND C 03/16 [place] CARPAL TUNNEL SURGERY [id number] KATY EDWARDS M 03/16 [place] [facility] En[facility] [id number] AMALIA GONZALEZ S 03/16 [place] HC PRO PHONE CALL 5-10 MIN [id number] Diagnos is: ICD-10- CM Z98.890 Other specifi ed postpro cedural states RAND KNOTT RRI C 03/17 [place] POSTOP FOLLOW-UP VISIT [id number] Diagnos is: ICD-10- CM M25.532 Pain in left wrist JAKI LOZA B 03/31 [place] OFF/OP CONSLTJ NEW/EST HI 55 [id number] Diagnos is: ICD-10- CM K62.5 Hemorrh age of anus and rectum DWIGHT EUCEDA 03/31 [place] Outpatient Encounter [id number] 04/01 [place] Outpatient Encounter [id number] CASI OMALLEY 09/13 [place] [facility] RO[facility]AY STEELE [facility] Outpatient Encounter [id number] Diagnos is: ICD-10- CM M79.673 Pain in unspeci fied foot FLAREY,ANT HONY THIERNO 10/05 RAJ STEELE [facility] Outpatient Encounter [id number] Diagnos is: ICD-10- CM M79.673 Pain in unspeci fied foot LIZETH MILTON 10/05 [place] OFFICE O/P NEW LOW 30 MIN [id number] Diagnos is: ICD-10- CM Q66.52 Congeni wesley pes planus, left foot WANG,AL EXANDER 11/27 [place] [facility] Outpatient Encounter [id number] 12/28 [place] [facility] Out[facility] Encounter [id number] 03/07 [place] Outpatient Encounter [id number] 04/11 [place] [facility] Procedures Combined list of: 1) Procedures from Department of Veterans Affairs facilities going back up to thelast 18 months, not all [place] non-surgical procedures are included; 2) All procedures from the Department of Defense facilities. Procedure Procedure Type Code Date Perfomer Comments Sourmaru e OPEN LEFT CARPAL TUNNEL RELEASE CARPAL TUNNEL SURGERY [id number] 03/16/2023 KAREL EDWARDS Other Procedure CPT Code(s): LT-LEFT SIDE, GR-SERVICE BY [facility] RESIDENT [facility] OPEN RIGHT CARPAL TUNNEL RELEASE CARPAL TUNNEL SURGERY [id number] 12/15/2022 NESTOR VAZQUEZ Other Procedure CPT Code(s): RT-RIGHT SIDE, GR-SERVICE BY [place] RESIDENT [facility] Social History Combined list of available smoking, tobacco, and other social history from Department of Defense and Veterans Affairs facilities. Social History Type Response Date Comment Source Tobacco smoking status NHIS [place]-TOBACCO USER EVERY DAY 03/03/2023 [facility] History of tobacco use SD-TOBACCO DOESNT USE WI 30 MIN WAKEUP 03/03/2023 [facility] History of tobacco use SD-TOBACCO FORMER USER 01/14/2022 [facility] History of tobacco use SD-TOBACCO USER EVERY DAY 05/08/2020 [facility] History of tobacco use SD-TOBACCO USER EVERY DAY 07/19/2018 [facility] History of tobacco use V9 CURRENT TOBACCO USER 08/17/2017 [facility] History of tobacco use V9 QUIT TOBACCO IN THE LAST 12 MONTHS 07/19/2016 [facility] History of tobacco use V9 CURRENT TOBACCO USER 08/27/2015 [facility] History of tobacco use V9 CURRENT TOBACCO USER 08/16/2014 [facility] History of tobacco use V9 QUIT TOBACCO IN THE LAST 12 MONTHS 12/08/2012 [facility] History of tobacco use V9 QUIT TOBACCO IN THE LAST 12 MONTHS 04/20/2012 [facility] History of tobacco use V9 QUIT TOBACCO IN THE LAST 12 MONTHS 01/28/2012 [facility] History of tobacco use V9 CURRENT TOBACCO USER 12/20/2011 [facility] History of tobacco use V9 CURRENT TOBACCO USER 01/25/2011 quit two months ago [facility] History of tobacco use V9 QUIT TOBACCO >7 YEARS AGO 09/15/2009 [facility] Plan of Care List of future care activities from Department of [facility] facilities. Additional future care activities may be listed in the Assessment and Plan section. Date/Time Care Activity Care Activity Detail Facili ty 06/13/2024 AMBULATORY - NONE AMBULATORY - NONE [facility]
--- OUTSIDE RECORDS SUMMARY | 2024-06-11 08:16 | XMS_ITS | Encounter Summary ---
Author Name [facility] [place] [facility] [place] Address [address] [place] [address] Care Team Providers Care Farm Demonstrator Name Role Phone DONNIE GERMAN Primary Care [...] PART B Aug 28, 2009 PART B [id number] [phone] CASI MARS PATIENT MEDICARE (WNR) MEDICARE (M) PART B Aug 28, 2009 PART B [id number] CASI MARS PATIENT MEDICARE (WNR) MEDICARE (M) PART B Aug 28, 2009 PART B [id number] [id number] CASI MARS PATIENT MEDICARE (WNR) MEDICARE (M) PART A Jan 29, 2008 PART A [id number] CASI MARS PATIENT MEDICARE (WNR) MEDICARE (M) PART A Jan 29, 2008 PART A [id number] CASI MARS PATIENT MEDICARE (WNR) MEDICARE (M) PART A Jan 29, 2008 PART A [id number] CASI MARS PATIENT MEDICARE PART D (WNR) PRESCRIPT ION PART D Feb 28, 2014 PART D [id number] CASI MARS PATIENT Selected Encounter This section includes the information on record at [place] for the Encounter. Date/Time Encounter Type Encounter Description Reason Pro vider Source Apr 11, 2024 12:57 PM Outpatient Encounter ADMIN PAT ACTIVTIES (MASNONCT) IHE Encounter Template Text not used by [place] Plan of Treatment: Future Appointments (+ 6 months) and Future Tests (+/- 45 days) The Plan of Treatment section includes future care activities for the patient from all [place] treatmentfacilities. This section includes future appointments and future orders which are active, pending or scheduled. Future Appointments This section includes appointments that were scheduled to occur 6 months from the date of the Encounter, up to a maximum of 20 appointments. The data comes from all [place] treatment facilities. Appointment Date/Time Appointment Type Appointme nt Facility Name May 21, 2024 09:20 AM AMBULATORY - SURGERY [facility] Jun 13, 2024 10:00 AM AMBULATORY - NONE [place] [facility] Encounter Notes: All associated encounter notes This section contains the clinical notes associated to the Encounter. Date/Time Encounter Note(s) Provider Source Apr 11, 2024 04:38 PM ADDENDUM: LOCAL TITLE: Addendum STANDARD TITLE: ADDENDUM DATE OF NOTE: APR 11, 2024@16:38:20 ENTRY DATE: APR 11, 2024@16:38:21 AUTHOR: DONNIE GERMAN COSIGNER: URGENCY: STATUS: COMPLETED Received refill request for viagra as above. Kyle last seen in [place] [facility] 02/2023, >1yr ago. Refill request denied. to maintain routine/annual follow up for safe prescribing practice. Kyle did not respond to scheduling attempts 02/2024. Carly, please schedule for next available F/U. Thank you! /mele GERMAN STAFF PHYSICIAN Signed: 04/11/2024 16:39 Receipt Acknowledged By: 04/12/2024 14:12 /mele ORTIZ Advanced Crop And Soil Scientist --- Original Document --- 04/11/24 [facility] PHARM[facility]Y RENEWAL NOTE: Signature Ready Order Progress Note Date Title Author (and Author's Title) MAR 03, 2023@09:32 PC PROGRESS NOTE DONNIE GERMAN (STAFF PHYSICI AUG 16, 2013@11:25 NURSE PRACTITIONER PRO CRISTÓBAL WALKER (A R N P) 1) Rx#: SILDENAFIL CITRATE 100MG TAB 2) Rx#: 3) Rx#: 4) Rx#: 5) Rx#: Original Prescriber: Pharmacy received request via: /sanchez/ Katlyn Martin CPhT Pharmacy Ichthyologist Signed: 04/11/2024 12:57 04/12/2024 ADDENDUM STATUS: UNSIGNED You may not VIEW this UNSIGNED Addendum. [facility] Apr 11, 2024 12:57 PM PHARMACY NOTE: LOCAL TITLE: S[facility]ATURE [facility]Y PHARMACY RENEWAL NOTE STANDARD TITLE: PHARMACY NOTE DATE OF NOTE: APR 11, 2024@12:57 ENTRY DATE: APR 11, 2024@12:57:48 AUTHOR: KATLYN MARTIN COSIGNER: URGENCY: STATUS: COMPLETED S[facility] PHARMACY RENEWAL NOTE Has ADDENDA Signature Ready Order Progress Note Date Title Author (and Author's Title) MAR 03, 2023@09:32 PC PROGRESS NOTE DONNIE GERMAN (STAFF PHYSICI AUG 16, 2013@11:25 NURSE PRACTITIONER CRISTÓBAL GUTIÉRREZ (A R N P) 1) Rx#: SILDENAFIL CITRATE 100MG TAB 2) Rx#: 3) Rx#: 4) Rx#: 5) Rx#: Original Prescriber: Pharmacy received request via: /mele Martin CPhT Pharmacy Ichthyologist Signed: 04/11/2024 12:57 04/11/2024 ADDENDUM STATUS: COMPLETED Received refill request for viagra as above. last seen in [place] [facility] 02/[facility]23, >1yr ago. Refill request denied. to maintain routine/annual follow up for safe prescribing practice. did not respond to scheduling attempts 02/2024. Carly, please schedule for next available F/U. Thank you! /sanchez/ DONNIE GERMAN STAFF PHYSICIAN Signed: 04/11/2024 16:39 Receipt Acknowledged By: 04/12/2024 14:12 /sanchez/ CARLY ORTIZ Advanced Crop And Soil Scientist 04/12/2024 ADDENDUM STATUS: COMPLETED Contacted by phone, verified last name/last four. The following appointment has been scheduled, per patient desired date and time: MANASA STEVENS 1-2 Jun 13, 2024@10:00 [place] SCHEDULED RECALL PER 10/06/23 RTC ORDER /sanchez/ CARLY ORTIZ Advanced Crop And Soil Scientist Signed: 04/12/2024 14:13 KATLYN [facility]ARTIN[facility]
--- OUTSIDE RECORDS SUMMARY | 2024-06-11 08:16 | XMS_ITS | Encounter Summary ---
Author Name [facility] [place] [facility] [place] [facility] [place] Address [address] [place] [address] Care Team Providers Care Cigarette Book Maker Name Role Phone DONNIE GERMAN Primary Care [...] PART B Aug 28, 2009 PART B [id number] CASI MARS PATIENT MEDICARE (WNR) MEDICARE (M) PART B Aug 28, 2009 PART B [id number] CASI MARS PATIENT MEDICARE (WNR) MEDICARE (M) PART B Aug 28, 2009 PART B [id number] CASI MARS PATIENT MEDICARE (WNR) MEDICARE (M) PART A Jan 29, 2008 PART A [id number] CASI MARS PATIENT MEDICARE (WNR) MEDICARE (M) PART A Jan 29, 2008 PART A [id number] [phone] CASI MARS PATIENT MEDICARE (WNR) MEDICARE (M) PART A Jan 29, 2008 PART A [id number] CASI MARS PATIENT MEDICARE PART D (WNR) PRESCRIPT ION PART D Feb 28, 2014 PART D [id number] CASI MARS PATIENT Selected Encounter This section includes the information on record at [place] for the Encounter. Date/Time Encounter Type Encounter Description Reason Pro vider Source Mar 07, 2024 01:38 PM Outpatient Encounter ADMIN PAT ACTIVTIES (MASNONCT) IHE Encounter Template Text not used by [place] Plan of Treatment: Future Appointments (+ 6 months) and Future Tests (+/- 45 days) The Plan of Treatment section includes future care activities for the patient from all [place] treatmentfacilities. This section includes future appointments and future orders which are active, pending or scheduled. Future Appointments This section includes appointments that were scheduled to occur 6 months from the date of the Encounter, up to a maximum of 20 appointments. The data comes from all [place] treatment facilities. Appointment Date/Time Appointment Type Appointme nt Facility Name May 21, 2024 09:20 AM AMBULATORY - SURGERY [place] [facility] Jun 13, 2024 10:00 AM [facility] Encounter Notes: All associated encounter notes This section contains the clinical notes associated to the Encounter. Date/Time Encounter Note(s) Provider Source Mar 07, 2024 01:39 PM PRIMARY CARE RADHA RS: LOCAL TITLE: PC LETTER FOLLOW UP/PAST RECALL/INACTIVE STANDARD TITLE: PRIMARY CARE LETTERS DATE OF NOTE: MAR 07, 2024@13:39 ENTRY DATE: MAR 07, 2024@13:39:38 AUTHOR: CARLY ORTIZ COSIGNER: URGENCY: STATUS: COMPLETED [address] [address] [address] Mr. BOLA MARS [address] [place], [place] [address] MAR 07, 2024 Dear Anjelica BOLA MARS, Our Records indicate you are due for an appointment in primary care. We value you as a patient, and are concerned about your overall health. Patients are encouraged to see their Primary Care Provider annually to maintain their health care needs. If you would like to be seen and maintain enrollment in Primary Care, please contact our Telephone Care Program at or local [phone] to schedule an appointment. If you do not wish to be seen, please call the same number listed above, and let us know. We look forward to hearing from you soon. Sincerely, /sanchez/ CARLY ORTIZ Advanced Product Safety Administrator Patient Record Number [id number] [facility] Mar 07, 2024 01:38 PM ADMINISTRATIVE NOT E: LOCAL TITLE: CLERICAL/ADMIN NOTE STANDARD TITLE: ADMINISTRATIVE NOTE DATE OF NOTE: MAR 07, 2024@13:38 ENTRY DATE: MAR 07, 2024@13:39:01 AUTHOR: CARLY ORTIZ EXP COSIGNER: URGENCY: STATUS: COMPLETED Attempted to contact patient to schedule due recall for PCP and no answer. Left HIPAA friendly message for patient to call back for scheduling. Letter sent. /mele ORTIZ Advanced Product Safety Administrator Signed: 03/07/2024 13:39 [facility]
--- OUTSIDE RECORDS SUMMARY | 2024-06-11 08:17 | XMS_ITS | Encounter Summary ---
Author Name [facility] [place] [facility] [place] [facility] [place] Address [address] [place] [address] Care Team Providers Care Support Representative Name Role Phone DONNIE GERMAN Primary Care [...] PART B Aug 28, 2009 PART B [id number] CASI MARS PATIENT MEDICARE (WNR) MEDICARE (M) PART B Aug 28, 2009 PART B [id number] [id number] CASI MARS PATIENT MEDICARE (WNR) MEDICARE (M) PART B Aug 28, 2009 PART B [id number] CASI MARS PATIENT MEDICARE (WNR) MEDICARE (M) PART A Jan 29, 2008 PART A [id number] CASI MARS PATIENT MEDICARE (WNR) MEDICARE (M) PART A Jan 29, 2008 PART A [id number] CASI MARS PATIENT MEDICARE (WNR) MEDICARE (M) PART A Jan 29, 2008 PART A [id number] CASI MARS PATIENT MEDICARE PART D (WNR) PRESCRIPT ION PART D Feb 28, 2014 PART D [id number] CASI MARS PATIENT Selected Encounter This section includes the information on record at [place] for the Encounter. Date/Time Encounter Type Encounter Description Reason Provider Source Oct 06, 2023 12:30 PM Outpatient Encounter ADMIN PAT ACTIVTIES (MASNONCT) ICD-10-CM M79.673 Pain in unspecified foot FLAREY,TERRANCE PA IHE Encounter Template Text not used by [place] Assessments - Encounter Diagnoses This section includes the primary and secondary diagnoses documented for the Encounter. 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 This section includes future appointments and future orders which are active, pending or scheduled. Future Appointments This section includes appointments that were scheduled to occur 6 months from the date of the Encounter, up to a maximum of 20 appointments. The data comes from all [place] treatment facilities. Appointment Date/Time Appointment Type Appointme nt Facility Name Nov 28, 2023 10:40 AM AMBULATORY - SURGERY [facility] Radiology Reports: +/- 30 days of the encounter Radiology Reports For cases when an order for radiology services may have been completed prior to the date of the Encounter, the report list includes the Radiology Reports that were completed up to 30 days before dateof the Encounter. For cases when an order for radiology services may have been completed after the date of the Encounter, the report list also includes the Radiology Reports that were completed up to30 days after date of the Encounter. The data comes from all [place] treatment facilities. 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 Possible bone mineral loss. Primary Diagnostic Code: NO ALERT REQUIRED Primary Interpreting Staff: PADILLA NEWELL, RADIOLOGIST Verified by home administrator for PADLILA NEWELL /LYN NEWELL,PADILLA [facility] Sep 20, 2023 10:44 AM FOOT-RIGHT 3 OR MO RE VIEWS: BOLA MARS [id number] -[id number] M Exm Date: SEP 20, 2023@10:44 Req Phys: RIGOBERTO MILTON Pat Loc: MANASA-V09 CVT RITA BARBAT PT (Re Img Loc: CDD RADIOLOGY Service: [place] [address] (Case [id number] COMPLETE) FOOT-RIGHT 3 OR MORE VIEWS (RAD Detailed) CPT:25314 Reason for Study: foot pain Clinical History: Report Status: Verified Date Reported: SEP 20, 2023 Date Verified: SEP 20, 2023 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 Possible bone mineral loss. Primary Diagnostic Code: NO ALERT REQUIRED Primary Interpreting Staff: PADILLA NEWELL, RADIOLOGIST Verified by home administrator for PADILLA NEWELL /LYN NEWELL,PADILLA [facility] Encounter Notes: All associated encounter notes This section contains the clinical notes associated to the Encounter. Date/Time Encounter Note(s) Provider Source Oct 06, 2023 08:34 AM PRIMARY CARE NOTE: LOCAL TITLE: V9 [facility] PRIMARY CARE NOTE STANDARD TITLE: PRIMARY CARE NOTE DATE OF NOTE: OCT 06, 2023@08:34 ENTRY DATE: OCT 06, 2023@08:35:06 AUTHOR: RIGOBERTO MILTON EXP COSIGNER: URGENCY: STATUS: COMPLETED PRIMARY CARE CL[facility] Telephone [ ]New patient [ ]Follow-up [X]Interim/Walk-in Patient identity confirmed with: Full name: BOLA MARS Full SSN#: [id number] : Sep Location: Home address: Mr. BOLA MARS [address] [place] [address] Other Emergency contact: Radha Emergency Use Only: [id number] Instructions Verbal consent obtained for the virtual visit. [place] was given the option to be seen [id number], or other visit modality. was also given the option to decline a virtual visit. Patient accompanied by: No one CHIEF COMPLAINT: Foot pain HPI: === 57 year old DECLINED TO ANSWER MALE is contacted by phone for foot pain. with bilateral foot pain. Right greater than left. Right heel pain worsening and that his foot turns inward when he walks x 2 years. He indicates a pain level of 6. No new trauma, redness or edema REVIEW OF SYSTEMS: The Following Systems have been reviewed. General: No fever, No chills, No fatigue Skin: No rash Eyes: No diplopia, No change in vision ENT: No vertigo, No tinnitus, No epistaxis Respiratory: No cough, No SOA, No hemoptysis Cardiac: No chest pain, No palpitations GI: No nausea, No vomiting, No diarrhea : No dysuria, No hematuria Endoscrine: No heat/cold intolerance, No polyuria Hematology: No new bruising, No prolonged bleeding Neuro: No bowel\bladder incontinence,No focal motor weakness Psychiatry: No depression, No SI, No HI NON-[place] PROVIDERS:PCP: ALANIS Gunderson in [facility] (PRIOR) CARDIOLOGY: Dr. aBca with [facility] in [facility] PAIN: [facility] PAST MEDICAL AND SURGICAL HISTORY: Hypertension, hyperlipidemia, coronary artery disease with history of myocardial infarction, right lower extremity DVT, insomnia, hypercoagulable state, erectile dysfunction, Bilateral carpal tunnel release ====== Colonoscopy: 12/2015 at [facility] with fairly severe spasticity and toruosity of colon. Revealed internal/external hemorroids, mild sigmoid diverticulosis, 8mm sessile polyp, pedunculated polyp, polyp. No pathology reports provided. Recommended likely repeat 1-2 years due to size/nature of polyps/tortuosity/spasticit y (records uploaded into [facility]). 02/2020 during local inpatient admission for partial SBO with grade 2 internal hemorrhoids. No polyps. FAMILY HISTORY Father living at age 80, healthy apart from back problems . Mother at age 42 from stroke and likely unrecognized clotting disorder. Multiple siblings with DM. Multiple siblings with blood clots. No known FHx of colon CA. No known FHx of prostate CA. SOCIAL HISTORY: SERVICE: [employer] x 18.5yrs. Medically discharged due to heart disease per . HOME/FAMILY: Lives in [facility] with his . He has 1 son who lives in [facility]. TOBACCO: Former cigarette smoker x 8 years. Switched to cigars approximately 2017. Currently smoking 2 cigars daily, intermittent 1-2 cigarettes daily with this as well. ALCOHOL: Denies. ILLICITS: Previously smoked crack cocaine, quit on his own in 2012. Has never participated in rehabilitation. No use since 2012. No Hx IVDU. ALLERGIES: ========= Patient has answered NKA OBJECTIVE: ========= Temperature: 99.0 F [37.2 C] (03/31/2023 12:26) Pulse: 65 (03/31/2023 12:26) Respiration: 18 (03/31/2023 12:00) Blood Pressure: 138/77 (03/31/2023 12:26) Pulse Oximetry: 97% (03/31/2023 12:26) Weight: 207.0 lb [93.89 kg] (03/31/2023 12:00) Height: 66 in [167.6 cm] (03/03/2023 09:33) BMI: BODY MASS INDEX - 33.5 Pain Assessment: 6 (03/31/2023 12:00) PHONE VISIT: Exam not indicated for this evaluation. Test Results: -- 09/20/2023 11:51 Procedure Name FOOT-LEFT 3 OR MORE VIEWS Reason for Study Foot pain Impression Mild bilateral hallux valgus deformity. Mild arthritic change in the MTP joint of the left great toe. Possible bone mineral loss. Report Bilateral feet CLINICAL INFORMATION: Foot pain FINDINGS: No prior exams are available for [...] No focal soft tissue abnormality is evident. Exam Date/Time 09/20/2023 10:44 Procedure Name FOOT-RIGHT 3 OR MORE VIEWS Reason for Study foot pain Impression Mild bilateral hallux valgus deformity. Mild arthritic change in the MTP joint of the left great toe. Possible bone mineral loss. FINDINGS: No prior exams are available for [...] No focal soft tissue abnormality is evident. ASSESSMENT AND PLAN: 1. Bilateral foot pain with calcaneal enthesophytes.-Will consult podiatry for further evaluation and treatment/shoe inserts 2. History of chronic right lower extremity DVT with hypercoagulable state- on lifelong anticoagulation PCP Follow-up: 3 to 4 months Time spent: Chart review, notes, encounter, orders, phone call [X] 30 mins [ ] 45 mins [ ] 60 mins was instructed to call [facility] or utilize Secure Message for questions or concerns. also educated on use of [facility] or ER for acute or worsening symptoms. /sanchez/ RIGOBERTO MILTON Staff Physician Signed: 10/06/2023 12:41 RIGOBERTO MILTON-[facility]
--- NOTE | 2024-06-11 08:30 | FL_ITS ---
FINAL REPORT CLINICAL HISTORY: blood in stool, abd pain, ft 1:11 dap 1976.07 FINDINGS: SMALL BOWEL FOLLOW THROUGH HISTORY: . Acute intermittent generalized abdominal pain. Blood in stool. PROCEDURE: The patient ingested barium. Spot and overhead films were obtained. FINDINGS: The assembly inspector helper film is unremarkable. The transit time to the colon is normal. The mucosal fold pattern is normal. Spot images of the terminal ileum are unremarkable. Fluoro time: 1.1 minutes DAP: 1975.07 uGy.m2 IMPRESSION: Normal small bowel follow-through. Reviewed, Interpreted and Dictated by Wellington Davenport MD Transcribed by ALANIS Larios Authenticated and [facility]
[2024-06-11] MEDS: DIATRIZOATE MEG 66% & DIATRIZOATE NA 10% 30ML UDC 30 ML PO (08:46)
[2024-06-11] MEDS: BARIUM SULFATE(LIQUID E-Z-PAQUE);355ML BOTTLE 355 ML PO (08:46)
== END 2024-06-11 23:59 | disposition home or self-care (01) ==
LOC: RAD 08:14
PROVIDERS: PCP Internal Medicine; Visit Provider Internal Medicine Gastroenterology
DX: K92.1 Melena (principal); R10.84 Generalized abdominal pain; K59.00 Constipation, unspecified; R63.4 Abnormal weight loss; Z68.29 Body mass index [BMI] 29.0-29.9, adult
CPT/HCPCS: 74250; Q9963

== ENCOUNTER 2024-09-20 15:12 | Outpatient (CLI) | payer MEDICARE, SELFPAY ==
--- OUTSIDE RECORDS SUMMARY | 2024-09-20 09:22 | XMS_ITS | Continuity of Care Document ---
Author Name [facility] Organization [facility] Care Team Providers Care Financial Reporting Advisor Name Role Phone [facility] Unavailable Unavailable Problems Combined list of problems from Department of Defense and [facility] facilities. It does not include entries that were removed or entered in error. Problem Status Onset Date Problem Type Date of Resolution Comments Source Benign essential hypertension Active Condition [facility] Benign prostatic hyperplasia Active Condition [facility] Carpal Tunnel Syndrome * (ICD-9-CM 354.0) Active Condition [facility] Chronic deep venous thrombosis of lower extremity Active Condition [facility] Chronic Low Back Pain (ICD-9-CM 724.2) Active Condition Sep 15 0 Entered By: AGAPITO WALKER IE A Comment: Goes to Narcotic Management: Dr. Reyes on [facility]. [facility] Cocaine dependence (ICD-9-CM 304.20/304.21) Active Condition [facility] Coronary arteriosclerosis Active Condition [facility] Deep Vein Thrombosis Active Condition L [facility] Depressive Disorder NOS * (DSM-IV 311/ICD-9-CM 311./300.4) Active Condition [facility] Essential Hypertension (ICD-9-CM 401.9) Active Condition [facility] FAMILY HISTORY Active Condition Aug 282009 Entered By: AGAPITO WALKER IE A Comment: Mom age 42: CVA and blood clots.Sep 15, 2009 Entered By: AGAPITO WALKER IE A Comment: Sibs: 2 with blood clots.Sep 15, 2009 Entered By: AGAPITO WALKER IE A Comment: Dad alive 71: HTN [facility] Gastroesophageal reflux disease Active Condition [facility] Gastroesophageal reflux disease Active Condition [facility] Health Maintenance Active Condition J 2009 Entered By: AGAPITO WALKER IE A Comment: 'Hole ' in heart:Sep 15, 2009 Entered By: AGAPITO WALKER IE A Comment: Last cxr: 2 months ago nl.Sep 15, 2009 Entered By: AGAPITO WALKER IE A Comment: Patient had chicken pox as a child. [facility] History of male erectile disorder Active [place] [facility] Hypercoagulability state [facility] Hyperproteinemia Active [place] Lack of Housing (ICD-9-CM V60.0) [facility] Low back pain [facility] Lower urinary tract symptoms due to benign prostatic hypertrophy [facility] Mixed hyperlipidemia Active Condition L [facility] Myocardial Infarction Active Condition Sep 15, 2009 Entered By: AGAPITO WALKER IE A Comment: OR 1998, .Sep 15, 2009 Entered By: AGAPITO WALKER IE A Comment: Internal defibrillator was recommended but declined. [facility] Old myocardial infarction Active Condition [facility] Social History Active Condition Aug 282009 [...] WALKER IE A Comment: No street drugs. [facility] Surgical History Active Condition Sep 15, 2009 Entered By: AGAPITO WALKER IE A Comment: bowel Surgery 2002 intestinal torsion.Sep 15, 2009 Entered By: AGAPITO WALKER IE A Comment: Lumbar Back Surgery L4-5. 2009 Entered By: AGAPITO WALKER IE A Comment: Appy 2003 [facility] Tobacco dependence in remission Active Condition [facility] Tobacco dependence syndrome (SNOMED CT [id number]) Active Condition [facility] Tobacco use Active Condition [facility] Vitamin D Deficiency Active Condition Sep 21, 2009 Entered By: AGAPITO WALKER Comment: Start Treatment: 09/23/09 [facility] Diagnosis: ICD-10-CM I10 Essential (primary) hypertension Active Diagnosis [facility] Diagnosis: ICD-10-CM 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 Diagnosis: ICD-10-CM M79.673 Pain in unspecified foot Active Diagnosis [facility] Diagnosis: ICD-10-CM K62.5 Hemorrhage of anus and rectum Active Diagnosis [facility] Diagnosis: ICD-10-CM M25.532 Pain in left wrist Active Diagnosis [facility] Medications Combined list of outpatient medications from Department of Defense and [facility] Affairs facilities.Medications provided include 1) outpatient medications from the last 15 months, and 2) patient-reported medications. Medication Details Route Status Patient Instructions Prescription Expires Prescription Number Last Dispense Date Ordering Provider Order Date Order Qty Source GABAPENTIN 400MG CAP TAKE 2 CAPSULES BY MOUTH DAILY ORAL ACTIVE DONNIE GERMAN 2024 [place] [facility] HYDROCODONE 10MG/ACETAM INOPHEN 325MG TAB TAKE ONE TABLET BY MOUTH EVERY 6 HOURS NEEDED ORAL ACTIVE DAVID ROTH 2014 [place] [facility] METOPROLOL TARTRATE 100MG TAB TAKE ONE-HALF TABLET BY MOUTH TWICE A DAY FOR BLOOD PRESSURE /HEART ORAL DISCONT INUED (EDIT) 12/29/2024 [id number] DONNIE DOSS 2023 90 [place] METOPROLOL TARTRATE 25MG TAB TAKE ONE TABLET BY MOUTH TWICE A DAY FOR BLOOD PRESSURE /HEART ORAL ACTIVE 06/14/2025 [id number] DONNIE DOSS 2024 180 [place] [facility] RIVAROXABAN 20MG TAB TAKE ONE TABLET BY MOUTH DAILY TO THIN BLOOD. TAKE WITH EVENING MEAL. CALL [facility] WITH QUESTION S OR CONCERNS TO THIN BLOOD. ORAL DISCONT INUED BY PROVIDE R 10/11/2024 [id number] Mahesh THURMAN 2023 90 [place] [facility] RIVAROXABAN 20MG TAB TAKE ONE TABLET BY MOUTH DAILY TO THIN BLOOD TO THIN BLOOD. TAKE WITH EVENING MEAL. CALL [facility] WITH QUESTION S OR CONCERNS TO THIN BLOOD. CALL [facility] WITH QUESTION S OR CONCERNS ORAL DISCONT INUED 03/09/2024 [id number] Mahesh THURMAN 2023 60 [place] [facility] SILDENAFIL CITRATE 100MG TAB TAKE ONE TABLET BY MOUTH DIRECTED FOR ERECTILE DYSFUNCT ION DO NOT TAKE WITH ANY MEDICATI ON CONTAINI NG NITRATES (LIMIT: 6 DOSES/30 DAYS OR 18DOSES/ 90 DAYS, NON-REPL ACEABLE MEDICATI ON) ORAL 03/04/2024 [id number] DONNIE GERMAN 2023 18 [place] [facility] TRAZODONE HCL 50MG TAB TAKE ONE TABLET BY MOUTH AT BEDTIME ORAL ACTIVE DONNIE GERMAN 2023 [facility] Immunizations Combined list of available immunizations from the Department of Defense and [facility] facilities. Immunization Series Date Given Administered By Site Reaction Lot Number CVX Code Drug Congressional Representative Status Comments Source INFLUENZA, SPLIT VIRUS, TRIVALENT, PF 2024 CHELSI SUBRAMANIAN LEFT DELTO ID [id number] 140 complet ed [facility] [place] [facility] [place], [place] [facility] PNEUMOCOCCAL CONJUGATE PCV20, POLYSACCHARID E [id number] CONJUGATE, ADJUVANT, PF 2024 CHELSI SUBRAMANIAN RIGHT DELTO ID [id number] 216 complet ed [facility]ISTE [place] [facility] [place], [facility] COVID-19 (PFIZER), MRNA, LNP-S, PF, SARAH-SUCROSE, 30 MCG/0.3 ML (AGES 12+ YEARS) 1 2023 CHELSI SUBRAMANIAN RIGHT DELTO ID [id number] 309 complet ed [facility] [place], [place] [facility] INFLUENZA, INJECTABLE, QUADRIVALENT, PRESERVATIVE FREE 2023 CHELSI SUBRAMANIAN LEFT DELTO ID [id number] 150 complet ed [facility]MINISTE [place], [place] [facility] [place] TDAP 2 2022 115 complet ed HISTORICA L INFORMATI ON - FROM OTHER REGISTRY, [place] [facility] ([facility]), MRNA, LNP-S, BIVALENT BOOSTER, PF, 30 MCG/0.3 ML DOSE 1 2021 300 complet ed PFR; [id number]; 3 [place] [facility] [place] INFLUENZA, INJECTABLE, QUADRIVALENT, PRESERVATIVE FREE 2021 150 complet ed [place] [facility] ZOSTER RECOMBINANT 2 2021 187 complet ed HISTORICA L INFORMATI ON - FROM OTHER REGISTRY, [place] [facility] ZOSTER RECOMBINANT 1 2021 187 complet ed HISTORICA L INFORMATI ON - FROM OTHER REGISTRY, [place] [facility] COVID-19 ([employer]), MRNA, LNP-S, PF, 30 MCG/0.3 ML DOSE 3 2020 208 complet ed HISTORICA L INFORMATI ON - FROM OTHER REGISTRY, [place] [facility] COVID-19 ([employer]), MRNA, LNP-S, PF, 30 MCG/0.3 ML DOSE 2 2020 208 complet ed PFR; [id number]; 1 [place] [facility] COVID-19 (PFIZER), MRNA, LNP-S, PF, 30 MCG/0.3 ML DOSE 1 2020 208 complet ed PFR; [id number]; 1 [place] [facility] INFLUENZA A & B (HISTORICAL) 2015 88 complet ed [place] [facility] FLU,3 YRS (HISTORICAL) 2014 88 complet ed [place] [facility] [id number] (HISTORICAL) 2014 33 complet ed [place] [facility] PNEUMOCOCCAL, UNSPECIFIED FORMULATION 2014 109 complet ed [place] [facility] [place] DTP 2013 01 complet ed [place] [facility] TDAP (HISTORICAL) 2013 115 complet ed [place] [facility] FLU,3 YRS (HISTORICAL) 2012 88 complet ed [place] [facility] FLU,3 YRS (HISTORICAL) 2011 88 complet ed [place] [facility] INFLUENZA A & B (HISTORICAL) 2011 88 complet ed [place] [facility] FLU,3 YRS (HISTORICAL) 2010 88 complet ed [place] INFLUENZA A & B (HISTORICAL) 2009 88 complet ed [place] [facility] [place] TD(ADULT) UNSPECIFIED FORMULATION 2009 139 complet ed [place] [facility] TD (ADULT), 2 LF TETANUS TOXOID, PRESERVATIVE FREE, ADSORBED 1 1996 09 complet ed HISTORICA L INFORMATI ON - FROM OTHER REGISTRY, [place] [facility] Results Combined list of recent chemistry, hematology and other laboratory results from Department of Defense and Veterans Affairs, ranging from 15 months to all on record, depending upon the facility. Order Name Results Value Reference Range Date Interpretation Specimen Comments Source CBC/PLT LEUKOCYTES [#/VOLUME] IN BLOOD BY AUTOMATED COUNT 3.9 10*3/u L 5.0 - 10.0 06/13 L Specimen Type: BLOOD No comment entered. Ordering Provider: UMANG GERMAN Report Released Date/Time: Jun 13, 2024 09:52 AM Reporting Lab: [facility] [address] [address] Performing Lab: [facility] [address] [address] [facility] CBC/PLT ERYTHROCYTE S [#/VOLUME] IN BLOOD BY AUTOMATED COUNT 4.91 10*6/u L 4.6 - 6.2 06/13 Specimen Type: BLOOD No comment entered. Ordering Provider: UMANG GERMAN Report Released Date/Time: Jun 13, 2024 09:52 AM Reporting Lab: [address] [address] Performing Lab: [address] [id number] [place] [address] CBC/PLT HEMOGLOBIN [MASS/VOLUM E] IN BLOOD 12.6 g/dL 14.0 - 18.0 06/13 L Specimen Type: BLOOD No comment entered. Ordering Provider: UMANG GERMAN Report Released Date/Time: Jun 13, 2024 09:52 AM Reporting Lab: [address] [address] Performing Lab: [place] [id number] [facility] CBC/PLT HEMATOCRIT [VOLUME FRACTION] OF BLOOD BY AUTOMATED COUNT 40.7 42.0 - 52.0 06/13 L Specimen Type: BLOOD No comment entered. Ordering Provider: UMANG GERMAN Report Released Date/Time: Jun 13, 2024 09:52 AM Reporting Lab: [place] [id number] Performing Lab: [place] [id number] [facility] CBC/PLT MCV [ENTITIC VOLUME] BY AUTOMATED COUNT 82.9 fL 80.0 - 94.0 06/13 Specimen Type: BLOOD No comment entered. Ordering Provider: UMANG GERMAN Report Released Date/Time: Jun 13, 2024 09:52 AM Reporting Lab: [address] [address] Performing Lab: [address] [address] [facility] CBC/PLT MCH [ENTITIC MASS] BY AUTOMATED COUNT 25.7 pg 27.0 - 31.0 06/13 L Specimen Type: BLOOD No comment entered. Ordering Provider: UMANG GERMAN Report Released Date/Time: Jun 13, 2024 09:52 AM Reporting Lab: [address] [address] Performing Lab: [place] [id number] [place] [address] CBC/PLT MCHC [MASS/VOLUM E] BY AUTOMATED COUNT 31.0 g/dL 32.0 - 36.0 06/13 L Specimen Type: BLOOD No comment entered. Ordering Provider: UMANG GERMAN Report Released Date/Time: Jun 13, 2024 09:52 AM Reporting Lab: [place] [address] Performing Lab: [place] [id number] [place] [address] CBC/PLT PLATELETS [#/VOLUME] IN BLOOD 244 10*3/u L 150 - 450 06/13 Specimen Type: BLOOD No comment entered. Ordering Provider: UMANG GERMAN Report Released Date/Time: Jun 13, 2024 09:52 AM Reporting Lab: [place] [phone] Performing Lab: [place] [address] [place] [address] CBC/PLT PLATELET MEAN VOLUME [ENTITIC VOLUME] IN BLOOD 8.8 fL 9.0 - 13.1 06/13 L Specimen Type: BLOOD No comment entered. Ordering Provider: UMANG GERMAN Report Released Date/Time: Jun 13, 2024 09:52 AM Reporting Lab: [place] [phone] Performing Lab: [place] [id number] [place] [address] CBC/PLT ERYTHROCYTE DISTRIBUTIO N WIDTH [ENTITIC VOLUME] BY AUTOMATED COUNT 21.2 11.0 - 16.0 06/13 H Specimen Type: BLOOD No comment entered. Ordering Provider: UMANG GERMAN Report Released Date/Time: Jun 13, 2024 09:52 AM Reporting Lab: [place] [id number] Performing Lab: [place] [id number] [place] [address] CBC/PLT NUCLEATED ERYTHROCYTE S/100 ERYTHROCYTE S IN BLOOD 0.0 0.0 - 0.0 06/13 Specimen Type: BLOOD No comment entered. Ordering Provider: UMANG GERMAN Report Released Date/Time: Jun 13, 2024 09:52 AM Reporting Lab: [address] [address] Performing Lab: [address] [address] [facility] GLYCOHEMO GLOBIN HEMOGLOBIN A1C/HEMOGLO BIN.TOTAL IN BLOOD BY HPLC 5.5 4.4 - 5.6 06/13 Specimen Type: BLOOD Comment: Prediabetes : 5.7%-6.4% Diabetes: >= 6.5% [facility] guidelines for A1c interpretat ion: Glycemic control targets are based on Shared Decision Making between clinicians and patients. Criteria used to establish an A1c target recommendat ion can be found at https://www .ms.gov/troy lityandpati entsafety/ and include the use of result accuracy and precision(C V) of the A1c tests clinicians utilize at their own sites of practice. Values obtained from A1C measurement s can vary. For typical A1C assays, a reported value of 7.0 could actually be between 6.72 and 7.28 if measured by a reference method. A reported value of 9.0 could actually be between 8.73 and 9.27. Ref: https://ngs p.org/CAPda ta.asp. The in-house [employer] D-100 analyzer has a historical CV <= 2%. Contact the laboratory for further performance characteris tics of this assay. Ordering Provider: UMANG GERMAN Report Released Date/Time: Jun 13, 2024 09:52 AM Reporting Lab: [address] [address] Performing Lab: [address] [address] [facility] LIPID PROFILE CHOLESTEROL [MASS/VOLUM E] IN SERUM OR PLASMA 156 mg/dL 0 - 199 06/13 Specimen Type: PLASMA Comment: Estimated Glomerular Filtration [...] Ordering Provider: UMANG GERMAN Report Released Date/Time: Jun 13, 2024 09:52 AM Reporting Lab: [facility] [place] [address] [address] Performing Lab: [facility] [address] [address] [facility] LIPID PROFILE TRIGLYCERID E [MASS/VOLUM E] IN SERUM OR PLASMA 66 mg/dL 0 - 149 06/13 Specimen Type: PLASMA Comment: Estimated Glomerular Filtration [...] Ordering Provider: UMANG GERMAN Report Released Date/Time: Jun 13, 2024 09:52 AM Reporting Lab: [facility] [place] [address] [address] Performing Lab: [facility] [place] [address] [address] [facility] LIPID PROFILE CHOLESTEROL IN HDL [MASS/VOLUM E] IN SERUM OR PLASMA 52 mg/dL 40 - 69 06/13 Specimen Type: PLASMA Comment: Estimated Glomerular Filtration [...] Ordering Provider: UMANG GERMAN Report Released Date/Time: Jun 13, 2024 09:52 AM Reporting Lab: [facility] [place] [address] [address] Performing Lab: [facility] [place] [address] [address] [facility] LIPID PROFILE CHOLESTEROL IN LDL [MASS/VOLUM E] IN SERUM OR PLASMA BY DIRECT ASSAY 87 mg/dL 0 - 100 06/13 Specimen Type: PLASMA Comment: Estimated Glomerular Filtration [...] Ordering Provider: UMANG GERMAN Report Released Date/Time: Jun 13, 2024 09:52 AM Reporting Lab: [facility] [address] [facility] [address] Performing Lab: [facility] [address] [facility] [address] [facility] PANEL 5 CREATININE [MASS/VOLUM E] IN SERUM OR PLASMA 0.96 mg/dL 0.72 - 1.25 06/13 Specimen Type: PLASMA Comment: Estimated Glomerular Filtration [...] Ordering Provider: UMANG GERMAN Report Released Date/Time: Jun 13, 2024 09:52 AM Reporting Lab: [facility] [place] [facility] [address] [facility] [address] Performing Lab: MANASAKATELYNFaribaJono [place] [address] [address] [facility] PANEL 5 UREA NITROGEN [MASS/VOLUM E] IN SERUM OR PLASMA 11 mg/dL 06/13 Specimen Type: PLASMA Comment: Estimated Glomerular Filtration [...] Ordering Provider: UMANG GERMAN Report Released Date/Time: Jun 13, 2024 09:52 AM Reporting Lab: [facility] [address] [facility] [address] Performing Lab: [facility] [address] [place] [address] [facility] PANEL 5 GLUCOSE [MASS/VOLUM E] IN SERUM OR PLASMA 93 mg/dL 74 - 100 06/13 Specimen Type: PLASMA Comment: Estimated Glomerular Filtration [...] Ordering Provider: UMANG GERMAN Report Released Date/Time: Jun 13, 2024 09:52 AM Reporting Lab: [facility] [address] [address] Performing Lab: [facility] [place] [address] [address] [facility] PANEL 5 SODIUM [MOLES/VOLU ME] IN SERUM OR PLASMA 140 mmol/L 136 - 145 06/13 Specimen Type: PLASMA Comment: Estimated Glomerular Filtration [...] Ordering Provider: UMANG GERMAN Report Released Date/Time: Jun 13, 2024 09:52 AM Reporting Lab: [facility] [place] [address] [address] Performing Lab: [facility] [address] [address] [facility] 5 POTASSIUM [MOLES/VOLU ME] IN SERUM OR PLASMA 4.3 mmol/L 3.5 - 5.1 06/13 Specimen Type: PLASMA Comment: Estimated Glomerular Filtration [...] Ordering Provider: UMANG GERMAN Report Released Date/Time: Jun 13, 2024 09:52 AM Reporting Lab: [facility] [place] [address] [address] Performing Lab: [facility] [place] [address] [address] [facility] PANEL 5 CHLORIDE [MOLES/VOLU ME] IN SERUM OR PLASMA 107 mmol/L 98 - 107 06/13 Specimen Type: PLASMA Comment: Estimated Glomerular Filtration [...] Ordering Provider: UMANG GERMAN Report Released Date/Time: Jun 13, 2024 09:52 AM Reporting Lab: [facility] [place] [address] [address] Performing Lab: [facility] [place] [address] [address] [facility] PANEL 5 CARBON DIOXIDE, TOTAL [MOLES/VOLU ME] IN SERUM OR PLASMA 25 mmol/L 22 - 29 06/13 Specimen Type: PLASMA Comment: Estimated Glomerular Filtration [...] Ordering Provider: UMANG GERMAN Report Released Date/Time: Jun 13, 2024 09:52 AM Reporting Lab: [facility] [place] [address] [address] Performing Lab: [facility] [place] [address] [address] [facility] PANEL 5 CALCIUM [MASS/VOLUM E] IN SERUM OR PLASMA 8.8 mg/dL 8.4 - 10.2 06/13 Specimen Type: PLASMA Comment: Estimated Glomerular Filtration [...] Ordering Provider: UMANG GERMAN Report Released Date/Time: Jun 13, 2024 09:52 AM Reporting Lab: [facility] [place] [address] [address] Performing Lab: [facility] [place] [address] [address] [facility] PANEL 5 PROTEIN [MASS/VOLUM E] IN SERUM OR PLASMA 7.8 g/dL 6.4 - 8.3 06/13 Specimen Type: PLASMA Comment: Estimated Glomerular Filtration [...] Ordering Provider: UMANG GERMAN Report Released Date/Time: Jun 13, 2024 09:52 AM Reporting Lab: [facility] [place] [address] [address] Performing Lab: [facility] [place] [address] [address] [facility] PANEL 5 ALBUMIN [MASS/VOLUM E] IN SERUM OR PLASMA 4.3 g/dL 3.5 - 5.2 06/13 Specimen Type: PLASMA Comment: Estimated Glomerular Filtration [...] Ordering Provider: UMANG GERMAN Report Released Date/Time: Jun 13, 2024 09:52 AM Reporting Lab: [facility] [place] [address] [address] Performing Lab: [facility] [place] [address] [address] [facility] PANEL 5 BILIRUBIN.T OTAL [MASS/VOLUM E] IN SERUM OR PLASMA 0.4 mg/dL 0.2 - 1.2 06/13 Specimen Type: PLASMA Comment: Estimated Glomerular Filtration [...] Ordering Provider: UMANG GERMAN Report Released Date/Time: Jun 13, 2024 09:52 AM Reporting Lab: [facility] [place] [address] [address] Performing Lab: [facility] [address] [facility] [address] [facility] PANEL 5 ASPARTATE AMINOTRANSF ERASE [ENZYMATIC ACTIVITY/VO LUME] IN SERUM OR PLASMA 21 U/L 5 - 34 06/13 Specimen Type: PLASMA Comment: Estimated Glomerular Filtration [...] Ordering Provider: UMANG GERMAN Report Released Date/Time: Jun 13, 2024 09:52 AM Reporting Lab: [facility] [place] [facility] [address] [facility] [address] Performing Lab: [facility] [address] [facility] [address] [facility] PANEL 5 ALANINE AMINOTRANSF ERASE [ENZYMATIC ACTIVITY/VO LUME] IN SERUM OR PLASMA 15 U/L 0 - 55 06/13 Specimen Type: PLASMA Comment: Estimated Glomerular Filtration [...] Ordering Provider: UMANG GERMAN Report Released Date/Time: Jun 13, 2024 09:52 AM Reporting Lab: [facility] [address] [address] Performing Lab: [facility] [place] [address] [address] [facility] PANEL 5 ANION GAP 3 IN SERUM OR PLASMA 8 meq/L 3 - 19 06/13 Specimen Type: PLASMA Comment: Estimated Glomerular Filtration [...] Ordering Provider: UMANG GERMAN Report Released Date/Time: Jun 13, 2024 09:52 AM Reporting Lab: [facility] [address] [facility] [address] Performing Lab: [facility] [address] [place] [address] [facility] PANEL 5 ALKALINE PHOSPHATASE [ENZYMATIC ACTIVITY/VO LUME] IN SERUM OR PLASMA 69 U/L 40 - 150 06/13 Specimen Type: PLASMA Comment: Estimated Glomerular Filtration [...] Ordering Provider: UMANG GERMAN Report Released Date/Time: Jun 13, 2024 09:52 AM Reporting Lab: [facility] [address] [facility] [address] Performing Lab: [facility] [address] [address] [facility] 5 GLOMERULAR FILTRATION RATE/1.73 SQ M.PREDICTED [VOLUME RATE/AREA] IN SERUM, PLASMA OR BLOOD BY CREATININE- BASED FORMULA (CKD-EPI 2020) >90 06/13 Specimen Type: PLASMA Comment: Estimated Glomerular Filtration [...] Ordering Provider: UMANG GERMAN Report Released Date/Time: Jun 13, 2024 09:52 AM Reporting Lab: [place] [id number] Performing Lab: [place] [phone] [facility] PSA PROSTATE SPECIFIC AG [MASS/VOLUM E] IN SERUM OR PLASMA 0.866 ng/mL 0 - 3.999 06/13 Specimen Type: SERUM No comment entered. Ordering Provider: UMANG GERMAN Report Released Date/Time: Jun 13, 2024 09:52 AM Reporting Lab: [place] [id number] Performing Lab: [place] [id number] [facility] TSH THYROTROPIN [UNITS/VOLU ME] IN SERUM OR PLASMA 1.0100 m[IU]/ mL 0.3500 - 4.9400 06/13 Specimen Type: PLASMA Comment: Estimated Glomerular Filtration [...] Ordering Provider: UMANG GERMAN Report Released Date/Time: Jun 13, 2024 09:52 AM Reporting Lab: [facility] [address] [address] Performing Lab: [facility] [address] [address] [facility] CALPROTEC TIN, STOOL (SRL) CALPROTECTI N [MASS/MASS] [...] Mar 31, 2023 01:44 PM Reporting Lab: [place] [address] Performing Lab: [address] CRP (for acute inflammat ion) C REACTIVE PROTEIN [MASS/VOLUM E] IN SERUM OR PLASMA 1.3 mg/L 0.0 - 5.0 03/31 Specimen Type: PLASMA No comment entered. Ordering Provider: EVERT AGUIAR Report Released Date/Time: Mar 31, 2023 01:44 PM Reporting Lab: [place] [address] Performing Lab: [address] SED RATE (ISED) ERYTHROCYTE SEDIMENTATI ON RATE BY PHOTOMETRIC METHOD 6 mm/h 0 - 20 03/31 Specimen Type: BLOOD No comment entered. Ordering Provider: EVERT AGUIAR Report Released Date/Time: Mar 31, 2023 01:44 PM Reporting Lab: [place] [id number] Performing Lab: [address] CBC/PLT LEUKOCYTES [#/VOLUME] IN BLOOD BY AUTOMATED COUNT 6.5 10*3/u L 5.0 - 10.0 03/31 Specimen Type: BLOOD No comment entered. Ordering Provider: ZOYA THURMAN Report Released Date/Time: Mar 09, 2023 03:24 PM Reporting Lab: [place] [id number] Performing Lab: [address] [address] [facility] CBC/PLT ERYTHROCYTE S [#/VOLUME] IN BLOOD BY AUTOMATED COUNT 4.64 10*6/u L 4.6 - 6.2 03/31 Specimen Type: BLOOD No comment entered. Ordering Provider: ZOYA THURMAN Report Released Date/Time: Mar 09, 2023 03:24 PM Reporting Lab: [address] [address] Performing Lab: [address] [address] [facility] CBC/PLT HEMOGLOBIN [MASS/VOLUM E] IN BLOOD 12.6 g/dL 14.0 - 18.0 03/31 L Specimen Type: BLOOD No comment entered. Ordering Provider: ZOYA THURMAN Report Released Date/Time: Mar 09, 2023 03:24 PM Reporting Lab: [address] [address] Performing Lab: [address] [address] [facility] CBC/PLT HEMATOCRIT [VOLUME FRACTION] OF BLOOD BY AUTOMATED COUNT 40.5 42.0 - 52.0 03/31 L Specimen Type: BLOOD No comment entered. Ordering Provider: ZOYA THURMAN Report Released Date/Time: Mar 09, 2023 03:24 PM Reporting Lab: [address] [address] Performing Lab: [address] [address] [facility] CBC/PLT MCV [ENTITIC VOLUME] BY AUTOMATED COUNT 87.3 fL 80.0 - 94.0 03/31 Specimen Type: BLOOD No comment entered. Ordering Provider: ZOYA THURMAN Report Released Date/Time: Mar 09, 2023 03:24 PM Reporting Lab: [address] [address] Performing Lab: [address] [address] [facility] CBC/PLT MCH [ENTITIC MASS] BY AUTOMATED COUNT 27.2 pg 27.0 - 31.0 03/31 Specimen Type: BLOOD No comment entered. Ordering Provider: ZOYA THURMAN Report Released Date/Time: Mar 09, 2023 03:24 PM Reporting Lab: [address] [address] Performing Lab: [place] [id number] [place] [address] CBC/PLT MCHC [MASS/VOLUM E] BY AUTOMATED COUNT 31.1 g/dL 32.0 - 36.0 03/31 L Specimen Type: BLOOD No comment entered. Ordering Provider: ZOYA THURMAN Report Released Date/Time: Mar 09, 2023 03:24 PM Reporting Lab: [place] [phone] Performing Lab: [address] CBC/PLT PLATELETS [#/VOLUME] IN BLOOD 236 10*3/u L 150 - 450 03/31 Specimen Type: BLOOD No comment entered. Ordering Provider: ZOYA THURMAN Report Released Date/Time: Mar 09, 2023 03:24 PM Reporting Lab: [place] [phone] Performing Lab: [place] [id number] CBC/PLT PLATELET MEAN VOLUME [ENTITIC VOLUME] IN BLOOD 8.1 fL 9.0 - 13.1 03/31 L Specimen Type: BLOOD No comment entered. Ordering Provider: ZOYA THURMAN Report Released Date/Time: Mar 09, 2023 03:24 PM Reporting Lab: [place] [phone] Performing Lab: [place] [phone] [place] [address] CBC/PLT ERYTHROCYTE DISTRIBUTIO N WIDTH [ENTITIC VOLUME] BY AUTOMATED COUNT 15.4 11.0 - 16.0 03/31 Specimen Type: BLOOD No comment entered. Ordering Provider: ZOYA THURMAN Report Released Date/Time: Mar 09, 2023 03:24 PM Reporting Lab: [place] [id number] [facility] [address] Performing Lab: [place] [address] [address] [facility] CBC/PLT NUCLEATED ERYTHROCYTE S/100 ERYTHROCYTE S IN BLOOD 0.0 0.0 - 0.0 03/31 Specimen Type: BLOOD No comment entered. Ordering Provider: ZOYA THURMAN Report Released Date/Time: Mar 09, 2023 03:24 PM Reporting Lab: [place] [id number] [facility] [address] Performing Lab: [facility]NF[address] [address] [address] [facility] Vital Signs Combined list of inpatient and outpatient Vital Signs from Department of [facility] and [facility], ranging from 12 months to all on record, depending upon the facility. Vital Sign Value Date Comments Source SYSTOLIC BLOOD PRESSURE 132 06/13/2024 09:40:53 [facility] DIASTOLIC BLOOD PRESSURE 82 06/13/2024 09:40:53 [facility] PULSE OXIMETRY 99 06/13/2024 09:40:53 [facility] WEIGHT 226 06/13/2024 09:40:53 [facility] BMI 31 kg/m2 06/13/2024 09:40:53 [facility] [facility] PAIN 6 06/13/2024 09:40:53 [place] [facility] HEIGHT 72 06/13/2024 09:40:53 [facility] TEMPERATURE 97.5 06/13/2024 09[facility]40:53 [facility] 60 06/13/2024 09:40:53 [place] [facility] RESPIRATION 18 06/13/2024 09:40:53 [facility] Encounters Combined list of: 1) Encounters from Department of Veterans Affairs facilities going backup to the last 18 months, not all [place] inpatient encounters are included; 2) Encounters from the Department of Defense facilities going backup to 280 months. Location Location Details Encounter Type Encounter Number Reason For Visit Attending Provider ADM Date DC Date Status Disposition Source [facility] POSTOP FOLLOW-UP VISIT [id number] Diagnos is: ICD-10- CM M25.532 Pain in left wrist JAKI LOZA B 03/31 [place] OFF/OP CONSLTJ NEW/EST HI 55 [id number] Diagnos is: ICD-10- CM K62.5 Hemorrh age of anus and rectum DWIGHT EUCEDA 03/31 [place] Outpatient Encounter [id number] 04/01 [place] [facility] Outpatient Encounter [id number] CASI OMALLEYET A 09/13 [place] [facility] Outpatient Encounter [id number] Diagnos is: ICD-10- CM M79.673 Pain in unspeci fied foot FLAREY,ANT HONY THIERNO 10/05 [facility] Outpatient Encounter [id number] Diagnos is: ICD-10- CM M79.673 Pain in unspeci fied foot FLAREY,ANT HONY THIERNO 10/05 [place] OFFICE O/P NEW LOW 30 MIN [id number] Diagnos is: ICD-10- CM Q66.52 Congeni wesley pes planus, left foot FARHAT WANG 11/[address] [place] [address] [facility] Outpatient Encounter [id number] 12/28 [place] [facility] Outpatient Encounter [id number] 03/07 [place] Outpatient Encounter [id number] 04/11 [place] [facility] Outpatient Encounter [id number] 06/[address] [place] [address] [facility] OFFICE O/P EST MOD 30 MIN [id number] Diagnos is: ICD-10- CM I10 Essenti al (primar y) hyperte nsion Brianna GERMNAA A 06/13 [place] [facility] Outpatient Encounter [id number] 07/30 [place] Social History Combined list of available smoking, tobacco, and other social history from Department of Defense and [facility] Affairs facilities. Social History Type Response Date Comment Source Tobacco [facility] 06/13/2024 [facility] 06/13/2024 [facility] 03/03/2023 [facility] 01[facility]14/2022 [facility] 30 MIN WAKEUP 05/08/2020 [facility] > 15 LESS THAN 30 YEARS 07/19/2018 [facility] History of tobacco use V9 CURRENT TOBACCO USER 08/17/2017 [facility] History of tobacco use V9 QUIT TOBACCO IN THE LAST 12 MONTHS 07/19/2016 [facility] History of tobacco use V9 CURRENT TOBACCO USER 08/27/2015 [facility] History of tobacco use V9 CURRENT TOBACCO USER 08/16/2014 [facility] History of tobacco use V9 QUIT TOBACCO IN THE LAST 12 MONTHS 12/08/2012 [facility] History of tobacco use V9 QUIT TOBACCO IN THE LAST 12 MONTHS 04/20/2012 [facility] History of tobacco use V9 QUIT TOBACCO IN THE LAST 12 MONTHS 01/28/2012 [facility] History of tobacco use V9 CURRENT TOBACCO USER 12/20/2011 [facility] History of tobacco use V9 CURRENT TOBACCO USER 01/25/2011 quit two months ago [facility] History of tobacco use 9 QUIT TOBACCO >7 YEARS AGO 09/15/2009 [facility]
--- OUTSIDE RECORDS SUMMARY | 2024-09-20 15:14 | XMS_ITS | Clinical Summary ---
Author Organization Healthcare Address [facility] [place] [address] Care Team Providers Care Truck Loader Name Role Phone Wicho Aguilar MD Primary Care Provider [phone] Allergies Active Allergy Reactions Criticality Noted Date Comments Bee Venom Swelling High 05/18/2023 Social History Tobacco Use Types Packs/Day Years Used Date Smoking Tobacco: Never Assessed Sex and Gender Information Value Date Recorded Sex Assigned at Not on file Legal Sex Male 7:34 PM EDT Gender Identity Not on file Sexual Orientation Not on file Last Filed Vital Signs Vital Sign Reading Time Taken Comments Blood Pressure 160/96 05/18/2023 11:50 PM EDT Pulse 80 05/18/2023 11:50 PM EDT Temperature 36.4 C (97.6 F) 05/18/2023 11:50 PM EDT Respiratory Rate 17 05/18/2023 11:50 PM EDT Oxygen Saturation 96% 05/18/2023 11:50 PM EDT Inhaled Oxygen Concentration - - Weight - - Height - - Body Mass Index - - Plan of Treatment Health Maintenance Due Date Last Done Comments [facility]-Depression Screening 1965 [facility]-Medicare Annual Wellness (AWV) 1965 [facility]-/Child/Adol SDOH Screenings 1965 [facility]- SDOH Screenings 10/28/1983 [facility]-Adult SDOH Screenings 10/28/1983 [facility]-Hepatitis B Vaccines (1 of 3 - 19+ 3-dose series) 1984 CT Colonography 2010 Colonoscopy 2010 FIT-DNA 2010 FIT 2010 FOBT 2010 Sigmoidoscopy 2010 [facility]-Colorectal Cancer Screening 2010 [facility]-Pneumococcal Vaccine: 50+ Years (2 of 2 - PCV) 02/01/2016 01/31/2015, 01/31/2015 [id number] Vaccine ( - season) 2023 03/03/2023, 01/14/2021, 04/30/2020, Additional history exists [facility]-Influenza Vaccine (#1) 10/29/202403/03, 01/14/2022, 11/29/2015, Additional history exists [facility]-DTaP,Tdap,and Td Vaccines (4 - Td or Tdap) 08/23/2032 08/23/2022, 08/16/2013, 08/16/2013, Additional history exists [facility]-Zoster Vaccines Completed 11/20/2021, [facility]-HIV Screening Completed 05/18/2023 [facility]-Hepatitis C Screening Completed 05/18/2023 HPV Vaccines Aged Out No longer eligi ble based on patient's age to complete this topic [facility]-HIB Vaccines Aged Out No longer e ligible based on patient's age to complete this topic [facility]-Hepatitis A Vaccines Aged Out No longer eligible based on patient's age to complete this topic [facility]-IPV Vaccines Aged Out No longer e ligible based on patient's age to complete this topic [facility]-Rotavirus Vaccines Aged Out No lo nger eligible based on patient's age to complete this topic Procedures Procedure Name Priority Date/Time Associated Diagnosis Comments HEPATITIS C ANTIBODY - ED W/REFLEX TO HCV QUANT PCR STAT 05/18/2023 6:37 PM EDT ED HIV 1/2 ANTIBODY/ANTIGEN SCREEN WITH REFLEX TO HIV I/II DIFFERENTIATION STAT 05/18/2023 6:37 PM EDT from Last 3 Months or Most Recently Relevant to Health Maintenance Results * ED HIV 1/2 Antibody/Antigen Screen w/Reflex to HIV 1/2 Differentiation (05/18/2023 6:37 PM EDT) HIV 1 & 2 Antibody/Antigen Screen Non Reactive Non Reactive 05/18/2023 7:58 PM EDT [facility] Comment:Screening for HIV 1 & 2 antibodies, and P24 antigen is NONREACTIVE. No confirmatory testing is required. Blood Venous blood specimen / Unknown Venipuncture / Unknown 05/18/2023 6:37 PM EDT 05/18/2023 7:17 PM EDT us Isma Loving MD LAB BLOOD ORDERABLES Final Resul t [facility] [address] [place] [address] * Hepatitis C Antibody - ED (05/18/2023 6:37 PM EDT) Hepatitis C Antibody Negative Negative 05/18/2023 7:58 PM EDT [facility] Blood Venous blood specimen / Unknown Venipuncture / Unknown 05/18/2023 6:37 PM EDT 05/18/2023 7:17 PM EDT us Isma Loving MD LAB BLOOD ORDERABLES Final Resul t Performing Organization Address City/[facility]/ZIP Co de Phone Number [facility] [address] [place] [phone] from Last 3 Months or Most Recently Relevant to Health Maintenance Insurance MEDICARE Care Teams Truck Loader Relationship Specialty Start Date End Date Wicho Aguilar MD [address] [place] [address] PCP - General 07/11/20
--- NOTE | 2024-09-20 15:15 | CA_ITS ---
FINAL REPORT TECHNIQUE: Compression murray scale and Doppler evaluation CLINICAL HISTORY: Right leg pain and edema, Hx-SVT, D/C anticoagulation FINDINGS: Femoral and popliteal veins show normal compressibility and flow. Visualized portion of the calf veins are patent by Doppler exam. IMPRESSION: No evidence of right lower extremity deep venous thrombosis Reviewed, Interpreted and Dictated by Kam Culp MD Transcribed by Allyn Tai Authenticated and [facility]
== END 2024-09-20 23:59 | disposition home or self-care (01) ==
LOC: RT 15:12
PROVIDERS: PCP Internal Medicine; Visit Provider Internal Medicine
DX: I82.409 Acute embolism and thrombosis of unspecified deep veins of unspecified lower extremity (principal); M79.604 Pain in right leg
CPT/HCPCS: 93971

== ENCOUNTER 2025-01-18 10:21 | Outpatient (CLI) | payer MEDICARE, SELFPAY ==
[2025-01-18 15:45] LABS: Hematocrit 41.1 % (42.0-52.0); Hemoglobin 13.4 g/dL (14.1-18.0); Immature Granulocytes % 0.3 %; Mean Corpuscular HGB Conc 32.6 g/dL (31.8-35.4); Mean Corpuscular Hemoglobin 28.9 pg (27.0-31.2); Mean Corpuscular Volume 88.6 fl (80-94); Nucleated Red Blood Cells % 0 %; Platelet Count 281 K/mm3 (142-424); Red Blood Count 4.64 M/mm3 (4.60-6.20); Red Cell Distribution Width-SD 44.3 fL; White Blood Count 3.8 K/mm3 (4.8-10.8)
[2025-01-18 16:21] LABS: Alanine Aminotransferase 18 U/L (12-78); Albumin Level 4.5 g/dl (3.5-5.0); Albumin/Globulin Ratio 1.6 (1.1-1.8); Alkaline Phosphatase 73 U/L (38-126); Anion Gap 11.3 mEq/L (5-15); Aspartate Amino Transferase 33 U/L (17-59); Bilirubin,Total 0.6 mg/dl (0.2-1.3); Blood Urea Nitrogen 9 mg/dl (9-20); Calcium 9.0 mg/dl (8.4-10.2); Carbon Dioxide 28 mmol/L (22.0-30.0); Chloride 102 mmol/L (98-107); Cholesterol 145 mg/dl (140-200); Creatinine,Serum 1.00 mg/dl (0.66-1.25); Estimated Glomerular Filt Rate 76 ml/min (>60); GFR (African American) 93 ML/MIN (>60); Globulin 2.8 g/dL (1.3-3.2); Glucose 82 mg/dl (74-100); HDL Cholesterol 53 mg/dl (40-60); Potassium 4.3 mmoL/L (3.5-5.1); Sodium 137 mmol/L (136-145); Total Protein,Serum 7.3 g/dl (6.3-8.2); Triglycerides 112 mg/dl (30-150)
[2025-01-18 18:34] LABS: Hemoglobin A1C 5.7 % (4.0-6.0)
--- OUTSIDE RECORDS SUMMARY | 2025-01-21 10:45 | XMS_ITS | Clinical Summary ---
Author Organization Healthcare Address [facility] [place] [address] Care Team Providers Care Clinical Molecular Geneticist Name Role Phone Wicho Aguilar MD Primary Care Provider [phone] Allergies Active Allergy Reactions Criticality Noted Date [...] of 2 - PCV) 02/01/2016 01/31/2015, 01/31/2015 [id number] Vaccine ( - season) 2024 03/03/2023, 01/14/2021, 04/30/2020, Additional history exists [facility]-Influenza [...] Reactive Non Reactive 05/18/2023 7:[address] [facility] Comment:Screening for HIV 1 & 2 antibodies, and P24 antigen is NONREACTIVE. No confirmatory testing is required. Blood Venous blood specimen / Unknown Venipuncture / Unknown 05/18/2023 6:37 PM EDT 05/18/2023 7:17 PM EDT us Isma Loving MD LAB BLOOD ORDERABLES Final Resul t [facility] [address] [place] [address] * Hepatitis C Antibody - ED (05/18/2023 6:37 PM EDT) Hepatitis C Antibody Negative Negative 05/18/2023 7:58 PM EDT [facility] Blood Venous blood specimen / Unknown Venipuncture / Unknown 05/18/2023 6:37 PM EDT 05/18/2023 7:17 PM EDT us Isma Loving MD LAB BLOOD ORDERABLES Final Resul t Performing Organization Address City/[facility]/ZIP Co de Phone Number [facility] [address] [place] [phone] from Last 3 Months or Most Recently Relevant to Health Maintenance Insurance MEDICARE Care Teams Clinical Molecular Geneticist Relationship Specialty Start Date End Date Wicho Aguilar MD [address] [place] [address] PCP - General 07/11/20
== END 2025-01-18 23:59 ==
LOC: LAB.DROPOF 01-21 10:23
PROVIDERS: PCP Internal Medicine; Visit Provider Internal Medicine
DX: D50.9 Iron deficiency anemia, unspecified (principal)
CPT/HCPCS: 80053; 80061; 83036; 85025

== ENCOUNTER 2025-02-04 10:32 | Inpatient (IN) | payer MEDICARE, SELFPAY ==
[2025-02-04] VITALS (9 sets, daily range): BP systolic 113–142; BP diastolic 77–120; PULSE 68–103; RESP 16–20; TEMP 36.4–36.8; O2SAT 95–100; BMI 28.3; BMI 24.8
--- NOTE | 2025-02-04 10:35 | HMH.EDGENADL ---
Discharge Plan Disposition Chief Complaint: Nausea/Vomiting/Diarrhea Prescriptions Prescriptions: No Action ferrous sulfate 325 mg (65 mg iron) tablet,delayed release (DR/EC) 325 mg PO DAILY Qty: 30 0RF gabapentin 400 mg capsule PO BID tadalafil 10 mg tablet 10 mg PO DAILY Qty: 90 3RF hydrocodone-acetaminophen 10-325 mg tablet 1 tab PO Q6H PRN (Reason: chronic pain) methylprednisolone [Medrol ([place])] 4 mg tablets,dose pack See Rx Instructions PO PER PKG DIR Qty: 21 0RF Rx Instructions: PO PER PKG DIR for 6 days amitriptyline 25 mg tablet See Rx Instructions .ROUTE .COMPLEX Qty: 90 3RF Dose Instruction: TAKE 1 TABLET BY MOUTH AT BEDTIME NIGHTLY Rx Instructions: TAKE 1 TABLET BY MOUTH AT BEDTIME NIGHTLY metoprolol succinate 100 mg Tablet Extended Release 24 Hr 100 mg PO DAILY Referrals Follow up/Referrals: Ricky Garcia DO [Primary Care Provider, Family Practice] - See instructions Clinical Impressions Clinical Impression: SBO (small bowel obstruction) Instructions Patient Instructions: DI for Diarrhea and Traveler's Diarrhea in Adults, DI for Diarrhea and Traveler's Diarrhea in Children, DI for Nausea in Adults, DI for Nausea in Children Print Language Print Language: Kosovan Discharge ED Provider: Ron Ron General Adult HPI General Chief complaint: Nausea/Vomiting/Diarrhea Stated complaint: abd pain Time Seen by Provider: 02/04/25 10:35 History of Present Illness HPI narrative: Patient is a 59-year-old male with history of hypertension hyperlipidemia iron deficiency anemia, history of multiple bowel resections with 3 anastomoses. Patient presents today for abdominal burning pain that has been going on for the last 3 days and has been worsening. He reports he is never had pain like this before. He reports that concomitantly he is having nausea with 4 episodes of vomiting in the last 24 hours as well as profuse nonbloody diarrhea. He reports that he is still passing gas. He reports that the abdominal pain only stays anterior in nature and does not radiate. Denies any flank pain, dysuria hematuria or otherwise. Denies any trauma to the area. 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 Denies any known sick contacts. Denies any chest pain shortness of breath or other constitutional symptoms such as cough congestion runny nose. Related Data Home Medications ?Medication ?Instructions ?Recorded ?Confirmed hydrocodone 10 mg-acetaminophen 1 tab PO Q6H PRN chronic pain 05/10/22 02/01/25 325 mg tablet metoprolol succinate 100 mg 100 mg PO DAILY High blood pressure 05/23/22 02/01/25 tablet,extended release 24 hr gabapentin 400 mg capsule mg PO BID 01/17/25 02/01/25 Previous Rx's ?Medication ?Instructions ?Recorded ferrous sulfate 325 mg (65 mg 325 mg PO DAILY #30 tabs 09/20/24 iron) tablet,delayed release amitriptyline 25 mg tablet See Rx Instructions .Route 10/30/24 .COMPLEX #90 tabs tadalafil 10 mg tablet 10 mg PO DAILY #90 tabs 01/17/25 methylprednisolone 4 mg tablets in See Rx Instructions PO PER PKG DIR 02/01/25 a dose pack (Medrol ([place])) #21 tabs Allergies Allergy/AdvReac Type Severity Reaction Status Date / Time venom-honey bee (BEE VENOM Allergy Unknown Other Verified 02/01/25 10:48 (HONEY BEE)) [facility] Disclaimer: The information contained in this section may have been updated after the patient was seen, as this information can be updated by other users. Medical History Diverticulosis Acid reflux Hypertension Hx of deep venous thrombosis GI bleed Appendicitis Intestinal obstruction Smoker Small bowel obstruction Surgical History History of back surgery x2 History of intestinal surgery x2 History of appendectomy Family History Other Family history of blood clots Family history of diabetes mellitus type II Social History Smoking Status: Current every day smoker tobacco type: cigars per week: 7 alcohol intake: never substance use type: denies use current occupational status: retired and disabled Travel in the last 8 weeks?: None household members: spouse housing: house marital status: education level: high school service: Yes care home: No caffeine: Yes special michael needs: No agree to transfusion: No do you feel safe at home: Yes victim of physical abuse: No victim of emotional abuse: No victim of sexual abuse: No would you like helpful sources: No Have you lived/traveled outside [place] in past 30 days?: No Contact w/someone who lives/traveled outside US past 30 days?: No Exposure to someone with infectious disease in past 14 days?: No Do you have a fever (greater than 100.4 F or 38 C)?: No Have you tested positive for COVID-19?: No Exposed to someone with COVID-19 in past 14 days?: No Do you have a sore throat?: No Do you have a cough?: No Do you have any weakness?: No Do you have any diarrhea?: No Are you experiencing any unusual bleeding?: No Do you have any muscle aches/pain?: No Do you have any abdominal pain?: No Are you experiencing loss of taste or smell?: No Other Medical History Have you received the Flu Vaccine for this season: No Have you received the Pneumonia Vaccine: No ROS Obtained: Yes All systems reviewed & no additional complaints except as documented Physical Exam General General appearance: alert and in no apparent distress Head Head exam: atraumatic and normocephalic Eye Eye exam: Present PERRL and EOMI ENT ENT exam: Present normal oropharynx Neck Neck exam: Present full ROM and trachea midline Chest Chest inspection: Present symmetric chest wall rise Respiratory Respiratory exam: Present normal lung sounds bilaterally; Absent stridor Cardiovascular Cardiovascular exam: Present regular rate and normal rhythm Abdominal Exam Abdominal exam: Present soft and tenderness (Periumbilical and left lower quadrant and left upper quadrant); Absent distention Extremities Exam Extremities exam: Present full ROM Neurological Exam Neurological exam: Present alert and oriented X3 Psychiatric Psychiatric exam: Present normal mood Skin Skin exam: Present warm and dry Medical Decision Making Medical Records Screening: Per USPSTF and CDC recommendations, given the prevalence of disease in our region, it is our hospital?s policy to screen for HIV and viral Hepatitis for all patients aged 18 and over and those with ongoing risk factors. Aime Inquiry Pt receiving controlled substance: No Vital Signs: 02/04/25 10:33 02/04/25 11:01 Temperature 98.1 F Temperature Source Oral Pulse Rate 103 H Pulse Rate [Radial] 68 Respiratory Rate 18 Blood Pressure 127/89 Blood Pressure [Right Arm] 142/98 H Blood Pressure Mean [Right Arm] 112 Blood Pressure Source [Right Arm] Automatic Cuff Blood Pressure Position [Right Arm] Sitting 02 Sat by Pulse Oximetry 100 97 Oxygen Delivery Method Room Air Room Air Lab Data Lab Results 02/04/25 10:40: WBC 5.5, RBC 5.34, Hgb 15.7, Hct 47.5, MCV 89.0, MCH 29.4, MCHC 33.1, RDW 14.1, Plt Count 328, MPV 8.8, Neut % (Auto) 59.8, Lymph % (Auto) 28.8, [place] % (Auto) 8.8, Eos % (Auto) 2.0, Baso % (Auto) 0.2, Neut # (Auto) 3.3, Lymph # (Auto) 1.6, [place] # (Auto) 0.5, Eos # (Auto) 0.1, Baso # (Auto) 0.0, Sodium 144, Potassium 3.8, Chloride 100, Carbon Dioxide 28, Anion Gap 19.8 H, BUN 11, Creatinine 1.40 H, Estimated Creat Clear 78, Estimated GFR 52 L, Est GFR ( Amer) 63, Glucose 124 H, Calcium 9.9, Phosphorus 5.0 H, Magnesium 1.9, Total Bilirubin 0.9, AST 41, ALT 34, Alkaline Phosphatase 93, Total Protein 9.5 H D, Albumin 5.1 H, Globulin 4.4 H, Albumin/Globulin Ratio 1.2, Lipase 218 02/04/25 11:45: SARS-CoV-2 (PCR) Not detected, Influenza A Untype (PCR) Not detected, Influenza Type B (PCR) Not detected 02/04/25 11:50: Lactate 1.0 02/04/25 10:40 02/04/25 10:40 Orders (Tests/Meds): ED MEDICATIONS Generic Name Dose Route Start Last Admin Trade Name Freq PRN Reason Stop Dose Admin Ceftriaxone Sodium 2 gm/ 100 mls @ 200 mls/hr 02/04/25 12:45 Sodium Chloride IV 02/14/25 12:44 Q24H JAYMIE Azithromycin 500 mg/ Sodium 250 mls @ 250 mls/hr 02/04/25 12:38 Chloride IV 02/04/25 12:39 ONCE ONE Sodium Chloride 10 ml 02/04/25 11:37 02/04/25 11:38 Sodium Chloride 0.9% 10ml Syr (Rad Only) IV 03/06/25 11:36 10 ml NEEDED PRN Administration Maintain IV Site Discontinued Medications Generic Name Dose Route Start Last Admin Trade Name Fernando PRN Reason Stop Dose Admin Hydromorphone HCl 1 mg 02/04/25 11:03 02/04/25 11:25 Hydromorphone 2mg/Ml Syringe IV 02/04/25 11:04 1 mg ONCE ONE Administration Sodium Chloride 1,000 mls @ 999 mls/hr 02/04/25 11:03 02/04/25 11:26 Sod Chlor 0.9% 1000ml Bag IV 02/04/25 12:03 999 mls/hr .Q1H1M ONE Administration Iopamidol 80 ml 02/04/25 11:37 02/04/25 11:38 Iopamidol-370 (76%);100ml Bottle IV 02/04/25 11:38 80 ml ONCE ONE Administration Ondansetron HCl 4 mg 02/04/25 11:03 02/04/25 11:25 Ondansetron 4mg/2ml Vial IV 02/04/25 11:04 4 mg ONCE ONE Administration Sodium Chloride 50 ml 02/04/25 11:37 02/04/25 11:38 0.9 % Sodium Chloride 50 Ml Vial IV 02/04/25 11:38 50 ml ONCE ONE Administration ORDERS Category Date Time Status CT angio abdomen pelvis Stat Cat Scan 02/04/25 11:03 Completed CBC w/Auto Diff [Complete Blood Count Auto Diff] Stat Lab 02/04/25 10:40 Completed CMP [Comprehensive Metabolic Panel] Stat Lab 02/04/25 10:40 Completed HIV Combo Stat Lab 02/04/25 11:50 Received Hepatitis C Ab Qual. W/ RFX Stat Lab 02/04/25 11:50 Received Lactic Acid Stat Lab 02/04/25 11:50 Completed Lipase Stat Lab 02/04/25 10:40 Completed MAG [Magnesium] Stat Lab 02/04/25 10:40 Completed PHOS [Phosphorous] Stat Lab 02/04/25 10:40 Completed Rapid PCR Covid and Flu A/B Stat Lab 02/04/25 11:45 Completed UA [Urinalysis and Microscopic] Stat Lab 02/04/25 11:04 Ordered Medical Decision Narrative: Patient is a 59-year-old male with a history of multiple bowel resections presenting today for abdominal pain. He is also had a history of DVTs with Xarelto, but he is not taking that anymore. He is presenting today with diffuse abdominal pain. On arrival, he is afebrile, mildly hypertensive and mildly tachycardic, but otherwise stable. On exam, appears dry with dry mucous membranes and 2-second capillary refill. Pulses are full and equal bilaterally. Abdomen is soft, but is tender diffusely, mostly on the left side. It is pain out of proportion to exam, will obtain CTA given he is not on anticoagulation is clotted before to rule out acute mesenteric ischemia. Bowel obstructions also on the differential given his extensive abdominal surgical history. Notably, I reviewed his EMR which demonstrates an ER visit last week for abdominal pain, but he reports that this is very different in characteristic as it is diffuse and pain is worse today and he has had vomiting and diarrhea. Certainly gastroenteritis is still high on the differential, but given his comorbidities, need to rule out above life threatening pathologies. CAT scan independently interpreted by me to demonstrate no evidence of small bowel obstruction. Radiology confirms this. Also calls a possible right lower lobe pneumonia developing. Will cover with Rocephin and azithromycin. Patient is tachycardic, but not meeting any other criteria's for SIRS or sepsis. Will just cover with antibiotics continue fluid resuscitation for ELISABETH given her creatinine of 1.4. No other significant electrolyte derangement. Lactate within normal limits. [place] reasonable to consult general surgery given bowel obstruction. Given patient was vomiting, will place an NG tube. Interactive discussion with general surgery agrees with admission. Hospitalist consulted will be admitted in hemodynamically stable condition. Critical Care Critical Care Time Critical Care Time: No
--- NOTE | 2025-02-04 11:03 | CT_ITS ---
PROCEDURE INFORMATION: Exam: CTA Abdomen and Pelvis With Contrast Exam date and time: 02/04/2025 11:32 AM Age: 59 years old Clinical indication: Pain and condition or disease; Other: Clot; Abdominal pain; Localized; Upper; Additional info: Diffuse abd ttp, pain out of proportion, HX clot TECHNIQUE: Imaging protocol: Computed tomographic angiography of the abdomen and pelvis with contrast. Exam focused on the arteries. 3D rendering (Not supervised by radiologist): MIP and/or 3D reconstructed images were created by the technologist. Radiation optimization: All CT scans at this facility use at least one of these dose optimization techniques: automated exposure control; mA and/or kV adjustment per patient size (includes targeted exams where dose is matched to clinical indication); or iterative reconstruction. Contrast material: ISOVUE; Contrast volume: 80 ml; Contrast route: INTRA-ARTERIAL (ARTERIAL); COMPARISON: CT ANGIO ABDOMEN PELVIS 03/22/2023 6:29 PM FINDINGS: Lungs: There is secretions within the right lung, lower lobe bronchus intermedius and segmental bronchi, series 5, image 16. Partially visible subpleural ground-glass opacity anterior segment, upper lobe right lung, series 5, image 1. Stable mild linear scarring of the lung bases with mild dependent atelectasis. Pleural spaces: Pleural spaces are unremarkable. No pneumothorax. No pleural effusion. Heart: The heart is unremarkable. No cardiomegaly. No pericardial effusion. Esophagus: The visible esophagus is unremarkable. Aorta: No aortic aneurysm. No aortic dissection. Celiac and mesenteric arteries: No occlusion or significant stenosis. Renal arteries: No occlusion or significant stenosis. Right iliac arteries: No occlusion or significant stenosis. Left iliac arteries: No occlusion or significant stenosis. Veins: Stable presence of an IVC filter with tip at the inflow of the renal veins. Liver: Liver is unremarkable. Gallbladder and biliary ducts: Status post cholecystectomy. The biliary tree is unremarkable, accounting for age. Pancreas: Pancreas is unremarkable. The pancreatic duct is normal in size. Spleen: There are calcified splenic granulomas. Adrenal glands: The adrenal glands are unremarkable. Kidneys and ureters: Stable small left renal cyst. Stable anterior malrotation of both kidneys. The ureters are unremarkable. 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 The proximal small bowel loops are dilated with a transition point in the left abdomen, just anterior to the left kidney, series 5, image 91 and series 1001, image 61 consistent with small bowel obstruction. Appendix: Not visible. No secondary signs of appendicitis. Intraperitoneal space: No intraperitoneal free fluid or fluid collection. There is no free air. Lymph nodes: No enlarged lymph nodes. Urinary bladder: The urinary bladder is unremarkable. Reproductive: The prostate gland is enlarged. Bones/joints: There is mild spondylosis. Soft tissues: The remaining soft tissue is unremarkable. IMPRESSION: 1. The proximal small bowel loops are dilated with a transition point in the left abdomen, just anterior to the left kidney, series 5, image 91 and series 1001, image 61 consistent with small bowel obstruction. 2. There is secretions within the right lung, lower lobe bronchus intermedius and segmental bronchi, series 5, image 16. Findings may represent aspiration or mucous plugging. 3. Partially visible subpleural ground-glass opacity anterior segment, upper lobe right lung, series 5, image 1. Findings concerning for inflammatory/infectious process such as pneumonia. 4. 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 THIS REPORT CONTAINS FINDINGS THAT MAY BE CRITICAL TO PATIENT CARE. The findings were verbally communicated via telephone conference with LAWRENCE BOWER at 12:29 PM EST on 02/04/2025. The findings were acknowledged and understood. COMMENTS: For patients with an IVC filter, recommend assessment for a management plan for the patient's IVC filter. If there is no established management plan, recommend referral to an interventional clinician on a nonemergent basis for evaluation.
[2025-02-04 11:11] LABS: Hematocrit 47.5 % (42.0-52.0); Hemoglobin 15.7 g/dL (14.1-18.0); Immature Granulocytes % 0.4 %; Mean Corpuscular HGB Conc 33.1 g/dL (31.8-35.4); Mean Corpuscular Hemoglobin 29.4 pg (27.0-31.2); Mean Corpuscular Volume 89.0 fl (80-94); Nucleated Red Blood Cells % 0 %; Platelet Count 328 K/mm3 (142-424); Red Blood Count 5.34 M/mm3 (4.60-6.20); Red Cell Distribution Width-SD 45.7 fL; White Blood Count 5.5 K/mm3 (4.8-10.8)
[2025-02-04 11:18] LABS: Alanine Aminotransferase 34 U/L (12-78); Albumin Level 5.1 g/dl (3.5-5.0); Albumin/Globulin Ratio 1.2 (1.1-1.8); Alkaline Phosphatase 93 U/L (38-126); Anion Gap 19.8 mEq/L (5-15); Aspartate Amino Transferase 41 U/L (17-59); Bilirubin,Total 0.9 mg/dl (0.2-1.3); Blood Urea Nitrogen 11 mg/dl (9-20); Calcium 9.9 mg/dl (8.4-10.2); Carbon Dioxide 28 mmol/L (22.0-30.0); Chloride 100 mmol/L (98-107); Creatinine Clearance Estimated 78 mL/min (50-200); Creatinine,Serum 1.40 mg/dl (0.66-1.25); Estimated Glomerular Filt Rate 52 ml/min (>60); GFR (African American) 63 ML/MIN (>60); Globulin 4.4 g/dL (1.3-3.2); Glucose 124 mg/dl (74-100); Lipase 218 U/L (23-300); Magnesium 1.9 mg/dl (1.6-2.3); Phosphorous 5.0 mg/dl (2.5-4.5); Potassium 3.8 mmoL/L (3.5-5.1); Sodium 144 mmol/L (136-145); Total Protein,Serum 9.5 g/dl (6.3-8.2)
[2025-02-04] MEDS: ONDANSETRON 4MG/2ML VIAL 4 MG IV ×2 (11:25→13:08)
[2025-02-04] MEDS: HYDROMORPHONE 2MG/ML SYRINGE 1 MG IV ×2 (11:25→15:04)
[2025-02-04] MEDS: 0.9 % SODIUM CHLORIDE 1000ML 1,000 ML 999 ML IV (11:26)
[2025-02-04] MEDS: SODIUM CHLORIDE 0.9% 10ML SYR (RAD ONLY) 10 ML IV (11:38)
[2025-02-04] MEDS: IOPAMIDOL-370 (76%);100ML BOTTLE 80 ML IV (11:38)
[2025-02-04] MEDS: 0.9 % SODIUM CHLORIDE 50 ML VIAL IV (11:38)
[2025-02-04 11:49] LABS: Coronavirus 19, PCR Not Detected (NotDetected); Influenza A, PCR Not Detected (NotDetected); Influenza B, PCR Not Detected (NotDetected)
--- NOTE | 2025-02-04 12:35 | PC.NURSE ---
paged general surgery per Dr Ron
--- NOTE | 2025-02-04 12:37 | PC.NURSE ---
DR BOWER AT BEDSIDE TO UPDATE PT
[2025-02-04] MEDS: HYDROMORPHONE 2MG/ML SYRINGE 0.5 MG IV (13:08)
[2025-02-04 13:14] LABS: Hepatitis C Ab Qual. W/ RFX NEGATIVE (Negative)
--- NOTE | 2025-02-04 13:18 | XR_ITS ---
PROCEDURE INFORMATION: Exam: XR Abdomen Exam date and time: 02/04/2025 1:27 PM Age: 59 years old Clinical indication: Device placement; Gi device; Nasogastric tube; Additional info: Ng tube placement TECHNIQUE: Imaging protocol: Radiologic exam of the abdomen. Views: Frontal supine view of the abdomen. 1 View. COMPARISON: CT ANGIO ABDOMEN PELVIS 02/04/2025 11:32 AM FINDINGS: Tubes, catheters and devices: Enteric tube tip projects over the stomach. Lungs: Mild scarring and atelectasis in the lower lungs. Gastrointestinal tract: Dilated and gas-filled segments of bowel consistent with known obstruction. Organs: There is contrast in the kidneys and ureters. Gallbladder is absent. Vasculature: IVC filter is noted. Bones/joints: Unremarkable. IMPRESSION: Enteric tube tip projects over the stomach. COMMENTS: For patients with an IVC filter, recommend assessment for a management plan for the patient's IVC filter. If there is no established management plan, recommend referral to an interventional clinician on a nonemergent basis for evaluation.
[2025-02-04] MEDS: AZITHROMYCIN 500 MG in 0.9 % SODIUM CHLORIDE 250 ML 250 MG IV (13:31)
--- NOTE | 2025-02-04 14:18 | PC.NURSE ---
COPYMAN NOTIFIED OF ADMISSION
--- NOTE | 2025-02-04 14:19 | PC.NURSE ---
PT BOARDING IN ED, NO BEDS AVAILABLE
[2025-02-04 16:11] LABS: Microscopic, Urine URINE MICROSCOPIC (MICROSCOPIC)
[2025-02-04 16:13] LABS: Bilirubin,Urine Negative (Negative); Color,Urine YELLOW (Yellow); Glucose,Urine (UA) Negative (Negative); Ketones,Urine Negative (Negative); Leukocyte Esterase,Urine Negative (Negative); PH,Urine 6.0 (5.0-8.5); Protein,Urine Negative (Negative); Specific Gravity, Urine 1.010 (1.005-1.030); Urobilinogen,Urine 0.2 EU/dl (0.2)
[2025-02-04 16:21] LABS: Bacteria,Urine Trace /lpf; Squamous Epithelial Cell,Urine Occasional #/hpf (0-5)
--- NOTE | 2025-02-04 16:58 | EXP.SURG.CON ---
History of Present Illness *Admission Date: 02/04/25 *Reason for visit:: Ileus versus SBO *History of present illness: Patient is a 59-year-old male with history of hypertension, hyperlipidemia, iron deficiency anemia. He has a history of DVT and has an IVC filter in place. He is on hydrocodone, metoprolol, and gabapentin. He has a history of a variety of GI symptoms and has been followed by gastroenterology at this facility most recently. Patient had previously had a colonoscopy with Dr. Maldonado 2 years ago which was reportedly normal. He had an EGD with Dr. Peck in March 2023 which was positive for H. pylori. He has prior history of bowel obstruction. In March 2004 Dr. Manzo had performed exploratory laparotomy for abdominal pain secondary to malrotation and performed a cecopexy. He had a bowel obstruction which was refractory to nonoperative management and Dr. Manzo performed laparotomy with lysis of adhesions on 02/24/2015. He has also had previous laparoscopic appendectomy by Dr. Manzo in 2002 and laparoscopic cholecystectomy by Dr. Manzo in 2013. He presented to the emergency department today on 02/04/2025 with a 3-day history of burning abdominal pain with associated nausea and vomiting with some nonbloody diarrhea. He had tried Ex-Lax prior to presenting to the emergency department. He has continued to pass gas. Denies any radiation of abdominal pain. Evaluation in the emergency department revealed some tenderness in the left lower and left upper quadrant without distention. Evaluation in the emergency department revealed normal CBC. He has slightly elevated creatinine at 1.4. Liver function tests unremarkable. CT angiogram performed which revealed proximal small bowel loops dilated with transition point in the left abdomen just anterior to the left kidney. 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 Given his findings consistent with small bowel obstruction he had nasogastric tube placed. Surgical consultation was obtained. . [facility] Disclaimer: The information contained in this section may have been updated after the patient was seen, as this information can be updated by other users. Medical History Diverticulosis Acid reflux Hypertension Hx of deep venous thrombosis GI bleed Appendicitis Intestinal obstruction Smoker Small bowel obstruction Surgical History History of back surgery x2 History of intestinal surgery x2 History of appendectomy Family History Other Family history of blood clots Family history of diabetes mellitus type II Social History (Updated 02/04/25 @ 17:32 by Mendy Petersen RN) Smoking Status: Current every day smoker tobacco type: cigars per week: 7 alcohol intake: never substance use type: denies use current occupational status: retired and disabled Travel in the last 8 weeks?: None household members: spouse housing: house marital status: education level: high school service: Yes jail: No caffeine: Yes special michael needs: No agree to transfusion: No do you feel safe at home: Yes victim of physical abuse: No victim of emotional abuse: No victim of sexual abuse: No would you like helpful sources: No Have you lived/traveled outside US in past 30 days?: No Contact w/someone who lives/traveled outside US past 30 days?: No Exposure to someone with infectious disease in past 14 days?: No Do you have a fever (greater than 100.4 F or 38 C)?: No Have you tested positive for COVID-19?: No Exposed to someone with COVID-19 in past 14 days?: No Do you have a sore throat?: No Do you have a cough?: No Do you have any weakness?: No Do you have any diarrhea?: No Are you experiencing any unusual bleeding?: No Do you have any muscle aches/pain?: No Do you have any abdominal pain?: No Are you experiencing loss of taste or smell?: No Meds Home Medications and Allergies Home Medications ?Medication ?Instructions ?Recorded ?Confirmed ?Type hydrocodone 10 mg-acetaminophen 0.5 - 1 tab PO Q6H PRN chronic pain 05/10/22 02/04/25 History 325 mg tablet ferrous sulfate 325 mg (65 mg 325 mg PO DAILY #30 tabs 09/20/24 02/04/25 Rx iron) tablet,delayed release gabapentin 400 mg capsule 400 mg PO BID 01/17/25 02/04/25 History tadalafil 10 mg tablet 10 mg PO DAILY #90 tabs 01/17/25 02/04/25 Rx amitriptyline 25 mg tablet 25 mg PO HS 02/04/25 02/04/25 History methylprednisolone 4 mg tablets in 4 mg PO DIRECTED 02/04/25 02/04/25 History a dose pack (Medrol ([place])) New Prescriptions to Start Prescriptions: Allergies Allergy/AdvReac Type Severity Reaction Status Date / Time venom-honey bee (BEE VENOM Allergy Unknown Other Verified 02/01/25 10:48 (HONEY BEE)) Exam (Inpt) Vital signs and Labs for Last 24 Hours: Temp Pulse Resp BP Pulse Ox O2 Del Method 98.2 F 85 20 124/79 97 Room Air 02/04/25 15:50 02/04/25 15:50 02/04/25 15:50 02/04/25 15:50 02/04/25 13:20 02/04/25 15:50 Laboratory Results - last 24 hr 02/04/25 10:40: WBC 5.5, RBC 5.34, Hgb 15.7, Hct 47.5, MCV 89.0, MCH 29.4, MCHC 33.1, RDW 14.1, Plt Count 328, MPV 8.8, Neut % (Auto) 59.8, Lymph % (Auto) 28.8, [place] % (Auto) 8.8, Eos % (Auto) 2.0, Baso % (Auto) 0.2, Neut # (Auto) 3.3, Lymph # (Auto) 1.6, [place] # (Auto) 0.5, Eos # (Auto) 0.1, Baso # (Auto) 0.0, Sodium 144, Potassium 3.8, Chloride 100, Carbon Dioxide 28, Anion Gap 19.8 H, BUN 11, Creatinine 1.40 H, Estimated Creat Clear 78, Estimated GFR 52 L, Est GFR ( Amer) 63, Glucose 124 H, Calcium 9.9, Phosphorus 5.0 H, Magnesium 1.9, Total Bilirubin 0.9, AST 41, ALT 34, Alkaline Phosphatase 93, Total Protein 9.5 H D, Albumin 5.1 H, Globulin 4.4 H, Albumin/Globulin Ratio 1.2, Lipase 218 02/04/25 11:45: SARS-CoV-2 (PCR) Not detected, Influenza A Untype (PCR) Not detected, Influenza Type B (PCR) Not detected 02/04/25 11:50: Lactate 1.0, HCV Ab MICHEL w/Rflx PCR Qn Negative, HIV Ag/Ab Combo Qual Negative 02/04/25 16:00: Urine Color Yellow, Urine Appearance Clear, Urine pH 6.0, Ur Specific [place] 1.010, Urine Protein Negative, Urine Glucose (UA) Negative, Urine Ketones Negative, Urine Blood Negative, Urine Nitrate Negative, Urine Bilirubin Negative, Urine Urobilinogen 0.2, Ur Leukocyte Esterase Negative, Urine RBC None, Urine WBC None, Ur Squamous Epith Cells Occasional, Urine Bacteria Trace I & O for Labs for Last 24 Hours: Intake & Output 02/02/25 02/03/25 02/04/25 02/05/25 11:59 11:59 11:59 11:59 Intake Total 1350 / 1350 Output Total 800 / 800 Balance 550 / 550 Weight 215 lb GI: Present soft and tenderness; Absent distention Comments:: Abdomen is nondistended. However he does have some significant tenderness with voluntary guarding without rebound. Results Labs 02/04/25 10:40 02/04/25 10:40 Labs: Laboratory Results - last 24 hr 02/04/25 10:40: WBC 5.5, RBC 5.34, Hgb 15.7, Hct 47.5, MCV 89.0, MCH 29.4, MCHC 33.1, RDW 14.1, Plt Count 328, MPV 8.8, Neut % (Auto) 59.8, Lymph % (Auto) 28.8, [place] % (Auto) 8.8, Eos % (Auto) 2.0, Baso % (Auto) 0.2, Neut # (Auto) 3.3, Lymph # (Auto) 1.6, [place] # (Auto) 0.5, Eos # (Auto) 0.1, Baso # (Auto) 0.0, Sodium 144, Potassium 3.8, Chloride 100, Carbon Dioxide 28, Anion Gap 19.8 H, BUN 11, Creatinine 1.40 H, Estimated Creat Clear 78, Estimated GFR 52 L, Est GFR ( Amer) 63, Glucose 124 H, Calcium 9.9, Phosphorus 5.0 H, Magnesium 1.9, Total Bilirubin 0.9, AST 41, ALT 34, Alkaline Phosphatase 93, Total Protein 9.5 H D, Albumin 5.1 H, Globulin 4.4 H, Albumin/Globulin Ratio 1.2, Lipase 218 02/04/25 11:45: SARS-CoV-2 (PCR) Not detected, Influenza A Untype (PCR) Not detected, Influenza Type B (PCR) Not detected 02/04/25 11:50: Lactate 1.0, HCV Ab MICHEL w/Rflx PCR Qn Negative, HIV Ag/Ab Combo Qual Negative 02/04/25 16:00: Urine Color Yellow, Urine Appearance Clear, Urine pH 6.0, Ur Specific [place] 1.010, Urine Protein Negative, Urine Glucose (UA) Negative, Urine Ketones Negative, Urine Blood Negative, Urine Nitrate Negative, Urine Bilirubin Negative, Urine Urobilinogen 0.2, Ur Leukocyte Esterase Negative, Urine RBC None, Urine WBC None, Ur Squamous Epith Cells Occasional, Urine Bacteria Trace Assessment and Plan *Assessment and plan (1) SBO (small bowel obstruction): Status: Acute Category: Medical Code(s): K56.609 - Unspecified intestinal obstruction, unspecified as to partial versus complete obstruction Plan Likely mechanical obstruction. No evidence of complete obstruction at this time. Patient has had nasogastric tube placed with appreciable amount of output. Attempted nonoperative management in the short-term. However if continues to have findings consistent with a bowel obstruction strong possibility he could require laparotomy.
--- NOTE | 2025-02-04 17:06 | PC.NURSE ---
arrived to floor from er
--- NOTE | 2025-02-04 17:44 | EXP.HP ---
History of Present Illness *Admission Date: 02/04/25 *History of present illness: History as provided by Dr. Gimenez as below. Patient was apparently born with a congenital malrotation, unclear exactly which. Has a history of SBO x 2 and resection both times. Last SBO with resection was in 2014. Feeling better after NG tube decompression, had loose bowel movements yesterday. No bowel movements today. CT abdomen/pelvis Reveals proximal small bowel loops with transition in the left abdomen, subpleural ground glass opacities in the left upper lobe. Discussed case with ED provider and decided to admit patient for further evaluation management. Patient is a 59-year-old male with history of hypertension, hyperlipidemia, iron deficiency anemia. He has a history of DVT and has an IVC filter in place. He is on hydrocodone, metoprolol, and gabapentin. He has a history of a variety of GI symptoms and has been followed by gastroenterology at this facility most recently. Patient had previously had a colonoscopy with Dr. Maldonado 2 years ago which was reportedly normal. He had an EGD with Dr. Sheehan in March 2023 which was positive for H. pylori. He has prior history of bowel obstruction on several occasions and has had laparotomy with small bowel resection x 3 in the past. He presented to the emergency department today on 02/04/2025 with a 3-day history of burning abdominal pain with associated nausea and vomiting with some nonbloody diarrhea. He has continued to pass gas. Denies any radiation of abdominal pain. Evaluation in the emergency department revealed some tenderness in the left lower and left upper quadrant without distention. Evaluation in the emergency department revealed normal CBC. He has slightly elevated creatinine at 1.4. Liver function tests unremarkable. CT angiogram performed which revealed proximal small bowel loops dilated with transition point in the left abdomen just anterior to the left kidney. 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 Given his findings consistent with small bowel obstruction he had nasogastric tube placed [facility] Disclaimer: The information contained in this section may have been updated after the patient was seen, as this information can be updated by other users. Medical History Diverticulosis Acid reflux Hypertension Hx of deep venous thrombosis GI bleed Appendicitis Intestinal obstruction Smoker Small bowel obstruction Surgical History History of back surgery x2 History of intestinal surgery x2 History of appendectomy Family History Other Family history of blood clots Family history of diabetes mellitus type II Social History (Updated 02/04/25 @ 17:32 by Mendy Petersen RN) Smoking Status: Current every day smoker tobacco type: cigars per week: 7 alcohol intake: never substance use type: denies use current occupational status: retired and disabled Travel in the last 8 weeks?: None household members: spouse housing: house marital status: education level: high school service: Yes [facility]: No caffeine: Yes special michael needs: No agree to transfusion: No do you feel safe at home: Yes victim of physical abuse: No victim of emotional abuse: No victim of sexual abuse: No would you like helpful sources: No Have you lived/traveled outside US in past 30 days?: No Contact w/someone who lives/traveled outside US past 30 days?: No Exposure to someone with infectious disease in past 14 days?: No Do you have a fever (greater than 100.4 F or 38 C)?: No Have you tested positive for COVID-19?: No Exposed to someone with COVID-19 in past 14 days?: No Do you have a sore throat?: No Do you have a cough?: No Do you have any weakness?: No Do you have any diarrhea?: No Are you experiencing any unusual bleeding?: No Do you have any muscle aches/pain?: No Do you have any abdominal pain?: No Are you experiencing loss of taste or smell?: No Other Medical History Have you received the Flu Vaccine for this season: Yes Have you received the Pneumonia Vaccine: Yes Meds Home Medications and Allergies Home Medications ?Medication ?Instructions ?Recorded ?Confirmed ?Type hydrocodone 10 mg-acetaminophen 0.5 - 1 tab PO Q6H PRN chronic pain 05/10/22 02/04/25 History 325 mg tablet ferrous sulfate 325 mg (65 mg 325 mg PO DAILY #30 tabs 09/20/24 02/04/25 Rx iron) tablet,delayed release gabapentin 400 mg capsule 400 mg PO BID 01/17/25 02/04/25 History tadalafil 10 mg tablet 10 mg PO DAILY #90 tabs 01/17/25 02/04/25 Rx amitriptyline 25 mg tablet 25 mg PO HS 02/04/25 02/04/25 History methylprednisolone 4 mg tablets in 4 mg PO DIRECTED 02/04/25 02/04/25 History a dose pack (Medrol ([place])) New Prescriptions to Start Prescriptions: Allergies Allergy/AdvReac Type Severity Reaction Status Date / Time venom-honey bee (BEE VENOM Allergy Unknown Other Verified 02/01/25 10:48 (HONEY BEE)) Exam Data for Last 24 hours Vital signs and Labs for Last 24 Hours: Temp Pulse Resp BP Pulse Ox O2 Del Method 98.1 F 86 16 132/96 H 96 Room Air 02/04/25 17:13 02/04/25 17:13 02/04/25 17:13 02/04/25 17:13 02/04/25 17:13 02/04/25 17:13 Laboratory Results - last 24 hr 02/04/25 10:40: WBC 5.5, RBC 5.34, Hgb 15.7, Hct 47.5, MCV 89.0, MCH 29.4, MCHC 33.1, RDW 14.1, Plt Count 328, MPV 8.8, Neut % (Auto) 59.8, Lymph % (Auto) 28.8, [place] % (Auto) 8.8, Eos % (Auto) 2.0, Baso % (Auto) 0.2, Neut # (Auto) 3.3, Lymph # (Auto) 1.6, [place] # (Auto) 0.5, Eos # (Auto) 0.1, Baso # (Auto) 0.0, Sodium 144, Potassium 3.8, Chloride 100, Carbon Dioxide 28, Anion Gap 19.8 H, BUN 11, Creatinine 1.40 H, Estimated Creat Clear 78, Estimated GFR 52 L, Est GFR ( Amer) 63, Glucose 124 H, Calcium 9.9, Phosphorus 5.0 H, Magnesium 1.9, Total Bilirubin 0.9, AST 41, ALT 34, Alkaline Phosphatase 93, Total Protein 9.5 H D, Albumin 5.1 H, Globulin 4.4 H, Albumin/Globulin Ratio 1.2, Lipase 218 02/04/25 11:45: SARS-CoV-2 (PCR) Not detected, Influenza A Untype (PCR) Not detected, Influenza Type B (PCR) Not detected 02/04/25 11:50: Lactate 1.0, HCV Ab MICHEL w/Rflx PCR Qn Negative, HIV Ag/Ab Combo Qual Negative 02/04/25 16:00: Urine Color Yellow, Urine Appearance Clear, Urine pH 6.0, Ur Specific [place] 1.010, Urine Protein Negative, Urine Glucose (UA) Negative, Urine Ketones Negative, Urine Blood Negative, Urine Nitrate Negative, Urine Bilirubin Negative, Urine Urobilinogen 0.2, Ur Leukocyte Esterase Negative, Urine RBC None, Urine WBC None, Ur Squamous Epith Cells Occasional, Urine Bacteria Trace I & O for Last 24 hours: Intake & Output 02/01/25 02/02/25 02/03/25 02/04/25 23:59 23:59 23:59 23:59 Intake Total 1350 / 1350 Output Total 800 / 800 Balance 550 / 550 Weight 84.958 kg Constitutional Constitutional: no acute distress *Routine HEENT Exam Head: Present normocephalic Eye: Present EOMI and PERRL ENT: Present mucous membranes moist *Routine Neck Exam Neck: Present supple; Absent lymphadenopathy *Routine Respiratory Exam Respiratory: Present CTA bilaterally *Routine Cardiovascular Exam Cardiovascular: Present RRR *Routine Abdominal Exam Abdominal: Present soft, tenderness and distended; Absent normoactive bowel sounds *Routine Rectal Exam Rectal:: deferred *Routine Genitalia Exam Genitalia:: deferred *Routine Extremities Exam Extremities: Absent cyanosis, clubbing or edema *Routine Skin Exam Skin: Present warm; Absent rash *Routine Neurological Exam Neurological: Present alert and oriented X3 Assessment and Plan *Assessment and plan (1) SBO (small bowel obstruction): Status: Acute Category: Medical Code(s): K56.609 - Unspecified intestinal obstruction, unspecified as to partial versus complete obstruction Plan Anuel rowland is a 59-year-old male with medical history significant for SBO x 2 with resection, last 1 in 2014, DVT with IVC filter presented with several day onset of abdominal pain, decreased bowel movements and was admitted for small bowel obstruction. #Small bowel obstruction #History of SBO with resection x 2, last 2014 ? Patient presents with progressive abdominal pain, decreased bowel movements. CT abdomen/pelvis suggestive of SBO with transition point in the left abdomen. ? Continue NG tube decompression with continuous suction for now. Having appreciable output. Feeling better after NG tube decompression. ? General Surgery consulted, recommending medical management for now but also good probability that patient will need laparotomy given history of resections. ? Started LR at 100 mg/h for now. N.p.o. ? Electrolytes stable, no signs of intra-abdominal infection. ? Follow-up flatus, bowel movements. Serial abdominal exams. ? Consider small bowel follow-through. #Suspected community-acquired pneumonia ? CTA on admission suggests right upper lobe ground glass opacifications. WBC normal at this time. On room air. ? Continue IV ceftriaxone day 03/04. ? Follow-up morning BC, CRP. #Chronic tobacco smoker ? Nicotine patch as needed. #History of DVT with IVC filter ? No signs of DVT at this time. VTE prophylaxis ordered. Full code DVT prophylaxis: IPC's
[2025-02-05] VITALS (20 sets, daily range): BP systolic 132–161; BP diastolic 60–94; PULSE 84–113; RESP 12–20; TEMP 36.5–38; O2SAT 92–100; BMI 24.8; BMI 26.0
--- NOTE | 2025-02-05 03:55 | PC.NURSE ---
Patient is alert and oriented x4. He was observed to be resting in bed with eyes closed, respirations even and unlabored on room air, and no apparent distress throughout the majority of the night. Patient has not had any complaints of abdominal pain this shift; upon initial assessment, he stated that it has improved since arriving to the floor previously. Abdomen is soft and puffy upon palpation. He did endorse very little nausea intermittently; no vomiting episodes, no request for nausea medications. Nasogastric tube remains intact at 70 cm to the right nare at low wall suction; gastric contents appearance murky green. Reports belching, hiccups, and passing gas; last bowel movement reported to be yesterday (02/04/25) during the day. Patient has remained NPO except for ice chips. Physical assessment (see nursing shift biophysical intervention) was performed as appropriately this shift. He ambulates independently in his room/to the bathroom. SCDs refused during the night. No medications were administered during this shift. Vital signs stable. At this time, the patient is resting in bed without any further complaints. No acute changes noted thus far. Call light within reach.
--- NOTE | 2025-02-05 06:00 | XR_ITS ---
FINAL REPORT CLINICAL HISTORY: abd pain ? obstruction COMPARISON: None FINDINGS: A PA view of the chest was obtained. The cardiac and mediastinal silhouettes are within normal limits. Linear densities in the right base suggest atelectasis. There is no free air beneath the diaphragm. Upright and supine views of the abdomen reveal abnormally dilated loops of small bowel measuring up to 4.7 cm in diameter. There is also air present in the colon. There are no pathologic calcifications. No acute osseous abnormalities identified. IMPRESSION: Abnormally dilated loops of small bowel as described, with air present in the colon, favor ileus. Continued follow-up is recommended. Reviewed, Interpreted and Dictated by Wellington Davenport MD Transcribed by Avelina Rose Authenticated and [facility]
[2025-02-05 06:32] LABS: Hematocrit 42.1 % (42.0-52.0); Immature Granulocytes % 0 %; Mean Corpuscular HGB Conc 32.5 g/dL (31.8-35.4); Mean Corpuscular Hemoglobin 28.7 pg (27.0-31.2); Mean Corpuscular Volume 88.3 fl (80-94); Nucleated Red Blood Cells % 0 %; Platelet Count 245 K/mm3 (142-424); Red Blood Count 4.77 M/mm3 (4.60-6.20); Red Cell Distribution Width-SD 44.8 fL; White Blood Count 3.9 K/mm3 (4.8-10.8)
[2025-02-05 06:48] LABS: Albumin Level 4.2 g/dl (3.5-5.0); Chloride 102 mmol/L (98-107)
[2025-02-05 06:49] LABS: Potassium 3.6 mmoL/L (3.5-5.1); Sodium 143 mmol/L (136-145)
[2025-02-05 06:51] LABS: Alanine Aminotransferase 27 U/L (12-78); Alkaline Phosphatase 79 U/L (38-126); Aspartate Amino Transferase 33 U/L (17-59); Bilirubin,Total 1.1 mg/dl (0.2-1.3); Blood Urea Nitrogen 10 mg/dl (9-20); Creatinine Clearance Estimated 87 mL/min (50-200); Creatinine,Serum 1.10 mg/dl (0.66-1.25); Estimated Glomerular Filt Rate 69 ml/min (>60); GFR (African American) 83 ML/MIN (>60)
[2025-02-05 06:52] LABS: Albumin/Globulin Ratio 1.4 (1.1-1.8); Anion Gap 14.6 mEq/L (5-15); Calcium 8.3 mg/dl (8.4-10.2); Carbon Dioxide 30 mmol/L (22.0-30.0); Globulin 3.0 g/dL (1.3-3.2); Glucose 99 mg/dl (74-100); Magnesium 2.0 mg/dl (1.6-2.3); Total Protein,Serum 7.2 g/dl (6.3-8.2)
[2025-02-05 07:49] LABS: Hemoglobin 13.7 g/dL (14.1-18.0)
--- NOTE | 2025-02-05 07:49 | FL_ITS ---
FINAL REPORT CLINICAL HISTORY: ABDOMINAL PAIN.. obstruction COMPARISON: 1 day prior FINDINGS: Serial imaging of the abdomen was obtained to 2 hours and 30 minutes. Contrast is seen in the stomach. There are multiple loops of abnormally dilated small bowel. Contrast does not reach the colon. Findings are favored to be related to mechanical small bowel obstruction. IMPRESSION: Findings are favored to be related to mechanical small bowel obstruction. Recommend continued follow-up. Reviewed, Interpreted and Dictated by Wellington Davenport MD Transcribed by Jimena Ortiz Authenticated and . [facility]
--- NOTE | 2025-02-05 07:50 | P.PN_ITS ---
Subjective Narrative: Patient states that he does feel better. Decreased pain. Passing some gas. He is concerned about the functionality of the NG tube as it has been leaking . Exam Data for Last 24 hours Vital signs and Labs for Last 24 Hours: Temp Pulse Resp BP Pulse Ox O2 Del Method 98.3 F 86 16 149/94 H 92 L Room Air 02/05/25 04:00 02/05/25 04:00 02/05/25 04:00 02/05/25 04:00 02/05/25 04:00 02/05/25 04:00 Laboratory Results - last 24 hr 02/04/25 10:40: WBC 5.5, RBC 5.34, Hgb 15.7, Hct 47.5, MCV 89.0, MCH 29.4, MCHC 33.1, RDW 14.1, Plt Count 328, MPV 8.8, Neut % (Auto) 59.8, Lymph % (Auto) 28.8, [place] % (Auto) 8.8, Eos % (Auto) 2.0, Baso % (Auto) 0.2, Neut # (Auto) 3.3, Lymph # (Auto) 1.6, [place] # (Auto) 0.5, Eos # (Auto) 0.1, Baso # (Auto) 0.0, Sodium 144, Potassium 3.8, Chloride 100, Carbon Dioxide 28, Anion Gap 19.8 H, BUN 11, Creatinine 1.40 H, Estimated Creat Clear 78, Estimated GFR 52 L, Est GFR ( Amer) 63, Glucose 124 H, Calcium 9.9, Phosphorus 5.0 H, Magnesium 1.9, Total Bilirubin 0.9, AST 41, ALT 34, Alkaline Phosphatase 93, Total Protein 9.5 H D, Albumin 5.1 H, Globulin 4.4 H, Albumin/Globulin Ratio 1.2, Lipase 218 02/04/25 11:45: SARS-CoV-2 (PCR) Not detected, Influenza A Untype (PCR) Not detected, Influenza Type B (PCR) Not detected 02/04/25 11:50: Lactate 1.0, HCV Ab MICHEL w/Rflx PCR Qn Negative, HIV Ag/Ab Combo Qual Negative 02/04/25 16:00: Urine Color Yellow, Urine Appearance Clear, Urine pH 6.0, Ur Specific [place] 1.010, Urine Protein Negative, Urine Glucose (UA) Negative, Urine Ketones Negative, Urine Blood Negative, Urine Nitrate Negative, Urine Bilirubin Negative, Urine Urobilinogen 0.2, Ur Leukocyte Esterase Negative, Urine RBC None, Urine WBC None, Ur Squamous Epith Cells Occasional, Urine Bacteria Trace 02/05/25 05:43: WBC 3.9 L D, RBC 4.77, Hgb 13.7 L D, Hct 42.1, MCV 88.3, MCH 28.7, MCHC 32.5, RDW 13.9, Plt Count 245 D, MPV 8.9, Neut % (Auto) 51.8, Lymph % (Auto) 32.1, [place] % (Auto) 10.4 H, Eos % (Auto) 5.2, Baso % (Auto) 0.5, Neut # (Auto) 2.0, Lymph # (Auto) 1.2, [place] # (Auto) 0.4, Eos # (Auto) 0.2, Baso # (Auto) 0.0, Sodium 143, Potassium 3.6, Chloride 102, Carbon Dioxide 30, Anion Gap 14.6, BUN 10, Creatinine 1.10 D, Estimated Creat Clear 87, Estimated GFR 69, Est GFR ( Amer) 83 D, Glucose 99 D, Calcium 8.3 L, Magnesium 2.0, Total Bilirubin 1.1, AST 33, ALT 27, Alkaline Phosphatase 79, Total Protein 7.2, Albumin 4.2 D, Globulin 3.0, Albumin/Globulin Ratio 1.4 I & O for Last 24 hours: Intake & Output 02/02/25 02/03/25 02/04/25 02/05/25 11:59 11:59 11:59 11:59 Intake Total 1400 / 1400 Output Total 800 / 800 Balance 600 / 600 Weight 215 lb 187 lb 4.805 oz *Routine Abdominal Exam Abdominal: Present soft; Absent tenderness Comments: Abdominal examination improved with no tenderness. Slight distention Progress Note: A&P Assessment and plan (1) SBO (small bowel obstruction): Status: Acute Assessment and plan: I tried to flush the NG tube. He felt like the liquid was in his throat. The NG tube likely malpositioned. He has not had his acute abdominal series as of yet. I contacted radiology. Plan for acute abdominal series to check placement of NG tube and tentatively once its in good position plan for small bowel follow-through. Appreciable possibility that he will require a laparotomy.
[2025-02-05] MEDS: DIATRIZOATE MEGLUMINE(GASTROGRAFIN) 66%-10% 120ML 360 ML PO (08:55)
--- NOTE | 2025-02-05 09:30 | HMH.PHAAMS2 ---
- Antimicrobial Stewardship Review culture & sensitivity review Stewardship interventions: culture & sensitivity review, reviewed - no change Comments: NO CULTURES ORDERED, PATIENT ON ROCEPHIN FOR PNEUMONIA, WBC NORMAL, AFEBRILE OVER 24 HR.
[2025-02-05] MEDS: MORPHINE 4MG/ML SYRINGE 4 MG IV ×2 (10:31→15:39)
--- NOTE | 2025-02-05 12:15 | EXP.ACUTE.PN ---
Subjective *Date: 02/05/25 *Time: 12:15 Interval history: Having more abdominal discomfort this morning. NG to gravity at the moment due to installation of Gastrografin contrast. Stable on room air. Mild nausea but no hetal emesis. Hypoactive bowel sounds on exam. Family requesting GI consult in addition to surgical consultation. Patient alert and oriented this morning Medical Exam Vital signs and Labs for Last 24 Hours: Vital Signs Temp Pulse Pulse Pulse Resp BP BP 02/05/25 08:00 98.5 F 88 17 150/92 H 02/05/25 07:00 02/05/25 05:00 02/05/25 04:00 98.3 F 86 16 149/94 H 02/05/25 03:00 02/05/25 01:00 02/05/25 00:00 98.2 F 86 16 132/84 02/04/25 23:00 02/04/25 21:00 02/04/25 20:00 02/04/25 20:00 97.6 F 84 16 134/77 02/04/25 19:00 02/04/25 17:13 98.1 F 86 16 132/96 H 02/04/25 17:00 02/04/25 15:50 98.2 F 85 20 124/79 02/04/25 14:30 76 138/120 H 02/04/25 14:26 02/04/25 13:31 87 125/89 02/04/25 13:20 88 113/92 H 02/04/25 12:31 90 120/92 H Pulse Ox O2 Del Method 02/05/25 08:00 93 L Room Air 02/05/25 07:00 Room Air 02/05/25 05:00 Room Air 02/05/25 04:00 92 L Room Air 02/05/25 03:00 Room Air 02/05/25 01:00 Room Air 02/05/25 00:00 96 Room Air 02/04/25 23:00 Room Air 02/04/25 21:00 Room Air 02/04/25 20:00 Room Air 02/04/25 20:00 98 Room Air 02/04/25 19:00 Room Air 02/04/25 17:13 96 Room Air 02/04/25 17:00 Room Air 02/04/25 15:50 Room Air 02/04/25 14:30 02/04/25 14:26 Room Air 02/04/25 13:31 02/04/25 13:20 97 02/04/25 12:31 97 Room Air Intake and Output 02/04/25 02/05/25 02/05/25 23:59 07:59 15:59 Intake Total 50 / 50 Output Total 0 / 800 0 / 0 Balance 0 / 600 50 / 50 0 / 50 Intake: Intake, Oral Amount 50 / 50 Output: Output, Urine Amount 0 / 0 0 / 0 Other: Number of Voids 0 Number of Unmeasured Voids 1 Weight 84.958 kg 84.958 kg Patient Weight 02/05/25 23:59 Weight 84.958 kg Laboratory Results - last 24 hr 02/04/25 11:45: SARS-CoV-2 (PCR) Not detected, Influenza A Untype (PCR) Not detected, Influenza Type B (PCR) Not detected 02/04/25 11:50: HCV Ab MICHEL w/Rflx PCR Qn Negative, HIV Ag/Ab Combo Qual Negative 02/04/25 16:00: Urine Color Yellow, Urine Appearance Clear, Urine pH 6.0, Ur Specific [place] 1.010, Urine Protein Negative, Urine Glucose (UA) Negative, Urine Ketones Negative, Urine Blood Negative, Urine Nitrate Negative, Urine Bilirubin Negative, Urine Urobilinogen 0.2, Ur Leukocyte Esterase Negative, Urine RBC None, Urine WBC None, Ur Squamous Epith Cells Occasional, Urine Bacteria Trace 02/05/25 05:43: WBC 3.9 L D, RBC 4.77, Hgb 13.7 L D, Hct 42.1, MCV 88.3, MCH 28.7, MCHC 32.5, RDW 13.9, Plt Count 245 D, MPV 8.9, Neut % (Auto) 51.8, Lymph % (Auto) 32.1, [place] % (Auto) 10.4 H, Eos % (Auto) 5.2, Baso % (Auto) 0.5, Neut # (Auto) 2.0, Lymph # (Auto) 1.2, [facility] # (Auto) 0.4, Eos # (Auto) 0.2, Baso # (Auto) 0.0, Sodium 143, Potassium 3.6, Chloride 102, Carbon Dioxide 30, Anion Gap 14.6, BUN 10, Creatinine 1.10 D, Estimated Creat Clear 87, Estimated GFR 69, Est GFR ( Amer) 83 D, Glucose 99 D, Calcium 8.3 L, Magnesium 2.0, Total Bilirubin 1.1, AST 33, ALT 27, Alkaline Phosphatase 79, Total Protein 7.2, Albumin 4.2 D, Globulin 3.0, Albumin/Globulin Ratio 1.4 I & O for Labs for Last 24 Hours: Intake & Output 02/02/25 02/03/25 02/04/25 02/05/25 23:59 23:59 23:59 23:59 Intake Total 1350 / 1400 50 / 50 Output Total 800 / 800 0 / 0 Balance 550 / 600 50 / 50 Weight 84.958 kg 84.958 kg Constitutional: Present mild distress, average body habitus and cooperative Head: Present atraumatic Comment:: NG in right nare Respiratory: Present normal respiratory effort; Absent respiratory distress, stridor, wheezes or crackles Cardiac: Present Reg Rate and Rhythm GI: Present distention, tenderness and hypoactive bowel sounds; Absent rebound Extremities: Present normal inspection and full ROM Skin: Present intact; Absent erythema Neuro: Present Grossly Intact, alert, awake, oriented x 3 and moves all extremities Assessment and Plan *Assessment and plan (1) SBO (small bowel obstruction): Status: Acute Category: Medical Code(s): K56.609 - Unspecified intestinal obstruction, unspecified as to partial versus complete obstruction (2) BPH (benign prostatic hyperplasia): Status: Acute Category: Medical Code(s): N40.0 - Benign prostatic hyperplasia without lower urinary tract symptoms (3) Tobacco abuse: Status: Chronic Category: Medical Code(s): Z72.0 - Tobacco use (4) History of DVT (deep vein thrombosis): Status: Acute Category: Medical Code(s): Z86.718 - Personal history of other venous thrombosis and embolism Plan Anuel rowland is a 59-year-old male with medical history significant for SBO x 2 with resection, last 1 in 2014, DVT with IVC filter presented with several day onset of abdominal pain, decreased bowel movements and was admitted for small bowel obstruction. Liquid stool yesterday but no stool since. Having increased distention today. Currently undergoing GI series. Surgery and GI assisting with care. Problems addressed as follows: #Small bowel obstruction #History of SBO with resection x 2, last 2014 ? Patient presents with progressive abdominal pain, decreased bowel movements. CT abdomen/pelvis suggestive of SBO with transition point in the left abdomen. ? Gastrografin instilled this morning. Awaiting serial images. NG remains in place, currently suction is off due to contrast. Will resume suction after imaging. - General Surgery consulted, recommending medical management for now but also good probability that patient will need laparotomy given history of resections. ? Continue LR at 100 mg/h for now. N.p.o. ? White count normal at 3.9, hemoglobin stable at 13.7. Kidney function electrolytes normal with BUN 10, creatinine 1.1. Potassium 3.6. Magnesium 2.0. - Repeat CBC, CMP, magnesium ordered for the morning ? Follow-up small bowel follow-through - Family requesting GI consult due to patient's history of constipation. #Suspected community-acquired pneumonia ? CTA on admission suggests right upper lobe ground glass opacifications. WBC normal at this time. On room air. ? Continue IV ceftriaxone day 2/5. #Chronic tobacco smoker: Nicotine patch as needed. #History of DVT with IVC filter: No signs of DVT at this time. VTE prophylaxis ordered. IVC filter in place Full code DVT prophylaxis: IPC's N.p.o.
--- NOTE | 2025-02-05 12:42 | EXP.GE.CONS ---
History of Present Illness *Admission Date: 02/04/25 *History of present illness: History as provided by Dr. Gimenez as below. Patient was apparently born with a congenital malrotation, unclear exactly which. Has a history of SBO x 2 and resection both times. Last SBO with resection was in 2014. Feeling better after NG tube decompression, had loose bowel movements yesterday. No bowel movements today. CT abdomen/pelvis Reveals proximal small bowel loops with transition in the left abdomen, subpleural ground glass opacities in the left upper lobe. Discussed case with ED provider and decided to admit patient for further evaluation management. Patient is a 59-year-old male with history of hypertension, hyperlipidemia, iron deficiency anemia. He has a history of DVT and has an IVC filter in place. He is on hydrocodone, metoprolol, and gabapentin. He has a history of a variety of GI symptoms and has been followed by gastroenterology at this facility most recently. Patient had previously had a colonoscopy with Dr. Maldonado 2 years ago which was reportedly normal. He had an EGD with Dr. Peck in March 2023 which was positive for H. pylori. He has prior history of bowel obstruction on several occasions and has had laparotomy with small bowel resection x 3 in the past. He presented to the emergency department today on 02/04/2025 with a 3-day history of burning abdominal pain with associated nausea and vomiting with some nonbloody diarrhea. He has continued to pass gas. Denies any radiation of abdominal pain. Evaluation in the emergency department revealed some tenderness in the left lower and left upper quadrant without distention. Evaluation in the emergency department revealed normal CBC. He has slightly elevated creatinine at 1.4. Liver function tests unremarkable. CT angiogram performed which revealed proximal small bowel loops dilated with transition point in the left abdomen just anterior to the left kidney. 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 Given his findings consistent with small bowel obstruction he had nasogastric tube placed Per H & P This is a 59-year-old male who was last seen in our office for panendoscopy back in April 2024. He had a deficiency anemia and was on anticoagulation at the time. His hemoglobin was down to 8.8 back in February. Hemoglobin up to 15.7 on admission. He did undergo panendoscopy Dr. Yen in April 2024 with no findings of active bleeding but did have grade 2-3 internal hemorrhoids status post band ligation x 4. He did have some reactive gastropathy. He underwent PillCam with no findings of active bleeding. He has had normalization or near normalization of his hemoglobin since stopping the anticoagulation. The patient denies any melena or hematochezia currently. He did have abrupt onset nausea vomiting abdominal discomfort consistent with his previous history of small bowel obstruction. He has been seen by Dr. Gimenez and here. He did get some relief of symptoms with NG tube placement. Patient does have a history of some constipation but he denies any constipation leading up to this hospitalization. Bowels have been moving well. He did have some diarrhea once his nausea and vomiting abdominal discomfort started. He is TTP throughout abdomen today as expected. [facility] Disclaimer: The information contained in this section may have been updated after the patient was seen, as this information can be updated by other users. Medical History Diverticulosis Acid reflux Hypertension Hx of deep venous thrombosis GI bleed Appendicitis Intestinal obstruction Smoker Small bowel obstruction Surgical History History of back surgery x2 History of intestinal surgery x2 History of appendectomy Family History Other Family history of blood clots Family history of diabetes mellitus type II Social History (Updated 02/04/25 @ 17:32 by Mendy Petersen RN) Smoking Status: Current every day smoker tobacco type: cigars per week: 7 alcohol intake: never substance use type: denies use current occupational status: retired and disabled Travel in the last 8 weeks?: None household members: spouse housing: house marital status: education level: high school service: Yes longterm: No caffeine: Yes special michael needs: No agree to transfusion: No do you feel safe at home: Yes victim of physical abuse: No victim of emotional abuse: No victim of sexual abuse: No would you like helpful sources: No Have you lived/traveled outside US in past 30 days?: No Contact w/someone who lives/traveled outside US past 30 days?: No Exposure to someone with infectious disease in past 14 days?: No Do you have a fever (greater than 100.4 F or 38 C)?: No Have you tested positive for COVID-19?: No Exposed to someone with COVID-19 in past 14 days?: No Do you have a sore throat?: No Do you have a cough?: No Do you have any weakness?: No Do you have any diarrhea?: No Are you experiencing any unusual bleeding?: No Do you have any muscle aches/pain?: No Do you have any abdominal pain?: No Are you experiencing loss of taste or smell?: No Review of Systems Review of Systems Review of systems:: pertinent systems reviewed and negative unless documented below Constitutional Constitutional: Reports system reviewed and no additional complaints, except as documented Eyes Eyes: Reports system reviewed and no additional complaints, except as documented ENT Ears, Nose, Mouth, and Throat: Reports system reviewed and no additional complaints, except as documented *Cardiovascular Cardiovascular: Reports system reviewed and no additional complaints, except as documented *Respiratory Respiratory: Reports system reviewed and no additional complaints, except as documented *Gastrointestinal Gastrointestinal: Reports abdominal pain, Reports change in bowel habits, Reports nausea and Reports vomiting *Genitourinary Genitourinary: Reports system reviewed and no additional complaints, except as documented *Musculoskeletal Musculoskeletal: Reports system reviewed and no additional complaints, except as documented Integumentary/Breasts Skin/Breast: Reports system reviewed and no additional complaints, except as documented *Neurologic Neurologic: Reports system reviewed and no additional complaints, except as documented Psychiatric Psychiatric: Reports system reviewed and no additional complaints, except as documented Endocrine Endocrine: Reports system reviewed and no additional complaints, except as documented Hematologic/Lymphatic Hematologic/Lymphatic: Reports system reviewed and no additional complaints, except as documented Allergic/Immunologic Allergic/Immunologic: Reports system reviewed and no additional complaints, except as documented Meds Home Medications and Allergies Home Medications ?Medication ?Instructions ?Recorded ?Confirmed ?Type hydrocodone 10 mg-acetaminophen 0.5 - 1 tab PO Q6H PRN chronic pain 05/10/22 02/04/25 History 325 mg tablet ferrous sulfate 325 mg (65 mg 325 mg PO DAILY #30 tabs 09/20/24 02/04/25 Rx iron) tablet,delayed release gabapentin 400 mg capsule 400 mg PO BID 01/17/25 02/04/25 History tadalafil 10 mg tablet 10 mg PO DAILY #90 tabs 01/17/25 02/04/25 Rx amitriptyline 25 mg tablet 25 mg PO HS 02/04/25 02/04/25 History methylprednisolone 4 mg tablets in 4 mg PO DIRECTED 02/04/25 02/04/25 History a dose pack (Medrol ([place])) New Prescriptions to Start Prescriptions: Allergies Allergy/AdvReac Type Severity Reaction Status Date / Time venom-honey bee (BEE VENOM Allergy Unknown Other Verified 02/01/25 10:48 (HONEY BEE)) Exam (Inpt) Vital signs and Labs for Last 24 Hours: Temp Pulse Resp BP Pulse Ox O2 Del Method 98.5 F 88 17 150/92 H 93 L Room Air 02/05/25 08:00 02/05/25 08:00 02/05/25 08:00 02/05/25 08:00 02/05/25 08:00 02/05/25 08:00 Laboratory Results - last 24 hr 02/04/25 11:50: HCV Ab MICHEL w/Rflx PCR Qn Negative, HIV Ag/Ab Combo Qual Negative 02/04/25 16:00: Urine Color Yellow, Urine Appearance Clear, Urine pH 6.0, Ur Specific [place] 1.010, Urine Protein Negative, Urine Glucose (UA) Negative, Urine Ketones Negative, Urine Blood Negative, Urine Nitrate Negative, Urine Bilirubin Negative, Urine Urobilinogen 0.2, Ur Leukocyte Esterase Negative, Urine RBC None, Urine WBC None, Ur Squamous Epith Cells Occasional, Urine Bacteria Trace 02/05/25 05:43: WBC 3.9 L D, RBC 4.77, Hgb 13.7 L D, Hct 42.1, MCV 88.3, MCH 28.7, MCHC 32.5, RDW 13.9, Plt Count 245 D, MPV 8.9, Neut % (Auto) 51.8, Lymph % (Auto) 32.1, [place] % (Auto) 10.4 H, Eos % (Auto) 5.2, Baso % (Auto) 0.5, Neut # (Auto) 2.0, Lymph # (Auto) 1.2, [place] # (Auto) 0.4, Eos # (Auto) 0.2, Baso # (Auto) 0.0, Sodium 143, Potassium 3.6, Chloride 102, Carbon Dioxide 30, Anion Gap 14.6, BUN 10, Creatinine 1.10 D, Estimated Creat Clear 87, Estimated GFR 69, Est GFR ( Amer) 83 D, Glucose 99 D, Calcium 8.3 L, Magnesium 2.0, Total Bilirubin 1.1, AST 33, ALT 27, Alkaline Phosphatase 79, Total Protein 7.2, Albumin 4.2 D, Globulin 3.0, Albumin/Globulin Ratio 1.4 I & O for Labs for Last 24 Hours: Intake & Output 02/03/25 02/04/25 02/05/25 02/06/25 11:59 11:59 11:59 11:59 Intake Total 1400 Output Total 800 Balance 600 Weight 97.522 kg 84.958 kg Constitutional: no acute distress and cooperative Head: Present normocephalic and atraumatic ENT exam ED: Present other (NG tube in place clamped) Respiratory: Present rhonchi (Very mild rhonchi bilateral upper lobes) Cardiac: Present Reg Rate and Rhythm GI: Present soft, distention (Moderately distended) and tenderness (TTP throughout abdomen) Extremities: Present normal inspection Skin: Present intact Results Labs 02/05/25 05:43 02/05/25 05:43 Labs: Laboratory Results - last 24 hr 02/04/25 11:50: HCV Ab MICHEL w/Rflx PCR Qn Negative, HIV Ag/Ab Combo Qual Negative 02/04/25 16:00: Urine Color Yellow, Urine Appearance Clear, Urine pH 6.0, Ur Specific [place] 1.010, Urine Protein Negative, Urine Glucose (UA) Negative, Urine Ketones Negative, Urine Blood Negative, Urine Nitrate Negative, Urine Bilirubin Negative, Urine Urobilinogen 0.2, Ur Leukocyte Esterase Negative, Urine RBC None, Urine WBC None, Ur Squamous Epith Cells Occasional, Urine Bacteria Trace 02/05/25 05:43: WBC 3.9 L D, RBC 4.77, Hgb 13.7 L D, Hct 42.1, MCV 88.3, MCH 28.7, MCHC 32.5, RDW 13.9, Plt Count 245 D, MPV 8.9, Neut % (Auto) 51.8, Lymph % (Auto) 32.1, [place] % (Auto) 10.4 H, Eos % (Auto) 5.2, Baso % (Auto) 0.5, Neut # (Auto) 2.0, Lymph # (Auto) 1.2, [place] # (Auto) 0.4, Eos # (Auto) 0.2, Baso # (Auto) 0.0, Sodium 143, Potassium 3.6, Chloride 102, Carbon Dioxide 30, Anion Gap 14.6, BUN 10, Creatinine 1.10 D, Estimated Creat Clear 87, Estimated GFR 69, Est GFR ( Amer) 83 D, Glucose 99 D, Calcium 8.3 L, Magnesium 2.0, Total Bilirubin 1.1, AST 33, ALT 27, Alkaline Phosphatase 79, Total Protein 7.2, Albumin 4.2 D, Globulin 3.0, Albumin/Globulin Ratio 1.4 Assessment and Plan *Assessment and plan (1) SBO (small bowel obstruction): Status: Acute Category: Medical Code(s): K56.609 - Unspecified intestinal obstruction, unspecified as to partial versus complete obstruction (2) Generalized abdominal pain: Status: Acute Category: Medical Code(s): R10.84 - Generalized abdominal pain (3) Nausea & vomiting: Status: Acute Category: Medical Code(s): R11.2 - Nausea with vomiting, unspecified Plan 1. SBO/generalized abdominal pain/nausea and vomiting No further struggles with iron-deficiency anemia since elimination of anticoagulation. Hemoglobin 15.7 upon arrival down to 13.7 likely dilutional. SBO seen on CT with history of same secondary to adhesions. Last surgery was in 2014. No struggles with constipation/obstipation, nausea or vomiting leading up to this event. He reports an abrupt onset of symptoms similar to previous history of SBO. He has gotten some relief with the NG tube to low wall suction. Awaiting final small bowel follow-through results and monitored through Dr. Gimenez. We are happy to see him as needed as an outpatient.
--- NOTE | 2025-02-05 16:02 | PC.NURSE ---
Notifed OR team of surgery request per . Spoke with Nicole Rodriguez and Alia. Team is aware of procedure.
--- NOTE | 2025-02-05 16:19 | P.PN_ITS ---
Subjective Narrative: Patient underwent small bowel follow-through today. Radiology states that they have completed all films up to the 4-1/2-hour jey. Report is still pending. Review of the films appears to show a lot of contrast still in the small bowel with dilatation. When examining and interviewing the patient he states that he feels terrible . He the is having severe abdominal pain with vomiting despite nasogastric tube. He is quite diaphoretic. He states that he feels worse than he did when he presented to the emergency department. Exam Data for Last 24 hours Vital signs and Labs for Last 24 Hours: Temp Pulse Resp BP Pulse Ox O2 Del Method 98.5 F 93 H 18 161/94 H 99 Room Air 02/05/25 08:00 02/05/25 12:00 02/05/25 12:00 02/05/25 12:00 02/05/25 12:00 02/05/25 15:00 Laboratory Results - last 24 hr 02/04/25 16:00: Urine RBC None, Urine WBC None, Ur Squamous Epith Cells Occasional, Urine Bacteria Trace 02/05/25 05:43: WBC 3.9 L D, RBC 4.77, Hgb 13.7 L D, Hct 42.1, MCV 88.3, MCH 28.7, MCHC 32.5, RDW 13.9, Plt Count 245 D, MPV 8.9, Neut % (Auto) 51.8, Lymph % (Auto) 32.1, [place] % (Auto) 10.4 H, Eos % (Auto) 5.2, Baso % (Auto) 0.5, Neut # (Auto) 2.0, Lymph # (Auto) 1.2, [place] # (Auto) 0.4, Eos # (Auto) 0.2, Baso # (Auto) 0.0, Sodium 143, Potassium 3.6, Chloride 102, Carbon Dioxide 30, Anion Gap 14.6, BUN 10, Creatinine 1.10 D, Estimated Creat Clear 87, Estimated GFR 69, Est GFR ( Amer) 83 D, Glucose 99 D, Calcium 8.3 L, Magnesium 2.0, Total Bilirubin 1.1, AST 33, ALT 27, Alkaline Phosphatase 79, Total Protein 7.2, Albumin 4.2 D, Globulin 3.0, Albumin/Globulin Ratio 1.4 I & O for Last 24 hours: Intake & Output 02/03/25 02/04/25 02/05/25 02/06/25 11:59 11:59 11:59 11:59 Intake Total 1400 / 1400 Output Total 800 / 800 Balance 600 / 600 Weight 215 lb 187 lb 4.805 oz Constitutional Constitutional: mild distress Comments: Diaphoretic *Routine Abdominal Exam Abdominal: Present tenderness Progress Note: A&P Assessment and plan (1) SBO (small bowel obstruction): Status: Acute Assessment and plan: Plan will be for emergent laparotomy with lysis of adhesions and possible bowel obstruction due to progression of his symptoms with failure of nonoperative management of small bowel obstruction. Patient strongly desires expeditious surgical intervention due to his profound discomfort. Arrangements will be made. (2) Generalized abdominal pain: Status: Acute (3) Nausea & vomiting: Status: Acute
[2025-02-05] MEDS: PIPERCILLIN/TAZO 3.375 GM in 0.9 % SODIUM CHLORIDE 50 ML IV (17:15)
--- NOTE | 2025-02-05 18:53 | P.PNANES_ITS ---
[facility] Disclaimer: The information contained in this section may have been updated after the patient was seen, as this information can be updated by other users. Medical History Diverticulosis Acid reflux Hypertension Hx of deep venous thrombosis GI bleed Appendicitis Intestinal obstruction Smoker Small bowel obstruction Surgical History History of back surgery x2 History of intestinal surgery x2 History of appendectomy Family History Other Family history of blood clots Family history of diabetes mellitus type II Social History (Updated 02/04/25 @ 17:32 by Mendy Petersen RN) Smoking Status: Current every day smoker tobacco type: cigars per week: 7 alcohol intake: never substance use type: denies use current occupational status: retired and disabled Travel in the last 8 weeks?: None household members: spouse housing: house marital status: education level: high school service: Yes mcc: No caffeine: Yes special michael needs: No agree to transfusion: No do you feel safe at home: Yes victim of physical abuse: No victim of emotional abuse: No victim of sexual abuse: No would you like helpful sources: No Have you lived/traveled outside US in past 30 days?: No Contact w/someone who lives/traveled outside US past 30 days?: No Exposure to someone with infectious disease in past 14 days?: No Do you have a fever (greater than 100.4 F or 38 C)?: No Have you tested positive for COVID-19?: No Exposed to someone with COVID-19 in past 14 days?: No Do you have a sore throat?: No Do you have a cough?: No Do you have any weakness?: No Do you have any diarrhea?: No Are you experiencing any unusual bleeding?: No Do you have any muscle aches/pain?: No Do you have any abdominal pain?: No Are you experiencing loss of taste or smell?: No [facility] Anesthesia Checklist Patient Identification Patient Identification: Arm Band Structural Data Admitted From: Inpatient Planned Operative Procedure/s: Exploratory Laparotomy Consent for Planned Operative Procedure(s) Verified: Yes Verified Documents: Surgical Consent and History and Physical NPO Status Verified Time NPO: 00:00 Additional verifications Anesthesia Reactions: No Airway Assessment Mallampati Score:: Class II C-Spine Mobility Assessed: Yes TMJ Mobility Assessed: Yes Dentition: Edentulous Neurological Assessment Level of Consciousness: Awake, Alert and Appropriate Anesthesia Plan Anesthesia Risk discussed: Yes Anesthesia Plan: Verified ASA Class: II (E) Anesthesia Type: General
--- NOTE | 2025-02-05 19:32 | P.OP_ITS ---
Date of procedure: 02/05/25 Pre-op Diagnosis:: Small bowel obstruction Post-op Diagnosis:: Same Procedure performed:: Exploratory laparotomy with extensive lysis of adhesions and freeing of intestinal obstruction Surgeon:: Chuy Gimenez MD NURSING ADMINISTRATOR:: Michael Mahan Anesthesia: SUSAN Estimated blood loss (mL): 25 Clinical Note:: Patient is a 59-year-old male with prior history of extensive abdominal surgery. 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 He had previously undergone exploratory laparotomy with cecopexy and exploratory laparotomy for refractory small bowel obstruction about 10 years ago with lysis of adhesions. He had presented with progressive abdominal pain for several days and obstipation. Imaging revealed findings of small bowel obstruction. Patient was admitted for inpatient management and had nasogastric tube placed. The following morning he seemed to be doing better and x-ray some diffuse bowel gas. He underwent small bowel follow-through. This resulted in severe progression of pain with nausea, vomiting and dry heaves with nasogastric tube in place, diaphoresis. Results of the small bowel follow-through were consistent with mechanical small bowel obstruction. Plan was made for urgent laparotomy. Operative findings:: Patient had diffusely dilated proximal and mid small bowel. There were diffuse extensive abdominal adhesions and somewhat of a band of adhesions in the left lower posterior abdomen. Bowel was decompressed distal to this consistent with high-grade partial obstruction. Cecum was in the right lower quadrant and s omewhat redundant. Ligament of Treitz was displaced and duodenum were displaced to the left of the midline consistent with congenital anomaly but not classic malrotation. . Operative note:: Consent was obtained patient was taken the operating room. He was given preoperative intravenous antibiotics. In the operating room he was placed in a supine position. General anesthesia was induced. Jackson catheter was placed. Skin was marked with a skin marker for excision of prominent midline laparotomy scar. Incision was made elliptically around the prominent scar and this was excised from the underlying subcutaneous tissues using electrocautery. Dissection was carried down through subcutaneous tissues to the fascia. Fascia was carefully elevated and slowly incised until the peritoneal cavity was entered. Fascia was incised with electrocautery. There was a densely adherent loop of small bowel to the fascia in the mid upper abdomen and during fascial entry there was resultant unavoidable small bowel enterotomy. The small bowel loop was isolated. It appeared viable and not in need of resection. The enterotomy was closed transversely in 2 layers with a running 3-0 Vicryl followed by interrupted 3-0 Surgilon seromuscular sutures. Several adhesions to the surrounding anterior fascia were incised and ultimately Bookwalter retractor was inserted. Surveillance was carried out and several obvious adhesions were incised. This was done as the small bowel was eviscerated. In the left lower quadrant there was almost a torsion of a band distal to which small bowel was decompressed consistent with high-grade partial obstruction. This was incised with Metzenbaum dissection. Ultimately the small bowel was run and is entirety which required identification of the terminal ileum in the right lower quadrant where there was somewhat of a redundant cecum. Small bowel was then run in a retrograde fashion with extensive lysis of adhesions of interloop adhesions freeing the small bowel in its entirety. There was unusual anatomy at the duodenal sweep of the ligament of Treitz where the duodenum appeared to be displaced to the left of the midline. Nasogastric tube was replaced and confirmed to be in a good position. Small bowel was then run in its entirety once again with inspection of the previous enterotomy site which appeared to be intact. There was a tiny rent in the mesentery which was closed with a Vicryl [id number] suture. Adjacent bowel was viable. Due to the marked distention of the small bowel the abdomen was unable to be feasibly closed. Therefore the small bowel was milked in a retrograde fashion into the stomach suctioning out via the NG tube copious amounts of liquid and gas. At this time enteric contents were returned to the abdomen. There was good hemostasis. Peritoneal cavity was thoroughly irrigated until clear. Nasogastric tube was once again confirmed to be in a good position. Fascia was closed with a running #2 Novafil x 2. Subcutaneous tissues were irrigated. Hemostasis was achieved with electrocautery. Skin was partially closed with multiple interrupted 3-0 and 2-0 nylon vertical mattress sutures. The remainder the skin was closed with enrique. Clean dry sterile dressing was applied. . Condition: stable Disposition: PACU Complications:: None immediately apparent
[2025-02-05] MEDS: HYDROMORPHONE 2MG/ML SYRINGE 0.5 MG IV ×5 (19:42→20:48)
[2025-02-05] MEDS: MEPERIDINE 25MG/ML 1ML SYRINGE 25 MG IV (19:43)
[2025-02-05] MEDS: KETOROLAC 30MG/ML VIAL 30 MG IV (20:00)
[2025-02-05] MEDS: MORPHINE 2MG/ML SYRINGE 2 MG IV ×4 (20:05→20:30)
--- NOTE | 2025-02-05 21:08 | P.PNANES_ITS ---
[facility] Anesthesia Record Part I Anesthesia Record I Intake, IV Amount: 2,300 Hydration: Adequate Estimated blood loss (mL): 50 Urine output (mL): 100 Blood Products used (#): none Blood Pressure: 142/65 SaO2: 97 Pulse Rate: 86 Airway Patency: Patent Respiratory Rate: 16 Temperature: 97.8 F Patient is:: Drowsy and Stable Stable to PACU at:: 19:35
--- NOTE | 2025-02-05 21:25 | SUR.PHASEI ---
2024- Rfeeback,machine heel seat fitter contacted about pain control for pt. Verbal orders given and faxed to pharmacy by this nurse. 2054- detailed report given to kirti sylvester in ICU. 2099- Pt left in care of kirti Sylvester in ICU. Pt stable, VSS, dressings CDI.
--- NOTE | 2025-02-05 21:30 | PC.NURSE ---
patient arrived to ICU unit from surgery via bed @21:00
[2025-02-06] VITALS (26 sets, daily range): BP systolic 128–195; BP diastolic 81–94; PULSE 75–97; RESP 11–25; TEMP 36.6–37.1; O2SAT 90–96; BMI 26.0
[2025-02-06] MEDS: MORPHINE 4MG/ML SYRINGE 4 MG IV ×2 (00:35→05:09)
[2025-02-06 07:13] LABS: Hematocrit 44.2 % (42.0-52.0); Hemoglobin 14.7 g/dL (14.1-18.0); Immature Granulocytes % 0.3 %; Mean Corpuscular HGB Conc 33.3 g/dL (31.8-35.4); Mean Corpuscular Hemoglobin 29.3 pg (27.0-31.2); Mean Corpuscular Volume 88.0 fl (80-94); Nucleated Red Blood Cells % 0 %; Platelet Count 269 K/mm3 (142-424); Red Blood Count 5.02 M/mm3 (4.60-6.20); Red Cell Distribution Width-SD 44.4 fL; White Blood Count 6.7 K/mm3 (4.8-10.8)
[2025-02-06 07:20] LABS: Albumin Level 4.0 g/dl (3.5-5.0); Chloride 102 mmol/L (98-107); Potassium 3.6 mmoL/L (3.5-5.1); Sodium 142 mmol/L (136-145)
[2025-02-06 07:23] LABS: Alanine Aminotransferase 31 U/L (12-78); Albumin/Globulin Ratio 1.3 (1.1-1.8); Alkaline Phosphatase 68 U/L (38-126); Anion Gap 9.6 mEq/L (5-15); Aspartate Amino Transferase 37 U/L (17-59); Bilirubin,Total 0.8 mg/dl (0.2-1.3); Blood Urea Nitrogen 15 mg/dl (9-20); Calcium 8.1 mg/dl (8.4-10.2); Carbon Dioxide 34 mmol/L (22.0-30.0); Creatinine Clearance Estimated 83 mL/min (50-200); Creatinine,Serum 1.20 mg/dl (0.66-1.25); Estimated Glomerular Filt Rate 62 ml/min (>60); GFR (African American) 75 ML/MIN (>60); Globulin 3.0 g/dL (1.3-3.2); Glucose 109 mg/dl (74-100); Magnesium 1.9 mg/dl (1.6-2.3); Total Protein,Serum 7.0 g/dl (6.3-8.2)
[2025-02-06] MEDS: HYDROMORPHONE 2MG/ML SYRINGE 1 MG IV ×7 (08:16→22:07)
--- NOTE | 2025-02-06 08:35 | EXP.SURG.PN ---
Subjective Narrative: No significant complaints this morning Exam Data for Last 24 hours Vital signs and Labs for Last 24 Hours: Temp Pulse Resp BP Pulse Ox O2 Del Method O2 Flow Rate 98.5 F 92 H 25 H 130/85 96 Room Air 2 02/06/25 08:00 02/06/25 07:58 02/06/25 07:58 02/06/25 07:58 02/06/25 08:00 02/06/25 08:00 02/06/25 00:00 Laboratory Results - last 24 hr 02/06/25 05:55: WBC 6.7 D, RBC 5.02, Hgb 14.7, Hct 44.2, MCV 88.0, MCH 29.3, MCHC 33.3, RDW 13.6, Plt Count 269, MPV 9.1, Neut % (Auto) 74.6, Lymph % (Auto) 13.4, [place] % (Auto) 11.6 H, Eos % (Auto) 0.0 L, Baso % (Auto) 0.1, Neut # (Auto) 5.0, Lymph # (Auto) 0.9, [place] # (Auto) 0.8, Eos # (Auto) 0.0, Baso # (Auto) 0.0, Sodium 142, Potassium 3.6, Chloride 102, Carbon Dioxide 34 H, Anion Gap 9.6, BUN 15 D, Creatinine 1.20, Estimated Creat Clear 83, Estimated GFR 62, Est GFR ( Amer) 75, Glucose 109 H, Calcium 8.1 L, Magnesium 1.9, Total Bilirubin 0.8, AST 37, ALT 31, Alkaline Phosphatase 68, Total Protein 7.0, Albumin 4.0, Globulin 3.0, Albumin/Globulin Ratio 1.3 I & O for Last 24 hours: Intake & Output 02/03/25 02/04/25 02/05/25 02/06/25 11:59 11:59 11:59 11:59 Intake Total 1400 / 1400 2570 / 2570 Output Total 800 / 800 2298 / 2298 Balance 600 / 600 272 / 272 Weight 215 lb 187 lb 4.805 oz 196 lb 4.793 oz Constitutional Constitutional: no acute distress *Routine Respiratory Exam Respiratory: Absent respiratory distress *Routine Cardiovascular Exam Cardiovascular: Absent tachycardia *Routine Abdominal Exam Comments: Dressing in place. No spreading cellulitis. Progress Note: A&P Assessment and plan (1) SBO (small bowel obstruction): Status: Acute Assessment and plan: Stable postoperative day 0.5 status post exploratory laparotomy with extensive adhesiolysis. Remove Jackson Increase ambulation Continue nasogastric decompression for now
--- NOTE | 2025-02-06 09:32 | P.PN_ITS ---
Subjective *Date: 02/06/25 *Time: 10:16 Interval history: Having significant abdominal pain today. Mild nausea. NG remains in place to low wall suction. No bowel movements or gas since surgery. States current pain regimen is not adequate. Stable on room air. Medical Exam Vital signs and Labs for Last 24 Hours: Vital Signs Temp Pulse Pulse Pulse Resp BP BP 02/06/25 09:00 02/06/25 08:00 98.5 F 02/06/25 08:00 02/06/25 07:58 92 H 25 H 130/85 02/06/25 07:00 02/06/25 05:00 02/06/25 04:45 85 25 H 02/06/25 04:30 91 H 23 02/06/25 04:15 92 H 22 02/06/25 04:00 98.4 F 135/88 02/06/25 04:00 86 16 02/06/25 04:00 96 H 02/06/25 03:45 93 H 17 02/06/25 03:30 95 H 17 02/06/25 03:15 86 13 02/06/25 03:01 135/86 02/06/25 03:01 90 19 02/06/25 03:00 91 H 19 02/06/25 03:00 02/06/25 02:45 92 H 19 02/06/25 02:30 75 15 02/06/25 02:15 83 14 02/06/25 02:00 138/86 02/06/25 02:00 93 H 18 02/06/25 01:45 94 H 13 02/06/25 01:30 94 H 17 02/06/25 01:15 94 H 12 02/06/25 01:00 132/92 H 02/06/25 01:00 94 H 11 L 02/06/25 01:00 02/06/25 00:45 90 12 02/06/25 00:00 96 H 02/06/25 00:00 98.6 F 94 H 19 136/93 H 02/05/25 23:00 02/05/25 22:00 100 H 14 135/87 02/05/25 21:30 02/05/25 21:28 97.9 F 97 H 12 143/90 H 02/05/25 21:27 90 02/05/25 21:10 97.8 F 86 16 142/65 H 02/05/25 20:55 97.8 F 84 16 141/81 H 02/05/25 20:45 97.8 F 91 H 16 137/81 02/05/25 20:35 97.8 F 97 H 16 152/80 H 02/05/25 20:25 97.8 F 98 H 16 149/75 H 02/05/25 20:15 97.8 F 94 H 16 141/71 H 02/05/25 20:05 97.8 F 99 H 16 160/74 H 02/05/25 19:55 97.8 F 94 H 16 159/64 H 02/05/25 19:45 97.8 F 85 16 145/60 H 02/05/25 19:35 97.8 F 86 16 142/65 H 02/05/25 16:22 97.7 F 113 H 20 135/94 H 02/05/25 15:00 02/05/25 13:00 02/05/25 12:00 93 H 18 161/94 H 02/05/25 11:00 Pulse Ox O2 Del Method O2 Flow Rate 02/06/25 09:00 Room Air 02/06/25 08:00 02/06/25 08:00 96 Room Air 02/06/25 07:58 94 L Room Air 02/06/25 07:00 Room Air 02/06/25 05:00 Room Air 02/06/25 04:45 94 L 02/06/25 04:30 95 02/06/25 04:15 95 02/06/25 04:00 95 Room Air 02/06/25 04:00 94 L 02/06/25 04:00 02/06/25 03:45 96 02/06/25 03:30 95 02/06/25 03:15 95 02/06/25 03:01 02/06/25 03:01 95 02/06/25 03:00 94 L 02/06/25 03:00 Room Air 02/06/25 02:45 95 02/06/25 02:30 95 02/06/25 02:15 95 02/06/25 02:00 02/06/25 02:00 94 L 02/06/25 01:45 94 L 02/06/25 01:30 96 02/06/25 01:15 90 L 02/06/25 01:00 02/06/25 01:00 91 L 02/06/25 01:00 Room Air 02/06/25 00:45 95 02/06/25 00:00 02/06/25 00:00 95 Nasal Cannula 2 02/05/25 23:00 Room Air 02/05/25 22:00 96 Nasal Cannula 2 02/05/25 21:30 100 Room Air 02/05/25 21:28 95 Nasal Cannula 2 02/05/25 21:27 02/05/25 21:10 02/05/25 20:55 96 Room Air 02/05/25 20:45 96 Room Air 02/05/25 20:35 96 Room Air 02/05/25 20:25 96 Room Air 02/05/25 20:15 96 Room Air 02/05/25 20:05 96 Room Air 02/05/25 19:55 97 Room Air 02/05/25 19:45 97 Room Air 02/05/25 19:35 97 Room Air 02/05/25 16:22 95 Room Air 02/05/25 15:00 Room Air 02/05/25 13:00 Room Air 02/05/25 12:00 99 Room Air 02/05/25 11:00 Room Air Intake and Output 02/05/25 02/06/25 02/06/25 23:59 07:59 15:59 Intake Total 2350 / 2620 120 / 120 Output Total 1650 / 2750 1100 / 2750 Balance 2350 / 1472 -1530 / -2630 -1100 / -2630 Intake: Intake, Oral Amount 120 / 120 Intake, Total IV Amount 2350 / 2450 Pipercillin/Tazo 3.375 gm In 0. 50 / 50 9 % Sodium Chloride 50 ml @ 100 mls/hr IV ONCE ONE Rx#: [id number] Output: Output, Urine Amount 900 / 1000 100 / 1000 Output, Urine Amount (Catheter) 100 / 100 Coude 100 / 100 Output, Gastric Drainage Amount 750 / 1650 900 / 1650 Right Nare 750 / 1650 900 / 1650 Other: Number of Unmeasured Voids 0 0 Weight 89.04 kg 89.04 kg Patient Weight 02/06/25 23:59 Weight 89.04 kg Laboratory Results - last 24 hr 02/06/25 05:55: WBC 6.7 D, RBC 5.02, Hgb 14.7, Hct 44.2, MCV 88.0, MCH 29.3, MCHC 33.3, RDW 13.6, Plt Count 269, MPV 9.1, Neut % (Auto) 74.6, Lymph % (Auto) 13.4, [place] % (Auto) 11.6 H, Eos % (Auto) 0.0 L, Baso % (Auto) 0.1, Neut # (Auto) 5.0, Lymph # (Auto) 0.9, [place] # (Auto) 0.8, Eos # (Auto) 0.0, Baso # (Auto) 0.0, Sodium 142, Potassium 3.6, Chloride 102, Carbon Dioxide 34 H, Anion Gap 9.6, BUN 15 D, Creatinine 1.20, Estimated Creat Clear 83, Estimated GFR 62, Est GFR ( Amer) 75, Glucose 109 H, Calcium 8.1 L, Magnesium 1.9, Total Bilirubin 0.8, AST 37, ALT 31, Alkaline Phosphatase 68, Total Protein 7.0, Albumin 4.0, Globulin 3.0, Albumin/Globulin Ratio 1.3 I & O for Labs for Last 24 Hours: Intake & Output 02/03/25 02/04/25 02/05/25 02/06/25 23:59 23:59 23:59 23:59 Intake Total 1350 / 1400 2500 / 2620 120 / 120 Output Total 800 / 800 548 / 1148 2750 / 2750 Balance 550 / 600 1952 / 1472 -2630 / -2630 Weight 84.958 kg 89.04 kg 89.04 kg Constitutional: Present mild distress, average body habitus and cooperative Head: Present atraumatic Comment:: NG in right nare Respiratory: Present normal respiratory effort; Absent respiratory distress, stridor, wheezes or crackles Cardiac: Present Reg Rate and Rhythm GI: Present distention, tenderness (Diffuse, worse over surgical incision) and hypoactive bowel sounds; Absent rebound Comments:: Bandage clean dry and intact except for small dime sized red spot in center of bandage. Extremities: Present normal inspection and full ROM Skin: Present intact; Absent erythema Neuro: Present Grossly Intact, alert, awake, oriented x 3 and moves all extremities Assessment and Plan *Assessment and plan (1) SBO (small bowel obstruction): Status: Acute Category: Medical Code(s): K56.609 - Unspecified intestinal obstruction, unspecified as to partial versus complete obstruction (2) BPH (benign prostatic hyperplasia): Status: Acute Category: Medical Code(s): N40.0 - Benign prostatic hyperplasia without lower urinary tract symptoms (3) Tobacco abuse: Status: Chronic Category: Medical Code(s): Z72.0 - Tobacco use (4) History of DVT (deep vein thrombosis): Status: Acute Category: Medical Code(s): Z86.718 - Personal history of other venous thrombosis and embolism Plan Anuel rowland is a 59-year-old male with medical history significant for SBO x 2 with resection, last 1 in 2014, DVT with IVC filter presented with several day onset of abdominal pain, decreased bowel movements and was admitted for small bowel obstruction. Taken for laparotomy last night with takedown of numerous adhesions. Remains NPO. Surgery continuing to assist with management. Problems addressed as follows: #Small bowel obstruction secondary to intra-abdominal adhesions #History of SBO with resection x 2, last 2014 ? Patient presents with progressive abdominal pain, decreased bowel movements. CT abdomen/pelvis suggestive of SBO with transition point in the left abdomen. ? Small bowel follow-through showed obstruction. Patient intolerant of NG being clamped. Taken for laparotomy yesterday with takedown of numerous adhesions. Will slowly advance diet. On sips and chips today. Discussed case with surgery, await bowel function before advancing any further. - Increased pain control to Dilaudid 1 mg every 2 hours as needed for severe breakthrough pain, Percocet 5 mg as needed for moderate to severe pain. Monitor for toxicity ? Continue LR at 100 mg/h for now. N.p.o. ? White count remains white count normal at 6.7, hemoglobin 14.7. Kidney function stable with BUN 15, creatinine 1.2. - Repeat CBC, CMP, magnesium ordered for the morning #Suspected community-acquired pneumonia ? CTA on admission suggests right upper lobe ground glass opacifications. WBC normal at this time. On room air. ? Continue IV ceftriaxone day 3/5. #Chronic tobacco smoker: Nicotine patch as needed. #History of DVT with IVC filter: No signs of DVT at this time. VTE prophylaxis ordered. IVC filter in place Full code DVT prophylaxis: IPC's N.p.o.
--- NOTE | 2025-02-06 10:03 | HMH.PHAAMS2 ---
- Antimicrobial Stewardship Review culture & sensitivity review Stewardship interventions: culture & sensitivity review, reviewed - no change Comments: NO CULTURES ORDERED, PATIENT ON ROCEPHIN FOR PNEUMONIA, WBC NORMAL, CONTINUES TO BE AFEBRILE OVER 24 HR.
--- NOTE | 2025-02-06 12:32 | EXP.ANES.II ---
[facility] Anesthesia Record Part II Anesthesia Record Part II Discharge Time: 20:55 Destination: Surgical Day Care (OP Surgery) PACU nurse assessment reviewed?: Yes Patient Condition:: Good Anesthesia Complications:: None Swallowing reflex intact?: Yes Airway Patency: Patent Cyanosis?: No Blood Pressure: 141/81 SaO2: 96 Respiratory Rate: 16 Pulse Rate: 84 Temperature: 97.8 F Mental Status: Alert & Oriented Pain level:: 5 Nausea and/or vomitting:: None Intake, IV Amount: 0 Hydration: Adequate
[2025-02-06 14:29] LABS: Microscopic,Cath URINE MICROSCOPIC (MICROSCOPIC)
[2025-02-06 15:47] LABS: Appearance,Urine/Cath CLEAR (Clear); Bilirubin,Cath Negative (Negative); Blood, Urine/Cath TRACE-I (Negative); Color,Urine/Cath YELLOW (Yellow); Glucose,Urine/Cath (UA) Negative (Negative); Ketones,Urine/Cath Negative (Negative); Leukocyte Esterase,Cath Negative (Negative); Nitrate,Cath POSITIVE (Negative); PH,Urine/Cath 6.0 (5.0-8.5); Protein,Urine/Cath TRACE (Negative); Specific Gravity, Urine/Cath 1.025 (1.005-1.030); Urobilinogen,Cath 0.2 EU/dl (0.2)
[2025-02-06 16:17] LABS: Bacteria,Urine/Cath TRACE /lpf; RBC,Urine/Cath Occasional # /hpf (0-3); Squamous Epithelial Ur./Cath Occasional #/hpf (0-5); WBC,Urine/Cath Occasional #/hpf (0-3)
[2025-02-06] MEDS: LACTATED RINGERS 1000ML 1,000 ML 500 ML IV (17:34)
[2025-02-06] MEDS: AMITRIPTYLINE 25MG TABLET 25 MG PO (20:16)
[2025-02-06] MEDS: GABAPENTIN 400MG CAPSULE 400 MG PO (20:16)
[2025-02-06] MEDS: OXYCODONE 5MG W/APAP 325MG TABLET 1 EACH PO (20:17)
[2025-02-07] VITALS: BP 136/79; PULSE 107; RESP 16; TEMP 37.1; O2SAT 90
[2025-02-07] MEDS: HYDROMORPHONE 2MG/ML SYRINGE 1 MG IV ×3 (03:14→06:34)
[2025-02-07 03:52] VITALS: BP 159/99; PULSE 122; RESP 20; TEMP 36.9; O2SAT 91; BMI 26.1
--- NOTE | 2025-02-07 04:05 | PC.NURSE ---
Pt is A&Ox4 and has tolerated room air. He has complained of pain multiple times this shift and has been medicated per MAR. Dressing to midline incision has remained c/d/i. Ng to right nare has remained to low wall suction. He has ambulated room multiple times. He has voided per urinal. Pt does report passing gas but no BM. No other complaints at this time, call light within reach.
[2025-02-07 06:48] LABS: Hematocrit 41.8 % (42.0-52.0); Hemoglobin 13.3 g/dL (14.1-18.0); Immature Granulocytes % 0.3 %; Mean Corpuscular HGB Conc 31.8 g/dL (31.8-35.4); Mean Corpuscular Hemoglobin 28.1 pg (27.0-31.2); Mean Corpuscular Volume 88.2 fl (80-94); Nucleated Red Blood Cells % 0 %; Platelet Count 235 K/mm3 (142-424); Red Blood Count 4.74 M/mm3 (4.60-6.20); Red Cell Distribution Width-SD 43.8 fL; White Blood Count 7.5 K/mm3 (4.8-10.8)
[2025-02-07 06:58] LABS: Albumin Level 3.8 g/dl (3.5-5.0); Chloride 99 mmol/L (98-107); Potassium 3.3 mmoL/L (3.5-5.1); Sodium 142 mmol/L (136-145)
[2025-02-07 07:01] LABS: Alanine Aminotransferase 28 U/L (12-78); Albumin/Globulin Ratio 1.2 (1.1-1.8); Alkaline Phosphatase 74 U/L (38-126); Anion Gap 15.3 mEq/L (5-15); Aspartate Amino Transferase 43 U/L (17-59); Bilirubin,Total 0.9 mg/dl (0.2-1.3); Blood Urea Nitrogen 9 mg/dl (9-20); Calcium 8.3 mg/dl (8.4-10.2); Carbon Dioxide 31 mmol/L (22.0-30.0); Creatinine Clearance Estimated 101 mL/min (50-200); Creatinine,Serum 1.00 mg/dl (0.66-1.25); Estimated Glomerular Filt Rate 76 ml/min (>60); GFR (African American) 93 ML/MIN (>60); Globulin 3.2 g/dL (1.3-3.2); Glucose 102 mg/dl (74-100); Magnesium 2.0 mg/dl (1.6-2.3); Total Protein,Serum 7.0 g/dl (6.3-8.2)
--- NOTE | 2025-02-07 07:35 | EXP.SURG.PN ---
Subjective Narrative: Patient has had some issues with pain briefly controlled with Dilaudid manifested with intermittent tachycardia. He states that he has passed a tiny amount of gas. Still with appreciable NG output. Exam Data for Last 24 hours Vital signs and Labs for Last 24 Hours: Temp Pulse Resp BP Pulse Ox O2 Del Method O2 Flow Rate 98.5 F 122 H 20 159/99 H 91 L Room Air 2 02/07/25 03:52 02/07/25 03:52 02/07/25 03:52 02/07/25 03:52 02/07/25 03:52 02/07/25 06:39 02/06/25 00:00 Laboratory Results - last 24 hr 02/05/25 17:00: Urine Color Yellow, Urine Appearance Clear, Urine pH 6.0, Ur Specific [place] 1.025, Urine Protein Trace, Urine Glucose (UA) Negative, Urine Ketones Negative, Urine Blood Trace-i, Urine Nitrate Positive A, Urine Bilirubin Negative, Urine Urobilinogen 0.2, Ur Leukocyte Esterase Negative, Urine RBC Occasional, Urine WBC Occasional, Ur Squamous Epith Cells Occasional, Urine Bacteria Trace 02/06/25 05:55: WBC 6.7 D, RBC 5.02, Hgb 14.7, Hct 44.2, MCV 88.0, MCH 29.3, MCHC 33.3, RDW 13.6, Plt Count 269, MPV 9.1, Neut % (Auto) 74.6, Lymph % (Auto) 13.4, [place] % (Auto) 11.6 H, Eos % (Auto) 0.0 L, Baso % (Auto) 0.1, Neut # (Auto) 5.0, Lymph # (Auto) 0.9, [place] # (Auto) 0.8, Eos # (Auto) 0.0, Baso # (Auto) 0.0, Sodium 142, Potassium 3.6, Chloride 102, Carbon Dioxide 34 H, Anion Gap 9.6, BUN 15 D, Creatinine 1.20, Estimated Creat Clear 83, Estimated GFR 62, Est GFR ( Amer) 75, Glucose 109 H, Calcium 8.1 L, Magnesium 1.9, Total Bilirubin 0.8, AST 37, ALT 31, Alkaline Phosphatase 68, Total Protein 7.0, Albumin 4.0, Globulin 3.0, Albumin/Globulin Ratio 1.3 02/07/25 06:04: WBC 7.5, RBC 4.74, Hgb 13.3 L, Hct 41.8 L, MCV 88.2, MCH 28.1, MCHC 31.8, RDW 13.4, Plt Count 235, MPV 9.2, Neut % (Auto) 77.5, Lymph % (Auto) 13.1, [place] % (Auto) 8.1, Eos % (Auto) 0.7, Baso % (Auto) 0.3, Neut # (Auto) 5.8, Lymph # (Auto) 1.0, [place] # (Auto) 0.6, Eos # (Auto) 0.1, Baso # (Auto) 0.0 I & O for Last 24 hours: Intake & Output 02/04/25 02/05/25 02/06/25 02/07/25 11:59 11:59 11:59 11:59 Intake Total 1400 / 1400 2570 / 2570 3100 / 3100 Output Total 800 / 800 3548 / 3548 2300 / 2300 Balance 600 / 600 -978 / -978 800 / 800 Weight 215 lb 187 lb 4.805 oz 196 lb 4.793 oz 197 lb 1.6 oz *Routine Abdominal Exam Abdominal: Present soft, normoactive bowel sounds and distended Comments: Mild tenderness. Progress Note: A&P Assessment and plan (1) SBO (small bowel obstruction): Status: Acute Assessment and plan: Add Toradol (2) BPH (benign prostatic hyperplasia): Status: Acute (3) Tobacco abuse: Status: Chronic (4) History of DVT (deep vein thrombosis): Status: Acute
[2025-02-07 08:00] VITALS: BP 137/76; PULSE 94; RESP 18; TEMP 36.8; O2SAT 91
--- NOTE | 2025-02-07 08:32 | HMH.PHAAMS2 ---
- Antimicrobial Stewardship Review culture & sensitivity review Stewardship interventions: culture & sensitivity review, reviewed - no change Comments: URINE CX PENDING, PATIENT ON ROCEPHIN FOR PNEUMONIA, WBC NORMAL, CONTINUES TO BE AFEBRILE OVER 24 HR. 48 hour timeout review Stewardship interventions: 48 hour timeout review, reviewed - no change Comments: URINE CX PENDING, PATIENT ON ROCEPHIN FOR PNEUMONIA, WBC NORMAL, CONTINUES TO BE AFEBRILE OVER 24 HR, RECOMMEND 5 DAYS OF ANTIBIOTICS.
[2025-02-07] MEDS: KETOROLAC 30MG/ML VIAL 30 MG IV ×3 (09:00→20:23)
[2025-02-07] MEDS: OXYCODONE 5MG W/APAP 325MG TABLET 1 EACH PO ×3 (09:01→22:39)
[2025-02-07] MEDS: GABAPENTIN 400MG CAPSULE 400 MG PO (09:01)
[2025-02-07] MEDS: POTASSIUM CHLORIDE 20MEQ TAB 40 MEQ PO ×2 (10:20→14:35)
--- NOTE | 2025-02-07 11:13 | P.PN_ITS ---
Subjective *Date: 02/07/25 *Time: 11:13 Interval history: Having some intermittent abdominal pain. Passing gas. No vomiting. NG remains in place. Tolerating sips and chips. Still having pain necessitating scheduling of Toradol this morning and intermittent opiates Medical Exam Vital signs and Labs for Last 24 Hours: Vital Signs Temp Pulse Pulse Resp BP BP Pulse Ox 02/07/25 10:49 02/07/25 09:00 02/07/25 08:00 02/07/25 08:00 98.3 F 94 H 18 137/76 91 L 02/07/25 06:39 02/07/25 05:00 02/07/25 03:52 98.5 F 122 H 20 159/99 H 91 L 02/07/25 03:00 02/07/25 01:00 02/07/25 00:00 98.8 F 107 H 16 136/79 90 L 02/06/25 23:00 02/06/25 21:00 02/06/25 20:00 02/06/25 20:00 98.7 F 95 H 16 195/87 H 93 L 02/06/25 18:32 02/06/25 17:00 02/06/25 16:00 97 H 02/06/25 16:00 93 H 128/89 91 L 02/06/25 15:25 98.6 F 02/06/25 14:54 02/06/25 12:55 02/06/25 12:33 16 02/06/25 12:00 93 H 150/94 H 95 O2 Del Method 02/07/25 10:49 Room Air 02/07/25 09:00 Room Air 02/07/25 08:00 Room Air 02/07/25 08:00 Room Air 02/07/25 06:39 Room Air 02/07/25 05:00 Room Air 02/07/25 03:52 Room Air 02/07/25 03:00 Room Air 02/07/25 01:00 Room Air 02/07/25 00:00 Room Air 02/06/25 23:00 Room Air 02/06/25 21:00 Room Air 02/06/25 20:00 Room Air 02/06/25 20:00 02/06/25 18:32 Room Air 02/06/25 17:00 Room Air 02/06/25 16:00 02/06/25 16:00 Room Air 02/06/25 15:25 02/06/25 14:54 Room Air 02/06/25 12:55 Room Air 02/06/25 12:33 02/06/25 12:00 Room Air Intake and Output 02/06/25 02/07/25 02/07/25 23:59 07:59 15:59 Intake Total 2000 / 3220 500 / 500 Output Total 1700 / 4700 600 / 600 Balance 300 / -1480 -100 / -100 Intake: Intake, Oral Amount 1000 / 2120 500 / 500 Intake, Total IV Amount 1000 / 1100 Lactated Ringers 1000ML 1,000 1000 / 1000 ml @ 500 mls/hr IV .Q2H ONE Rx# :[id number] Output: Output, Urine Amount 300 / 1550 600 / 600 Output, Gastric Drainage Amount 1400 / 3050 Right Nare 1400 / 3050 Other: Number of Unmeasured Voids 0 0 Weight 89.403 kg Patient Weight 02/07/25 23:59 Weight 89.403 kg Laboratory Results - last 24 hr 02/05/25 17:00: Urine Color Yellow, Urine Appearance Clear, Urine pH 6.0, Ur Spe cific [place] 1.025, Urine Protein Trace, Urine Glucose (UA) Negative, Urine Ketones Negative, Urine Blood Trace-i, Urine Nitrate Positive A, Urine Bilirubin Negative, Urine Urobilinogen 0.2, Ur Leukocyte Esterase Negative, Urine RBC Occasional, Urine WBC Occasional, Ur Squamous Epith Cells Occasional, Urine Bacteria Trace 02/07/25 06:04: WBC 7.5, RBC 4.74, Hgb 13.3 L, Hct 41.8 L, MCV 88.2, MCH 28.1, MCHC 31.8, RDW 13.4, Plt Count 235, MPV 9.2, Neut % (Auto) 77.5, Lymph % (Auto) 13.1, [place] % (Auto) 8.1, Eos % (Auto) 0.7, Baso % (Auto) 0.3, Neut # (Auto) 5.8, Lymph # (Auto) 1.0, [place] # (Auto) 0.6, Eos # (Auto) 0.1, Baso # (Auto) 0.0, Sodium 142, Potassium 3.3 L, Chloride 99, Carbon Dioxide 31 H, Anion Gap 15.3 H, BUN 9 D, Creatinine 1.00, Estimated Creat Clear 101, Estimated GFR 76, Est GFR ( Amer) 93 D, Glucose 102 H, Calcium 8.3 L, Magnesium 2.0, Total Bilirubin 0.9, AST 43, ALT 28, Alkaline Phosphatase 74, Total Protein 7.0, Albumin 3.8, Globulin 3.2, Albumin/Globulin Ratio 1.2 I & O for Labs for Last 24 Hours: Intake & Output 02/04/25 02/05/25 02/06/25 02/07/25 23:59 23:59 23:59 23:59 Intake Total 1350 / 1400 2500 / 2620 2720 / 3220 500 / 500 Output Total 800 / 800 548 / 1148 4700 / 4700 600 / 600 Balance 550 / 600 1952 / 1472 -1980 / -1480 -100 / -100 Weight 84.958 kg 89.04 kg 89.04 kg 89.403 kg Constitutional: Present no acute distress, average body habitus and cooperative Head: Present atraumatic Comment:: NG in right nare Respiratory: Present normal respiratory effort; Absent respiratory distress, stridor, wheezes or crackles Cardiac: Present Reg Rate and Rhythm GI: Present soft, tenderness (Diffuse, worse over surgical incision) and hyp oactive bowel sounds; Absent distention or rebound Comments:: Bandage clean dry and intact except for small dime sized red spot in center of bandage. Extremities: Present normal inspection and full ROM Skin: Present intact; Absent erythema Neuro: Present Grossly Intact, alert, awake, oriented x 3 and moves all extremities Assessment and Plan *Assessment and plan (1) SBO (small bowel obstruction): Status: Acute Category: Medical Code(s): K56.609 - Unspecified intestinal obstruction, unspecified as to partial versus complete obstruction (2) BPH (benign prostatic hyperplasia): Status: Acute Category: Medical Code(s): N40.0 - Benign prostatic hyperplasia without lower urinary tract symptoms (3) Tobacco abuse: Status: Chronic Category: Medical Code(s): Z72.0 - Tobacco use (4) History of DVT (deep vein thrombosis): Status: Acute Category: Medical Code(s): Z86.718 - Personal history of other venous thrombosis and embolism Plan Anuel rowland is a 59-year-old male with medical history significant for SBO x 2 with resection, last 1 in 2014, DVT with IVC filter presented with several day onset of abdominal pain, decreased bowel movements and was admitted for small bowel obstruction. Taken for laparotomy evening of 02/05 with takedown of numerous adhesions. Remains NPO. Surgery continuing to assist with management. Problems addressed as follows: #Small bowel obstruction secondary to intra-abdominal adhesions #History of SBO with resection x 2, last 2014 ? Patient presents with progressive abdominal pain, decreased bowel movements. CT abdomen/pelvis suggestive of SBO with transition point in the left abdomen. ? Taken for laparotomy 02/05 with takedown of numerous adhesions. Will slowly advance diet. On sips and chips today. Discussed case with surgery, await bowel function before advancing any further. - Scheduled Toradol 30 mg IV every 6 hours. Continue Dilaudid 1 mg every 2 hours as needed for severe breakthrough pain, Percocet 5 mg as needed for moderate to severe pain. Monitor for toxicity -Will consider bolus fluids pending patient's needs -Kidney function normal this morning with BUN 9, creatinine 1. Potassium 3.3, replacing per protocol ?White count normal at 7.5, hemoglobin 13.3. - Repeat CBC, CMP, magnesium ordered for the morning #Suspected community-acquired pneumonia ? CTA on admission suggests right upper lobe ground glass opacifications. WBC normal at this time. On room air. ? Continue IV ceftriaxone day 4/5. #Chronic tobacco smoker: Nicotine patch as needed. #History of DVT with IVC filter: No signs of DVT at this time. VTE prophylaxis ordered. IVC filter in place Full code DVT prophylaxis: IPC's N.p.o.
[2025-02-07 12:00] VITALS: BP 142/91; PULSE 100; RESP 17; TEMP 37; O2SAT 92
[2025-02-07 12:19] VITALS: BMI 26.1
--- NOTE | 2025-02-07 15:33 | PC.NURSE ---
Addendum entered by Adenike Flores RN 02/07/25 15:44: PT HAS BEEN INFORMED TO NOT TAKE IN EXCESSIVE AMOUNTS OF WATER. Original Note: PT IS SITTING UP IN THE CHAIR. ALERT AND ORIENTED X4. TUBE IS CLAMPED AT THIS TIME AFTER RECEIVING PO PAIN MEDICATION AND POTASSIUM. WHILE CLAMPED PT HAS BEEN UP AMBULATING IN THE ROOM AND SITTING IN THE CHAIR. NG TUBE NOTED TO THE RIGHT NARE 60 . 600 ML'S OF CLEAR/PALE GREEN GASTRIC CONTENTS EMPTIED FROM [facility] THIS SHIFT (CONTINUOUS LOW WALL SUCTION). ABDOMEN SOFT/TENDER WITH HYPOACTIVE BOWEL SOUNDS. PASSING FLATUS. LUNG SOUNDS DIMINISHED WITH SCATTERED RHONCHI. WILL CONTINUE TO MONITOR.
[2025-02-07 16:00] VITALS: BP 122/93; PULSE 112; RESP 18; TEMP 37.2; O2SAT 95
[2025-02-07 20:00] VITALS: BP 145/88; PULSE 106; RESP 14; TEMP 36.5; O2SAT 94
[2025-02-07] MEDS: AMITRIPTYLINE 25MG TABLET 25 MG PO (20:24)
[2025-02-08] VITALS (7 sets, daily range): BP systolic 121–197; BP diastolic 81–99; PULSE 91–132; RESP 14–18; TEMP 36.4–37.2; O2SAT 92–97; BMI 26.2
[2025-02-08] MEDS: KETOROLAC 30MG/ML VIAL 30 MG IV ×4 (02:04→20:02)
[2025-02-08 06:03] LABS: Hematocrit 42.9 % (42.0-52.0); Hemoglobin 14.3 g/dL (14.1-18.0); Immature Granulocytes % 0.4 %; Mean Corpuscular HGB Conc 33.3 g/dL (31.8-35.4); Mean Corpuscular Hemoglobin 29.0 pg (27.0-31.2); Mean Corpuscular Volume 87.0 fl (80-94); Nucleated Red Blood Cells % 0 %; Platelet Count 227 K/mm3 (142-424); Red Blood Count 4.93 M/mm3 (4.60-6.20); Red Cell Distribution Width-SD 42.0 fL; White Blood Count 6.8 K/mm3 (4.8-10.8)
[2025-02-08 06:13] LABS: Albumin Level 4.2 g/dl (3.5-5.0); Chloride 96 mmol/L (98-107)
[2025-02-08 06:14] LABS: Potassium 4.0 mmoL/L (3.5-5.1); Sodium 139 mmol/L (136-145)
[2025-02-08 06:16] LABS: Anion Gap 16.0 mEq/L (5-15); Blood Urea Nitrogen 18 mg/dl (9-20); Carbon Dioxide 31 mmol/L (22.0-30.0); Creatinine Clearance Estimated 92 mL/min (50-200); Creatinine,Serum 1.10 mg/dl (0.66-1.25); Estimated Glomerular Filt Rate 69 ml/min (>60); GFR (African American) 83 ML/MIN (>60)
[2025-02-08 06:17] LABS: Alanine Aminotransferase 26 U/L (12-78); Albumin/Globulin Ratio 1.3 (1.1-1.8); Alkaline Phosphatase 55 U/L (38-126); Aspartate Amino Transferase 52 U/L (17-59); Bilirubin,Total 1.2 mg/dl (0.2-1.3); Calcium 8.4 mg/dl (8.4-10.2); Globulin 3.2 g/dL (1.3-3.2); Glucose 83 mg/dl (74-100); Magnesium 2.1 mg/dl (1.6-2.3); Total Protein,Serum 7.4 g/dl (6.3-8.2)
--- NOTE | 2025-02-08 06:58 | PC.NURSE ---
Pt had 700 Mls out dark green output this morning. Left the container on the conunter in the Room for Md to see on Morning rounds. ALBERTO DOWD RN
[2025-02-08] MEDS: GABAPENTIN 400MG CAPSULE 400 MG PO (08:49)
--- NOTE | 2025-02-08 08:52 | HMH.PHAAMS2 ---
- Antimicrobial Stewardship Review culture & sensitivity review Stewardship interventions: culture & sensitivity review (CURRENTLY ON ROCEPHIN, AFEBRILE, WBC WNL, PNA AND SBO.)
--- NOTE | 2025-02-08 10:17 | EXP.ACUTE.PN ---
Subjective *Date: 02/08/25 *Time: 11:26 Interval history: Stabbing pain. No significant flatus in the past 24 hours. Tolerating sips and chips. Having output from NG due to volume that he is taking and with sips and chips. Still having pain. No emesis. Afebrile and on room air Medical Exam Vital signs and Labs for Last 24 Hours: Vital Signs Temp Pulse Resp BP Pulse Ox O2 Del Method 02/08/25 09:00 Room Air 02/08/25 08:00 Room Air 02/08/25 08:00 98.2 F 114 H 17 149/94 H 97 Room Air 02/08/25 05:00 Room Air 02/08/25 04:00 97.5 F L 92 H 14 197/92 H 94 L Room Air 02/08/25 03:00 Room Air 02/08/25 01:00 Room Air 02/08/25 00:00 98.2 F 132 H 18 150/98 H 92 L Room Air 02/07/25 23:00 Room Air 02/07/25 21:00 Room Air 02/07/25 20:00 Room Air 02/07/25 20:00 97.7 F 106 H 14 145/88 H 94 L Room Air 02/07/25 18:31 Room Air 02/07/25 17:00 Room Air 02/07/25 16:00 99.0 F 112 H 18 122/93 H 95 Room Air 02/07/25 14:27 Room Air 02/07/25 12:56 Room Air 02/07/25 12:00 98.6 F 100 H 17 142/91 H 92 L 02/07/25 10:49 Room Air Intake and Output 02/07/25 02/08/25 02/08/25 23:59 07:59 15:59 Intake Total 45 / 45 Output Total 700 / 1900 700 / 700 Balance -700 / -1255 -655 / -655 Intake: Intake, Oral Amount 45 / 45 Output: Output, Urine Amount 0 / 600 0 / 0 Output, Gastric Drainage Amount 700 / 1300 700 / 700 Right Nare 700 / 1300 700 / 700 Other: Number of Unmeasured Voids 1 1 Weight 89.947 kg Patient Weight 02/08/25 23:59 Weight 89.947 kg Laboratory Results - last 24 hr 02/08/25 05:45: WBC 6.8, RBC 4.93, Hgb 14.3, Hct 42.9, MCV 87.0, MCH 29.0, MCHC 33.3, RDW 13.3, Plt Count 227, MPV 8.8, Neut % (Auto) 63.4, Lymph % (Auto) 23.5, [place] % (Auto) 8.8, Eos % (Auto) 3.5, Baso % (Auto) 0.4, Neut # (Auto) 4.3, Lymph # (Auto) 1.6, [place] # (Auto) 0.6, Eos # (Auto) 0.2, Baso # (Auto) 0.0, Sodium 139, Potassium 4.0 D, Chloride 96 L, Carbon Dioxide 31 H, Anion Gap 16.0 H, BUN 18 D, Creatinine 1.10, Estimated Creat Clear 92, Estimated GFR 69, Est GFR ( Amer) 83, Glucose 83, Calcium 8.4, Magnesium 2.1, Total Bilirubin 1.2, AST 52, ALT 26, Alkaline Phosphatase 55, Total Protein 7.4, Albumin 4.2 D, Globulin 3.2, Albumin/Globulin Ratio 1.3 I & O for Labs for Last 24 Hours: Intake & Output 02/05/25 02/06/25 02/07/25 02/08/25 23:59 23:59 23:59 23:59 Intake Total 2500 / 2620 2720 / 3220 600 / 645 45 / 45 Output Total 548 / 1148 4700 / 4700 1900 / 1900 700 / 700 Balance 1952 / 1472 -1980 / -1480 -1300 / -1255 -655 / -655 Weight 89.04 kg 89.04 kg 89.403 kg 89.947 kg Constitutional: Present no acute distress, average body habitus and cooperative Head: Present atraumatic Comment:: NG in right nare Respiratory: Present normal respiratory effort; Absent respiratory distress, stridor, wheezes or crackles Cardiac: Present Reg Rate and Rhythm GI: Present soft, tenderness (Diffuse, worse over surgical incision) and hypoactive bowel sounds; Absent distention or rebound Comments:: Bandage clean dry and intact except for small dime sized red spot in center of bandage. Extremities: Present normal inspection and full ROM Skin: Present intact; Absent erythema Neuro: Present Grossly Intact, alert, awake, oriented x 3 and moves all extremities Assessment and Plan *Assessment and plan (1) SBO (small bowel obstruction): Status: Acute Category: Medical Code(s): K56.609 - Unspecified intestinal obstruction, unspecified as to partial versus complete obstruction (2) BPH (benign prostatic hyperplasia): Status: Acute Category: Medical Code(s): N40.0 - Benign prostatic hyperplasia without lower urinary tract symptoms (3) Tobacco abuse: Status: Chronic Category: Medical Code(s): Z72.0 - Tobacco use (4) History of DVT (deep vein thrombosis): Status: Acute Category: Medical Code(s): Z86.718 - Personal history of other venous thrombosis and embolism Plan Anuel rowland is a 59-year-old male with medical history significant for SBO x 2 with resection, last 1 in 2014, DVT with IVC filter presented with several day onset of abdominal pain, decreased bowel movements and was admitted for small bowel obstruction. Taken for laparotomy evening of 02/05 with takedown of numerous adhesions. Remains NPO. Surgery continuing to assist with management. Problems addressed as follows: #Small bowel obstruction secondary to intra-abdominal adhesions #History of SBO with resection x 2, last 2014 ? Patient presents with progressive abdominal pain, decreased bowel movements. CT abdomen/pelvis suggestive of SBO with transition point in the left abdomen. ? Taken for laparotomy 02/05 with takedown of numerous adhesions. Will slowly advance diet. On sips and chips today. Discussed case with surgery, await bowel function before advancing any further. - Scheduled Toradol 30 mg IV every 6 hours. Continue Dilaudid 1 mg every 2 hours as needed for severe breakthrough pain, Percocet 5 mg as needed for moderate to severe pain. Monitor for toxicity -Will consider bolus fluids pending patient's needs -White count normal at 6.8, hemoglobin 14.3. Kidney function stable with BUN 18, creatinine 1.1. - Repeat CBC, CMP, magnesium ordered for the morning #Suspected community-acquired pneumonia ? CTA on admission suggests right upper lobe ground glass opacifications. WBC normal at this time. On room air. ? Continue IV ceftriaxone day 4/5. #Chronic tobacco smoker: Nicotine patch as needed. #History of DVT with IVC filter: No signs of DVT at this time. VTE prophylaxis ordered. IVC filter in place Full code DVT prophylaxis: IPC's N.p.o.
--- NOTE | 2025-02-08 11:51 | PC.NURSE ---
[employer]. Pt tolerated well and standing up in room by window.
--- NOTE | 2025-02-08 12:58 | P.PN_ITS ---
Subjective Narrative: He states he is passing a little bit of gas. Has had some significant issues with functionality of the nasogastric tube. Taking an ice chips. He is chewing some gum. Abdominal soreness is slightly improved on current pain regimen. Exam Data for Last 24 hours Vital signs and Labs for Last 24 Hours: Temp Pulse Resp BP Pulse Ox O2 Del Method O2 Flow Rate 97.7 F 117 H 16 150/99 H 96 Room Air 2 02/08/25 12:00 02/08/25 12:00 02/08/25 12:00 02/08/25 12:00 02/08/25 12:00 02/08/25 12:00 02/06/25 00:00 Laboratory Results - last 24 hr 02/08/25 05:45: WBC 6.8, RBC 4.93, Hgb 14.3, Hct 42.9, MCV 87.0, MCH 29.0, MCHC 33.3, RDW 13.3, Plt Count 227, MPV 8.8, Neut % (Auto) 63.4, Lymph % (Auto) 23.5, [place] % (Auto) 8.8, Eos % (Auto) 3.5, Baso % (Auto) 0.4, Neut # (Auto) 4.3, Lymph # (Auto) 1.6, [place] # (Auto) 0.6, Eos # (Auto) 0.2, Baso # (Auto) 0.0, Sodium 139, Potassium 4.0 D, Chloride 96 L, Carbon Dioxide 31 H, Anion Gap 16.0 H, BUN 18 D, Creatinine 1.10, Estimated Creat Clear 92, Estimated GFR 69, Est GFR ( Amer) 83, Glucose 83, Calcium 8.4, Magnesium 2.1, Total Bilirubin 1.2, AST 52, ALT 26, Alkaline Phosphatase 55, Total Protein 7.4, Albumin 4.2 D, Globulin 3.2, Albumin/Globulin Ratio 1.3 I & O for Last 24 hours: Intake & Output 02/06/25 02/07/25 02/08/25 02/09/25 11:59 11:59 11:59 11:59 Intake Total 2570 / 2570 3100 / 3100 145 / 145 Output Total 3548 / 3548 2300 / 2300 1999 / 1999 0 / 0 Balance -978 / -978 800 / 800 -1855 / -1855 0 / 0 Weight 196 lb 4.793 oz 197 lb 1.6 oz 198 lb 4.8 oz *Routine Abdominal Exam Comments: Somewhat distended. Incision clean. Progress Note: A&P Assessment and plan (1) SBO (small bowel obstruction): Status: Acute Assessment and plan: Postoperative day #3. I worked with the nasogastric tube and was unable to get good functionality. I will plan to remove the nasogastric tube but limit him to just a small amount of ice chips. He is with the understanding that it could be reinserted. Otherwise encourage ambulation. (2) BPH (benign prostatic hyperplasia): Status: Acute (3) Tobacco abuse: Status: Chronic (4) History of DVT (deep vein thrombosis): Status: Acute
--- NOTE | 2025-02-08 16:11 | PC.NURSE ---
Pt is up to the chair. Has ambulated in room some. Denies discomfort at this time. He has had a small BM this shift. NG DC this AM. Tolerating well. Education provided on icechips, PO intake. NO concerns at time time. Call light within reach.
[2025-02-08] MEDS: ONDANSETRON 4MG/2ML VIAL 4 MG IV (17:59)
[2025-02-08] MEDS: AMITRIPTYLINE 25MG TABLET 25 MG PO (20:02)
[2025-02-09] VITALS (8 sets, daily range): BP systolic 112–146; BP diastolic 73–96; PULSE 108–140; RESP 14–18; TEMP 36.7–37.2; O2SAT 92–97; BMI 26.0
[2025-02-09] MEDS: KETOROLAC 30MG/ML VIAL 30 MG IV (02:50)
[2025-02-09 07:23] LABS: Albumin Level 4.2 g/dl (3.5-5.0); Chloride 92 mmol/L (98-107); Potassium 3.3 mmoL/L (3.5-5.1); Sodium 139 mmol/L (136-145)
[2025-02-09 07:25] LABS: Blood Urea Nitrogen 30 mg/dl (9-20); Creatinine Clearance Estimated 63 mL/min (50-200); Creatinine,Serum 1.60 mg/dl (0.66-1.25); Estimated Glomerular Filt Rate 44 ml/min (>60); GFR (African American) 54 ML/MIN (>60); Hematocrit 46.5 % (42.0-52.0); Hemoglobin 15.1 g/dL (14.1-18.0); Immature Granulocytes % 0.5 %; Mean Corpuscular HGB Conc 32.5 g/dL (31.8-35.4); Mean Corpuscular Hemoglobin 28.4 pg (27.0-31.2); Mean Corpuscular Volume 87.4 fl (80-94); Nucleated Red Blood Cells % 0 %; Platelet Count 308 K/mm3 (142-424); Red Blood Count 5.32 M/mm3 (4.60-6.20); Red Cell Distribution Width-SD 42.4 fL; White Blood Count 6.5 K/mm3 (4.8-10.8)
[2025-02-09 07:26] LABS: Alanine Aminotransferase 29 U/L (12-78); Albumin/Globulin Ratio 1.4 (1.1-1.8); Alkaline Phosphatase 69 U/L (38-126); Anion Gap 17.3 mEq/L (5-15); Aspartate Amino Transferase 46 U/L (17-59); Bilirubin,Total 1.0 mg/dl (0.2-1.3); Calcium 8.4 mg/dl (8.4-10.2); Carbon Dioxide 33 mmol/L (22.0-30.0); Globulin 3.1 g/dL (1.3-3.2); Glucose 92 mg/dl (74-100); Total Protein,Serum 7.3 g/dl (6.3-8.2)
[2025-02-09 07:27] LABS: Magnesium 2.2 mg/dl (1.6-2.3)
--- NOTE | 2025-02-09 08:11 | P.PN_ITS ---
Subjective *Date: 02/09/25 *Time: 08:11 Interval history: Least 2 bowel movements in the past 24 hours. Intermittent mild nausea but resolved without antiemetics overnight. No vomiting. Stable on room air. Feeling improvement. Would like to try clear liquids today Medical Exam Vital signs and Labs for Last 24 Hours: Vital Signs Temp Pulse Pulse Resp BP Pulse Ox O2 Del Method 02/09/25 06:45 Room Air 02/09/25 05:00 Room Air 02/09/25 04:00 98.4 F 114 H 14 146/83 H 92 L Room Air 02/09/25 03:00 Room Air 02/09/25 01:00 Room Air 02/09/25 00:00 98.6 F 119 H 16 114/73 94 L Room Air 02/08/25 23:00 Room Air 02/08/25 21:00 Room Air 02/08/25 20:00 125 H Room Air 02/08/25 19:53 98.9 F 125 H 16 121/81 Room Air 02/08/25 18:51 Room Air 02/08/25 17:00 Room Air 02/08/25 16:00 98.3 F 91 H 17 146/91 H 96 Room Air 02/08/25 15:00 Room Air 02/08/25 13:00 Room Air 02/08/25 12:00 97.7 F 117 H 16 150/99 H 96 Room Air 02/08/25 11:00 Room Air 02/08/25 09:00 Room Air Intake and Output 02/08/25 02/09/25 02/09/25 23:59 07:59 15:59 Intake Total 100 / 100 Output Total 0 / 700 0 / 0 Balance 0 / -455 100 / 100 Intake: Intake, Oral Amount 100 / 100 Output: Output, Urine Amount 0 / 0 0 / 0 Other: Number of Unmeasured Voids 1 1 Number of Bowel Movements 2 1 Weight 89.176 kg Patient Weight 02/09/25 23:59 Weight 89.176 kg Laboratory Results - last 24 hr 02/09/25 06:19: WBC 6.5, RBC 5.32, Hgb 15.1, Hct 46.5, MCV 87.4, MCH 28.4, MCHC 32.5, RDW 13.2, Plt Count 308 D, MPV 9.3, Neut % (Auto) 60.2, Lymph % (Auto) 25.7, [place] % (Auto) 10.6 H, Eos % (Auto) 2.8, Baso % (Auto) 0.2, Neut # (Auto) 3.9, Lymph # (Auto) 1.7, [place] # (Auto) 0.7, Eos # (Auto) 0.2, Baso # (Auto) 0.0, Sodium 139, Potassium 3.3 L, Chloride 92 L, Carbon Dioxide 33 H, Anion Gap 17.3 H, BUN 30 H D, Creatinine 1.60 H D, Estimated Creat Clear 63, Estimated GFR 44 L , Est GFR ( Amer) 54 L D, Glucose 92, Calcium 8.4, Magnesium 2.2, Total Bilirubin 1.0, AST 46, ALT 29, Alkaline Phosphatase 69, Total Protein 7.3, Albumin 4.2, Globulin 3.1, Albumin/Globulin Ratio 1.4 I & O for Labs for Last 24 Hours: Intake & Output 02/06/25 02/07/25 02/08/25 02/09/25 23:59 23:59 23:59 23:59 Intake Total 2720 / 3220 600 / 645 145 / 245 100 / 100 Output Total 4700 / 4700 1900 / 1900 700 / 700 0 / 0 Balance -1980 / -1480 -1300 / -1255 -555 / -455 100 / 100 Weight 89.04 kg 89.403 kg 89.947 kg 89.176 kg Constitutional: Present no acute distress, average body habitus and cooperative Head: Present atraumatic Respiratory: Present normal respiratory effort; Absent respiratory distress, stridor, wheezes or crackles Cardiac: Present Reg Rate and Rhythm GI: Present soft, tenderness (Diffuse, interval improvement) and normal bowel sounds; Absent distention or rebound Comments:: Incision clean dry and intact, sutures and enrique in place. No drainage Extremities: Present normal inspection and full ROM Skin: Present intact; Absent erythema Neuro: Present Grossly Intact, alert, awake, oriented x 3 and moves all extremities Assessment and Plan *Assessment and plan (1) SBO (small bowel obstruction): Status: Acute Category: Medical Code(s): K56.609 - Unspecified intestinal obstruction, unspecified as to partial versus complete obstruction (2) BPH (benign prostatic hyperplasia): Status: Acute Category: Medical Code(s): N40.0 - Benign prostatic hyperplasia without lower urinary tract symptoms (3) Tobacco abuse: Status: Chronic Category: Medical Code(s): Z72.0 - Tobacco use (4) History of DVT (deep vein thrombosis): Status: Acute Category: Medical Code(s): Z86.718 - Personal history of other venous thrombosis and embolism Plan Anuel rowland is a 59-year-old male with medical history significant for SBO x 2 with resection, last 1 in 2014, DVT with IVC filter presented with several day onset of abdominal pain, decreased bowel movements and was admitted for small bowel obstruction. Taken for laparotomy evening of 02/05 with takedown of numerous adhesions. Has had bowel movements. Will advance to clear liquids. Surgery continues to assist with management. Continues to require inpatient management. Problems addressed as follows: #Small bowel obstruction secondary to intra-abdominal adhesions #History of SBO with resection x 2, last 2014 ? Patient presents with progressive abdominal pain, decreased bowel movements. CT abdomen/pelvis suggestive of SBO with transition point in the left abdomen. ? Taken for laparotomy 02/05 with takedown of numerous adhesions. Will slowly advance diet. On sips and chips today. Discussed case with surgery, await bowel function before advancing any further. - Scheduled Toradol 30 mg IV every 6 hours. Continue Dilaudid 1 mg every 2 hours as needed for severe breakthrough pain, Percocet 5 mg as needed for moderate to severe pain. Monitor for toxicity - Patient has slight ELISABETH today with creatinine bumping from 1-1.6. Will administer 1 L of LR over 4 hours. Advance diet to clears. - White count remains normal at 6.5, hemoglobin 15. BUN 30, creatinine 1.6. Potassium 3.3. Replace per protocol. - Repeat CBC, CMP, magnesium ordered for the morning #Suspected community-acquired pneumonia ? CTA on admission suggests right upper lobe ground glass opacifications. WBC normal at this time. On room air. ? Continue IV ceftriaxone day 07/02. #Chronic tobacco smoker: Nicotine patch as needed. #History of DVT with IVC filter: No signs of DVT at this time. VTE prophylaxis ordered. IVC filter in place Full code DVT prophylaxis: PLOV Clear liquid diet
--- NOTE | 2025-02-09 08:51 | P.PN_ITS ---
Subjective *Date: 02/09/25 *Time: 08:51 Interval history: States he is passing flatus and has had at least a couple bowel movements. Started clear liquids this am and has experienced some increased belching but denies increased nausea. Used single dose of anti-emetic yesterday. Has been ambulating about the room without issue. Exam Data for Last 24 hours Vital signs and Labs for Last 24 Hours: Temp Pulse Resp BP Pulse Ox O2 Del Method O2 Flow Rate 98.7 F 124 H 18 112/96 H 96 Room Air 2 02/09/25 08:00 02/09/25 08:00 02/09/25 08:00 02/09/25 08:00 02/09/25 08:00 02/09/25 08:00 02/06/25 00:00 Laboratory Results - last 24 hr 02/09/25 06:19: WBC 6.5, RBC 5.32, Hgb 15.1, Hct 46.5, MCV 87.4, MCH 28.4, MCHC 32.5, RDW 13.2, Plt Count 308 D, MPV 9.3, Neut % (Auto) 60.2, Lymph % (Auto) 25.7, [place] % (Auto) 10.6 H, Eos % (Auto) 2.8, Baso % (Auto) 0.2, Neut # (Auto) 3.9, Lymph # (Auto) 1.7, [place] # (Auto) 0.7, Eos # (Auto) 0.2, Baso # (Auto) 0.0, Sodium 139, Potassium 3.3 L, Chloride 92 L, Carbon Dioxide 33 H, Anion Gap 17.3 H, BUN 30 H D, Creatinine 1.60 H D, Estimated Creat Clear 63, Estimated GFR 44 L , Est GFR ( Amer) 54 L D, Glucose 92, Calcium 8.4, Magnesium 2.2, Total Bilirubin 1.0, AST 46, ALT 29, Alkaline Phosphatase 69, Total Protein 7.3, Albumin 4.2, Globulin 3.1, Albumin/Globulin Ratio 1.4 I & O for Last 24 hours: Intake & Output 02/06/25 02/07/25 02/08/25 02/09/25 23:59 23:59 23:59 23:59 Intake Total 2720 / 3220 600 / 645 145 / 245 100 / 100 Output Total 4700 / 4700 1900 / 1900 700 / 700 0 / 0 Balance -1980 / -1480 -1300 / -1255 -555 / -455 100 / 100 Weight 89.04 kg 89.403 kg 89.947 kg 89.176 kg Constitutional Constitutional: no acute distress and cooperative *Routine Respiratory Exam Respiratory: Present normal respiratory effort and able to speak in complete sentences Comments: Grossly clear. No wheezing. *Routine Cardiovascular Exam Cardiovascular: Present tachycardia *Routine Abdominal Exam Comments: Soft. No guarding. Non-tender. Staple and sutures in midline intact without drainage. Faint erythema noted left of umbilicus spanning a roughly 8cm x 8cm area *Routine Extremities Exam Comments: No edema. Assessment and Plan *Assessment and plan (1) SBO (small bowel obstruction): Status: Acute Category: Medical Code(s): K56.609 - Unspecified intestinal obstruction, unspecified as to partial versus complete obstruction (2) BPH (benign prostatic hyperplasia): Status: Acute Category: Medical Code(s): N40.0 - Benign prostatic hyperplasia without lower urinary tract symptoms (3) Tobacco abuse: Status: Chronic Category: Medical Code(s): Z72.0 - Tobacco use (4) History of DVT (deep vein thrombosis): Status: Acute Category: Medical Code(s): Z86.718 - Personal history of other venous thrombosis and embolism Plan #Small bowel obstruction secondary to intra-abdominal adhesions - POD #4 s/p Ex-lap with extensive SILVER and repair of enterotomy. Overall appears to be progressing well. GI tract functioning with flatus and stool production. Nausea seems fairly minimal. Exam not concerning. Rise in Cr felt possibly d/t dehydration combined with Toradol admin and resultant ELISABETH. I have asked patient to void into urinal for volume tracking to be confident of such. Agree with clear liquids today and see how he does. Would not recommend rapid advancement, given his operative findings. If condition worsens, may need PO contrasted CT.
[2025-02-09] MEDS: GABAPENTIN 400MG CAPSULE 400 MG PO ×2 (08:56→20:42)
[2025-02-09] MEDS: KETOROLAC 15MG/ML VIAL 15 MG IV ×3 (08:56→20:42)
[2025-02-09] MEDS: LACTATED RINGERS 1000ML 1,000 ML 100 ML IV (08:57)
--- NOTE | 2025-02-09 08:57 | HMH.PHAAMS2 ---
- Antimicrobial Stewardship Review 48 hour timeout review Stewardship interventions: 48 hour timeout review, discontinue antimicrobial Comments: URINE CX PENDING, ON ROCEPHIN DAY 5 FOR PNEUMONIA/SBO, WBC WNL AT 6.5 K/mm3, AFEBRILE OVER 24 HRS. culture & sensitivity review Stewardship interventions: culture & sensitivity review, reviewed - no change Comments: URINE CX PENDING, ON ROCEPHIN DAY 5 FOR PNEUMONIA/SBO.
[2025-02-09] MEDS: ONDANSETRON 4MG/2ML VIAL 4 MG IV (14:35)
--- NOTE | 2025-02-09 16:22 | PC.NURSE ---
Potassium replaced via IV. Patient tachycardic, aware, giving fluids. Patient asymptomatic. Sinus rhythm. Lung sounds clear. Patient tolerating clear liquid diet, 2 bms during shift.
[2025-02-09] MEDS: AMITRIPTYLINE 25MG TABLET 25 MG PO (20:42)
[2025-02-10] VITALS (10 sets, daily range): BP systolic 117–143; BP diastolic 83–98; PULSE 69–104; RESP 16–20; TEMP 36.4–36.9; O2SAT 93–98; BMI 26.6
[2025-02-10] MEDS: KETOROLAC 15MG/ML VIAL 15 MG IV ×4 (01:52→20:06)
--- NOTE | 2025-02-10 05:13 | PC.NURSE ---
Pt is alert and oriented x4, walks independently in the room to the BR. Pt finished the K Runs that were ordered yesterday. Finished the liter of LR fluild. Pt got his scheduled Pain meds thru the night. PT call light is within reach. Wheels are lock on his bed. ALBERTO DOWD RN
[2025-02-10 07:27] LABS: Hematocrit 42.3 % (42.0-52.0); Hemoglobin 14.1 g/dL (14.1-18.0); Immature Granulocytes % 0.2 %; Mean Corpuscular HGB Conc 33.3 g/dL (31.8-35.4); Mean Corpuscular Hemoglobin 28.8 pg (27.0-31.2); Mean Corpuscular Volume 86.5 fl (80-94); Nucleated Red Blood Cells % 0 %; Platelet Count 294 K/mm3 (142-424); Red Blood Count 4.89 M/mm3 (4.60-6.20); Red Cell Distribution Width-SD 41.6 fL; White Blood Count 5.2 K/mm3 (4.8-10.8)
--- NOTE | 2025-02-10 07:35 | P.PN_ITS ---
Subjective *Date: 02/10/25 *Time: 10:32 Interval history: Did well overnight. No vomiting or nausea. Having bowel movements. Tolerating clear liquids without difficulty. Stable on room air. Afebrile. Medical Exam Vital signs and Labs for Last 24 Hours: Vital Signs Temp Pulse Pulse Resp BP Pulse Ox O2 Del Method 02/10/25 06:33 Room Air 02/10/25 05:00 Room Air 02/10/25 04:00 97.9 F 93 H 16 128/84 93 L Room Air 02/10/25 03:00 Room Air 02/10/25 01:00 Room Air 02/10/25 00:00 100 H 02/10/25 00:00 98.4 F 69 16 138/98 H 93 L Room Air 02/09/25 23:00 Room Air 02/09/25 21:00 Room Air 02/09/25 20:00 Room Air 02/09/25 20:00 110 H 02/09/25 20:00 99.0 F 108 H 16 140/93 H 95 Room Air 02/09/25 18:37 Room Air 02/09/25 17:05 Room Air 02/09/25 16:00 140 H 02/09/25 15:57 129 H 18 113/88 97 Room Air 02/09/25 15:05 Room Air 02/09/25 13:00 Room Air 02/09/25 12:00 120 H 02/09/25 11:44 98.1 F 110 H 18 125/95 H 95 Room Air 02/09/25 11:10 Room Air 02/09/25 09:10 Room Air 02/09/25 08:20 Room Air 02/09/25 08:00 98.7 F 124 H 18 112/96 H 96 Room Air Intake and Output 02/09/25 02/09/25 02/10/25 15:59 23:59 07:59 Intake Total 1260 / 3519.167 1919.167 / 3519.167 240 / 240 Output Total 0 / 0 0 / 0 0 / 0 Balance 1260 / 3519.167 1919.167 / 3519.167 240 / 240 Intake: Intake, Oral Amount 960 / 1820 520 / 1820 240 / 240 Intake, Total IV Amount 300 / 7021.779 8696.167 / 1699.167 Ceftriaxone Sodium 2 gm In 0.9 100 / 100 % Sodium Chloride 100 ml @ 200 mls/hr IV Q24H [facility] Rx#:[id number] KCl 10mEq/100ml 100 ml @ 100 200 / 599.167 399.167 / 599.167 mls/hr IV Q1H [facility] Rx#:[id number] Lactated Ringers 1000ML 1,000 1000 / 1000 ml @ 250 mls/hr IV .Q4H ONE Rx# :[id number] Output: Output, Urine Amount 0 / 0 0 / 0 0 / 0 Other: Number of Unmeasured Voids 1 1 1 Number of Bowel Movements 1 1 1 Weight 91.081 kg Patient Weight 02/10/25 23:59 Weight 91.081 kg Laboratory Results - last 24 hr 02/10/25 06:48: WBC 5.2, RBC 4.89, Hgb 14.1, Hct 42.3, MCV 86.5, MCH 28.8, MCHC 33.3, RDW 13.2, Plt Count 294, MPV 8.9, Neut % (Auto) 51.6, Lymph % (Auto) 32.6, [place] % (Auto) 9.6 H, Eos % (Auto) 5.6, Baso % (Auto) 0.4, Neut # (Auto) 2.7, Lymph # (Auto) 1.7, [place] # (Auto) 0.5, Eos # (Auto) 0.3, Baso # (Auto) 0.0 I & O for Labs for Last 24 Hours: Intake & Output 02/07/25 02/08/25 02/09/25 02/10/25 23:59 23:59 23:59 23:59 Intake Total 600 / 645 145 / 245 3279.167 / 3519.167 240 / 240 Output Total 1900 / 1900 700 / 700 0 / 0 0 / 0 Balance -1300 / -1255 -555 / -455 3279.167 / 3519.167 240 / 240 Weight 89.403 kg 89.947 kg 89.176 kg 91.081 kg Constitutional: Present no acute distress, average body habitus and cooperative Head: Present atraumatic Respiratory: Present normal respiratory effort; Absent respiratory distress, stridor, wheezes or crackles Cardiac: Present Reg Rate and Rhythm GI: Present soft, tenderness (Minimal, significant improvement) and normal bowel sounds; Absent distention or rebound Comments:: Incision clean dry and intact, sutures and enrique in place. No drainage Extremities: Present normal inspection and full ROM Skin: Present intact; Absent erythema Neuro: Present Grossly Intact, alert, awake, oriented x 3 and moves all extremities Assessment and Plan *Assessment and plan (1) SBO (small bowel obstruction): Status: Acute Category: Medical Code(s): K56.609 - Unspecified intestinal obstruction, unspecified as to partial versus complete obstruction (2) BPH (benign prostatic hyperplasia): Status: Acute Category: Medical Code(s): N40.0 - Benign prostatic hyperplasia without lower urinary tract symptoms (3) Tobacco abuse: Status: Chronic Category: Medical Code(s): Z72.0 - Tobacco use (4) History of DVT (deep vein thrombosis): Status: Acute Category: Medical Code(s): Z86.718 - Personal history of other venous thrombosis and embolism Plan Anuel rowland is a 59-year-old male with medical history significant for SBO x 2 with resection, last 1 in 2014, DVT with IVC filter presented with several day onset of abdominal pain, decreased bowel movements and was admitted for small bowel obstruction. Taken for laparotomy evening of 02/05 with takedown of numerous adhesions. Having bowel movements, tolerating liquid diet. Surgery continues to assist with management. Continues to require inpatient management. Problems addressed as follows: #Small bowel obstruction secondary to intra-abdominal adhesions #History of SBO with resection x 2, last 2014 ? Patient presents with progressive abdominal pain, decreased bowel movements. CT abdomen/pelvis suggestive of SBO with transition point in the left abdomen. ? Taken for laparotomy 02/05 with takedown of numerous adhesions. Will slowly advance diet. On sips and chips today. Discussed case with surgery, await bowel function before advancing any further. - Continue Toradol 15 mg IV every 6 hours scheduled, reduced dose due to ELISABETH. No Oxy or Dilaudid in over 24 hours. Will discontinue today - ELISABETH improving. Creatinine bumped at 1.6, down to 1.3 today. Sodium low at 131. Will administer 500 cc of normal saline over 2 hours. -Discussed case with surgery, advance to full liquid diet today. - White count normal at 5.2, hemoglobin 14.1.Potassium 3.1. Replace per protocol. - Repeat CBC, CMP, magnesium ordered for the morning #Suspected community-acquired pneumonia ? CTA on admission suggests right upper lobe ground glass opacifications. WBC normal at this time. On room air. ? Continue IV ceftriaxone day 07/02. #Chronic tobacco smoker: Nicotine patch as needed. #History of DVT with IVC filter: No signs of DVT at this time. VTE prophylaxis ordered. IVC filter in place Full code DVT prophylaxis: PLOV full liquid diet
[2025-02-10 07:49] LABS: Albumin Level 4.1 g/dl (3.5-5.0); Chloride 93 mmol/L (98-107); Sodium 131 mmol/L (136-145)
[2025-02-10 07:50] LABS: Potassium 3.2 mmoL/L (3.5-5.1)
[2025-02-10 07:52] LABS: Alanine Aminotransferase 29 U/L (12-78); Albumin/Globulin Ratio 1.3 (1.1-1.8); Alkaline Phosphatase 63 U/L (38-126); Anion Gap 6.2 mEq/L (5-15); Aspartate Amino Transferase 40 U/L (17-59); Bilirubin,Total 0.9 mg/dl (0.2-1.3); Blood Urea Nitrogen 25 mg/dl (9-20); Carbon Dioxide 35 mmol/L (22.0-30.0); Creatinine Clearance Estimated 79 mL/min (50-200); Creatinine,Serum 1.30 mg/dl (0.66-1.25); Estimated Glomerular Filt Rate 57 ml/min (>60); GFR (African American) 68 ML/MIN (>60); Globulin 3.1 g/dL (1.3-3.2); Total Protein,Serum 7.2 g/dl (6.3-8.2)
[2025-02-10 07:53] LABS: Calcium 8.3 mg/dl (8.4-10.2); Glucose 109 mg/dl (74-100); Magnesium 2.1 mg/dl (1.6-2.3)
[2025-02-10] MEDS: GABAPENTIN 400MG CAPSULE 400 MG PO ×2 (08:28→20:06)
[2025-02-10] MEDS: 0.9 % SODIUM CHLORIDE 1000ML 500 ML 250 ML IV (10:08)
--- NOTE | 2025-02-10 10:09 | EXP.SURG.PN ---
Subjective Narrative: No complaints. Tolerated clear liquids without issue. Denies nausea. Passing flatus and stool. Wanting something to eat. Exam Data for Last 24 hours Vital signs and Labs for Last 24 Hours: Temp Pulse Resp BP Pulse Ox O2 Del Method O2 Flow Rate 97.6 F 104 H 16 117/83 95 Room Air 2 02/10/25 07:44 02/10/25 07:44 02/10/25 07:44 02/10/25 07:44 02/10/25 07:44 02/10/25 07:44 02/06/25 00:00 Laboratory Results - last 24 hr 02/10/25 06:48: WBC 5.2, RBC 4.89, Hgb 14.1, Hct 42.3, MCV 86.5, MCH 28.8, MCHC 33.3, RDW 13.2, Plt Count 294, MPV 8.9, Neut % (Auto) 51.6, Lymph % (Auto) 32.6, [place] % (Auto) 9.6 H, Eos % (Auto) 5.6, Baso % (Auto) 0.4, Neut # (Auto) 2.7, Lymph # (Auto) 1.7, [place] # (Auto) 0.5, Eos # (Auto) 0.3, Baso # (Auto) 0.0, Sodium 131 L, Potassium 3.2 L, Chloride 93 L, Carbon Dioxide 35 H, Anion Gap 6.2, BUN 25 H, Creatinine 1.30 H, Estimated Creat Clear 79, Estimated GFR 57 L, Est GFR ( Amer) 68 D, Glucose 109 H, Calcium 8.3 L, Magnesium 2.1, Total Bilirubin 0.9, AST 40, ALT 29, Alkaline Phosphatase 63, Total Protein 7.2, Albumin 4.1, Globulin 3.1, Albumin/Globulin Ratio 1.3 I & O for Last 24 hours: Intake & Output 02/07/25 02/08/25 02/09/25 02/10/25 23:59 23:59 23:59 23:59 Intake Total 600 / 645 145 / 245 3279.167 / 3519.167 720 / 720 Output Total 1900 / 1900 700 / 700 0 / 0 0 / 0 Balance -1300 / -1255 -555 / -455 3279.167 / 3519.167 720 / 720 Weight 89.403 kg 89.947 kg 89.176 kg 91.081 kg Constitutional Constitutional: no acute distress and cooperative *Routine Respiratory Exam Respiratory: Present normal respiratory effort and able to speak in complete sentences *Routine Cardiovascular Exam Cardiovascular: Present RRR *Routine Abdominal Exam Abdominal: Present soft Comments: Non-tender. Staple line clean and intact. No distention. *Routine Extremities Exam Comments: No edema. Progress Note: A&P Assessment and plan (1) SBO (small bowel obstruction): Status: Acute Assessment and plan: Doing very well. Will advance diet to full liquids. Anticipate safe to discharge this evening or tomorrow, if he tolerates dietary advancement. (2) BPH (benign prostatic hyperplasia): Status: Acute (3) Tobacco abuse: Status: Chronic (4) History of DVT (deep vein thrombosis): Status: Acute
[2025-02-10] MEDS: POTASSIUM CHLORIDE 20MEQ TAB 40 MEQ PO ×2 (11:58→15:33)
[2025-02-10] MEDS: AMITRIPTYLINE 25MG TABLET 25 MG PO (20:06)
[2025-02-10] MEDS: ALUMINUM/MAGNESIUM/SIMETHICONE 30ML UDC 30 ML PO (20:06)
--- NOTE | 2025-02-10 22:29 | ECG_ITS ---
APPROVED REPORT Exam: Resting ECG HR:85 bpm ECG Measurements Heart Rate 85 AXES [place] 137 P 56 QRSd 93 QRS 46 QT 385 T 36 QTc 427 Conclusion SINUS RHYTHM POSSIBLE LEFT ATRIAL ENLARGEMENT [-0.1mV P-WAVE IN V1/V2] BORDERLINE ECG UNCONFIRMED REPORT Electronically signed by : Mario Harris MD 02/12/2025 08:42:30
--- NOTE | 2025-02-10 23:04 | P.PN_ITS ---
Subjective Narrative: Called by Hospitalist MARY with report that patient was experiencing increased belching and complaining of chest pain. EKG done which was reportedly without acute findings. He was given mylanta with minimal relief. The patient states his pain is mid-sternal and feels like burning pain . Happened after drinking some lemonade. Still passing flatus. Also having slight increase in abdominal pain from this am--at which time he had no abdominal pain. Exam Data for Last 24 hours Vital signs and Labs for Last 24 Hours: Temp Pulse Resp BP Pulse Ox O2 Del Method O2 Flow Rate 97.8 F 85 20 139/87 94 L Room Air 2 02/10/25 23:00 02/10/25 23:00 02/10/25 23:00 02/10/25 23:00 02/10/25 19:51 02/10/25 23:00 02/06/25 00:00 Laboratory Results - last 24 hr 02/10/25 06:48: WBC 5.2, RBC 4.89, Hgb 14.1, Hct 42.3, MCV 86.5, MCH 28.8, MCHC 33.3, RDW 13.2, Plt Count 294, MPV 8.9, Neut % (Auto) 51.6, Lymph % (Auto) 32.6, [place] % (Auto) 9.6 H, Eos % (Auto) 5.6, Baso % (Auto) 0.4, Neut # (Auto) 2.7, Lymph # (Auto) 1.7, [place] # (Auto) 0.5, Eos # (Auto) 0.3, Baso # (Auto) 0.0, Sodium 131 L, Potassium 3.2 L, Chloride 93 L, Carbon Dioxide 35 H, Anion Gap 6.2, BUN 25 H, Creatinine 1.30 H, Estimated Creat Clear 79, Estimated GFR 57 L, Est GFR ( Amer) 68 D, Glucose 109 H, Calcium 8.3 L, Magnesium 2.1, Total Bilirubin 0.9, AST 40, ALT 29, Alkaline Phosphatase 63, Total Protein 7.2, Albumin 4.1, Globulin 3.1, Albumin/Globulin Ratio 1.3 I & O for Last 24 hours: Intake & Output 02/07/25 02/08/25 02/09/25 02/10/25 23:59 23:59 23:59 23:59 Intake Total 600 / 645 145 / 245 3279.167 / 3519.167 1710 / 1710 Output Total 1900 / 1900 700 / 700 0 / 0 250 / 250 Balance -1300 / -1255 -555 / -455 3279.167 / 3519.167 1460 / 1460 Weight 89.403 kg 89.947 kg 89.176 kg 91.081 kg Constitutional Constitutional: moderate distress Comments: Appears to be in pain. *Routine Respiratory Exam Comments: No dyspnea. No wheezing. *Routine Cardiovascular Exam Cardiovascular: Present RRR *Routine Abdominal Exam Comments: Minimally tender L abdomen without diffuse tenderness; no tympany; mild ecchymoses around lower portion of staple line, preferenced to the R side slightly Progress Note: A&P Assessment and plan (1) Chest pain: Status: Acute Assessment and plan: Difficult to know if this is cardiac or GI related. EKG reported as normal. I have requested CBC and CMP to be added to his cardiac enzymes. If WBC elevated or CMP abnormal, will order enteric contrasted CT. (2) Increased belching: Status: Acute (3) SBO (small bowel obstruction): Status: Acute (4) BPH (benign prostatic hyperplasia): Status: Acute (5) Tobacco abuse: Status: Chronic (6) History of DVT (deep vein thrombosis): Status: Acute Assessment and Plan Assessment and Plan for All Diagnoses:: Closely monitor for changes.
[2025-02-10 23:07] LABS: Albumin Level 3.9 g/dl (3.5-5.0); Chloride 98 mmol/L (98-107)
[2025-02-10 23:08] LABS: Potassium 3.9 mmoL/L (3.5-5.1); Sodium 134 mmol/L (136-145)
[2025-02-10 23:10] LABS: Alanine Aminotransferase 32 U/L (12-78); Anion Gap 4.9 mEq/L (5-15); Aspartate Amino Transferase 39 U/L (17-59); Blood Urea Nitrogen 16 mg/dl (9-20); Carbon Dioxide 35 mmol/L (22.0-30.0); Creatinine Clearance Estimated 85 mL/min (50-200); Creatinine,Serum 1.20 mg/dl (0.66-1.25); Estimated Glomerular Filt Rate 62 ml/min (>60); GFR (African American) 75 ML/MIN (>60)
[2025-02-10 23:11] LABS: Albumin/Globulin Ratio 1.3 (1.1-1.8); Alkaline Phosphatase 61 U/L (38-126); Bilirubin,Total 0.7 mg/dl (0.2-1.3); Calcium 8.3 mg/dl (8.4-10.2); Globulin 3.0 g/dL (1.3-3.2); Glucose 110 mg/dl (74-100); Total Protein,Serum 6.9 g/dl (6.3-8.2)
[2025-02-10] MEDS: HYDROMORPHONE 2MG/ML SYRINGE 0.5 MG IV (23:18)
[2025-02-10 23:22] LABS: Troponin I 0.02 ng/ml (0.00-0.034)
[2025-02-10 23:28] LABS: Hematocrit 39.0 % (42.0-52.0); Hemoglobin 13.2 g/dL (14.1-18.0); Immature Granulocytes % 0.5 %; Mean Corpuscular HGB Conc 33.8 g/dL (31.8-35.4); Mean Corpuscular Hemoglobin 29.3 pg (27.0-31.2); Mean Corpuscular Volume 86.7 fl (80-94); Nucleated Red Blood Cells % 0 %; Platelet Count 275 K/mm3 (142-424); Red Blood Count 4.50 M/mm3 (4.60-6.20); Red Cell Distribution Width-SD 41.1 fL; White Blood Count 4.3 K/mm3 (4.8-10.8)
[2025-02-11] VITALS: BP 135/80; PULSE 80; PULSE 83; RESP 16; TEMP 36.6; O2SAT 95
[2025-02-11] MEDS: PANTOPRAZOLE SODIUM 80 MG in 0.9 % SODIUM CHLORIDE 100 ML 100 MG IV (00:18)
[2025-02-11 04:00] VITALS: BP 147/95; PULSE 80; PULSE 92; RESP 16; TEMP 36.5; O2SAT 97; BMI 27.1
--- NOTE | 2025-02-11 06:28 | PC.NURSE ---
PT was having some acid refux as he called it last night Phoned Clare Coelho PT for something to help him. She ordered Maalox for the Pt. Medication given per APR. About 945 PT was having really bad chest Pain and discomfort. he was belching and sry heaving got a EKG and Clare took it to the ER to Review with the ER MDS. Placed Pt on Telemetry at that time. Took his vitals and they were stable. Pt Continued to have this in the chest pain. Pt never did Vomit. Clare [employer]PUT[employer]GRAM[employer] CHIEF ordered a One time dose of Dilaudid 0.5 mg, that began to relieve the pain. Then gave 80 MG of protonix in 100 ml NS and ran it over a hour and that took care of the Pain. Then at that time PT had got some rest. Pt is Still on RA, breathing normal. Pt still has rhonci thru out his lungs. his urine Cluture is not back yet from early in the week. Pt has his call light and wheels are locked on the Bed. ALBERTO RIVERA RN
[2025-02-11 06:49] LABS: Hematocrit 38.0 % (42.0-52.0); Hemoglobin 12.7 g/dL (14.1-18.0); Immature Granulocytes % 0.5 %; Mean Corpuscular HGB Conc 33.4 g/dL (31.8-35.4); Mean Corpuscular Hemoglobin 29.2 pg (27.0-31.2); Mean Corpuscular Volume 87.4 fl (80-94); Nucleated Red Blood Cells % 0 %; Platelet Count 259 K/mm3 (142-424); Red Blood Count 4.35 M/mm3 (4.60-6.20); Red Cell Distribution Width-SD 42.1 fL; White Blood Count 4.0 K/mm3 (4.8-10.8)
[2025-02-11 07:15] LABS: Albumin Level 3.7 g/dl (3.5-5.0); Chloride 99 mmol/L (98-107); Sodium 134 mmol/L (136-145)
[2025-02-11 07:16] LABS: Potassium 3.9 mmoL/L (3.5-5.1)
[2025-02-11 07:18] LABS: Alanine Aminotransferase 28 U/L (12-78); Alkaline Phosphatase 61 U/L (38-126); Anion Gap 4.9 mEq/L (5-15); Aspartate Amino Transferase 36 U/L (17-59); Bilirubin,Total 0.7 mg/dl (0.2-1.3); Blood Urea Nitrogen 14 mg/dl (9-20); Carbon Dioxide 34 mmol/L (22.0-30.0); Creatinine Clearance Estimated 87 mL/min (50-200); Creatinine,Serum 1.20 mg/dl (0.66-1.25); Estimated Glomerular Filt Rate 62 ml/min (>60); GFR (African American) 75 ML/MIN (>60)
[2025-02-11 07:19] LABS: Albumin/Globulin Ratio 1.4 (1.1-1.8); Calcium 8.2 mg/dl (8.4-10.2); Globulin 2.7 g/dL (1.3-3.2); Glucose 99 mg/dl (74-100); Total Protein,Serum 6.4 g/dl (6.3-8.2)
[2025-02-11 07:36] LABS: Troponin I < 0.01 ng/ml (0.00-0.034)
[2025-02-11 08:00] VITALS: BP 135/90; PULSE 90; PULSE 94; RESP 18; TEMP 36.6; O2SAT 96
[2025-02-11] MEDS: GABAPENTIN 400MG CAPSULE 400 MG PO (09:27)
[2025-02-11] MEDS: PANTOPRAZOLE 40MG TABLET 40 MG PO (09:27)
[2025-02-11] MEDS: KETOROLAC 15MG/ML VIAL 15 MG IV (09:28)
--- NOTE | 2025-02-11 10:09 | P.DS_ITS ---
General Admission date:: 02/04/25 Discharge date: 02/11/25 HPI HPI HPI: History as provided by Dr. Gimenez as below. Patient was apparently born with a congenital malrotation, unclear exactly which. Has a history of SBO x 2 and resection both times. Last SBO with resection was in 2014. Feeling better after NG tube decompression, had loose bowel movements yesterday. No bowel movements today. CT abdomen/pelvis Reveals proximal small bowel loops with transition in the left abdomen, subpleural ground glass opacities in the left upper lobe. Discussed case with ED provider and decided to admit patient for further evaluation management. Patient is a 59-year-old male with history of hypertension, hyperlipidemia, iron deficiency anemia. He has a history of DVT and has an IVC filter in place. He is on hydrocodone, metoprolol, and gabapentin. He has a history of a variety of GI symptoms and has been followed by gastroenterology at this facility most recently. Patient had previously had a colonoscopy with Dr. Maldonado 2 years ago which was reportedly normal. He had an EGD with Dr. Peck in March 2023 which was positive for H. pylori. He has prior history of bowel obstruction on several occasions and has had laparotomy with small bowel resection x 3 in the past. He presented to the emergency department today on 02/04/2025 with a 3-day history of burning abdominal pain with associated nausea and vomiting with some nonbloody diarrhea. He has continued to pass gas. Denies any radiation of abdominal pain. Evaluation in the emergency department revealed some tenderness in the left lower and left upper quadrant without distention. Evaluation in the emergency department revealed normal CBC. He has slightly elevated creatinine at 1.4. Liver function tests unremarkable. CT angiogram performed which revealed proximal small bowel loops dilated with transition point in the left abdomen just anterior to the left kidney. 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 Given his findings consistent with small bowel obstruction he had nasogastric tube placed Per H & P This is a 59-year-old male who was last seen in our office for panendoscopy back in April 2024. He had a deficiency anemia and was on anticoagulation at the time. His hemoglobin was down to 8.8 back in February. Hemoglobin up to 15.7 on admission. He did undergo panendoscopy Dr. Yen in April 2024 with no findings of active bleeding but did have grade 2-3 internal hemorrhoids status post band ligation x 4. He did have some reactive gastropathy. He underwent PillCam with no findings of active bleeding. He has had normalization or near normalization of his hemoglobin since stopping the anticoagulation. The patient denies any melena or hematochezia currently. He did have abrupt onset nausea vomiting abdominal discomfort consistent with his previous history of small [place] l obstruction. He has been seen by Dr. Gimenez and here. He did get some relief of symptoms with NG tube placement. Patient does have a history of some constipation but he denies any constipation leading up to this hospitalization. Bowels have been moving well. He did have some diarrhea once his nausea and vomiting abdominal discomfort started. He is TTP throughout abdomen today as expected. Hospital Course Hospital Course Hospital Course: Anuel rowland is a 59-year-old male with medical history significant for SBO x 2 with resection, last 1 in 2014, DVT with IVC filter presented with several day onset of abdominal pain, decreased bowel movements and was admitted for small bowel obstruction. Taken for laparotomy evening of 02/05 with takedown of numerous adhesions. Has had slow gradual improvement in bowel function. Able to advance diet. Having bowel movements. Given his improvement, will discharge home with close follow-up with surgery. Problems addressed as follows: #Small bowel obstruction secondary to intra-abdominal adhesions #History of SBO with resection x 2, last 2014 ? Patient presents with progressive abdominal pain, decreased bowel movements. CT abdomen/pelvis suggestive of SBO with transition point in the left abdomen. Taken for laparotomy 02/05 with takedown of numerous adhesions. Had slow gradual advancement of diet as bowel function resumed. Having bowel movements for over 48 hours and tolerating full liquids to mechanical soft diet prior to discharge. Initially had difficulty with pain control, gradually weaned off the opiates. Doing better by day of discharge. Had a slight bump in creatinine to 1.6 and gradually improved back to his normal by discharge. Electrolyte abnormalities mild but improving with advancement of diet and nutrition. Corrected low potassium per protocol. Meeting criteria to discharge home with close follow-up with surgery as an outpatient. # Community-acquired right upper lobe pneumonia, suspected bacterial, present on admission.: CTA on admission suggests right upper lobe ground glass opacifications. WBC normal at this time. On room air. Completed 5 days of ceftriaxone. Remained stable on room air with no other signs of infection. #Chronic tobacco smoker: Nicotine patch as needed. Counseled on benefits of cessation. #History of DVT with IVC filter: No signs of DVT at this time. VTE prophylaxis ordered. IVC filter in place Total time spent on discharge 32 minutes in counseling, documentation, chart review, and direct care with patient. Exam Data for Last 24 hours Vital signs and Labs for Last 24 Hours: Temp Pulse Resp BP Pulse Ox O2 Del Method O2 Flow Rate 97.9 F 94 H 18 135/90 96 Room Air 2 02/11/25 08:00 02/11/25 08:00 02/11/25 08:00 02/11/25 08:00 02/11/25 08:00 02/11/25 08:00 02/06/25 00:00 Laboratory Results - last 24 hr 02/10/25 22:54: Sodium 134 L, Potassium 3.9 D, Chloride 98, Carbon Dioxide 35 H , Anion Gap 4.9 L, BUN 16 D, Creatinine 1.20, Estimated Creat Clear 85, Estimated GFR 62, Est GFR ( Amer) 75, Glucose 110 H, Calcium 8.3 L, Total Bilirubin 0.7, AST 39, ALT 32, Alkaline Phosphatase 61, Troponin I 0.02, Total Protein 6.9, Albumin 3.9, Globulin 3.0, Albumin/Globulin Ratio 1.3 02/10/25 23:10: WBC 4.3 L, RBC 4.50 L, Hgb 13.2 L, Hct 39.0 L, MCV 86.7, MCH 29.3, MCHC 33.8, RDW 13.0, Plt Count 275, MPV 8.8, Neut % (Auto) 51.6, Lymph % (Auto) 31.1, [place] % (Auto) 10.4 H, Eos % (Auto) 5.9, Baso % (Auto) 0.5, Neut # (Auto) 2.2, Lymph # (Auto) 1.3, [place] # (Auto) 0.4, Eos # (Auto) 0.3, Baso # (Auto) 0.0, Lactate 1.1 02/11/25 06:17: WBC 4.0 L, RBC 4.35 L, Hgb 12.7 L, Hct 38.0 L, MCV 87.4, MCH 29.2, MCHC 33.4, RDW 13.1, Plt Count 259, MPV 8.9, Neut % (Auto) 59.1, Lymph % (Auto) 21.5, [place] % (Auto) 11.1 H, Eos % (Auto) 7.3, Baso % (Auto) 0.5, Neut # (Auto) 2.3, Lymph # (Auto) 0.9, [place] # (Auto) 0.4, Eos # (Auto) 0.3, Baso # (Auto) 0.0, Sodium 134 L, Potassium 3.9, Chloride 99, Carbon Dioxide 34 H, Anion Gap 4.9 L, BUN 14, Creatinine 1.20, Estimated Creat Clear 87, Estimated GFR 62, Est GFR ( Amer) 75, Glucose 99, Calcium 8.2 L, Total Bilirubin 0.7, AST 36, ALT 28, Alkaline Phosphatase 61, Troponin I < 0.01, Total Protein 6.4, Albumin 3.7, Globulin 2.7, Albumin/Globulin Ratio 1.4 I & O for Last 24 hours: Intake & Output 02/08/25 02/09/25 02/10/25 02/11/25 23:59 23:59 23:59 23:59 Intake Total 145 / 245 3279.167 / 3519.167 1710 / 1830 220 / 220 Output Total 700 / 700 0 / 0 250 / 250 750 / 750 Balance -555 / -455 3279.167 / 3519.167 1460 / 1580 -530 / -530 Weight 89.947 kg 89.176 kg 91.081 kg 92.941 kg Constitutional Constitutional: no acute distress, average body habitus and cooperative *Routine HEENT Exam Head: Present normocephalic Eye: Present EOMI and PERRL ENT: Present mucous membranes moist *Routine Neck Exam Neck: Present supple; Absent lymphadenopathy *Routine Respiratory Exam Respiratory: Present CTA bilaterally *Routine Cardiovascular Exam Cardiovascular: Present RRR *Routine Abdominal Exam Abdominal: Present soft and normoactive bowel sounds; Absent tenderness, dist ended or rebound Comments: healing midline scar with no drainage *Routine Rectal Exam Patient deferred: visual exam *Routine Exam Patient deferred: penile exam *Routine Extremities Exam Extremities: Absent cyanosis, clubbing or edema *Routine Skin Exam Skin: Present warm; Absent rash *Routine Neurological Exam Neurological: Present alert, oriented X3 and moving all extremities Results Data Completed and Pending Labs on day of discharge: Labs from last 24 hours 02/11/25 02/10/25 02/10/25 06:17 23:10 22:54 WBC 4.0 L 4.3 L RBC 4.35 L 4.50 L Hgb 12.7 L 13.2 L Hct 38.0 L 39.0 L MCV 87.4 86.7 MCH 29.2 29.3 MCHC 33.4 33.8 RDW 13.1 13.0 Plt Count 259 275 MPV 8.9 8.8 Neut % (Auto) 59.1 51.6 Lymph % (Auto) 21.5 31.1 [place] % (Auto) 11.1 H 10.4 H Eos % (Auto) 7.3 5.9 Baso % (Auto) 0.5 0.5 Neut # (Auto) 2.3 2.2 Lymph # (Auto) 0.9 1.3 [place] # (Auto) 0.4 0.4 Eos # (Auto) 0.3 0.3 Baso # (Auto) 0.0 0.0 Sodium 134 L 134 L Potassium 3.9 3.9 D Chloride 99 98 Carbon Dioxide 34 H 35 H Anion Gap 4.9 L 4.9 L BUN 14 16 D Creatinine 1.20 1.20 Estimated Creat Clear 87 85 Estimated GFR 62 62 Est GFR ( Amer) 75 75 Glucose 99 110 H Lactate 1.1 Calcium 8.2 L 8.3 L Total Bilirubin 0.7 0.7 AST 36 39 ALT 28 32 Alkaline Phosphatase 61 61 Troponin I < 0.01 0.02 Total Protein 6.4 6.9 Albumin 3.7 3.9 Globulin 2.7 3.0 Albumin/Globulin Ratio 1.4 1.3 DS: Diagnosis Discharge Diagnosis (1) SBO (small bowel obstruction): Status: Acute Code(s): K56.609 - Unspecified intestinal obstruction, unspecified as to partial versus complete obstruction (2) Chest pain: Status: Resolved Code(s): R07.9 - Chest pain, unspecified Qualifiers: Chest pain type: other chest pain Qualified Code(s): R07.89 - Other chest pain (3) Increased belching: Status: Acute Code(s): R14.2 - Eructation (4) BPH (benign prostatic hyperplasia): Status: Acute Code(s): N40.0 - Benign prostatic hyperplasia without lower urinary tract symptoms (5) Tobacco abuse: Status: Chronic Code(s): Z72.0 - Tobacco use (6) History of DVT (deep vein thrombosis): Status: Acute Code(s): Z86.718 - Personal history of other venous thrombosis and embolism (7) Pneumonia: Status: Acute Code(s): J18.9 - Pneumonia, unspecified organism Qualifiers: Laterality: right Lung location: upper lobe of lung Pneumonia type: due to unspecified organism Qualified Code(s): J18.9 - Pneumonia, unspecified organism Problem details: Suspected bacterial, present on admission. Resolved by discharge Meds Home Medications and Allergies Home Medications ?Medication ?Instructions ?Recorded ?Confirmed ?Type hydrocodone 10 mg-acetaminophen 0.5 - 1 tab PO Q6H PRN chronic pain 05/10/22 02/04/25 History 325 mg tablet ferrous sulfate 325 mg (65 mg 325 mg PO DAILY #30 tabs 09/20/24 02/04/25 Rx iron) tablet,delayed release gabapentin 400 mg capsule 400 mg PO BID 01/17/2502/04 History tadalafil 10 mg tablet 10 mg PO DAILY #90 tabs 11/2 02/04/25 Rx amitriptyline 25 mg tablet 25 mg PO HS 02/04/25 History pantoprazole 40 mg tablet,delayed 40 mg PO HS 30 days #30 tabs 02/11/25 Rx release New Prescriptions to Start Prescriptions: Kiran Huber Allergies Allergy/AdvReac Type Severity Reaction Status Date / Time venom-honey bee (BEE VENOM Allergy Unknown Other Verified 02/01/25 10:48 (HONEY BEE)) Discharge Plan Disposition Patient Disposition: Home, Self-Care Condition: Fair Discharge Order Discharge Orders: Discharge Order (Routine); Ordered 02/11/25 Ordered By: Kiran Golden Follow up Plan Follow up with: Chuy Gimenez MD [Staff Physician, General Surgery] - 02/14/25 9:00 am Ricky Garcia DO [Primary Care Provider, [facility]] - 02/19/25 2:15 pm Prescriptions/Medication Reconciliation: New pantoprazole 40 mg Tablet,Delayed Release (Dr/Ec) 40 mg PO HS 30 Days Qty: 30 0RF Continued ferrous sulfate 325 mg (65 mg iron) tablet,delayed release (DR/EC) 325 mg PO DAILY Qty: 30 0RF gabapentin 400 mg capsule 400 mg PO BID tadalafil 10 mg tablet 10 mg PO DAILY Qty: 90 3RF hydrocodone-acetaminophen 10-325 mg tablet 0.5 - 1 tab PO Q6H PRN (Reason: chronic pain) amitriptyline 25 mg tablet 25 mg PO HS Discontinued methylprednisolone [Medrol ([place])] 4 mg tablets,dose pack 4 mg PO DIRECTED Rx Instructions: PO PER PKG DIR for 6 days Problem Reconciliation Problems Reviewed?: Yes Patient Discharge Instructions ACTIVITY: Continue current activity DIET: continue same diet Patient Instructions: DI for Small Bowel Obstruction, DI for Surgical Site Infection, Catheter-Associated Urinary Tract Infection Print Language: [place] Providers Primary Care Provider: Ricky Garcia Admit Provider: Jorge Lee Attending Provider: Jorge Lee
--- NOTE | 2025-02-11 10:14 | EXP.SURG.PN ---
Subjective Narrative: Patient had an episode of acute heartburn last night. He feels great this morning. Tolerating diet. Bowels are moving. Exam Data for Last 24 hours Vital signs and Labs for Last 24 Hours: Temp Pulse Resp BP Pulse Ox O2 Del Method O2 Flow Rate 97.9 F 94 H 18 135/90 96 Room Air 2 02/11/25 08:00 02/11/25 08:00 02/11/25 08:00 02/11/25 08:00 02/11/25 08:00 02/11/25 08:00 02/06/25 00:00 Laboratory Results - last 24 hr 02/10/25 22:54: Sodium 134 L, Potassium 3.9 D, Chloride 98, Carbon Dioxide 35 H, Anion Gap 4.9 L, BUN 16 D, Creatinine 1.20, Estimated Creat Clear 85, Estimated GFR 62, Est GFR ( Amer) 75, Glucose 110 H, Calcium 8.3 L, Total Bilirubin 0.7, AST 39, ALT 32, Alkaline Phosphatase 61, Troponin I 0.02, Total Protein 6.9, Albumin 3.9, Globulin 3.0, Albumin/Globulin Ratio 1.3 02/10/25 23:10: WBC 4.3 L, RBC 4.50 L, Hgb 13.2 L, Hct 39.0 L, MCV 86.7, MCH 29.3, MCHC 33.8, RDW 13.0, Plt Count 275, MPV 8.8, Neut % (Auto) 51.6, Lymph % (Auto) 31.1, [place] % (Auto) 10.4 H, Eos % (Auto) 5.9, Baso % (Auto) 0.5, Neut # (Auto) 2.2, Lymph # (Auto) 1.3, [place] # (Auto) 0.4, Eos # (Auto) 0.3, Baso # (Auto) 0.0, Lactate 1.1 02/11/25 06:17: WBC 4.0 L, RBC 4.35 L, Hgb 12.7 L, Hct 38.0 L, MCV 87.4, MCH 29.2, MCHC 33.4, RDW 13.1, Plt Count 259, MPV 8.9, Neut % (Auto) 59.1, Lymph % (Auto) 21.5, [place] % (Auto) 11.1 H, Eos % (Auto) 7.3, Baso % (Auto) 0.5, Neut # (Auto) 2.3, Lymph # (Auto) 0.9, [place] # (Auto) 0.4, Eos # (Auto) 0.3, Baso # (Auto) 0.0, Sodium 134 L, Potassium 3.9, Chloride 99, Carbon Dioxide 34 H, Anion Gap 4.9 L, BUN 14, Creatinine 1.20, Estimated Creat Clear 87, Estimated GFR 62, Est GFR ( Amer) 75, Glucose 99, Calcium 8.2 L, Total Bilirubin 0.7, AST 36, ALT 28, Alkaline Phosphatase 61, Troponin I < 0.01, Total Protein 6.4, Albumin 3.7, Globulin 2.7, Albumin/Globulin Ratio 1.4 I & O for Last 24 hours: Intake & Output 02/08/25 02/09/25 02/10/25 02/11/25 11:59 11:59 11:59 11:59 Intake Total 145 / 145 780 / 780 3559.167 / 3559.167 970 / 970 Output Total 1999 0 / 0 0 / 0 1000 / 1000 Balance -1855 / -1855 780 / 780 3559.167 / 3559.167 -30 / -30 Weight 198 lb 4.8 oz 196 lb 9.6 oz 200 lb 12.8 oz 204 lb 14.4 oz *Routine Abdominal Exam Abdominal: Present soft; Absent tenderness Comments: Incision clean Progress Note: A&P Assessment and plan (1) Chest pain: Status: Acute (2) Increased belching: Status: Acute (3) SBO (small bowel obstruction): Status: Acute Assessment and plan: Doing well. Discharge home with early outpatient follow-up (4) BPH (benign prostatic hyperplasia): Status: Acute (5) Tobacco abuse: Status: Chronic (6) History of DVT (deep vein thrombosis): Status: Acute
--- NOTE | 2025-02-11 11:09 | DIET.NUTRFU ---
Saw patient and provided handout on diet advancement s/p bowel sx. follow-up appt scheduled.
--- NOTE | 2025-02-12 10:09 | SW/DCPLANNER ---
Spoke with patient on the phone. Patient stated that he is doing good. Patient stated that he is aware of his upcoming appointments. 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 Patient stated that he has no concerns or questions at this time. Clifton Swartz
== END 2025-02-11 11:41 | disposition home or self-care (01) | DRG 335 ==
LOC: ER 14:23 → 2ND 14:24 → ICU 02-05 21:22 → 2ND 02-06 17:06
PROVIDERS: Internal Medicine Adolescent Medicine; Nurse Practitioner Acute Care; Surgery; Admitting Provider Student in an Organized Health Care Education/Training Program; Emergency Provider Emergency Medicine; PCP Internal Medicine; Visit Provider Student in an Organized Health Care Education/Training Program
PROC: 0DN80ZZ Release Small Intestine, Open Approach (ICD-10-PCS; CPT 49000; principal; 2025-02-05 17:00)
DX: K56.50 Intestinal adhesions [bands], unspecified as to partial versus complete obstruction (principal); J15.9 Unspecified bacterial pneumonia; Q43.3 Congenital malformations of intestinal fixation; N17.9 Acute kidney failure, unspecified; Z86.718 Personal history of other venous thrombosis and embolism; R14.2 Eructation; N40.0 Benign prostatic hyperplasia without lower urinary tract symptoms; I10 Essential (primary) hypertension; E78.5 Hyperlipidemia, unspecified; D50.9 Iron deficiency anemia, unspecified; Z91.030 Bee allergy status; K21.9 Gastro-esophageal reflux disease without esophagitis; F17.290 Nicotine dependence, other tobacco product, uncomplicated; Z71.6 Tobacco abuse counseling; R07.9 Chest pain, unspecified
CPT/HCPCS: 36415; 51702; 74018; 74021; 74174; 74250; 80053; 81001; 83605; 83690; 83735; 84100; 84484; 85025; 86803; 87086; 87389; 87636; 93005; 99231; 99285; J0456; J0696; J1100; J1171; J1200; J1650; J1885; J1920; J2003; J2175; J2250; J2270; J2405; J2470; J2543; J2704; J3010; J3480; J7030; J7050; J7120; Q9963; Q9967

== ENCOUNTER 2025-02-19 08:17 | Outpatient (CLI) | payer MEDICARE, SELFPAY ==
--- OUTSIDE RECORDS SUMMARY | 2025-02-19 08:20 | XMS_ITS | Clinical Summary ---
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 Name Role Phone Wicho Aguilar MD Primary Care Provider [phone] Allergies Active Allergy Reactions Criticality Noted Date [...] of 2 - PCV) 02/01/2016 01/31/2015, 01/31/2015 [id number] Vaccine ( - season) 2024 03/03/2023, 01/14/2021, 04/30/2020, Additional history exists [facility]-Influenza Vaccine (#1) 10/29/202403/03, 01/14/2022, 11/29/2015, Additional history exists [facility]-DTaP,Tdap,and Td Vaccines (4 - Td or Tdap) 08/23/2032 08/23/2022, 08/16/2013, 08/16/2013, Additional history exists [facility]-Zoster Vaccines Completed 11/20/2021, [facility]-HIV Screening Completed 05/18/2023 [facility]-Hepatitis C Screening Completed 05/18/2023 HPV Vaccines (No Doses Required) Completed [facility]-HIB Vaccines Aged Out No longer e [...] Reactive Non Reactive 05/18/2023 7:58 PM EDT [facility] Comment:Screening for HIV 1 & 2 antibodies, and P24 antigen is NONREACTIVE. No confirmatory testing is required. Blood Venous blood specimen / Unknown Venipuncture / Unknown 05/18/2023 6:37 PM EDT 05/18/2023 7:17 PM EDT us Isma Loving MD LAB BLOOD ORDERABLES Final Resul t [facility] [address] [place] [address] * Hepatitis C Antibody - ED (05/18/2023 6:37 PM EDT) Hepatitis C Antibody Negative Negative 05/18/2023 7:58 PM EDT [facility]ALTH[facility] Blood Venous blood specimen / Unknown Venipuncture / Unknown 05/18/2023 6:37 PM EDT 05/18/2023 7:17 PM EDT us Isma Loving MD LAB BLOOD ORDERABLES Final Resul t [facility] [address] [place] [address] from Last 3 Months or Most Recently Relevant to Health Maintenance Insurance MEDICARE Care Teams Hairspring Truing Inspector Relationship Specialty Start Date End Date Wicho Aguilar MD [address] [place] [address] PCP - General 07/11/20
== END 2025-02-19 23:59 | disposition home or self-care (01) ==
PROVIDERS: PCP Internal Medicine; Visit Provider Surgery
DX: R69 Illness, unspecified (principal)
CPT/HCPCS: G0463